=== PATIENT | male | born 1950 | race Caucasian/White ===

== ENCOUNTER 2023-04-09 05:41 | Inpatient (IN) | payer OTHER, SELFPAY ==
[2023-04-09] VITALS (17 sets, daily range): BP systolic 100–137; BP diastolic 47–91; BMI 27.3; BMI 26.0
[2023-04-09 02:28] LABS: % Basophils 0.4 % (0-2); % Eosinophils 0.1 % (0-6); % Immature Granulocytes 0.5 % (0-0.5); % Lymphocytes 8.2 % (20.5-51.1); % Monocytes 6.7 % (1.7-9.3); % Neutrophils 84.1 % (42.2-75.2); Absolute Basophils 0.1 10^3/uL (0-0.2); Absolute Immature Granulocytes 0.1 10^3/uL (0-0.05); Absolute Lymphocytes 1.3 10^3/uL (1.2-3.4); Hematocrit 37.3 % (39.0-52.0); Hemoglobin 12.5 g/dL (13.0-18.0); Mean Corp Hgb Conc. 33.5 g/dL (33.0-37.0); Mean Corpuscular Hgb 26.1 pg (27.0-31.0); Mean Corpuscular Volume 77.9 fL (80.0-94.0); Mean Platelet Volume 8.1 fL (7.4-10.4); Nucleated Red Blood Cells % 0 % (-); Platelet Count 272 10^3/uL (130-400); Red Blood Cell Count 4.79 10^6/uL (4.70-6.10); Red Cell Dist. Width 14.7 % (11.5-14.5); White Blood Cell Count 15.4 10^3/uL (4.8-10.8)
[2023-04-09 02:52] LABS: ALT (SGPT) 20 U/L (0-50); AST (SGOT) 19 U/L (17-59); Albumin 3.6 g/dl (3.5-5.0); Alkaline Phosphatase 95 U/L (38-126); Blood Urea Nitrogen 33 mg/dl (9-20); Calcium 9.2 mg/dl (8.4-10.2); Carbon Dioxide 22 mmol/L (22-30); Chloride 102 mmol/L (98-107); Estimated Creatinine Clearance 115 ml/min; Glucose 131 mg/dl (70-99); Potassium 3.9 mmol/L (3.5-5.1); Sodium 137 mmol/L (135-145); Total Bilirubin 0.7 mg/dl (0.2-1.3); Total Protein 6.5 g/dl (6.3-8.2); eGFR > 60.00
--- NOTE | 2023-04-09 02:54 | ED.GENMED ---
History of Present Illness
<JEREL Díaz - Last Filed: 04/09/23 03:15>
General
Chief Complaint: Breathing Problem
Source: patient
Exam Limitations: none
Time Seen by Provider: 04/09/23 02:21
Nursing documentation reviewed up to this point in time: agreed with
Travel History
Have you had any contact with someone who has COVID-19?: No
Do you have any symptoms of coronavirus? Fever > 100 degrees, chills, cough, shortness of breath, sore throat, loss of taste or smell, muscle aches, or headache?: Yes
Symptoms:: sob
History of Present Illness
History of Present Illness:
73 y/o M with history of COPD and GI bleed secondary to gastric ulcer presents to ED after passing a large 'black' stool tonight around 2300. Patient states he felt constipated for the past day and took laxatives to help. He is also reporting
worsening SOB and productive cough that is painful for past 2 weeks. He has history of COPD diagnosed in July by Dr. Watts, PCP. However, he states tonight especially his cough was so bad he was on his knees coughing and retching. He is also
reporting epigastric pain for a few days. He describes the pain as a constant pain in his epigastric region that is better with eating. It does not radiate. He is also reports localized right sided chest pain and right sided back pain. He states the
pain does not radiate and stays in one spot. He is reporting 15 pound unintentional weight loss since July due to decreased appetite. Patient reports he saw his PCP on Thursday and was given script for CXR which he has not yet completed. He denies
vomiting, NSAID use, diarrhea, congestion, fever, chills, body aches or palpitations.
Past History
<JEREL Díaz - Last Filed: 04/09/23 03:15>
Past History
ED Past Medical History: HTN and Hypercholesterolemia
ED Past Surgical History: Negative Cardiac
Social History
Tobacco: Smoker
Alcohol: Occasional
Drug: None
Personal:
Living: with family
Employment: Employed
Family History
Family History: Hypertension
Review of Systems
<Betzy Cesar CO - Last Filed: 04/09/23 03:15>
Review of Systems
All Other Systems: ROS reviewed and negative except as documented in HPI and ROS
Constitutional: Reports weight loss and sleep disturbance
EENT: Reports no symptoms
Respiratory: Reports cough and trouble breathing
Cardiac: Reports chest pain
ABD/GI: Reports black stools
: Reports no symptoms
Musculoskeletal: Reports back pain
Skin: Reports no symptoms
Neurological: Reports no symptoms
Endocrine: Reports no symptoms
Hematologic/Lymphatic: Reports no symptoms
Psychiatric: Reports no symptoms
Phy Exam
<Vanessajeffrey Cesar, [facility] - Last Filed: 04/09/23 03:15>
General Physical Exam
General Presentation: mild distress
General age: appears stated age
General Skin: warm and dry
General Habitus: normal
General Mental: alert
General Hydration: appears well hydrated
ENT Exam
ENT Exam: EOMI, TM's normal, pharynx normal and normocephalic
Eye Exam
Eye Exam: PERRL, EOMI and conjunctiva normal
Cardiovascular Exam
Cardiovascular Exam: regular rate/rhythm, no edema, no gallop, no murmur and normal peripheral pulses
Pulmonary Exam
Pulmonary Exam: no rales, no crackles, no rhonchi, no wheezing and other (increased WOB mild, decreased breath sounds along lower left lung field, )
Cough: productive cough
Respirations: mild increase in effort
Gastrointestinal Exam
Gastrointestinal Exam: normal bowel sounds, soft, non distended and tender (tender along epigastric region )
Neurological Exam
Neurological Exam: alert and oriented x3
Skin Exam
Skin Exam: normal color, warm/dry and no rash
Psychiatric Exam
Psychiatric Exam: normal mood/affect
<Mirna London DO - Last Filed: 04/09/23 07:48>
Heart Failure Risk
Heart Failure Risk Score: Not Applicable
Course
<VanessaST SandyPA - Last Filed: 04/09/23 03:15>
Orders/Labs/Results
Orders:
Orders
04/09/23 02:07
EKG [Electrocardiogram (*1)] Urgent
Reason for Study: Shortness of Breath
04/09/23 02:08
EKG- Treatment ONCE
04/09/23 02:20
Complete Blood Count/With Diff Urgent
Comprehensive Metabolic Panel Urgent
Lipase Urgent
NT-proBNP Urgent
Comment: ADDED
Troponin I Urgent
04/09/23 02:31
Add On- LAB Urgent
Tests Added?: lipase
0.9% Sodium Chloride 1000 ml [Nss] 1,000 ml IV BOLUS
04/09/23 02:46
Pantoprazole 80 mg/100 ml Nss [Protonix] 80 mg in 100 ml IV NOW
Pantoprazole [Protonix IV] 80 mg IV NOW STA
CR Chest - 2 Views Urgent
Comment:
Reason For Exam: SOB, R CP, cough
04/09/23 02:53
Type+Screen Urgent
COVID-19 Antigen Urgent
Source: Nasal Swab
Lactic Acid Urgent
Influenza A+B Rapid Molecular Urgent
GIORGI Source: Nasal Swab
Specimen Description:
04/09/23 02:56
Add On- LAB Urgent
Tests Added?: pro bnp
04/09/23 03:54
CT Chest Pe Study Urgent
Comment:
Reason For Exam: SOB, massive pleural effusion on R
Diphenhydramine [Benadryl] 50 mg IV NOW STA
Hydrocortisone Sod Succinate [Solu-Cortef] 200 mg IV NOW STA
04/09/23 04:48
Admit/Transfer Patient As Directed
Co-Sign Provider:
Level of Care: Inpatient admission
Assign to:: IMU- Intermediate Care
Physician / Group: htay
Diagnosis: GIB, Sxtic Pleural effusion, Epigastric pain , SoB
Reason for Hospitalization: GIB, Sxtic Pleural effusion, Epigastric pain , SoB
Expected length of stay greater than two midnights?: Yes
ELOS- Estimated Length of Stay in days: 5
I certify the patient meets the requirements for IP care: Yes
04/09/23 04:51
Code Status As Directed
Resuscitation Status: Full Code
04/09/23 Breakfast
NPO
Allow oral meds: Yes
Allow clear liquids: No
NPO with Ice Chips: Yes
04/09/23 06:05
Troponin I Urgent
04/09/23 06:24
H&H Q6H
0.9% Sodium Chloride 1000 ml [Nss] 1,000 ml IV 60 mls/hr
Ipratropium/Albuterol Sulfate [Duoneb] 3 ml INH R Q4HPRN PRN
04/09/23 06:24
Add On- LAB Routine
Tests Added?: Body Fluid Triglycerides
Consult Notification Routine
Specialty to Notify: Gastroenterology
Date consulting provider notified: 04/09/23
Time consulting provider notified: 07:35
Notified:: Provider
Consult Notification Routine
Specialty to Notify: IRAD (Interventional Radiology)
Date consulting provider notified: 04/09/23
Time consulting provider notified: 07:13
Notified:: Office
Consult Notification Routine
Specialty to Notify: Pulmonary
Date consulting provider notified: 04/09/23
Time consulting provider notified: 07:36
Notified:: Provider
GASTROINTESTINAL CONSULT Routine
Consulting Provider: Felisha Golden
Was physician already notified: No
Reason for consult: HoB POS balck stool
IRAD CONSULT Routine
Consulting Provider: Eder Tejeda
Was physician already notified: No
Reason for consult: Symromatic Rt sided pleural effusion
PULMONARY CONSULT Routine
Consulting Provider: Alice Petty
Was physician already notified: No
Reason for consult: Symtomatic large Rt plural efffusion, HX COPD
Body Fluid Amylase Routine
Fluid Source: Pleural
Body Fluid Cell Count Routine
What is the Body Fluid: pleural fluid
Body Fluid Glucose Routine
Fluid Source: Pleural
Body Fluid LDH Routine
Fluid Source: Pleural
Body Fluid Protein Routine
Fluid Source: Pleural
Body Fluid Triglycerides Routine
Fluid Source: Pleural
Body Fluid pH Routine
Fluid Source: Pleural
LDH Routine
Comment: post procedure, add on to morning labs if already drawn
Total Protein Routine
Comment: post procedure, add on to morning labs if already drawn
Fluid Culture with Gram Stain Routine
GIORGI Source: Pleural Fluid
Specimen Description:
Gram Stain Routine
GIORGI Source: Pleural Fluid
Specimen Description:
Comment: POST PROCEDURE
Activity As Directed
Activity Level: Encourage Progressive Amb
INT (Intravenous Needle Therapy) As Directed
Comment: Place 2 IV catheters of the largest bore possible until stable
Intake/ Output As Directed
Frequency: Per unit guidelines
Orthostatic Vital Signs As Directed
Orthostatic VS Frequency: Now
Comment: then every four hours for twenty-four hours
Pneumatic Compression Sleeves As Directed
Type: Knee high
Vital Signs As Directed
Frequency: Per unit guidelines
DX Deep Vein Thrombosis Video Routine
04/09/23 12:00
Pantoprazole 80 mg/100 ml Nss [Protonix] 80 mg in 100 ml IV Q10H
04/09/23 12:24
H&H Q6H
04/09/23 18:24
H&H Q6H
04/10/23 00:24
H&H Q6H
04/10/23 06:00
Basic Metabolic Panel IN AM
Abnormal Lab Results
04/09/23
02:20
WBC 15.4 H 10^3/uL
(4.8-10.8)
Hgb 12.5 L g/dL
(13.0-18.0)
Hct 37.3 L %
(39.0-52.0)
MCV 77.9 L fL
(80.0-94.0)
MCH 26.1 L pg
(27.0-31.0)
RDW 14.7 H %
(11.5-14.5)
Abs Immat Gran (auto) 0.1 H 10^3/uL
(0-0.05)
Absolute Neuts (auto) 13.0 H 10^3/uL
(1.4-6.5)
Absolute Monos (auto) 1.0 H 10^3/uL
(0.1-0.6)
Neutrophils % 84.1 H %
(42.2-75.2)
Lymphocytes % 8.2 L %
(20.5-51.1)
BUN 33 H mg/dl
(9-20)
Creatinine 0.6 L mg/dL
(0.7-1.3)
Glucose 131 H mg/dl
(70-99)
04/09/23 02:20
04/09/23 02:20
Vital Signs
Initial and Last Documented VS:
Initial Vital Signs
Temp Pulse Resp BP Pulse Ox
97.5 F 129 28 122/91 98
04/09/23 02:09 04/09/23 02:09 04/09/23 02:09 04/09/23 02:09 04/09/23 02:09
Last Documented Vital Signs
Temp Pulse Resp BP Pulse Ox
98.3 F 111 24 135/81 98
04/09/23 06:27 04/09/23 06:30 04/09/23 06:30 04/09/23 06:25 04/09/23 06:30
<Mirna London, DO - Last Filed: 04/09/23 07:48>
Orders/Labs/Results
Orders:
Orders
04/09/23 02:07
EKG [Electrocardiogram (*1)] Urgent
Reason for Study: Shortness of Breath
04/09/23 02:08
EKG- Treatment ONCE
04/09/23 02:20
Complete Blood Count/With Diff Urgent
Comprehensive Metabolic Panel Urgent
Lipase Urgent
NT-proBNP Urgent
Comment: ADDED
Troponin I Urgent
04/09/23 02:31
Add On- LAB Urgent
Tests Added?: lipase
0.9% Sodium Chloride 1000 ml [Nss] 1,000 ml IV BOLUS
04/09/23 02:46
Pantoprazole 80 mg/100 ml Nss [Protonix] 80 mg in 100 ml IV NOW
Pantoprazole [Protonix IV] 80 mg IV NOW STA
CR Chest - 2 Views Urgent
Comment:
Reason For Exam: SOB, R CP, cough
04/09/23 02:53
Type+Screen Urgent
COVID-19 Antigen Urgent
Source: Nasal Swab
Lactic Acid Urgent
Influenza A+B Rapid Molecular Urgent
GIORGI Source: Nasal Swab
Specimen Description:
04/09/23 02:56
Add On- LAB Urgent
Tests Added?: pro bnp
04/09/23 03:54
CT Chest Pe Study Urgent
Comment:
Reason For Exam: SOB, massive pleural effusion on R
Diphenhydramine [Benadryl] 50 mg IV NOW STA
Hydrocortisone Sod Succinate [Solu-Cortef] 200 mg IV NOW STA
04/09/23 04:48
Admit/Transfer Patient As Directed
Co-Sign Provider:
Level of Care: Inpatient admission
Assign to:: IMU- Intermediate Care
Physician / Group: htay
Diagnosis: GIB, Sxtic Pleural effusion, Epigastric pain , SoB
Reason for Hospitalization: GIB, Sxtic Pleural effusion, Epigastric pain , SoB
Expected length of stay greater than two midnights?: Yes
ELOS- Estimated Length of Stay in days: 5
I certify the patient meets the requirements for IP care: Yes
04/09/23 04:51
Code Status As Directed
Resuscitation Status: Full Code
04/09/23 Breakfast
NPO
Allow oral meds: Yes
Allow clear liquids: No
NPO with Ice Chips: Yes
04/09/23 06:05
Troponin I Urgent
04/09/23 06:24
H&H Q6H
0.9% Sodium Chloride 1000 ml [Nss] 1,000 ml IV 60 mls/hr
Ipratropium/Albuterol Sulfate [Duoneb] 3 ml INH R Q4HPRN PRN
04/09/23 06:24
Add On- LAB Routine
Tests Added?: Body Fluid Triglycerides
Consult Notification Routine
Specialty to Notify: Gastroenterology
Date consulting provider notified: 04/09/23
Time consulting provider notified: 07:35
Notified:: Provider
Consult Notification Routine
Specialty to Notify: IRAD (Interventional Radiology)
Date consulting provider notified: 04/09/23
Time consulting provider notified: 07:13
Notified:: Office
Consult Notification Routine
Specialty to Notify: Pulmonary
Date consulting provider notified: 04/09/23
Time consulting provider notified: 07:36
Notified:: Provider
GASTROINTESTINAL CONSULT Routine
Consulting Provider: Felisha Golden
Was physician already notified: No
Reason for consult: HoB POS balck stool
IRAD CONSULT Routine
Consulting Provider: Eder Tejeda
Was physician already notified: No
Reason for consult: Symromatic Rt sided pleural effusion
PULMONARY CONSULT Routine
Consulting Provider: Alice Petty
Was physician already notified: No
Reason for consult: Symtomatic large Rt plural efffusion, HX COPD
Body Fluid Amylase Routine
Fluid Source: Pleural
Body Fluid Cell Count Routine
What is the Body Fluid: pleural fluid
Body Fluid Glucose Routine
Fluid Source: Pleural
Body Fluid LDH Routine
Fluid Source: Pleural
Body Fluid Protein Routine
Fluid Source: Pleural
Body Fluid Triglycerides Routine
Fluid Source: Pleural
Body Fluid pH Routine
Fluid Source: Pleural
LDH Routine
Comment: post procedure, add on to morning labs if already drawn
Total Protein Routine
Comment: post procedure, add on to morning labs if already drawn
Fluid Culture with Gram Stain Routine
GIORGI Source: Pleural Fluid
Specimen Description:
Gram Stain Routine
GIORGI Source: Pleural Fluid
Specimen Description:
Comment: POST PROCEDURE
Activity As Directed
Activity Level: Encourage Progressive Amb
INT (Intravenous Needle Therapy) As Directed
Comment: Place 2 IV catheters of the largest bore possible until stable
Intake/ Output As Directed
Frequency: Per unit guidelines
Orthostatic Vital Signs As Directed
Orthostatic VS Frequency: Now
Comment: then every four hours for twenty-four hours
Pneumatic Compression Sleeves As Directed
Type: Knee high
Vital Signs As Directed
Frequency: Per unit guidelines
DX Deep Vein Thrombosis Video Routine
04/09/23 12:00
Pantoprazole 80 mg/100 ml Nss [Protonix] 80 mg in 100 ml IV Q10H
04/09/23 12:24
H&H Q6H
04/09/23 18:24
H&H Q6H
04/10/23 00:24
H&H Q6H
04/10/23 06:00
Basic Metabolic Panel IN AM
Abnormal Lab Results
04/09/23
02:20
WBC 15.4 H 10^3/uL
(4.8-10.8)
Hgb 12.5 L g/dL
(13.0-18.0)
Hct 37.3 L %
(39.0-52.0)
MCV 77.9 L fL
(80.0-94.0)
MCH 26.1 L pg
(27.0-31.0)
RDW 14.7 H %
(11.5-14.5)
Abs Immat Gran (auto) 0.1 H 10^3/uL
(0-0.05)
Absolute Neuts (auto) 13.0 H 10^3/uL
(1.4-6.5)
Absolute Monos (auto) 1.0 H 10^3/uL
(0.1-0.6)
Neutrophils % 84.1 H %
(42.2-75.2)
Lymphocytes % 8.2 L %
(20.5-51.1)
BUN 33 H mg/dl
(9-20)
Creatinine 0.6 L mg/dL
(0.7-1.3)
Glucose 131 H mg/dl
(70-99)
04/09/23 02:20
04/09/23 02:20
Vital Signs
Initial and Last Documented VS:
Initial Vital Signs
Temp Pulse Resp BP Pulse Ox
97.5 F 129 28 122/91 98
04/09/23 02:09 04/09/23 02:09 04/09/23 02:09 04/09/23 02:09 04/09/23 02:09
Last Documented Vital Signs
Temp Pulse Resp BP Pulse Ox
98.3 F 111 24 135/81 98
04/09/23 06:27 04/09/23 06:30 04/09/23 06:30 04/09/23 06:25 04/09/23 06:30
<JEREL Díaz - Last Filed: 04/09/23 03:15>
MDM/Problems Addressed
Differential Diagnosis Includes:
GI bleed
PNA
Cancer
COPD exacerbation
Gastroenteritis
<JEREL Díaz - Last Filed: 04/09/23 03:15>
*Critical Care Note
Total Time (30-74mins, 75-104mins- exclusive of procedures): Not Applicable
<Mirna London DO - Last Filed: 04/09/23 07:48>
*Radiology
Radiology exam reviewed: preliminary read by ED provider (Chest x-ray shows massive likely pleural effusion on the right with mild deviation of trachea to the left.)
*Pulse Oximetry
Patient hypoxic: no
*EKG
Interpreted by ED Provider?: Yes
Interpretation: abnormal
Comparison EKG: no changes (Unchanged from previous December 2019 stable heart rate has increased from 102 to now 130)
Rate: tachycardiac
Rhythm: sinus
[place]: normal axis
Interval: normal interval
QRS Pattern: normal QRS
Ischemia: non-specific ST changes
*Loader Demolder Interpretation
Rate: tachycardiac
Interpretation: abnormal
Rhythm: sinus
*Critical Care Note
Total Time (30-74mins, 75-104mins- exclusive of procedures): 30
comment:
Critical care statement: A total of 30 minutes of critical care time was provided for this patient. This includes management of unstable vital signs, evaluation of the patient at bedside, reviewing the patient's pertinent medical records, discussion
with consultants, review of old EKGs and review of pertinent medical records. This time with separate from time utilized to perform the aforementioned documented procedures
ED Attending Note
<JEREL Díaz - Last Filed: 04/09/23 03:15>
-
Portions of this chart may have been created with voice recognition software.� Occasional wrong word or��sound alike� substitutions may have occurred due to the inherent limitations of voice recognition software.
<Mirna London DO - Last Filed: 04/09/23 07:48>
ED Attending Note
Patient seen and examined by attending physician: Yes
I performed the substantive portion of visit, reviewed & personally made and approve the management plan that is documented in note by myself or MICHELLE.: Yes
I performed a history and physical exam of patient and discussed management with resident, I reviewed resident's note and agree with documented findings and plan of care.: Yes
ED Attending Note:
This is a 73-year-old gentleman who resides at home with his . He has history of CAD, hypertension, hyperlipidemia, COPD, prior history of smoking and prior history of symptomatic upper GI bleed requiring hospitalization, blood transfusion
December 2019. At that time patient had been taking a fair amount of NSAIDs for arthritis pain. Since that hospitalization he denies further NSAID use.
He does note somewhat chronic cough which he relates to COPD, was started on Trelegy today by his primary care physician Dr. Paul.
More recently however over the past week he has had increased cough and progressive shortness of breath, dyspnea on exertion along with some generalized upper abdominal pain and right anterolateral to right flank chest pain. Shortness of breath has
become much worse throughout the day today with lightheadedness with standing, progressive dyspnea on exertion today and he passed a large black stool tonight. He is also noted some intermittent retching tonight without vomiting. He notes very
mild, chronic bilateral lower extremity edema. He has had some unintentional weight loss over the past 12 months.
GENERAL: 73-year-old gentleman appears his stated age, awake and alert, moderately ill in appearance. Moderate resting tachypnea but able to speak in full sentences. Intermittent harsh nonproductive cough is noted.
EYE: pupils equal and reactive. anicteric. Conjunctiva are pink.
NECK: Supple, nontender, no meningismus, no significant adenopathy. No JVD.
ENT: oral mucosa is moist. No rhinorrhea.
CARDIAC: Regular rhythm, tachycardic. no murmur.
LUNGS: Mild resting tachypnea, markedly decreased breath sounds right lung field with dullness to percussion right posterior lung field at least [address] up. Left lung field is clear.
ABDOMEN: Soft, nondistended, mild tenderness epigastric region, no r/g, minimal right CVA tenderness to percussion. Normoactive BS. Rectal exam by KEVIN student�black stool that is heme positive.
NEUROLOGICAL: Alert and oriented x3, no focal neuro deficits.
SKIN: Warm and dry, normal color, skin intact. No rash.
MUSCULOSKELETAL: No clubbing or cyanosis, trace pretibial edema bilaterally, peripheral pulses are full and equal b/l. No palpable tenderness.
PSYCH: Normal and appropriate interaction.
Patient is noted to be tachycardic, systolic blood pressure of 122 but significant concern for orthostasis, hemodynamic instability.
With epigastric pain, black stool that is heme positive, I suspect recurrent upper GI bleed with concern for symptomatic/acute blood loss anemia.
With cough, shortness of breath, right lower thoracic chest discomfort and decreased breath sounds on right, concern for pleural effusion, pneumonia, atelectasis,pneumothorax. Less likely CHF as left lung field is clear.
Other consideration is ACS, sepsis.
Will initiate IV fluid resuscitation, IV Protonix bolus and drip.
Labs are pending and will check COVID and influenza testing as well.
Will check chest x-ray.
04/09/2023 0433 AM
Sinus tachycardia his mildly improved with IV fluid bolus.
Chest x-ray shows what appears to be massive pleural effusion with complete opacification of right hemithorax.
On clinical exam, nothing to suggest cardiac tamponade, neck veins are not distended and overall feeling at least mildly improved after IV fluids.
Will check CT of the chest.
Labs show mild anemia with hemoglobin of 12.5, white blood cell count of 15.4.
BUN of 33 with creatinine is 0.6. Concerning for upper GI bleed.
Troponin is negative, BNP is normal at 38 as expected.
COVID and influenza are negative.
With massive pleural effusion, unintentional weight loss, prior smoking history, significant concern for underlying mass lesion, occult malignancy.
Discharge Plan
Departure
Patient Disposition: Admit
Date of Disposition: 04/09/23
Time of Disposition: 04:29
Admit to: IMU
Admit to doctor: Leonard
Presentation/result/management discussed w/ accepting MD/DO: Hospitalist
Condition: Serious
Discharge Problem:
Acute upper gastrointestinal bleeding, massive pleural effusion
Interventions
Interventions:
*Risk Screen - Suicide Last Done: 04/09/23 02:09
*General Assessment Last Done: 04/09/23 02:09
*Neglect/Abuse Screening Last Done: 04/09/23 02:09
ED- Fall Risk Assessment Last Done: 04/09/23 02:09
*ED COVID-19 Vaccine History Last Done: 04/09/23 02:09
*Nursing Disposition Last Done: 04/09/23 06:05
ED- Cardiac Assessment Last Done: 04/09/23 02:27
ED- Pulmonary Assessment Last Done: 04/09/23 02:27
Discharge Date and Time
Discharge Date/Time: 04/09/23 06:30
[2023-04-09 03:03] LABS: Troponin I < 0.012 ng/ml
[2023-04-09] MEDS: PROTONIX IV 80 MG IV (03:06)
[2023-04-09] MEDS: NSS 1000 IV ×3 (03:07→22:24)
[2023-04-09 03:14] LABS: Lipase 40 U/L (23-300)
[2023-04-09 03:17] LABS: Lactic Acid 1.7 mmol/L (0.7-2.0)
[2023-04-09 03:26] LABS: NT-proBNP 38.6 pg/ml
[2023-04-09 03:31] LABS: COVID-19 Antigen Negative (Negative)
[2023-04-09] MEDS: PROTONIX 100 IV ×3 (03:48→22:24)
[2023-04-09] MEDS: BENADRYL 50 MG IV (04:06)
[2023-04-09] MEDS: SOLU-CORTEF 200 MG IV (04:06)
--- NOTE | 2023-04-09 04:43 | HPS.HSE ---
Addendum entered and electronically signed by Federico Valle MD 04/09/23 15:03:
[facility] PE protocol
1. � No pulmonary embolism identified.
2. � Very large right pleural effusion completely filling the right hemithorax with associated complete atelectasis of the right lung and mass effect against the mediastinum with mediastinal shift to the left.
3. � Emphysema.
Addendum entered and electronically signed by Federico Valle MD 04/09/23 05:29:
Addendum : Pul consult for evaluation fo large Rt sided pleural effusion
Original Note:
Family Physician
-
Family Physician: Mack Paul
Chief Complaint
-
Balck stool, epigastric pain , Rt side CP, SoB
History of Present Illness
HPI
73M former smoker, COPD HX GIB, ACLA requiring blood Tx , EGD evidence of non-bleeding gastric ulcer in 2019, HX CAD evaluation at ER for acute onset of black stool BM associated witjh acute epigastric pain for last few days. pain is relieved by
eating. No recent use of NSAIDs
Reportedly involuntary wt loss 15 lbs since last yr July. Before that he was intentionally loosing wt.
He was recently seen by PCP for cough and SoB.
Rt sided constant CP not clearly associated with inspiration
Progressively SoB now with 2-3 words sentence.
Medical History
Past Medical History
Past Medical History: Reports CAD (with stents ), COPD, HTN, Hypercholesterolemia and Other (HX Dz )
Past Surgical History: Reports Cardiac (stents )
Social History
Tobacco: Former Smoker
Alcohol: None
Drug: None
Family History
Family History: Not pertinent
Allergies / Home Medications
Allergies reflects when Allergies were last updated in [facility].
Home Medications with original date entered in [facility]
Allergy/Medication List:
Allergies
Allergy/AdvReac Type Severity Reaction Status Date / Time
shellfish derived Allergy Severe Anaphylaxis Verified 04/09/23 02:08
Home Medications
Vitamin C: 2 tab PO DAILY Supplement 01/05/20
Zinc 1 tab PO DAILY Supplement 01/05/20
atorvastatin 80 mg tablet 80 mg PO QPM High cholesterol 01/05/20
cholecalciferol (vitamin D3) 50 mcg (2,000 unit) tablet 2,000 units PO DAILY Supplement 01/05/20
metoprolol tartrate 25 mg tablet 12.5 mg PO BID Blood pressure 01/05/20
oxymetazoline 0.05 % nasal spray (Afrin Sinus (oxymetazoline)) 1 sprays intranasal DAILYPRN PRN congestion 01/05/20
pantoprazole 40 mg tablet,delayed release 40 mg PO BID #60 tabs 01/07/20
Review of Systems
-
Constitutional: Reports No Symptoms
EENT: Reports No Symptoms
Respiratory: Reports See HPI and Trouble Breathing
Cardiac: Reports No Symptoms and Chest Pain (rt sdied and constant )
Abdomen/GI: Reports Black Stools
: Reports No Symptoms
Musculoskeletal: Reports No Symptoms
Skin: Reports No Symptoms
Neurological: Reports No Symptoms
Endocrine: Reports No Symptoms
Hematologic/Lymphatic: Reports No Symptoms
Psych: Reports No Symptoms
Physical Exam
Vital Signs
Vital Signs
Temp Pulse Resp BP Pulse Ox
97.5 F 115 24 118/81 97
04/09/23 02:09 04/09/23 04:00 04/09/23 04:00 04/09/23 03:00 04/09/23 04:00
Physical Exam
General: Respiratory Distress (dyspnic with 3- 4words sentence , improved with lying in Rt latreral position ) and Other (not toxic looking )
HEENT: NormoCephalic and Anicteric
Respiratory: Accessory Resp Muscle Use and Decreased Breath Sounds (especially at Rt lower chest field ); No Wheezes or Rhonchi
Cardiac: S1/S2 and Regular Rhythm; No Murmur
Breast: Deferred by me
GI: Soft, Non Tender, Non Distended and Normal Bowel Sounds
Rectal: Black (HUSSEIN by ER )
Genito-urinary: Deferred by me
Musculoskeletal: No Cyanosis and No Edema
Skin: Warm
Neuro: AO x 3 and No Motor Deficits
Psych: Calm (pleasant )
Laboratory Results
-
04/09/23 02:20
04/09/23 02:20
Laboratory Results
Lactic Acid 1.7 mmol/L (0.7-2.0) 04/09/23 02:53
Total Bilirubin 0.7 mg/dl (0.2-1.3) 04/09/23 02:20
AST 19 U/L (17-59) 04/09/23 02:20
ALT 20 U/L (0-50) 04/09/23 02:20
Alkaline Phosphatase 95 U/L (38-126) 04/09/23 02:20
Troponin I < 0.012 ng/ml 04/09/23 02:20
Lipase 40 U/L (23-300) 04/09/23 02:20
Data Reviewed
-
Diagnostic Radiology: Report Reviewed by me
CT Scan: Other (pending CTA P protocol )
Medical Tests (Nuc Med, Echo, EKG etc): Report Reviewed by me
Lab Data: Labs Reviewed by me
Old Records: Reviewed
Impression/Plan
-
Reviewed VS: afebrile ST 110-120 , tachynic, BP 120/80 POx 98 on RA
Data
WCC 15.4
Hgb 12.4 - last Hgb was 9.8 in 01/09/20
BUN 33
Cr 0.6
BG 131
Pending TPNI
NEG proBNP
NEG Flu A & B
NEG Covid Ag
CXR: large Rt sided effusion
Pending CTA Chest for PE protocol
EKG
ST NOS ST abn
Abn EKG
10/27/22 ECHO
LVEF 60 %
Nl diastolic function
Last hospitalist admission: 01/05/20 - 01/07/20 DC DX
UGIB
ABLA requiring transfusion.
ASSESSMENT & PLAN
Pending Rx reconciliation
Acute HoB POS Black stool GIB -suspect UGI origin
Initial Hgb 12.4 , BUN 33
HX GIB with EGD evidence of non-bleeding gastric ulcer in 2019
- T & S, Blood consent
- PPI gtt
- H & H q6h
- NPO and IVF
- GI consult
15 lbs Wt loss- intentional at first but unintentionally wt loss since July 2022
DDX : GI neoplasm or lung Neoplasm
- To consider EGD
- await [facility] PE protocol
Large Rt side pleural effusion - symptomatic
Cough with progressive SoB
Rt sided lower CP ? Pleuritic
Clinically not in HF
tachycardic
- agree with [facility] PE protocol
- IR consult for Rt sided thoracentesis
HX COPD - clinically not broncho spastic
- cont OP Meds
Chr conditions
Hyperlipidemia - cont statin
Essential hypertension - cont metoprolol with hold parameters for SBP < 110
CAD with stents - cont statin
DVT Px: SCD
Code: Full
IMU
[2023-04-09 06:44] LABS: Troponin I < 0.012 ng/ml
--- NOTE | 2023-04-09 07:02 | CON.GI ---
Addendum entered and electronically signed by Felisha Frost Do, MD 04/09/23 10:31:
I saw and examined the patient.
The COOL ROOFING INSTALLER's note was reviewed and I agree with the note.
Comment: Nito is a 73yo M with h/o COPD and CAD s/p stent not on AC who was admitted for SOB and found to have large R sided pleural effusion. GI consulted for melena. He has remote h/o PUD on EGD with myself in Dec 2019 with 6mm gastric ulcer
and H.pylori gastritis for which he completed treatment. He did not do stool studies to confirm eradication or repeat EGD to ascertain healing. He does use NSAIDs but not routinely. Exam vitals HR 108. Labs Hbg 10.9. CT chest very large R
pleural effusion, COPD
Impression
- Melena and h/o PUD on EGD 12/2019
ddx includes recurrent PUD, malignancy or ectasia
- Hpylori gastritis
- Large R pleural effusion
- COPD
- HTN
- HL
- CAD s/p stent not on AC
Recommendations
- C/w PPI BID
- 2 large bore IVs
- CLD after thoracentesis and NPO at [facility]
- If respiratory status improves plan for EGD tomorrow
- He is also overdue for OP colonoscopy
Will follow with you.
Addendum entered and electronically signed by NANNETTE Castellanos 04/09/23 09:41:
medication updated in system. On daily ASA but no anticoagulation prior to admission. No PPI prior to admission
Original Note:
Consultation
-
Date/Time Consultation Requested: 04/09/23619
Date/Time Consultation Performed: 04/09/23729
Requesting Provider: Federico Valle MD
Performing Provider: NANNETTE Trevizo, Felisha Golden MD
Reason for Consultation: black stools
Medical History
Chief Complaint / HPI
History of Present Illness:
Pt is a 73yo with hx CAD prior stents, HTN, hypercholesterolemia, COPD, GI bleed 2019 with prior gastric ulcer with H pylori (recall taking treatment but no follow up testing or repeat EGD) now with onset of black stools with epigastric pain. He
is also noted with shortness of breath with concern for large effusion on admission. Labs on admission noted with hbg 12.5 with prior hbg 9 range in 2019 with prior GI bleeding.
At this time patient notes shortness of breath, black stool but also concern for wt loss. He initially lost 20 lbs intentionally but then lost 15 lbs in last several month unintentionally. He admits to GERD with Gaviscon use as needed no prior
pepto use. + decreased appetites and constipation with eating less. He also had mild abdominal pain worse with fasting and improved short term after eating. He denies odynophagia, dysphagia, red blood in stools.
12/2019 -Felisha Do- Normal esophagus. 2cm HH, non bleeding 6 mm gastric ulcer with stigmata of bleeding, erythematous duodenopathy, normal first and portion of duodenum + H pylori
04/07/12- [facility] colonoscopy 9 mm polyp rectum, IH bx adenomatous polyps with adenomatous gland close approximate to polypectomy margin
�� �
Past Medical History
Past Medical History: CAD, COPD, HTN, Hypercholesterolemia and Other (prior smoker, GI bleed gastric ulcer in 2019, H Pylori, effusion)
Past Surgical History: Cardiac (stents)
Social History
Tobacco: Former Smoker
Alcohol: None
Drug: Marijuana
Personal:
Living: With Family
Family History
Family History: Other (no family hx colon CA or polyps)
Allergies / Home Medications
Allergy/AdvReac Type Severity Reaction Status Date / Time
shellfish derived Allergy Severe Anaphylaxis Verified 04/09/23 02:08
Medication Instructions Recorded
Vitamin C: 2 tab PO DAILY Supplement 01/05/20
Zinc 1 tab PO DAILY Supplement 01/05/20
atorvastatin 80 mg tablet 80 mg PO QPM High cholesterol 01/05/20
cholecalciferol (vitamin D3) 50 2,000 units PO DAILY Supplement 01/05/20
mcg (2,000 unit) tablet
metoprolol tartrate 25 mg tablet 12.5 mg PO BID Blood pressure 01/05/20
oxymetazoline 0.05 % nasal spray 1 sprays intranasal DAILYPRN PRN 01/05/20
(Afrin Sinus (oxymetazoline)) congestion
pantoprazole 40 mg tablet,delayed 40 mg PO BID #60 tabs 01/07/20
release
Review of Systems
-
History Source: Patient and Family
Constitutional: Reports Weight Loss and Fatigue
EENT: Reports No Symptoms
Respiratory: Reports Trouble Breathing
Cardiac: Reports Palpitations
Abdomen/GI: Reports Abdominal Pain and Black Stools
: Reports No Symptoms
Musculoskeletal: Reports Joint Pain
Skin: Reports No Symptoms
Neurological: Reports Weakness
Endocrine: Reports No Symptoms
Hematologic/Lymphatic: Reports Bleeding
Vital Signs
Temp Pulse Resp BP Pulse Ox
98.3 F 111 24 135/81 98
04/09/23 06:27 04/09/23 06:30 04/09/23 06:30 04/09/23 06:25 04/09/23 06:30
Physical Exam
Exam
General: Well Developed, Well Nourished and No Apparent Distress
HEENT: Normocephalic and Anicteric
Respiratory: Other (right side decreased throughout, shortness of breath at rest )
Cardiac: Other (tachy with increased HR with deep breaths )
GI: Soft, Non Distended and Tender (minimal epigastric tenderness )
Rectal: Other (black heme + in ER)
Musculoskeletal: No Clubbing and No Cyanosis
Skin: Warm and Dry
Neuro: Awake, Alert and AO x 3
Psych: Calm
Results
WBC 15.4 10^3/uL (4.8-10.8) H 04/09/23 02:20
Hgb 12.5 g/dL (13.0-18.0) L 04/09/23 02:20
Hct 37.3 % (39.0-52.0) L 04/09/23 02:20
MCV 77.9 fL (80.0-94.0) L 04/09/23 02:20
Plt Count 272 10^3/uL (130-400) 04/09/23 02:20
Absolute Neuts (auto) 13.0 10^3/uL (1.4-6.5) H 04/09/23 02:20
Sodium 137 mmol/L (135-145) 04/09/23 02:20
Potassium 3.9 mmol/L (3.5-5.1) 04/09/23 02:20
Chloride 102 mmol/L (98-107) 04/09/23 02:20
Carbon Dioxide 22 mmol/L (22-30) 04/09/23 02:20
BUN 33 mg/dl (9-20) H 04/09/23 02:20
Creatinine 0.6 mg/dL (0.7-1.3) L 04/09/23 02:20
Calcium 9.2 mg/dl (8.4-10.2) 04/09/23 02:20
Total Bilirubin 0.7 mg/dl (0.2-1.3) 04/09/23 02:20
AST 19 U/L (17-59) 04/09/23 02:20
ALT 20 U/L (0-50) 04/09/23 02:20
Alkaline Phosphatase 95 U/L (38-126) 04/09/23 02:20
Lipase 40 U/L (23-300) 04/09/23 02:20
Diagnostic Image Results:
CXR and CT chest pending
Prior GI Procedures:
12/2019 -Felisha Do- Normal esophagus. 2cm HH, non bleeding 6 mm gastric ulcer with stigmata of bleeding, erythematous duodenopathy, normal first and portion of duodenum + H pylori
04/07/12- [facility] colonoscopy 9 mm polyp rectum, IH bx adenomatous polyps with adenomatous gland close approximate to polypectomy margin
Assessment / Plan
-
Pt is a 73yo with hx CAD prior stents, HTN, hypercholesterolemia, COPD, GI bleed 2019 with prior gastric ulcer with H pylori (recall taking treatment but no follow up testing or repeat EGD) now with onset of black stools with epigastric pain. He
is also noted with shortness of breath with concern for large effusion on admission. Labs on admission noted with hbg 12.5 with prior hbg 9 range in 2020 with prior GI bleeding.
-melena
-large right effusion with tachycardia with deep breath
-leukocytosis
-hx prior gastric ulcer
-prior H pylori + pt recall treatment but no follow up testing or EGD
-COPD with some shortness of breath on admission
Other medical problems:
-CAD with prior stents
-HTN
-hypercholesterolemia
PLAN:
etiology of bleeding relate to recurrent PUD, ectasia, mass vs other
will need eventual EGD but currently with large effusion with shortness of breath and tachycardia with deep breath
reviewed with Dr. Golden and Dr. Duvall plan for IR drainage of effusion first then reassess in AM for EGD
trend hbg and stool pattern
if bleeding stable ok for clears later today and NPO in AM
PPI gtt
NSAID avoidance
updated nursing staff and family
will follow
-
-
Thank you for consultation and allowing me to participate in the patient's care. Please call the clinical documentation improvement specialist GI physician during the after hours with any questions or concerns.
--- NOTE | 2023-04-09 07:29 | PTCARENOTE ---
Patient arrived from ER at 0615 this morning, transferred from stretcher to bed with steady gait. AAO x4. Admission questions started. NS IVF and IV protonix gtt initiated. New IV placed by IV team. Tele applied showing NSR/ST. Reports 5/10 pain to
right sided chest area. Reports some SOB, Sp02 95-99% on room air. Oriented to room and use of call gray. Pt and asking questions about diagnosis and CT report. Informed pt and GI and IR consults are in place and to remain NPO at this
time. Report given to SARAHI Cm.
[2023-04-09 09:02] LABS: Hematocrit 32.2 % (39.0-52.0); Hemoglobin 10.9 g/dL (13.0-18.0)
[2023-04-09] MEDS: TYLENOL 650 MG PO ×3 (09:09→22:23)
--- NOTE | 2023-04-09 09:25 | CON.PUL ---
Consultation
Consultation Request
Date/Time Consultation Requested: 04-09-23
Date/Time Consultation Performed: 04-09-23
Requesting Provider: Hospitalist
Performing Provider: Dr Williamson
Reason for Consultation: pleural effusion
Medical History
-
Chief Complaint: melena
History of Present Illness:
Mr Nito Pearson is a 73/M adm 04-09 with few d h/o epigastric abd pain, melena, unintentional 15 lb wt loss in last 8m, and dyspnea.
Prior h/o nonbleeding gastric ulcer in 2019. CXR and then chest CTA showed no PE but a very large R pleural effusion with complete R lung atelectasis and mediastinal deviation to L (of note chest CTA Dec 2019 with no PE and no acute findings)
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
Mild productive cough with no much change
Past Medical History
Past Medical History: Other (see A&P for PMH/PSH)
Social History
Tobacco: Former Smoker
Alcohol: None
Drug: Marijuana
Personal:
Living: With Family
Family History
Family History: Reviewed & Not Pertinent
Allergies / Home Medications
Allergies
Allergy/AdvReac Type Severity Reaction Status Date / Time
shellfish derived Allergy Severe Anaphylaxis Verified 04/09/23 02:08
Home Medications
Medication Instructions Recorded Confirmed Last Taken Type
atorvastatin 80 mg tablet 80 mg PO QPM High cholesterol 01/05/20 04/09/23 2 Days Ago History
~04/07/23
metoprolol tartrate 25 mg tablet 12.5 mg PO BID Blood pressure 01/05/20 04/09/23 2 Days Ago History
~04/07/23
albuterol 90 mcg-budesonide 80 2 inh inhalation PRN PRN SOB 04/09/23 04/09/23 2 Days Ago History
mcg/actuation HFA aerosol inhaler ~04/07/23
aspirin 81 mg tablet 81 mg PO DAILY 04/09/23 04/09/23 2 Days Ago History
~04/07/23
fluticasone fur. 100 mcg-umeclid 1 inh inhalation DAILY 04/09/23 04/09/23 1 Day Ago History
62.5 mcg-vilant 25 mcg ~04/08/23
inhalat.powder (Trelegy Ellipta)
tamsulosin 0.4 mg capsule (Flomax) 0.4 mg PO QDAY 04/09/23 04/09/23 2 Days Ago History
~04/07/23
Review of Systems
-
History Source: Patient
All other systems: Negative unless noted
Constitutional: Weight Loss
Respiratory: Cough and Trouble Breathing
Abdomen/GI: Abdominal Pain
Vitals / Labs / Diagnostic Testing
Vital Signs
Temp Pulse Resp BP Pulse Ox
98.3 F 108 18 111/79 98
04/09/23 06:27 04/09/23 09:00 04/09/23 09:00 04/09/23 08:00 04/09/23 09:00
Lab Data
04/09/23 02:20
Microbiology
04/09/23 02:53 Nasal Swab Influenza Types A & B (SANA) - Final
Negative for Influenza A & B, NAAT
Negative results must be combined with clinical observations
and patient history.
Nucleic Acid Amplification test (NAAT)performed on the
[employer] platform.
Diagnostic Testing:
Physical Exam
-
HEENT: Normocephalic and Moist Mucous Membranes
Cardiovascular: Regular Rhythm, Murmur (m) and Peripheral Edema (mild pedal)
Respiratory: Clear (L) and Other (absent R side sounds)
GI: Soft, Non Distended and Non Tender
Neurology: Awake, AO x 3 and No Motor Deficits
Skin: Dry
General: Respiratory Distress (trace at R)
Assessment
-
Assessment:
Mr Nito Pearson is a 73/M adm 04-09 with few d h/o epigastric abd pain, melena, unintentional 15 lb wt loss in last 8m, and dyspnea. Seen by PCP recently for dyspnea and cough. Prior h/o nonbleeding gastric ulcer in 2019. CXR and then chest CTA showed
no PE but a very large R pleural effusion with complete R lung atelectasis and mediastinal deviation to L (of note chest CTA Dec 2019 with no PE and no acute findings)
Impression:
Very large R pleural effusion complete R atelectasis and mediastinal deviation to L
(CTA 12-27-19 was negative for PE, effusion, mass, showed mild apical emphysema, RLL/HOLGER linear atelectasis, no MLAD)
Negative troponin and BNP
COVID/flu negative
Unintentional wt loss
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
COPD, on trelegy
CAD s/p stents
HTN
HLD
GIB, gastric ulcer 2019
H/o H pylori
Former smoker
Plan:
Resp berry comfortable on RA at rest, POx 96%
Reports significant RAMÍREZ with minimal activity
RAMÍREZ present for last 4 m but progressively worse in last 4-6 wks
Seen by PCP, started flovent 4 m ago, changed to trelegy 1 wk [employer]
Not on home O2, never seen by pulm
Former heavy smoker, 1 ppd for 39 y till age 59
New very large R PF with complete R lung atelectasis and moderate mediastinal deviation to L: unclear chronicity and etiology, but suspected chronic and progressive
Baseline chest CTA Dec 2019 with mild emphysema and RLL, HOLGER linear atelectasis (no PE or MLAD then)
R thoracentesis already ordered
TT IRad requesting chest tube to allow progressive drainage of fluid to reevaluate lung parenchyma, mediastinum and airways for potential biopsy (even assuming R PF cytology is positive, may need additional tissue to fine tune diagnosis of presumed
lung malignancy)
Continue trelegy and prn DNs
Seen by GI for melena, planning endoscopy once resp berry more stable
D/w Mr and Mrs Pearson
[2023-04-09 10:51] LABS: LDH 279 U/L (120-246); Total Protein 6.4 g/dl (6.3-8.2)
[2023-04-09 11:08] LABS: Iron 60 ug/dl (49-181)
[2023-04-09 11:18] LABS: Percent Saturation 22 % (20-50); Total Iron Binding Capacity 270 ug/dl (261-462)
[2023-04-09 11:54] LABS: Ferritin 52.5 ng/ml (17.9-464.0)
[2023-04-09] MEDS: ZOSYN 50 IV ×3 (12:49→23:48)
[2023-04-09] MEDS: NON-FORMULARY ITEM INH (12:49)
[2023-04-09] MEDS: DUONEB 3 ML INH ×2 (12:55→17:49)
[2023-04-09 14:10] LABS: Hematocrit 32.6 % (39.0-52.0)
--- NOTE | 2023-04-09 16:25 | W.PN.UPDATE ---
Addendum entered and electronically signed by Tay Cid MD 04/09/23 17:19:
Patient is now feeling chest pain and dizziness. Over 2.5 L have been drained so far. Will have tube clamped until morning, likely we have drained too much fluid too fast.
Original Note:
Update Note
Progress Note Update
16 Azeri right chest tube placed, yielding dark lizett fluid. Drained 2L on initial placement. Prefer to limit drainage amount to 1 liter per hour to lower risk of reexpansion pulmonary edema.
[2023-04-09 16:38] LABS: Body Fluid Mononuclear 90.6 %; Body Fluid Polymorphonuclear 9.4 %; Body Fluid WBC 983 /CUMM
[2023-04-09 16:43] LABS: Body Fluid Second Tech FB
[2023-04-09 16:49] LABS: Body Fluid Amylase 303 U/L; Body Fluid Glucose < 30 mg/dl; Body Fluid Protein 4.6 g/dl; Body Fluid Triglycerides < 30 mg/dl
[2023-04-09 16:55] LABS: Body Fluid LDH 1939 U/L
--- NOTE | 2023-04-09 18:14 | PTCARENOTE ---
Received patient from IR at 1650. Order to unclamp right chest tube at 1700 and drain no more than a 1L an hour. RN unclamped CT at 1705 and 500ml drained immediately. Patient became diaphoretic, dizzy, lost his voice and c/o chest pressure. RR 31,
94% RA, HR 91, 107/69. Atrium was changed another 450ml drained. IR physician made aware, order to keep chest tube clamped. Patient asking for a breathing treatment, respiratory notified, treatment given and 2l NC placed for patients comfort. Right
chest dressing CDI. Right lung diminished.
[2023-04-09 20:09] LABS: Hematocrit 29.1 % (39.0-52.0); Hemoglobin 9.8 g/dL (13.0-18.0)
[2023-04-09] MEDS: MELATONIN 10 MG PO (20:41)
[2023-04-10] VITALS (13 sets, daily range): BP systolic 25–129; BP diastolic 62–80; BMI 25.3
[2023-04-10] MEDS: TYLENOL 650 MG PO ×3 (03:55→15:10)
--- NOTE | 2023-04-10 04:18 | PTCARENOTE ---
At bedtime RN assisted pt to standing position and tele monitor alarmed HR up to 150s briefly for a few seconds before coming back down to 120s. Pt asymptomatic, and placed back to bed in a laying position. Educated pt on fall risk and activity
restrictions considering the large amount of fluid that was drained from his lung; pt agreed to stay in bed and verbalized understanding.
Requested a sleep aid. Pt states he takes an old prescription for half a Valium at home (5mg). [employer] notified, melatonin 10mg order received and administered per the APR. Pt able to sleep in between care. 2L NC for comfort.
-No BM. Denies any nausea or vomiting. Voiding via urinal.
-Tylenol provided per pt request for generalized body pain.
-Call gray and tray table within reach. Pt calls appropriately.
-Chest tube remains clamped
[2023-04-10 04:22] LABS: Hematocrit 27.8 % (39.0-52.0); Hemoglobin 9.2 g/dL (13.0-18.0); Mean Corp Hgb Conc. 33.1 g/dL (33.0-37.0); Mean Corpuscular Hgb 26.5 pg (27.0-31.0); Mean Corpuscular Volume 80.1 fL (80.0-94.0); Mean Platelet Volume 8.2 fL (7.4-10.4); Platelet Count 181 10^3/uL (130-400); Red Blood Cell Count 3.47 10^6/uL (4.70-6.10); Red Cell Dist. Width 15.1 % (11.5-14.5); White Blood Cell Count 9.3 10^3/uL (4.8-10.8)
[2023-04-10 04:57] LABS: Blood Urea Nitrogen 17 mg/dl (9-20); Calcium 8.4 mg/dl (8.4-10.2); Carbon Dioxide 23 mmol/L (22-30); Chloride 108 mmol/L (98-107); Estimated Creatinine Clearance 115 ml/min; Glucose 99 mg/dl (70-99); Potassium 3.8 mmol/L (3.5-5.1); Sodium 136 mmol/L (135-145); eGFR > 60.00
[2023-04-10 05:47] LABS: Hepatitis C Antibody Negative (Negative)
[2023-04-10] MEDS: ZOSYN 50 IV ×4 (06:15→23:02)
[2023-04-10] MEDS: NON-FORMULARY ITEM 1 INH INH (07:25)
[2023-04-10] MEDS: DUONEB 3 ML INH ×3 (07:27→19:40)
[2023-04-10] MEDS: PROTONIX 100 IV ×2 (08:21→17:52)
--- NOTE | 2023-04-10 08:31 | W.PN.UPDATE ---
Update Note
Progress Note Update
discussed with hospitalist and patient.
Patient appears clinically ready for EGD. Awaiting CXR.
Patient placed on the schedule for this afternoon. Keep NPO, ok for meds with small sip of water
--- NOTE | 2023-04-10 10:04 | W.PN.HOSP.TC ---
Today's Communication/Plan
-
CT tube to be unclamped
f/u cxr in AM ordered
continue abx one more day
Assessment / Plan
Assessment / Plan
1. Large right pleural effusion
Completely collapsed right lung
Acute hypoxic respiratory failure
-No reported previous history of effusion. Former-smoker. No pulmonary disease except COPD
-CT chest PE protocol showing large pleural effusion filling up complete right hemithorax. No PE
-S/p thoracentesis with drainage of 2.5 L brownish non turbid pleural fluid on 04/09. Thoracentesis terminated early as patient was having dizziness/not feeling well , concern of reexpansion pulm edema.
-Chest tube was placed instead and tube clamped.
-Pleural fluid studies showing exudative fluid with TBWC [address] [place] 91% PMN 9.5% LDH 1939 TP 4.6 . gram stain neg. culture and cytology pending.
-Repeat chest x-ray today showing residual moderate effusion in place, discussed with IRAD/pulmonology and tube to be unclamped
2. Leukocytosis w/o fever
-Maintain on empiric Zosyn with ongoing pulm issues
-will de-escalate in 24-48 hrs
3. Melena
History of gastric bypass and PUD
History of H. pylori gastritis
Acute blood loss anemia
-Hemoglobin drifted down to 9.5 from baseline of 12, transfuse if less than 7
-Maintain n.p.o. on PPI drip
-GI planning to do EGD today as pulmonary status better
4. COPD
- no signs of flare up, no indication for steroids
Essential hypertension
History of spinal laminectomy/fusion
BPH
Hyperlipidemia
Coronary artery disease s/p PCI/stenting
History of left TKR
DVT PPX - lovenox
Full code
Care plan discussed with pulmonology/IRAD
Total time spent : 55 mins
I personally saw and examined the patient.
I have reviewed all diagnostic interpretations and treatment plans as written.
Time includes patient management by me, time spent at the patients bedside, time to review lab and imaging results, discussing patient care, documentation in the medical record, and time spent with the family or caregiver and discussing care plan
with RN/Consultants.
Anticipated Discharge: > 48 hours
Subjective/Interval History
-
Date of Service: April 10, 2023
Patient feeling much better
Oxygen requirement is came down
Heart rate better controlled
Able to take better deep breath
Objective Data
-
Labs:
Laboratory Results
04/10/23 04/10/23
04:10 04:11
WBC 9.3
Hgb 9.2 L Cancelled
Hct 27.8 L Cancelled
Plt Count 181 D
Sodium 136
Potassium 3.8
Chloride 108 H
Carbon Dioxide 23
BUN 17
Creatinine 0.6 L
Glucose 99
Calcium 8.4
Vital Signs:
Vital Signs
Temp Pulse Resp BP Pulse Ox
97.9 F 78 12 110/65 97
04/10/23 07:40 04/10/23 07:29 04/10/23 07:29 04/10/23 06:00 04/10/23 07:29
I&O
04/09/23 04/10/23 04/11/23
06:59 06:59 06:59
Intake Total 737 / 737
Output Total 1350 / 1350
Balance -613 / -613
Review of Systems
-
Respiratory: Reports Cough; Denies Trouble Breathing or Wheezing
Cardiac: Reports No Symptoms
Abdomen/GI: Reports No Symptoms
Physical Exam
-
General: No Apparent Distress and Comfortable
HEENT: Oxygen
Respiratory: Rhonchi and Other (Right chest tube - brownish clear liquid drainage)
Cardiac: S1/S2 and Irregular Rhythm; Negative Murmur or Rub
GI: Soft, Nontender and Nondistended
Musculoskeletal: No Edema
Neuro: Awake, Alert, Oriented, No Motor Deficits and Nonfocal/Grossly Intact
Psych: Calm
--- NOTE | 2023-04-10 10:13 | W.PN.PUL.V3 ---
Today's Communication / Plan
-
Wean oxygen
Continue empiric antibiotics
Pleural fluid exudative
Unclamp chest tube
Follow chest x-ray
Monitor for right lung reexpansion
Assessment
-
Assessment:
Mr Nito Pearson is a 73/M adm 04-09 with few d h/o epigastric abd pain, melena, unintentional 15 lb wt loss in last 8m, and dyspnea. Seen by PCP recently for dyspnea and cough. Prior h/o nonbleeding gastric ulcer in 2019. CXR and then chest CTA showed
no PE but a very large R pleural effusion with complete R lung atelectasis and mediastinal deviation to L (of note chest CTA Dec 2019 with no PE and no acute findings)
Very large R pleural effusion complete R atelectasis and mediastinal deviation to L
(CTA 12-27-19 was negative for PE, effusion, mass, showed mild apical emphysema, RLL/HOLGER linear atelectasis, no MLAD)
Progressive shortness of breath-patient reports began July 2022 told he had 'COPD'-last chest radiograph prior to admission 01/05/2020
Negative troponin and BNP
COVID/flu negative
Unintentional wt loss
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
COPD, on trelegy
CAD s/p stents
HTN
HLD
GIB, gastric ulcer 2019
H/o H pylori
Former [id number]-05-avjg-year quit 15 years old
Plan:
Respiratory status improved with significant pleural fluid drainage
Continue supplemental oxygen-attempt to wean
Will need to assess discharge supplemental oxygen needs prior to discharge
Incentive spirometry recommended and will be arranged
Mucus clearing devices
Nebulizers if needed
Trelegy continues
Monitor chest tube output-recommend unclamping chest tube and draining additional fluid-reclamped if greater than 2 L and attempts to prevent reexpansion pulmonary edema
Chest x-ray 04/10/2023 noted-improved right pleural effusion, improved aeration, persistent atelectasis
Hoping right lung reexpanded as pleural fluid is removed-chance that with chronic atelectasis a component of 'trapped lung develops
Reviewed with primary team, nursing and interventional radiology-unclamp chest tube 04/10/2023 and allow for further drainage
Follow chest x-ray
May need repeat CT chest
Pleural fluid analysis 04/09/2023-WBC 983, glucose less than 30, total protein 4.6, LDH 1939, amylase 303, triglycerides less than 30, Gram stain-no organisms, no WBCs, no growth thus far, cytology-pending
Etiology of unilateral large exudative pleural fluid currently unclear-await cytology
Check cultures-unrevealing thus far
Zosyn continues empirically
GI evaluation ongoing
Endoscopy planned-pulmonary status much improved and could tolerate endoscopy especially if further improvement noted with additional pleural fluid removal
DVT prophylaxis-mechanical
GI prophylaxis-on pantoprazole
Nutrition
Early mobilization
Outpatient pulmonary follow-up recommended-PFT, follow-up radiographs, yearly low-dose lung cancer screening CT, inhaler management, etc.
Diagnostic data
Chest x-ray 04/10/2023-improved right pleural effusion, moderate residual right pleural effusion, atelectasis in the lung
CT chest 01/05/2020-no evidence for pulmonary embolism or dissection, NAD, mild emphysematous disease, probable benign left-sided thyroid nodule, nonemergent ultrasound recommended
CT chest 04/09/2023-no pulmonary embolism, very large right pleural effusion associated with complete atelectasis of the right lung, emphysema
Subjective Data
-
Date of Service:
Date of Service: April 10, 2023
Chief Complaint: Pulmonary Follow Up and Dyspnea Follow Up
Subjective:
Feels better with pleural fluid drainage, no complaints of chest pain, has no productive cough, has dyspnea exertion, no abdominal pain
Review of Systems
General: Other (Per HPI)
Objective Data
Data Reviewed
Vital Signs / I&O:
Vital Signs
Temp Pulse Resp BP Pulse Ox
97.9 F 78 12 110/65 97
04/10/23 07:40 04/10/23 07:29 04/10/23 07:29 04/10/23 06:00 04/10/23 07:29
Intake and Output
04/09/23 04/10/23 04/11/23
06:59 06:59 06:59
Intake Total 737 / 737
Output Total 1350 / 1350
Balance -613 / -613
SaO2: 97
Nasal Cannula flow liters per minute: 2
Physical Exam
General: Respiratory Distress and Comfortable
HEENT: Normocephalic, Anicteric and Moist Mucous Membranes
Cardiovascular: Regular Rhythm
Respiratory: Clear (Diminished breath sounds right base), Wheeze, Crackles (Few left basilar), Rhonchi (n), Non-Labored Respirations and Accessory Resp Muscle Use (n)
GI: Soft, Non Distended and Non Tender
Neurology: Awake, Alert and No Motor Deficits
Skin: Warm, Good Color, Cyanosis (n), Jaundice (n) and Rash (n)
Labs/Micro/Reports
Lab Data
04/10/23 04:11
04/10/23 04:10
Microbiology
04/09/23 16:13 Pleural Fluid Gram Stain - Preliminary
04/09/23 02:53 Nasal Swab Influenza Types A & B (SANA) - Final
Negative for Influenza A & B, NAAT
Negative results must be combined with clinical observations
and patient history.
Nucleic Acid Amplification test (NAAT)performed on the
[employer] platform.
--- NOTE | 2023-04-10 10:39 | CM ---
Ptient with Dx Large right pleural effusion, Completely collapsed right lung, Acute hypoxic respiratory failure, melena, s/p thoracentesis. Chest tube. O2 2L. Receiving IV PPI, IV Zosyn. Plan EGD today.
Met with patient and spoke with Christen by phone;
the patient resides with his in a 2 story farmhouse with 2 JUDY.
The patient was Independent in ADLs/ambulation without using an assistive device, recently having some SOB with activity.
DME - [facility], [facility]
SNF - none
PCP - Mack Paul
Pharmacy - [facility] [address]
The patient and would like VN at discharge and agree to a referral to [facility]. Referral placed.
CM continuing to follow for d/c needs.
Plan follow patient's mobility when allowed OOB.
Plan watch for home O2 needs.
Plan follow up with [facility] for acceptance.
Plan home with [place] [facility].
--- NOTE | 2023-04-10 10:45 | PTCARENOTE ---
Unclamped right chest tube per REBECA and Dr. Valentine- 50ml immediate then 500ml more over 15 min. Marked container and escorted pt to GI Lab. Report given.
--- NOTE | 2023-04-10 10:45 | PTCARENOTE ---
Unclamped right chest tube per REBECA and Dr. Valentine- 500ml immediate then 500ml more over 15 min. Marked container and escorted pt to GI Lab. Report given.
[2023-04-10] MEDS: ROXICODONE 5 MG PO ×2 (17:53→22:07)
--- NOTE | 2023-04-10 19:14 | PTCARENOTE ---
During coughing episode tele alarmed HR >140 - strip shows 9 sec svt then returned to SR/ ST. Strip placed on chart. Chest tube filled another 850ml past 6 hours- new collection system bedside. Appreciative of Roxicodone order- much improved pain
control.
[2023-04-10] MEDS: MELATONIN 10 MG PO (23:02)
[2023-04-11] VITALS (15 sets, daily range): BP systolic 100–128; BP diastolic 59–80
[2023-04-11] MEDS: ROXICODONE 5 MG PO ×5 (03:54→22:11)
[2023-04-11] MEDS: DUONEB 3 ML INH (04:27)
[2023-04-11 04:37] LABS: Hematocrit 24.6 % (39.0-52.0); Hemoglobin 8.2 g/dL (13.0-18.0); Mean Corp Hgb Conc. 33.3 g/dL (33.0-37.0); Mean Corpuscular Hgb 26.6 pg (27.0-31.0); Mean Corpuscular Volume 79.9 fL (80.0-94.0); Mean Platelet Volume 8.2 fL (7.4-10.4); Platelet Count 159 10^3/uL (130-400); Red Blood Cell Count 3.08 10^6/uL (4.70-6.10); Red Cell Dist. Width 15.4 % (11.5-14.5); White Blood Cell Count 6.8 10^3/uL (4.8-10.8)
--- NOTE | 2023-04-11 04:51 | PTCARENOTE ---
assumed care of patient, pt is AAOx3- able to make needs known. chest tube right side dressing CDI- bloody/brown drainage. on 2L 96%. chest tube to suction, some slight bubbling noted during inspiration. no crepitus or pain to site. 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 pt SOB on exertion, PRN oxycodone given for pain with positive effect. pt able to sit at side of the bed, HR did get tachy into 160s, back down to 100s at rest. pt states this has been happening to him. PPI gtt
infusing. care ongoing.
[2023-04-11 05:01] LABS: Blood Urea Nitrogen 10 mg/dl (9-20); Calcium 8.2 mg/dl (8.4-10.2); Carbon Dioxide 25 mmol/L (22-30); Chloride 105 mmol/L (98-107); Estimated Creatinine Clearance 115 ml/min; Glucose 101 mg/dl (70-99); Potassium 3.5 mmol/L (3.5-5.1); Sodium 136 mmol/L (135-145); eGFR > 60.00
[2023-04-11] MEDS: PROTONIX 100 IV (05:54)
[2023-04-11] MEDS: ZOSYN 50 IV ×4 (05:54→23:09)
--- NOTE | 2023-04-11 06:09 | PTCARENOTE ---
pt with new +1 air leak this AM- no crepitus noted. some SOB on exertion, 93% 2L. 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
[2023-04-11] MEDS: NON-FORMULARY ITEM 1 INH INH (07:53)
--- NOTE | 2023-04-11 07:59 | W.PN.GI.CBS2 ---
Today's Communication / Plan
-
IV iron
hgb check at 1400
senna for constipation
Ppi now to BID PO
get out of bed if possible - monitor closely
Assessment / Plan
-
Pt is a 73yo with hx CAD prior stents, HTN, hypercholesterolemia, COPD, GI bleed 2019 with prior gastric ulcer with H pylori (recall taking treatment but no follow up testing or repeat EGD) now with onset of black stools with epigastric pain. He
is also noted with shortness of breath with concern for large effusion on admission. Labs on admission noted with hbg 12.5 with prior hbg 9 range in 2019 with prior GI bleeding.
-melena
-large right effusion with tachycardia with deep breath
-leukocytosis
-hx prior gastric ulcer
-prior H pylori + pt recall treatment but no follow up testing or EGD
-COPD with some shortness of breath on admission
Other medical problems:
-CAD with prior stents
-HTN
-hypercholesterolemia
04/10/23 EGD with [facility] for melena and drop in hgb: 4cm HH, non-bleeding gastric ulcer in the antrum/prepyloric area and erosive gastropathy. no endoscopic treatment. biopsied for h.pylori (has a hx of HP and PUD - not on ppi at home)
04/11/23: 1g drop in hgb, however BUN now completely normal.
No melena or GI output
start IV iron x 3 days and check hgb at 1400, if drops give a unit of blood
his pleural fluid is blood tinged and may have some losses there
ok for BID PO ppi
started anti-constipation regimen with senna 2 tabs - faizan in the setting of narcotics for chest tube pain
Total Time Spent with Patient (in minutes): 20
Subjective
Subjective
Date of Service: April 11, 2023
Patient has not had any bowel movements. Eating well. States his heart rate goes up with any exertion. He has not really gotten out of bed. Denies any nausea vomiting abdominal pain
Objective
Data Reviewed
Laboratory Data:
Laboratory Results
04/11/23 04:00
04/11/23 04:00
Laboratory Results
Total Bilirubin 0.7 mg/dl (0.2-1.3) 04/09/23 02:20
AST 19 U/L (17-59) 04/09/23 02:20
ALT 20 U/L (0-50) 04/09/23 02:20
Alkaline Phosphatase 95 U/L (38-126) 04/09/23 02:20
Lipase 40 U/L (23-300) 04/09/23 02:20
Vital Signs and I&O:
Vital Signs
Temp Pulse Resp BP Pulse Ox
98.3 F 120 24 106/63 88
04/11/23 03:07 04/11/23 06:00 04/11/23 06:00 04/11/23 06:00 04/11/23 06:00
I&O
04/10/23 04/11/23 04/12/23
06:59 06:59 06:59
Intake Total 737 / 737 1180 / 1180
Output Total 1350 / 1350 4900 / 4900
Balance -613 / -613 -3720 / -3720
Physical Exam
Physical Exam
HEENT: Anicteric
Cardiology: Normal Sinus Rhythm
GI: Soft, Non Distended and Normal Bowel Sounds (hypoactive BS)
Extremities: No Edema
Neuro: Non Focal
[2023-04-11] MEDS: SENNA SYRUP 8.80000000000000071 MG PO ×2 (08:22→20:13)
[2023-04-11] MEDS: PROTONIX 40 MG PO ×2 (08:22→20:13)
--- NOTE | 2023-04-11 09:58 | PTCARENOTE ---
Pt rec'd from previous RN 06:45, stated he feels like he 'turned the corner,' feeling much better s/p pain med administration. Plan of care discussed with patient, he verbalized understanding and agreement. Right chest tube remains in place, +1 air
leak noted, blood tinged drainage, atrium was changed on hotel night auditor, dressing CDI, no crepitus noted. Satting high 90s on 2L, no s/s SOB. Pt sent for chest xray at time of this writing, steady gait x1 handheld assist, will sit in chair upon return
to room. Continuing to closely monitor.
--- NOTE | 2023-04-11 10:24 | PTCARENOTE ---
Pt rec'd back from radiology dept, assisted to ambulated to bathroom to wash face and brush teeth, HR did increase to 160-170 range with exertion, continued to remain elevated until seated in chair for approx 5 min. Currently HR is 1 teens-120s
sinus tach. After this activity and resumption of suction, chest tube dumped and additional ~300 mls bloody fluid. Pt with no complaints, states 'I feel almost human.' Seated in chair, call gray in reach. Will cont to monitor.
--- NOTE | 2023-04-11 11:18 | PTCARENOTE ---
Pt continues to have bursts of ST into 160s, states he feels fine, BP stable. Will monitor. Output from chest tube remains same, no further dumping since 10 am.
--- NOTE | 2023-04-11 11:42 | PTCARENOTE ---
Addendum entered by Milton Rene RN 04/11/23 11:56:
Dr. 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 He instructed Dr. Duvall
to wait to update her until he decides what information he wants to share with her. Awaiting further discussion with care team. Will consult cardiology at this time.
Addendum entered by Milton Rene RN 04/11/23 11:44:
per Dr. Duvall, hold off on stat Lopressor dose until plan decided.
Original Note:
Attending Dr. Duvall notified of elevated HRs, chart reviewed and plan discussed-awaiting input from IR at this time.
[2023-04-11] MEDS: LOPRESSOR 12.5 MG PO ×2 (12:04→20:13)
--- NOTE | 2023-04-11 12:11 | W.PN.HOSP.TC ---
Today's Communication/Plan
-
see note
Assessment / Plan
Assessment / Plan
1. Large right pleural effusion
Large pneumothorax - likely ex vacuo
Completely collapsed right lung
Acute hypoxic respiratory failure
-No reported previous history of effusion. Former-smoker. No pulmonary disease except COPD
-CT chest PE protocol showing large pleural effusion filling up complete right hemithorax. No PE
-S/p thoracentesis with drainage of 2.5 L brownish non turbid pleural fluid on 04/09. Thoracentesis terminated early as patient was having dizziness/not feeling well , concern of reexpansion pulm edema.
-Chest tube was placed instead and tube clamped.
-Pleural fluid studies showing exudative fluid with TBWC [address] [place] 91% PMN 9.5% LDH 1939 TP 4.6 . gram stain neg. culture and cytology pending.
-Repeat chest x-ray 04/10 showed moderate effusion remaining, tube unclamped patient had extra 1.1L drain spontaneously, next 12 hrs drained extra 850ml.
-CXR on 04/11 showing large pneumothorax - discussed with pulmo and suspsted ex vacuo in nature. no midline shift no signs of respiratory distress.
-Patient planned to be monitored through the weekend
2. Leukocytosis w/o fever
-Maintain on empiric Zosyn with ongoing pulm issues
-will de-escalate in 24-48 hrs
3. Melena
History of gastric bypass and PUD
History of H. pylori gastritis
Acute blood loss anemia
-Hemoglobin drifted down. baseline of 12, transfuse if less than 7
-EGD showing nonbleeding gastric ulcer and erosive gastropathy w/o stigmata of recent bleed
-continue conservative management
4. Tachyarrhythmia
-Patient with short lasting episodes of narrow complex tachyarrhythmia, likely sinus tach versus SVT episode
-SBP in 110s, started on oral metoprolol 12.5 mg twice daily
-Cardiology requested to follow
5. COPD
- no signs of flare up, no indication for steroids
Essential hypertension
History of spinal laminectomy/fusion
BPH
Hyperlipidemia
Coronary artery disease s/p PCI/stenting
History of left TKR
DVT PPX - lovenox
Full code
Care plan discussed with pulmonology/cardiology/IRAD
04/11 chest xr images from admission and from today reviewed with patient. I have explained patient pathophysiology of pleural effusion and pneumothorax ex vacuo. In light of severity of pulmonary issues I have expressed to patient that I would
like family member to be involved in discussion as well, patient stated of dealing with her Parkinson issue and does not want her to be stressed. Patient will decide when and what we can discuss with spouse. RN present in room during
discussion.
Total time spent : 53 mins
I personally saw and examined the patient.
I have reviewed all diagnostic interpretations and treatment plans as written.
Time includes patient management by me, time spent at the patients bedside, time to review lab and imaging results, discussing patient care, documentation in the medical record, and time spent with the family or caregiver and discussing care plan
with RN/Consultants.
Anticipated Discharge: > 48 hours
Subjective/Interval History
-
Date of Service: April 11, 2023
patient subjectively feeling better
denies of having chest pain
noted to have burst of tachycardia in 160-170s on tele, asymptomatic
Objective Data
-
Labs:
Laboratory Results
04/11/23 04/11/23
04:00 14:00
WBC 6.8
Hgb 8.2 L Pending
Hct 24.6 L
Plt Count 159
Sodium 136
Potassium 3.5
Chloride 105
Carbon Dioxide 25
BUN 10
Creatinine 0.5 L
Glucose 101 H
Calcium 8.2 L
Vital Signs:
Vital Signs
Temp Pulse Resp BP Pulse Ox
98.0 F 112 15 111/76 95
04/11/23 07:30 04/11/23 12:04 04/11/23 10:32 04/11/23 12:04 04/11/23 10:32
I&O
04/10/23 04/11/23 04/12/23
06:59 06:59 06:59
Intake Total 737 / 737 1180 / 1180
Output Total 1350 / 1350 4900 / 4900 250 / 250
Balance -613 / -613 -3720 / -3720 -250 / -250
Review of Systems
-
Respiratory: Denies Cough
Cardiac: Reports No Symptoms
Abdomen/GI: Reports No Symptoms
Physical Exam
-
General: No Apparent Distress and Comfortable
HEENT: Oxygen
Respiratory: Clear to Auscultation (Left side, absent right side ) and Other (Right chest tube - sanguineous fluid )
Cardiac: S1/S2 and Irregular Rhythm; Negative Murmur or Rub
GI: Soft, Nontender and Nondistended
Musculoskeletal: No Edema
Neuro: Awake, Alert, Oriented, No Motor Deficits and Nonfocal/Grossly Intact
Psych: Calm
--- NOTE | 2023-04-11 12:28 | CON.CAR ---
Addendum entered and electronically signed by Dayday Comer DO 04/11/23 14:00:
I saw and examined the patient.
[facility] note was reviewed and I agree with the note.
Comment:
PCP: Dr. Paul
Cardiology: Dr. Raphael
Impression:
Admitted with epigastric pain, melena and weight loss 04/09/23
Large right pleural effusion s/p Chest tube, exudative effusion
Sinus tachycardia with Atrial tachycardia/SVT
Nonbleeding gastric ulcer with no stigmata of bleeding, hx gastric ulcer 2019
CAD h/o LAD PCI 2013
HTN
Hyperlipidemia
Unintentional wt loss
COPD
Echo 10/27/22: EF 60%, trace MR, mild aortic regurgitation
Plan:
HPI: Patient came to [facility] 04/09/23 with an episode of melanotic stools and was admitted with anemia and cardiology has been consulted for SVT. Patient has a h/o ulcer and on admission he complained of melanotic stools and weight loss and his Hgb was
12.5 so he was admitted. He had an upper endoscopy 04/10/23 that showed a nonbleeding gastric ulcer without stigmata of bleeding. A CT chest showed no PE, but a massive right sided pleural effusion. IR placed a chest tube 04/09/23 and he has drained
almost 3 L since placement. Starting 04/10/23 patient noted to have SVT with HRs to 160s with coughing. Patient feels palpitations at times and says that started prior to admission.
Tele monitored reviewed and pt with sinus tachycardia with episodes of rapid atrial tachycardia/SVT.
Resume Lopressor 12.5 mg BID as pt had been off beta homer. may consider IV Cardizem for sustained atrial tachycardia if this develops.
Lopressor can be titrated as needed for better HR control.
Check EKG and monitor
Check echo to reeval EF
Work up of large effusion as per pulm. cytology pending.
Empiric abx
Discussed with nursing.
Original Note:
Documented by User: Maria Luz L. Eaton, PA-C 04/11/23 12:46
Consultation
Consultation Request
Date/Time Consultation Requested: 04/11/23
Date/Time Consultation Performed: 04/11/23
Requesting Provider: Dr. Duvall
Performing Provider: Dr. Comer
Reason for Consultation: pleural effusion
Medical History
-
History of Present Illness:
Patient came to [facility] 04/09/23 with an episode of melanotic stools and was admitted with anemia and cardiology has been consulted for SVT. Patient has a h/o ulcer and on admission he complained of melanotic stools and weight loss and his Hgb was 12.5
so he was admitted. He had an upper endoscopy 04/10/23 that showed a nonbleeding gastric ulcer without stigmata of bleeding. A CT chest showed no PE, but a massive right sided pleural effusion. IR placed a chest tube 04/09/23 and he has drained almost
3 L since placement. Starting 04/10/23 patient noted to have SVT with HRs to 160s with coughing. Patient feels palpitations at times and says that started prior to admission.
PMH:
CAD h/o LAD PCI
HTN
Hyperlipidemia
Past Medical History
Past Medical History: Other (in HPI)
Past Surgical History: Cardiac (LAD PCI), Orthopedic and Tonsilectomy
Social History
Tobacco: Former Smoker
Alcohol: None
Drug: None
Family History
Family History: Cancer and Diabetes
Allergies / Home Medications
Allergy/AdvReac Type Severity Reaction Status Date / Time
shellfish derived Allergy Severe Anaphylaxis Verified 04/09/23 02:08
Medication Instructions Recorded Confirmed Type
atorvastatin 80 mg tablet 80 mg PO QPM High cholesterol 01/05/20 04/09/23 History
metoprolol tartrate 25 mg tablet 12.5 mg PO BID Blood pressure 01/05/20 04/09/23 History
albuterol 90 mcg-budesonide 80 2 inh inhalation PRN PRN SOB 04/09/23 04/09/23 History
mcg/actuation HFA aerosol inhaler
aspirin 81 mg tablet 81 mg PO DAILY Blood Clot 04/09/23 04/09/23 History
Prevention/Tx
fluticasone fur. 100 mcg-umeclid 1 inh inhalation DAILY COPD 04/09/23 04/09/23 History
62.5 mcg-vilant 25 mcg
inhalat.powder (Trelegy Ellipta)
tamsulosin 0.4 mg capsule (Flomax) 0.4 mg PO QDAY Urinary Issue 04/09/23 04/09/23 History
Review of Systems
-
History Source: Patient
All other systems: Negative unless noted
Physical Exam
Vital Signs
Temp Pulse Resp BP Pulse Ox
98.0 F 112 15 111/76 95
04/11/23 07:30 04/11/23 12:04 04/11/23 10:32 04/11/23 12:04 04/11/23 10:32
Lab Results
04/11/23 04:00
Troponin I < 0.012 ng/ml 04/09/23 06:05
Icw-T-Jijakcaksge Pept Cancelled 04/09/23 02:31
Impression / Plan
-
PCP: Dr. Paul
Cardiology: Dr. Raphael
Impression:
Admitted with epigastric pain, melena and weight loss 04/09/23
Large right pleural effusion
SVT
Nonbleeding gastric ulcer with no stigmata of bleeding
CAD h/o LAD PCI 2013
HTN
Hyperlipidemia
Echo 10/27/22: EF 60%, trace MR, mild aortic regurgitation
Plan:
-Patient came to [facility] 04/09/23 with an episode of melanotic stools and was admitted with anemia and cardiology has been consulted for SVT. Patient has a h/o ulcer and on admission he complained of melanotic stools and weight loss and his Hgb was 12.5
so he was admitted. He had an upper endoscopy 04/10/23 that showed a nonbleeding gastric ulcer without stigmata of bleeding. A CT chest showed no PE, but a massive right sided pleural effusion. IR placed a chest tube 04/09/23 and he has drained almost
3 L since placement. Starting 04/10/23 patient noted to have SVT with HRs to 160s with coughing. Patient feels palpitations at times and says that started prior to admission.
-Check ECG, try to catch SVT.
-Check echo
-Outpatient dose of aspirin on hold. He has a previous LAD stent from 2013
-Cont outpatient dose of Lopressor 12.5 mg BID for now and can increase if needed.

Documented by User: Dayday Comer, 04/11/23 13:53
Physical Exam
Vital Signs
Temp Pulse Resp BP Pulse Ox
98.0 F 112 15 111/76 95
04/11/23 07:30 04/11/23 12:04 04/11/23 10:32 04/11/23 12:04 04/11/23 10:32
General: No acute distress, AAOX3
Neck: Negative JVD
Heart: Regular, Negative S3 positive S1/S2, Negative S4, No murmur
Lungs: Decreased breath sounds right. Chest tube right-sided. Negative wheezes/rales/rhonchi
Abd: Positive BS, NT/ND, neg rebound/rigidity/guarding
Ext: Negative cyanosis/clubbing/edema
Neuro: nonfocal
Impression / Plan
-
PCP: Dr. Paul
Cardiology: Dr. Raphael
Impression:
Admitted with epigastric pain, melena and weight loss 04/09/23
Large right pleural effusion s/p Chest tube
Sinus tachycardia with Atrial tachycardia/SVT
Nonbleeding gastric ulcer with no stigmata of bleeding
CAD h/o LAD PCI 2013
HTN
Hyperlipidemia
Echo 10/27/22: EF 60%, trace MR, mild aortic regurgitation
Plan:
HPI: Patient came to [facility] 04/09/23 with an episode of melanotic stools and was admitted with anemia and cardiology has been consulted for SVT. Patient has a h/o ulcer and on admission he complained of melanotic stools and weight loss and his Hgb was
12.5 so he was admitted. He had an upper endoscopy 04/10/23 that showed a nonbleeding gastric ulcer without stigmata of bleeding. A CT chest showed no PE, but a massive right sided pleural effusion. IR placed a chest tube 04/09/23 and he has drained
almost 3 L since placement. Starting 04/10/23 patient noted to have SVT with HRs to 160s with coughing. Patient feels palpitations at times and says that started prior to admission.
-Check ECG, try to catch SVT.
-Check echo
-Outpatient dose of aspirin on hold. He has a previous LAD stent from 2013
-Cont outpatient dose of Lopressor 12.5 mg BID for now and can increase if needed.
[2023-04-11] MEDS: FERRLECIT 110 MG IV (12:50)
--- NOTE | 2023-04-11 14:44 | W.PN.PUL3 ---
Today's Communication / Plan
-
Maintain chest tube to suction
Daily chest x-ray, suspect trapped lung physiology
Will consider repeat CT chest
Will consider clamping to reassess whether mediastinal shift redevelops
Assessment
-
Mr Nito Pearson is a 73/M adm 04-09 with few d h/o epigastric abd pain, melena, unintentional 15 lb wt loss in last 8m, and dyspnea. Seen by PCP recently for dyspnea and cough. Prior h/o nonbleeding gastric ulcer in 2019. CXR and then chest CTA showed
no PE but a very large R pleural effusion with complete R lung atelectasis and mediastinal deviation to L (of note chest CTA Dec 2019 with no PE and no acute findings)
Very large R pleural effusion complete R atelectasis and mediastinal deviation to L
(CTA 12-27-19 was negative for PE, effusion, mass, showed mild apical emphysema, RLL/HOLGER linear atelectasis, no MLAD)
Progressive shortness of breath-patient reports began July 2022 told he had 'COPD'-last chest radiograph prior to admission 01/05/2020
Negative troponin and BNP
COVID/flu negative
Unintentional wt loss
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
COPD, on trelegy
CAD s/p stents
HTN
HLD
GIB, gastric ulcer 2019
H/o H pylori
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
Plan:
At this time, patient is improved objectively and subjectively
Chest exam with bronchial breath sounds, significant air leak
Chest x-ray with trapped lung physiology on the right with ex vacuo.
Resolution of mediastinal shift
Moving forward
Continue with chest tube to suction
Suspect combination of significant improvement given improvement in mediastinal shift and ex vacuo phenomena
There is pleural thickening noted per CT imaging, difficult differentiate between consolidation
Continue inhaler regimen
Pleural fluid exudate, cytology pending
Cardiology also following for tachycardia
Echocardiogram pending
Check cultures-unrevealing thus far
Zosyn continues empirically
GI evaluation ongoing
Endoscopy planned-pulmonary status much improved and could tolerate endoscopy especially if further improvement noted with additional pleural fluid removal
DVT prophylaxis-mechanical. Nonbleeding gastric ulcer noted for EGD with erosive gastropathy
GI prophylaxis-on pantoprazole
Nutrition
Early mobilization
This was reviewed with patient at length
Reviewed with interventional radiology and primary service
Diagnostic data
Chest x-ray 04/10/2023-improved right pleural effusion, moderate residual right pleural effusion, atelectasis in the lung
CT chest 01/05/2020-no evidence for pulmonary embolism or dissection, NAD, mild emphysematous disease, probable benign left-sided thyroid nodule, nonemergent ultrasound recommended
CT chest 04/09/2023-no pulmonary embolism, very large right pleural effusion associated with complete atelectasis of the right lung, emphysema
Subjective Data
-
Date of Service:
Date of Service: April 11, 2023
Chief Complaint: Pulmonary Follow Up and Dyspnea Follow Up
Subjective:
Patient seen and examined earlier today. Patient feels breathing has improved significantly since chest tube placement. Denies nausea, abdominal pain. Denies hemoptysis. Conversant
Objective Data
Data Reviewed
Vital Signs / I&O / Oxygen:
Vital Signs
Temp Pulse Resp BP Pulse Ox
98.1 F 91 16 109/77 97
04/11/23 11:30 04/11/23 14:00 04/11/23 14:00 04/11/23 14:00 04/11/23 12:39
Intake and Output
04/10/23 04/11/23 04/12/23
06:59 06:59 06:59
Intake Total 737 / 737 1180 / 1180 160 / 160
Output Total 1350 / 1350 4900 / 4900 500 / 500
Balance -613 / -613 -3720 / -3720 -340 / -340
SaO2 97
Nasal Cannula flow liters per 2
minute
Physical Exam
General: Comfortable
HEENT: Normocephalic, Anicteric and Moist Mucous Membranes
Cardiovascular: Regular Rhythm, Murmur (n), Rub (n), Peripheral Edema (n) and Calf Tenderness (n)
Respiratory: Clear (Diminished breath sounds right base), Wheeze, Crackles (Few left basilar), Rhonchi (n), Non-Labored Respirations and Other (Bronchial right side)
GI: Soft, Non Distended and Non Tender
Neurology: Awake, Alert and No Motor Deficits
Skin: Warm, Good Color, Cyanosis (n), Jaundice (n) and Rash (n)
Labs/Micro/Reports
Lab Data
04/11/23 04:00
Microbiology
04/09/23 16:13 Pleural Fluid Body Fluid Culture - Preliminary
No Growth After 48 Hours
04/09/23 16:13 Pleural Fluid Gram Stain - Preliminary
04/09/23 02:53 Nasal Swab Influenza Types A & B (SANA) - Final
Negative for Influenza A & B, NAAT
Negative results must be combined with clinical observations
and patient history.
Nucleic Acid Amplification test (NAAT)performed on the
[employer] platform.
[2023-04-11 15:45] LABS: Hemoglobin 9.7 g/dL (13.0-18.0)
--- NOTE | 2023-04-11 18:38 | PTCARENOTE ---
Pt assisted back to bed approx 18:00. tolerated sitting up in chair for 8 hours, HR did come down to 80-90s s/p Lopressor dosing. Chest tube output totaled 350 mls bloody drainage today, repeat Hgb this afternoon was 9.7. Pt did complain of 7/10
pain at chest tube insertion site as well as pressure across his abd with transfer back into bed. Medicated with PRN 5 mg Roxicodone at 18:05, pt with no complaints at this time. Call gray in reach.
[2023-04-11] MEDS: MELATONIN 10 MG PO (23:09)
[2023-04-12] VITALS (11 sets, daily range): BP systolic 94–123; BP diastolic 59–77
[2023-04-12] MEDS: ROXICODONE 5 MG PO ×4 (03:47→20:03)
--- NOTE | 2023-04-12 04:13 | PTCARENOTE ---
pt presents as assessed, right chest tube site intact- air leak noted. some SOB with exertion. pt's HR increasing to 150s at times of exertion in the bed but goes back down to 80-90s after a few minutes. pt states that he is feeling better. getting
appetite back. pt still on 2L NC 98%. care ongoing.
[2023-04-12 04:23] LABS: Hematocrit 26.8 % (39.0-52.0); Hemoglobin 8.7 g/dL (13.0-18.0); Mean Corp Hgb Conc. 32.5 g/dL (33.0-37.0); Mean Corpuscular Hgb 26.8 pg (27.0-31.0); Mean Corpuscular Volume 82.5 fL (80.0-94.0); Mean Platelet Volume 8.5 fL (7.4-10.4); Platelet Count 183 10^3/uL (130-400); Red Blood Cell Count 3.25 10^6/uL (4.70-6.10); Red Cell Dist. Width 15.3 % (11.5-14.5); White Blood Cell Count 8.3 10^3/uL (4.8-10.8)
[2023-04-12 04:47] LABS: Blood Urea Nitrogen 11 mg/dl (9-20); Calcium 8.5 mg/dl (8.4-10.2); Carbon Dioxide 27 mmol/L (22-30); Chloride 104 mmol/L (98-107); Estimated Creatinine Clearance 99 ml/min; Glucose 127 mg/dl (70-99); Potassium 4.1 mmol/L (3.5-5.1); Sodium 134 mmol/L (135-145); eGFR > 60.00
[2023-04-12] MEDS: ZOSYN 50 IV ×4 (06:06→23:14)
[2023-04-12] MEDS: NON-FORMULARY ITEM 1 INH INH (07:39)
--- NOTE | 2023-04-12 09:05 | W.PN.CARDCBS ---
Today's Communication / Plan
-
HR improved back on Lopressor 12.5 mg BID.
Very rare, short atrial tachycardia. Could consider an outpatient monitor to be ordered after he returns for outpatient follow-up.
Echo pending.
Workup and treatment of large pleural effusion as per pulmonary. Cytology pending.
Continue empiric antibiotics as per pulmonary and primary service.
Impression / Plan
-
PCP: Dr. Paul
Cardiology: Dr. Raphael
Impression:
Admitted with epigastric pain, melena and weight loss 04/09/23
Large right pleural effusion s/p Chest tube
Sinus tachycardia with Atrial tachycardia/SVT
Nonbleeding gastric ulcer with no stigmata of bleeding
CAD h/o LAD PCI 2013
HTN
Hyperlipidemia
Echo 10/27/22: EF 60%, trace MR, mild aortic regurgitation
Plan:
HPI: Patient came to [facility] 04/09/23 with an episode of melanotic stools and was admitted with anemia and cardiology has been consulted for SVT. Patient has a h/o ulcer and on admission he complained of melanotic stools and weight loss and his Hgb was
12.5 so he was admitted. He had an upper endoscopy 04/10/23 that showed a nonbleeding gastric ulcer without stigmata of bleeding. A CT chest showed no PE, but a massive right sided pleural effusion. IR placed a chest tube 04/09/23 and he has drained
almost 3 L since placement. Starting 04/10/23 patient noted to have SVT with HRs to 160s with coughing. Patient feels palpitations at times and says that started prior to admission.
PCP: Dr. Paul
Cardiology: Dr. Raphael
Impression:
Admitted with epigastric pain, melena and weight loss 04/09/23
Large right pleural effusion s/p Chest tube, exudative effusion
Sinus tachycardia with Atrial tachycardia/SVT
Nonbleeding gastric ulcer with no stigmata of bleeding, hx gastric ulcer 2019
CAD h/o LAD PCI 2013
HTN
Hyperlipidemia
Unintentional wt loss
COPD
Echo 10/27/22: EF 60%, trace MR, mild aortic regurgitation
Plan:
HPI: Patient came to [facility] 04/09/23 with an episode of melanotic stools and was admitted with anemia and cardiology has been consulted for SVT. Patient has a h/o ulcer and on admission he complained of melanotic stools and weight loss and his Hgb was
12.5 so he was admitted. He had an upper endoscopy 04/10/23 that showed a nonbleeding gastric ulcer without stigmata of bleeding. A CT chest showed no PE, but a massive right sided pleural effusion. IR placed a chest tube 04/09/23 and he has drained
almost 3 L since placement. Starting 04/10/23 patient noted to have SVT with HRs to 160s with coughing. Patient feels palpitations at times and says that started prior to admission.
HR improved back on Lopressor 12.5 mg BID.
Very rare, short atrial tachycardia. Could consider an outpatient monitor to be ordered after he returns for outpatient follow-up.
Echo pending.
Workup and treatment of large pleural effusion as per pulmonary. Cytology pending.
Continue empiric antibiotics as per pulmonary and primary service.
Progress Note - Hand Rigger
Subjective
Date of Service: April 12, 2023
Patient seen and examined. No chest pain or shortness of breath.
Objective
Labs:
04/12/23 03:57
04/12/23 03:57
Labs
Hgb 8.7 g/dL (13.0-18.0) L 04/12/23 03:57
Hct 26.8 % (39.0-52.0) L 04/12/23 03:57
Plt Count 183 10^3/uL (130-400) 04/12/23 03:57
Sodium 134 mmol/L (135-145) L 04/12/23 03:57
Potassium 4.1 mmol/L (3.5-5.1) 04/12/23 03:57
BUN 11 mg/dl (9-20) 04/12/23 03:57
Creatinine 0.7 mg/dL (0.7-1.3) 04/12/23 03:57
Glucose 127 mg/dl (70-99) H 04/12/23 03:57
Vital Signs and I&O:
Vital Signs
Temp Pulse Resp BP Pulse Ox
97.4 F 88 15 105/68 94
04/12/23 07:47 04/12/23 07:40 04/12/23 07:40 04/12/23 06:00 04/12/23 06:00
Vital Signs
Temp Pulse Resp BP Pulse Ox
97.4 F 88 15 105/68 94
04/12/23 07:47 04/12/23 07:40 04/12/23 07:40 04/12/23 06:00 04/12/23 06:00
Intake & Output
04/10/23 04/11/23 04/12/23 04/13/23
06:59 06:59 06:59 06:59
Intake Total 737 / 737 1180 / 1180 310 / 310
Output Total 1350 / 1350 4900 / 4900 1475 / 1475
Balance -613 / -613 -3720 / -3720 -1165 / -1165
Physical Exam
Physical Exam
General: No acute distress, AAOX3
Neck: Negative JVD
Heart: Regular, Negative S3 positive S1/S2, Negative S4, No murmur
Lungs: CTA b/l, negative wheezes/rales/rhonchi
Thorax: Chest tube in place.
Abd: Positive BS, NT/ND, neg rebound/rigidity/guarding
Ext: Negative cyanosis/clubbing/edema
Neuro: nonfocal
[2023-04-12] MEDS: PROTONIX 40 MG PO ×2 (09:32→20:03)
[2023-04-12] MEDS: LOPRESSOR 12.5 MG PO ×2 (09:33→20:03)
--- NOTE | 2023-04-12 09:34 | W.PN.HOSP.TC ---
Today's Communication/Plan
-
continue monitoring
CT chest tomorrow
Possible transfer to tertiary center if not improved
Assessment / Plan
Assessment / Plan
1. Large right pleural effusion
Large pneumothorax - likely ex vacuo
Completely collapsed right lung
Acute hypoxic respiratory failure
-No reported previous history of effusion. Former-smoker. No pulmonary disease except COPD
-CT chest PE protocol showing large pleural effusion filling up complete right hemithorax. No PE
-S/p thoracentesis with drainage of 2.5 L brownish non turbid pleural fluid on 04/09. Thoracentesis terminated early as patient was having dizziness/not feeling well , concern of reexpansion pulm edema.
-Chest tube was placed instead and tube clamped.
-Pleural fluid studies showing exudative fluid with TBWC [address] 91% PMN 9.5% LDH 1939 TP 4.6 . gram stain neg. culture and cytology pending.
-Repeat chest x-ray 04/10 showed moderate effusion remaining, tube unclamped patient had extra 1.1L drain spontaneously, next 12 hrs drained extra 850ml.
-CXR on 04/11 showing large pneumothorax - discussed with pulmo and suspsted ex vacuo in nature. no midline shift no signs of respiratory distress.
-patient will have CT chest tomorrow to further delineate lung pathology, will require transfer to [facility] for possible CTS eval for thoracoscopic procedure.
2. Leukocytosis w/o fever -resolved
-Maintaining on empiric Zosyn with ongoing pulm issues
3. Melena
History of gastric bypass and PUD
History of H. pylori gastritis
Acute blood loss anemia
-Hemoglobin drifted down. baseline of 12, transfuse if less than 7
-EGD showing nonbleeding gastric ulcer and erosive gastropathy w/o stigmata of recent bleed
-continue conservative management
4. Tachyarrhythmia
-Patient with short lasting episodes of narrow complex tachyarrhythmia, likely sinus tach versus SVT episode
-SBP in 110s, started on oral metoprolol 12.5 mg twice daily
-Cardiology requested to follow
5. COPD
- no signs of flare up, no indication for steroids
Essential hypertension
History of spinal laminectomy/fusion
BPH
Hyperlipidemia
Coronary artery disease s/p PCI/stenting
History of left TKR
DVT PPX - lovenox
Full code
Care plan discussed with pulmonology again today.
04/11 chest xr images from admission and from today reviewed with patient. I have explained patient pathophysiology of pleural effusion and pneumothorax ex vacuo. In light of severity of pulmonary issues I have expressed to patient that I would
like family member to be involved in discussion as well, patient stated of dealing with her Parkinson issue and does not want her to be stressed. Patient will decide when and what we can discuss with spouse. RN present in room during
discussion.
04/12 Re-discussed care plan and all questions answered .Patient concerned about spouse's illness and estate management if need surgery and transfer to [facility],
Total time spent : 52 mins
Anticipated Discharge: > 48 hours
Subjective/Interval History
-
Date of Service: April 12, 2023
denies of having any problems
have tachycardia with activity
afebrile
no shortness breath/cough/chest pain overnight
Objective Data
-
Labs:
Laboratory Results
04/12/23
03:57
WBC 8.3
Hgb 8.7 L
Hct 26.8 L
Plt Count 183
Sodium 134 L
Potassium 4.1
Chloride 104
Carbon Dioxide 27
BUN 11
Creatinine 0.7
Glucose 127 H
Calcium 8.5
Vital Signs:
Vital Signs
Temp Pulse Resp BP Pulse Ox
97.4 F 97 15 123/72 94
04/12/23 07:47 04/12/23 09:33 04/12/23 07:40 04/12/23 09:33 04/12/23 06:00
I&O
04/11/23 04/12/23 04/13/23
06:59 06:59 06:59
Intake Total 1180 / 1180 310 / 310
Output Total 4900 / 4900 1475 / 1475
Balance -3720 / -3720 -1165 / -1165
Review of Systems
-
Respiratory: Denies Cough or Trouble Breathing
Cardiac: Reports No Symptoms
Abdomen/GI: Reports No Symptoms
Physical Exam
-
General: No Apparent Distress and Comfortable
HEENT: Oxygen
Respiratory: Clear to Auscultation (normal left, absent right side with minimal undefinable sound ) and Other (Right chest tube - sanguineous fluid )
Cardiac: Regular Rhythm and S1/S2; Negative Murmur or Rub
GI: Soft, Nontender and Nondistended
Musculoskeletal: No Edema
Neuro: Awake, Alert, Oriented, No Motor Deficits and Nonfocal/Grossly Intact
Psych: Calm
--- NOTE | 2023-04-12 10:19 | W.PN.GI.CBS2 ---
Today's Communication / Plan
-
Continue bowel regimen, biopsies pending
GI will sign off, please call with questions
Assessment / Plan
-
Pt is a 73yo with hx CAD prior stents, HTN, hypercholesterolemia, COPD, GI bleed 2019 with prior gastric ulcer with H pylori (recall taking treatment but no follow up testing or repeat EGD) now with onset of black stools with epigastric pain. He
is also noted with shortness of breath with concern for large effusion on admission. Labs on admission noted with hbg 12.5 with prior hbg 9 range in 2019 with prior GI bleeding.
-melena
-large right effusion with tachycardia with deep breath
-leukocytosis
-hx prior gastric ulcer
-prior H pylori + pt recall treatment but no follow up testing or EGD
-COPD with some shortness of breath on admission
Other medical problems:
-CAD with prior stents
-HTN
-hypercholesterolemia
04/10/23 EGD with [facility] for melena and drop in hgb: 4cm HH, non-bleeding gastric ulcer in the antrum/prepyloric area and erosive gastropathy. no endoscopic treatment. biopsied for h.pylori (has a hx of HP and PUD - not on ppi at home)
04/11/23: 1g drop in hgb, however BUN now completely normal.
No melena or GI output
start IV iron x 3 days and check hgb at 1400, if drops give a unit of blood
his pleural fluid is blood tinged and may have some losses there
ok for BID PO ppi
started anti-constipation regimen with senna 2 tabs - faizan in the setting of narcotics for chest tube pain
04/12/23: Hemoglobin from yesterday was likely lab variation since repeat was back to stable
Continue IV iron, continue PPI twice daily
Continue bowel regimen
GI will sign off. Please call us back if he has a significant drop in hemoglobin or can get his constipation under control could add Amitiza
We will call him with pathology report from his EGD when available
Total Time Spent with Patient (in minutes): 15
Subjective
Subjective
Date of Service: April 12, 2023
Hemoglobin stable, no significant GI symptoms. Feels like he will need to have a bowel movement and is currently on the bedside commode
Objective
Data Reviewed
Laboratory Data:
Laboratory Results
04/12/23 03:57
04/12/23 03:57
Laboratory Results
Total Bilirubin 0.7 mg/dl (0.2-1.3) 04/09/23 02:20
AST 19 U/L (17-59) 04/09/23 02:20
ALT 20 U/L (0-50) 04/09/23 02:20
Alkaline Phosphatase 95 U/L (38-126) 04/09/23 02:20
Lipase 40 U/L (23-300) 04/09/23 02:20
Vital Signs and I&O:
Vital Signs
Temp Pulse Resp BP Pulse Ox
97.4 F 97 15 123/72 94
04/12/23 07:47 04/12/23 09:33 04/12/23 07:40 04/12/23 09:33 04/12/23 06:00
I&O
04/11/23 04/12/23 04/13/23
06:59 06:59 06:59
Intake Total 1180 / 1180 310 / 310 480 / 480
Output Total 4900 / 4900 1475 / 1475 200 / 200
Balance -3720 / -3720 -1165 / -1165 280 / 280
Physical Exam
Physical Exam
HEENT: Anicteric
GI: Soft, Non Distended, Non Tender and Normal Bowel Sounds
Extremities: No Edema
Neuro: Non Focal
[2023-04-12] MEDS: FERRLECIT 110 MG IV (13:00)
--- NOTE | 2023-04-12 13:31 | W.PN.PUL3 ---
Today's Communication / Plan
-
CT chest without contrast, 04/13
Maintain chest tube to suction
Await echocardiogram
Await pleural fluid cytology
Assessment
-
Mr Nito Pearson is a 73/M adm 04-09 with few d h/o epigastric abd pain, melena, unintentional 15 lb wt loss in last 8m, and dyspnea. Seen by PCP recently for dyspnea and cough. Prior h/o nonbleeding gastric ulcer in 2019. CXR and then chest CTA showed
no PE but a very large R pleural effusion with complete R lung atelectasis and mediastinal deviation to L (of note chest CTA Dec 2019 with no PE and no acute findings)
Very large R pleural effusion complete R atelectasis and mediastinal deviation to L
(CTA 12-27-19 was negative for PE, effusion, mass, showed mild apical emphysema, RLL/HOLGER linear atelectasis, no MLAD)
s/p CT
Suspect trapped lung, ex vacuo
Progressive dyspnea since July 2022
Unintentional wt loss
Clubbing on exam
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
COPD, on trelegy
CAD s/p stents
HTN
HLD
GIB, gastric ulcer 2019
H/o H pylori
Former [id number]-year quit 15 years old
Plan:
At this time, patient is improved objectively and subjectively
Chest exam with bronchial breath sounds, significant air leak persists
Chest x-ray with trapped lung physiology on the right with ex vacuo.
Resolution of mediastinal shift
Chest x-ray today with ever so slight improvement in lung expansion
Moving forward
Continue with chest tube to suction
Suspect combination of significant improvement given improvement in mediastinal shift and ex vacuo phenomena
There is pleural thickening/mass noted per CT imaging, difficult differentiate between consolidation
Reviewed pathophysiology of trapped lung physiology at length
Discussed options
1) continue chest tube to suction with slow improvement and lung expansion (doubt)
2) placement of second large bore chest tube to optimize reexpansion (possibly may help)
3) bronchoscopy to rule out endobronchial process (may be necessary as part of workup)
4) evaluation at tertiary care center given possibility of BP fistula/trapped lung requiring decortication ([facility])
Will repeat CT chest 04/13 in a.m.
Will try to forward images to [facility] (Marlen et al.)
Continue inhaler regimen
Pleural fluid exudate, cytology pending
Cardiology also following for tachycardia
Echocardiogram 04/13
Check cultures-unrevealing thus far
Zosyn continues empirically
GI evaluation ongoing
Endoscopy planned-pulmonary status much improved and could tolerate endoscopy especially if further improvement noted with additional pleural fluid removal
DVT prophylaxis-mechanical. Nonbleeding gastric ulcer noted for EGD with erosive gastropathy
GI prophylaxis-on pantoprazole
Nutrition
Early mobilization
This was reviewed with patient at length
Reviewed with interventional radiology and primary service, nursing
Diagnostic data
Chest x-ray 04/10/2023-improved right pleural effusion, moderate residual right pleural effusion, atelectasis in the lung
CT chest 01/05/2020-no evidence for pulmonary embolism or dissection, NAD, mild emphysematous disease, probable benign left-sided thyroid nodule, nonemergent ultrasound recommended
CT chest 04/09/2023-no pulmonary embolism, very large right pleural effusion associated with complete atelectasis of the right lung, emphysema
Subjective Data
-
Date of Service:
Date of Service: April 12, 2023
Chief Complaint: Pulmonary Follow Up and Dyspnea Follow Up
Subjective:
Patient seen earlier today. Feels better this morning. Has mild chest tube pain but otherwise denies nausea, emesis, cough, hemoptysis. Appears to be in good spirits, conversant
Objective Data
Data Reviewed
Vital Signs / I&O / Oxygen:
Vital Signs
Temp Pulse Resp BP Pulse Ox
97.4 F 83 16 110/71 99
04/12/23 11:24 04/12/23 12:00 04/12/23 12:00 04/12/23 12:00 04/12/23 12:00
Intake and Output
04/11/23 04/12/23 04/13/23
06:59 06:59 06:59
Intake Total 1180 / 1180 310 / 310 480 / 480
Output Total 4900 / 4900 1475 / 1475 200 / 200
Balance -3720 / -3720 -1165 / -1165 280 / 280
SaO2 99
Nasal Cannula flow liters per 2
minute
Physical Exam
General: Comfortable
HEENT: Normocephalic, Anicteric and Moist Mucous Membranes
Cardiovascular: Regular Rhythm, Murmur (n), Rub (n), Peripheral Edema (n) and Calf Tenderness (n)
Respiratory: Clear (Diminished breath sounds right base), Wheeze, Crackles (Few left basilar), Rhonchi (n), Non-Labored Respirations, Crepitus (n), Egophony (n) and Other (Bronchial right side)
GI: Soft, Non Distended and Non Tender
Neurology: Awake, Alert and No Motor Deficits
Skin: Cyanosis (n), Jaundice (n), Rash (n) and Other (Positive clubbing)
Labs/Micro/Reports
Lab Data
04/12/23 03:57
04/12/23 03:57
Microbiology
04/09/23 16:13 Pleural Fluid Body Fluid Culture - Final
No Growth After 72 Hours
04/09/23 16:13 Pleural Fluid Gram Stain - Final
--- NOTE | 2023-04-12 13:54 | PTCARENOTE ---
Pt rec'd from previous RN 07:15, AOx3 and pleasant. VSS this am, meds and assessment as documented. Pt has tolerated sitting in chair since approx 0900, only occ short bursts of tachycardia to 140 range, very brief, is now visiting at bedside.
Pt did discuss plan of care at length with Dr. Petty as well as other members of care team (Drs. Comer, Allison, and Jadiel) and verbalized understanding of plan at this time. Chest tube to wall suction in place, still with +2 air leak, tidaling and
small amounts of red drainage, no crepitus noted. Dr. Petty and Jadiel both aware. Pt does note minor RAMÍREZ, however he states that he feels improved overall from yesterday. Pt expresses concern over leaving his without care if/when his
hospitalization is extended, including possible transfer to tertiary care. This RN suggested asking CM if there might be any resources available to help patient with this matter going forward -will pass on to oncoming RN. Call gray in reach, safe
environment maintained.
[2023-04-12] MEDS: SENNA SYRUP 8.80000000000000071 MG PO (20:03)
[2023-04-12] MEDS: MELATONIN 10 MG PO (23:14)
[2023-04-13] VITALS (12 sets, daily range): BP systolic 96–116; BP diastolic 61–78
[2023-04-13] MEDS: ROXICODONE 5 MG PO ×4 (03:06→21:17)
[2023-04-13 05:40] LABS: Hemoglobin 8.6 g/dL (13.0-18.0); Mean Corp Hgb Conc. 33.1 g/dL (33.0-37.0); Mean Corpuscular Hgb 26.4 pg (27.0-31.0); Mean Corpuscular Volume 79.8 fL (80.0-94.0); Mean Platelet Volume 8.2 fL (7.4-10.4); Platelet Count 189 10^3/uL (130-400); Red Blood Cell Count 3.26 10^6/uL (4.70-6.10); Red Cell Dist. Width 15.5 % (11.5-14.5); White Blood Cell Count 8.1 10^3/uL (4.8-10.8)
[2023-04-13 05:58] LABS: Blood Urea Nitrogen 8 mg/dl (9-20); Calcium 8.2 mg/dl (8.4-10.2); Carbon Dioxide 29 mmol/L (22-30); Chloride 102 mmol/L (98-107); Estimated Creatinine Clearance 115 ml/min; Glucose 112 mg/dl (70-99); Potassium 3.3 mmol/L (3.5-5.1); Sodium 134 mmol/L (135-145); eGFR > 60.00
[2023-04-13] MEDS: ZOSYN 50 IV ×2 (06:20→12:49)
[2023-04-13] MEDS: LOPRESSOR 12.5 MG PO ×2 (07:56→21:16)
[2023-04-13] MEDS: PROTONIX 40 MG PO ×2 (07:56→21:16)
--- NOTE | 2023-04-13 09:15 | W.PN.CARDCBS ---
Addendum entered and electronically signed by Dayday Comer DO 04/13/23 10:28:
I saw and examined the patient.
The [employer] Line Worker's note was reviewed and I agree with the note.
Comment:
Plan:
Cont Lopressor for sinus tachycardia with burst of atrial tachycardia
Echo pending
Stable cv status
Cont CT care and effusion work up and tx.
Could consider an outpatient monitor to be ordered after he returns for outpatient follow-up.
Outpt cardiac follow up with Dr Raphael
please recall if needed.
Original Note:
Today's Communication / Plan
-
echo today
CT chest without contrast today
Continue Lopressor for tachycardia
Impression / Plan
-
PCP: Dr. Paul
Cardiology: Dr. Raphael
Impression:
Admitted with epigastric pain, melena and weight loss 04/09/23
Large right pleural effusion s/p Chest tube
Sinus tachycardia with Atrial tachycardia/SVT
Nonbleeding gastric ulcer with no stigmata of bleeding
CAD h/o LAD PCI 2013
HTN
Hyperlipidemia
Echo 10/27/22: EF 60%, trace MR, mild aortic regurgitation
Lexiscan stress test 07/2022: Fixed inferior defect, EF 63%
Plan:
HPI: Patient came to [facility] 04/09/23 with an episode of melanotic stools and was admitted with anemia and cardiology has been consulted for SVT. Patient has a h/o ulcer and on admission he complained of melanotic stools and weight loss and his Hgb was
12.5 so he was admitted. He had an upper endoscopy 04/10/23 that showed a nonbleeding gastric ulcer without stigmata of bleeding. A CT chest showed no PE, but a massive right sided pleural effusion. IR placed a chest tube 04/09/23 and he has drained
almost 3 L since placement. Starting 04/10/23 patient noted to have SVT with HRs to 160s with coughing. Patient feels palpitations at times and says that started prior to admission.
HR improved with resumption of Lopressor 12.5 mg BID.
Review of tele still with occasional short runs of atrial tachycardia. BP remains soft and does not allow for increase in Lopressor at this time.
Could consider an outpatient monitor to be ordered after he returns for outpatient follow-up.
Echo ordered and pending.
Workup and treatment of large pleural effusion as per pulmonary. Chest tube remains in place. Cytology pending. CT chest without contrast ordered for 04/13
Wean oxygen as tolerated
Continue empiric antibiotics as per pulmonary and primary service.
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
Subjective
Date of Service: April 13, 2023
Patient seen and examined. Feeling better, less palpitations, still on low dose oxygen
Objective
Labs:
04/13/23:
04/13/23:
Labs
Hgb 8.6 g/dL (13.0-18.0) L 04/13/23:
Hct 26.0 % (39.0-52.0) L 04/13/23:
Plt Count 189 10^3/uL (130-400) 04/13/23:
Sodium 134 mmol/L (135-145) L 04/13/23:
Potassium 3.3 mmol/L (3.5-5.1) L 04/13/23:
BUN 8 mg/dl (9-20) L 04/13/23:
Creatinine 0.6 mg/dL (0.7-1.3) L 04/13/23:
Glucose 112 mg/dl (70-99) H 04/13/23:
Vital Signs and I&O:
Vital Signs
Temp Pulse Resp BP Pulse Ox
97.9 F 87 19 111/64 94
04/13/23 03:00 04/13/23 06:00 04/13/23 06:00 04/13/23 06:00 04/13/23 06:00
Vital Signs
Temp Pulse Resp BP Pulse Ox
97.9 F 87 19 111/64 94
04/13/23 03:00 04/13/23 06:00 04/13/23 06:00 04/13/23 06:00 04/13/23 06:00
Intake & Output
04/11/23 04/12/23 04/13/23 04/14/23
06:59 06:59 06:59 06:59
Intake Total 1180 / 1180 310 / 310 1270 / 1270
Output Total 4900 / 4900 1475 / 1475 835 / 835
Balance -3720 / -3720 -1165 / -1165 435 / 435
Physical Exam
Physical Exam
GEN: No distress, awake, Ox3, sitting up in chair
HEENT: supple, anicteric, mmm
LUNGS: decreased BS on right, CTA on left, no wheezes/rales; Wearing oxygen; Right sided CT remains in place
CV: Reg, S1/S2, no murmur, rub or gallop
ABD: soft, BS+, NT/ND
EXT: No edema, clubbing or cyanosis
NEURO: Gross non-focal
SKIN: No rash, warm, dry, pink
[2023-04-13] MEDS: NON-FORMULARY ITEM 1 INH INH (09:33)
--- NOTE | 2023-04-13 10:13 | W.PN.PUL3 ---
Today's Communication / Plan
-
Continue chest tube to suction for now
Continue antibiotics for now
Wait for cytology
Will need to consider transfer for possible thoracic surgery ([facility]ikely at [facility]) intervention if there is no improvement.
Assessment
-
Mr Nito Pearson is a 73/M adm 04-09 with few d h/o epigastric abd pain, melena, unintentional 15 lb wt loss in last 8m, and dyspnea. Seen by PCP recently for dyspnea and cough. Prior h/o nonbleeding gastric ulcer in 2019. CXR and then chest CTA showed
no PE but a very large R pleural effusion with complete R lung atelectasis and mediastinal deviation to L (of note chest CTA Dec 2019 with no PE and no acute findings)
Very large R pleural effusion complete R atelectasis and mediastinal deviation to L
(CTA 12-27-19 was negative for PE, effusion, mass, showed mild apical emphysema, RLL/HOLGER linear atelectasis, no MLAD)
s/p CT
Suspect trapped lung, ex vacuo
Progressive dyspnea since July 2022
Unintentional wt loss
Clubbing on exam
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
COPD, on trelegy
CAD s/p stents
HTN
HLD
GIB, gastric ulcer 2019
H/o H pylori
Former [id number]-gnat-year quit 15 years old
Plan:
Airleak has not improved, continuous. Chest tube to suction.
Not in distress at rest. Able to speak in full sentences.
-
CT chest: 04/13/2023, reviewed showed persistent large right-sided hydropneumothorax. No significant improvement to my view. Persistent rounded consolidation involving the right upper lobe, right middle lobe and right lower lobe. Possibly
atelectasis. Underlying neoplasia cannot be ruled out. Moderate emphysema on the left lung. Minimal left pleural effusion. Small right pleural effusion. Chest tube in place.
-
Continue with chest tube to suction.
Images of the chest reviewed with patient in detail.
Pleural fluid exudate, cytology pending, cultures negative.
-
Again, Dr. Doyle discussed options
1) continue chest tube to suction with slow improvement and lung expansion (doubt)
2) placement of second large bore chest tube to optimize reexpansion (possibly may help)
3) bronchoscopy to rule out endobronchial process (may be necessary as part of workup)
4) evaluation at tertiary care center given possibility of BP fistula/trapped lung requiring decortication ([facility])
-
Suspect likely will need surgical intervention.
Dr. ePtty Will try to forward images to [facility] ([facility] et al.)
-
Wait for fluid cytology.
If no transfer will plan for bronchoscopy and also placement of larger chest tube.
Discussed with patient and he is agreeable.
He will need to coodinate, care for his at home who has Parkinson's ds.
-
Continue inhaler regimen
Cardiology also following for tachycardia
Echocardiogram 04/13
Zosyn continues empirically for now.
GI , has signed off.
04/10/23 EGD with [facility] for melena and drop in hgb: 4cm HH, non-bleeding gastric ulcer in the antrum/prepyloric area and erosive gastropathy. no endoscopic treatment. biopsied for h.pylori (has a hx of HP and PUD - not on ppi at home)
Follow Hb, no active bleeding.
-
DVT prophylaxis-mechanical. Nonbleeding gastric ulcer noted for EGD with erosive gastropathy
GI prophylaxis-on pantoprazole
Nutrition
Early mobilization
This was reviewed with patient at length, by Dr. Doyle. 04/13/2023
Discussed with primary team.

Diagnostic data
Chest x-ray 04/10/2023-improved right pleural effusion, moderate residual right pleural effusion, atelectasis in the lung
CT chest 01/05/2020-no evidence for pulmonary embolism or dissection, NAD, mild emphysematous disease, probable benign left-sided thyroid nodule, nonemergent ultrasound recommended
CT chest 04/09/2023-no pulmonary embolism, very large right pleural effusion associated with complete atelectasis of the right lung, emphysema
Subjective Data
-
Date of Service:
Date of Service: April 13, 2023
Chief Complaint: Pulmonary Follow Up and Dyspnea Follow Up
Subjective:
Patient offers no new complaints.
Continues to have discomfort on the chest tube entry site
Denies shortness of breath at rest
Remains on supplemental oxygen
No significant phlegm production
Adequate appetite.
Review of Systems
General: Fever (n)
Cardiopulmonary: Dyspnea (none at rest)
GI: Abdominal Pain (n), Nausea (n) and Vomiting (n)
Neuro: Headache (n)
Objective Data
Data Reviewed
Vital Signs / I&O / Oxygen:
Vital Signs
Temp Pulse Resp BP Pulse Ox
97.2 F 86 15 115/72 95
04/13/23 07:43 04/13/23 09:38 04/13/23 09:38 04/13/23 08:00 04/13/23 09:38
Intake and Output
04/12/23 04/13/23 04/14/23
06:59 06:59 06:59
Intake Total 310 / 310 1270 / 1270
Output Total 1475 / 1475 835 / 835
Balance -1165 / -1165 435 / 435
SaO2 95
Nasal Cannula flow liters per 2
minute
Physical Exam
General: Comfortable
HEENT: Normocephalic, Anicteric and Moist Mucous Membranes
Cardiovascular: Regular Rhythm, Murmur (n), Rub (n), Peripheral Edema (n) and Calf Tenderness (n)
Respiratory: Clear (Diminished breath sounds right base), Wheeze, Crackles (Few left basilar), Rhonchi (n), Non-Labored Respirations, Crepitus (n), Egophony (n), Chest Tube (Continuous airleak noted.) and Other (Bronchial right side)
GI: Soft, Non Distended and Non Tender
Neurology: Awake, Alert and No Motor Deficits
Skin: Cyanosis (n), Jaundice (n), Rash (n) and Other (Positive clubbing)
Labs/Micro/Reports
Lab Data
04/13/23 05:26
04/13/23 05:26
Microbiology
04/09/23 16:13 Pleural Fluid Body Fluid Culture - Final
No Growth After 72 Hours
04/09/23 16:13 Pleural Fluid Gram Stain - Final
--- NOTE | 2023-04-13 12:31 | PTCARENOTE ---
Assumed care of patient at beginning of this shift from previous RN. Chest tube continues to 20cm suction with previously known air leak. O2 sat 99% on 2l n/c. Patient denies SOB or chest pain. CT scan and echo completed. Patient seen by pulmonary,
cardiology and hospitalist; see updated orders/notes. See worklist for full assessment and vital signs; see MAR for med administration.
[2023-04-13] MEDS: TYLENOL 650 MG PO ×2 (13:04→21:17)
--- NOTE | 2023-04-13 13:23 | W.PN.HOSP.TC ---
Addendum entered and electronically signed by Venu Wetzel MD 04/13/23 14:41:
hypokalemia-replete/monitor. 40meq ordered
Original Note:
Today's Communication/Plan
-
Pulm recs
CT to suction
dc abx
monitor respiratory status closely
await cytology
Assessment / Plan
Assessment / Plan
1. Large right pleural effusion
Large pneumothorax - likely ex vacuo
Completely collapsed right lung
Acute hypoxic respiratory failure
-No reported previous history of effusion. Former-smoker. No pulmonary disease except COPD
-CT chest PE protocol showing large pleural effusion filling up complete right hemithorax. No PE
-S/p thoracentesis with drainage of 2.5 L brownish non turbid pleural fluid on 04/09. Thoracentesis terminated early as patient was having dizziness/not feeling well , concern of reexpansion pulm edema.
-Chest tube was placed instead and tube clamped.
-Pleural fluid studies showing exudative fluid with TBWC [address] 91% PMN 9.5% LDH 1939 TP 4.6 . gram stain neg. culture and cytology pending.
-Repeat chest x-ray 04/10 showed moderate effusion remaining, tube unclamped patient had extra 1.1L drain spontaneously, next 12 hrs drained extra 850ml.
-CXR on 04/11 showing large pneumothorax
-CT scan on 04/13 Right-sided chest tube is present, within a large right-sided hydropneumothorax.Persistent rounded consolidation involving the right upper lobe, right middle lobe, and right lower lobe. Most likely, this represents persistent
atelectasis. Underlying neoplasia is possible, particularly for the right upper lobe, although felt to be less likely.
-Cont chest tube to suction.
-await cytology results and pt agreeable to determine further course of care.
-Pulm following
2. Leukocytosis w/o fever -resolved
-s/p zosyn and abx discontinued further.
3. Melena
History of gastric bypass and PUD
History of H. pylori gastritis
Acute blood loss anemia
-Hemoglobin drifted down. baseline of 12, transfuse if less than 7
-EGD showing nonbleeding gastric ulcer and erosive gastropathy w/o stigmata of recent bleed
-continue conservative management
4. Tachyarrhythmia
-Patient with short lasting episodes of narrow complex tachyarrhythmia, likely sinus tach versus SVT episode
-SBP in 110s, started on oral metoprolol 12.5 mg twice daily
-ECHO pending
-Cardiology requested to follow
5. COPD
- no signs of flare up, no indication for steroids
Essential hypertension
History of spinal laminectomy/fusion
BPH
Hyperlipidemia
Coronary artery disease s/p PCI/stenting
History of left TKR
DVT PPX - lovenox
Full code
Pt trying to coordinate care for his at home who has medical condition and requires attention/care
Will require transfer to tertiary care if no improvement
Anticipated Discharge: > 48 hours
Subjective/Interval History
-
Date of Service: April 13, 2023
States his breathing has improved
denies cp or sob at rest
able to talk in complete sentences
Objective Data
-
Labs:
Laboratory Results
04/13/23
05:26
WBC 8.1
Hgb 8.6 L
Hct 26.0 L
Plt Count 189
Sodium 134 L
Potassium 3.3 L
Chloride 102
Carbon Dioxide 29
BUN 8 L
Creatinine 0.6 L
Glucose 112 H
Calcium 8.2 L
Vital Signs:
Vital Signs
Temp Pulse Resp BP Pulse Ox
98.3 F 86 22 107/78 95
04/13/23 11:31 04/13/23 10:00 04/13/23 10:00 04/13/23 10:00 04/13/23 09:38
I&O
04/12/23 04/13/23 04/14/23
06:59 06:59 06:59
Intake Total 310 / 310 1270 / 1270 290 / 290
Output Total 1475 / 1475 835 / 835 300 / 300
Balance -1165 / -1165 435 / 435 -10 / -10
Physical Exam
-
General: No Apparent Distress, Comfortable and Appears Chronically Ill
HEENT: Oxygen
Respiratory: Clear to Auscultation (normal left, absent right side with minimal undefinable sound ) and Other (Right chest tube - sanguineous fluid )
Cardiac: Regular Rhythm and S1/S2; Negative Murmur or Rub
GI: Soft, Nontender, Nondistended and Normal Bowel Sounds
Musculoskeletal: No Edema
Neuro: Awake, Alert, Oriented, No Motor Deficits and Nonfocal/Grossly Intact
Psych: Calm
Data Reviewed
-
Total Time Spent with Patient (in minutes): 55
[2023-04-13] MEDS: FERRLECIT 110 MG IV (15:06)
[2023-04-13] MEDS: KCL 40 MEQ PO (15:29)
[2023-04-13] MEDS: LIPITOR 80 MG PO (18:05)
[2023-04-13] MEDS: SENNA SYRUP 8.80000000000000071 MG PO (21:16)
[2023-04-13] MEDS: MELATONIN 10 MG PO (21:16)
[2023-04-14] VITALS (15 sets, daily range): BP systolic 92–126; BP diastolic 56–86; PULSE 92; O2SAT 91–95
[2023-04-14] MEDS: ROXICODONE 5 MG PO ×5 (01:57→23:18)
--- NOTE | 2023-04-14 05:58 | PTCARENOTE ---
Nito didn't sleep well, per pt had weird dreams. Chest tube to suction continues with air leak. Pt requests Prn oxycodone for pain at chest tube site. CT drained 210mL of red fluid. Voiding via urinal. No BM since admission but passing gas. Call
gray within reach.
[2023-04-14] MEDS: MIRALAX 17 GRAMS PO ×2 (08:21→19:47)
[2023-04-14] MEDS: ASPIR LOW (ENTERIC COATED) 81 MG PO (08:21)
[2023-04-14] MEDS: LOPRESSOR 12.5 MG PO ×2 (08:21→19:47)
[2023-04-14] MEDS: PROTONIX 40 MG PO ×2 (08:21→19:47)
[2023-04-14] MEDS: NON-FORMULARY ITEM 1 INH INH (08:23)
[2023-04-14 09:01] LABS: % Basophils 0.4 % (0-2); % Eosinophils 2.4 % (0-6); % Immature Granulocytes 0.7 % (0-0.5); % Lymphocytes 8.9 % (20.5-51.1); % Monocytes 7.9 % (1.7-9.3); % Neutrophils 79.7 % (42.2-75.2); Absolute Eosinophils 0.2 10^3/uL (0-0.7); Absolute Immature Granulocytes 0.1 10^3/uL (0-0.05); Absolute Lymphocytes 0.6 10^3/uL (1.2-3.4); Absolute Monocytes 0.5 10^3/uL (0.1-0.6); Absolute Neutrophils 5.4 10^3/uL (1.4-6.5); Hematocrit 26.5 % (39.0-52.0); Hemoglobin 8.9 g/dL (13.0-18.0); Mean Corp Hgb Conc. 33.6 g/dL (33.0-37.0); Mean Corpuscular Hgb 27.1 pg (27.0-31.0); Mean Corpuscular Volume 80.5 fL (80.0-94.0); Mean Platelet Volume 8.2 fL (7.4-10.4); Nucleated Red Blood Cells % 0 % (-); Platelet Count 215 10^3/uL (130-400); Red Blood Cell Count 3.29 10^6/uL (4.70-6.10); White Blood Cell Count 6.7 10^3/uL (4.8-10.8)
[2023-04-14 09:18] LABS: Blood Urea Nitrogen 7 mg/dl (9-20); Calcium 8.2 mg/dl (8.4-10.2); Carbon Dioxide 27 mmol/L (22-30); Chloride 104 mmol/L (98-107); Estimated Creatinine Clearance 99 ml/min; Glucose 147 mg/dl (70-99); Potassium 3.9 mmol/L (3.5-5.1); Sodium 134 mmol/L (135-145); eGFR > 60.00
--- NOTE | 2023-04-14 09:49 | CM ---
Patient with Dx Large right pleural effusion, Completely collapsed right lung, Acute hypoxic respiratory failure, melena, s/p thoracentesis. Chest tube. O2 2L. Receiving IV Ferric gluconate.
Accepted by Kat VASQUEZ.
Plan watch for home O2 needs.
Plan home with Kat VASQUEZ.
--- NOTE | 2023-04-14 10:18 | W.PN.PUL3 ---
Today's Communication / Plan
-
Continue chest tube to suction
Observe off antibiotics
Wait for cytology
May need transfer to [facility], discussed with patient and also with CT surgery at [facility]. Would like to wait for cytology first.
Assessment
-
Mr Nito Pearson is a 73/M adm 04-09 with few d h/o epigastric abd pain, melena, unintentional 15 lb wt loss in last 8m, and dyspnea. Seen by PCP recently for dyspnea and cough. Prior h/o nonbleeding gastric ulcer in 2019. CXR and then chest CTA showed
no PE but a very large R pleural effusion with complete R lung atelectasis and mediastinal deviation to L (of note chest CTA Dec 2019 with no PE and no acute findings)
Very large R pleural effusion complete R atelectasis and mediastinal deviation to L
(CTA 12-27-19 was negative for PE, effusion, mass, showed mild apical emphysema, RLL/HOLGER linear atelectasis, no MLAD)
s/p CT
Suspect trapped lung, ex vacuo
Progressive dyspnea since July 2022
Unintentional wt loss
Clubbing on exam
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
COPD, on trelegy
CAD s/p stents
HTN
HLD
GIB, gastric ulcer 2019
H/o H pylori
Former [id number]-year quit 15 years old
Plan:
Airleak has not improved, continuous. Chest tube to suction.
Not in distress at rest. Able to speak in full sentences.
-
CT chest: 04/13/2023, reviewed with patient on the computer screen, showed persistent large right-sided hydropneumothorax. No significant improvement to my view. Persistent rounded consolidation involving the right upper lobe, right middle lobe and
right lower lobe. Possibly atelectasis. Underlying neoplasia cannot be ruled out. Moderate emphysema on the left lung. Minimal left pleural effusion. Small right pleural effusion. Chest tube in place.
-
Continue with chest tube to suction.
Pleural fluid exudate, cytology pending, cultures negative.
Discussed case with cytology: Suspicious for malignancy. Special stains pending. Will wait for official report.
-
Again, Dr. Doyle discussed options with patient on 04/14/2023.
Likely will need transfer to a tertiary care [facility] for thoracic surgery evaluation. Case has been discussed with thoracic surgeon at [facility] and they are willing to accept patient.
Patient states that he would like to know first whether it is malignant or not. Will wait for cytology and formulate a plan at that time.
-
Hold off on bronchoscopy or upgrading CT chest as the patient appears to be stable.
If cancer is confirmed, unlikely to be a candidate for VATS thoracotomy.
Options may include, Heimlich valve placement, bronchoscopic evaluation for endobronchial valves etc.
-
He will need to coodinate, care for his at home who has Parkinson's ds.
-
Continue inhaler regimen-he is not bronchospastic on exam.
Trelegy, no evidence for acute exacerbation of COPD.
Echocardiogram 04/13-normal LVEF. Mild to moderate MR.
Appears euvolemic.
Observe off antibiotics.
GI , has signed off.
04/10/23 EGD with [facility] for melena and drop in hgb: 4cm HH, non-bleeding gastric ulcer in the antrum/prepyloric area and erosive gastropathy. no endoscopic treatment. biopsied for h.pylori (has a hx of HP and PUD - not on ppi at home)
Follow Hb, no active bleeding.
-
DVT prophylaxis-mechanical. Nonbleeding gastric ulcer noted for EGD with erosive gastropathy
GI prophylaxis-on pantoprazole
-
Physical therapy/Occupational Therapy evaluation today.
This was reviewed with patient at length, by Dr. Doyle. 04/13/2023 and 04/14/2023.
Discussed with primary team on 04/14/2023.

Diagnostic data
Chest x-ray 04/10/2023-improved right pleural effusion, moderate residual right pleural effusion, atelectasis in the lung
CT chest 01/05/2020-no evidence for pulmonary embolism or dissection, NAD, mild emphysematous disease, probable benign left-sided thyroid nodule, nonemergent ultrasound recommended
CT chest 04/09/2023-no pulmonary embolism, very large right pleural effusion associated with complete atelectasis of the right lung, emphysema
Subjective Data
-
Date of Service:
Date of Service: April 14, 2023
Chief Complaint: Pulmonary Follow Up and Dyspnea Follow Up
Subjective:
Patient denies any particular complaints
Denies shortness of breath at rest
Has some discomfort in the chest tube entry site
Denies hemoptysis or phlegm production.
Review of Systems
General: Fever (n)
Cardiopulmonary: Dyspnea (none at rest), Cough (n), Sputum Production (n) and Chest Pain (on chest tube entry site.)
GI: Abdominal Pain (n) and Nausea (n)
Neuro: Headache (n)
Objective Data
Data Reviewed
Vital Signs / I&O / Oxygen:
Vital Signs
Temp Pulse Resp BP Pulse Ox
97.9 F 96 18 121/73 92
04/14/23 07:14 04/14/23 08:21 04/14/23 06:00 04/14/23 08:21 04/14/23 08:02
Intake and Output
04/13/23 04/14/23 04/15/23
06:59 06:59 06:59
Intake Total 1270 / 1270 400 / 400
Output Total 835 / 835 1390 / 1390
Balance 435 / 435 -990 / -990
SaO2 92
Nasal Cannula flow liters per 2
minute
Physical Exam
General: Comfortable
HEENT: Normocephalic, Anicteric and Moist Mucous Membranes
Cardiovascular: Regular Rhythm, Murmur (n), Rub (n), Peripheral Edema (n) and Calf Tenderness (n)
Respiratory: Clear (Diminished breath sounds right base), Wheeze, Crackles (Few left basilar), Rhonchi (n), Non-Labored Respirations, Crepitus (n), Egophony (n), Chest Tube (Air leak with conversation noted.) and Other (Bronchial right side)
GI: Soft, Non Distended and Non Tender
Neurology: Awake, Alert and No Motor Deficits
Skin: Cyanosis (n), Jaundice (n), Rash (n) and Other (Positive clubbing)
Labs/Micro/Reports
Lab Data
04/14/23 08:37
04/14/23 08:37
Microbiology
04/09/23 16:13 Pleural Fluid Body Fluid Culture - Final
No Growth After 72 Hours
04/09/23 16:13 Pleural Fluid Gram Stain - Final
--- NOTE | 2023-04-14 11:45 | PTCARENOTE ---
Assumed care of patient at beginning of this shift from previous RN. Chest tube remains to -20cm suction with red drainage; known air lead remains. POx 94% on RA; O2 2L n/c at bedside if needed;denies shortness of breath or RAMÍREZ. He does occasionally
c/o pain at chest tube insertion site which is relieved by pain med. Patient requesting to go into the bathroom. Dr Doyle made aware when he was seeing patient; order entered for PT/OT and that patient may come off suction if ambulating in room to
use restroom. See worklist for full assessment, interventions and vital signs; see MAR for med administration.
--- NOTE | 2023-04-14 12:33 | W.PN.HOSP.TC ---
Today's Communication/Plan
-
bowel regimen
PT/OT
Await cytology
CXR in am
Pulm recs
Assessment / Plan
Assessment / Plan
1. Large right pleural effusion
Large pneumothorax - likely ex vacuo
Completely collapsed right lung
Acute hypoxic respiratory failure
-No reported previous history of effusion. Former-smoker. No pulmonary disease except COPD
-CT chest PE protocol showing large pleural effusion filling up complete right hemithorax. No PE
-S/p thoracentesis with drainage of 2.5 L brownish non turbid pleural fluid on 04/09. Thoracentesis terminated early as patient was having dizziness/not feeling well , concern of reexpansion pulm edema.
-Chest tube was placed instead and tube clamped.
-Pleural fluid studies showing exudative fluid with TBWC [address] 91% PMN 9.5% LDH 1939 TP 4.6 . gram stain neg. culture and cytology pending.
-Repeat chest x-ray 04/10 showed moderate effusion remaining, tube unclamped patient had extra 1.1L drain spontaneously, next 12 hrs drained extra 850ml.
-CXR on 04/11 showing large pneumothorax
-CT scan on 04/13 Right-sided chest tube is present, within a large right-sided hydropneumothorax.Persistent rounded consolidation involving the right upper lobe, right middle lobe, and right lower lobe. Most likely, this represents persistent
atelectasis. Underlying neoplasia is possible, particularly for the right upper lobe, although felt to be less likely.
-Cont chest tube to suction. remains with airleak
-Daily CXR.
-await cytology results and pt agreeable to determine further course of care.
-Pulm following
2. Leukocytosis w/o fever -resolved
-s/p zosyn and abx discontinued further.
3. Melena
History of gastric bypass and PUD
History of H. pylori gastritis
Acute blood loss anemia
-Hemoglobin drifted down. baseline of 12, transfuse if less than 7
-EGD showing nonbleeding gastric ulcer and erosive gastropathy w/o stigmata of recent bleed
-continue conservative management
4. Tachyarrhythmia
-Patient with short lasting episodes of narrow complex tachyarrhythmia, likely sinus tach versus SVT episode
-SBP in 110s, started on oral metoprolol 12.5 mg twice daily
-ECHO pending
-Cardiology requested to follow
5. COPD
- no signs of flare up, no indication for steroids
Essential hypertension
History of spinal laminectomy/fusion
BPH
Hyperlipidemia
Coronary artery disease s/p PCI/stenting
History of left TKR
Constipation-bowel regimen
DVT PPX - lovenox
Full code
Pt trying to coordinate care for his at home who has medical condition and requires attention/care
Anticipated Discharge: > 48 hours
Subjective/Interval History
-
Date of Service: April 14, 2023
want to ambulate
able to speak in complete sentences
Objective Data
-
Labs:
Laboratory Results
04/14/23
08:37
WBC 6.7
Hgb 8.9 L
Hct 26.5 L
Plt Count 215
Sodium 134 L
Potassium 3.9
Chloride 104
Carbon Dioxide 27
BUN 7 L
Creatinine 0.7
Glucose 147 H
Calcium 8.2 L
Vital Signs:
Vital Signs
Temp Pulse Resp BP Pulse Ox
98.4 F 96 19 126/72 93
04/14/23 11:07 04/14/23 10:00 04/14/23 10:00 04/14/23 10:00 04/14/23 08:18
I&O
04/13/23 04/14/23 04/15/23
06:59 06:59 06:59
Intake Total 1270 / 1270 400 / 400
Output Total 835 / 835 1390 / 1390
Balance 435 / 435 -990 / -990
Physical Exam
-
General: No Apparent Distress, Comfortable and Appears Chronically Ill
HEENT: Oxygen
Respiratory: Clear to Auscultation (normal left, absent right side with minimal undefinable sound ) and Other (Right chest tube - sanguineous fluid )
Cardiac: Regular Rhythm and S1/S2; Negative Murmur or Rub
GI: Soft, Nontender, Nondistended and Normal Bowel Sounds
Musculoskeletal: No Edema
Neuro: Awake, Alert, Oriented, No Motor Deficits and Nonfocal/Grossly Intact
Psych: Calm
[2023-04-14] MEDS: LIPITOR 80 MG PO (17:47)
--- NOTE | 2023-04-14 20:00 | PTCARENOTE ---
Patient received in bed, AAOX3. NSR on monitor, afebrile, blood pressure as documented. palpable pulses throughout, no edema noted. Knee high SCDs maintained. Lungs diminished at right base with fine crackles. Right lateral chest tube to -20 cm
suction, + air leak, + tidaling, no crepitus noted, draining serosanguineous. Abdomen soft with positive bowel sounds. voiding clear yellow urine. Bilateral #20 g in hands flushed and patent. Plan of care discussd, call gray within reach
[2023-04-14] MEDS: SENNA SYRUP 8.80000000000000071 MG PO (21:48)
[2023-04-14] MEDS: MELATONIN 10 MG PO (23:17)
[2023-04-14] MEDS: ProAIR HFA INHALER 2 PUFF INH (23:25)
[2023-04-15] VITALS (8 sets, daily range): BP systolic 97–121; BP diastolic 61–99
[2023-04-15] MEDS: ROXICODONE 5 MG PO ×3 (05:26→17:27)
[2023-04-15 05:38] LABS: % Basophils 0.2 % (0-2); % Immature Granulocytes 0.9 % (0-0.5); % Lymphocytes 8.8 % (20.5-51.1); % Monocytes 9.8 % (1.7-9.3); % Neutrophils 78.3 % (42.2-75.2); Absolute Eosinophils 0.2 10^3/uL (0-0.7); Absolute Immature Granulocytes 0.1 10^3/uL (0-0.05); Absolute Lymphocytes 0.7 10^3/uL (1.2-3.4); Absolute Monocytes 0.8 10^3/uL (0.1-0.6); Absolute Neutrophils 6.3 10^3/uL (1.4-6.5); Hematocrit 26.3 % (39.0-52.0); Hemoglobin 8.7 g/dL (13.0-18.0); Mean Corp Hgb Conc. 33.1 g/dL (33.0-37.0); Mean Corpuscular Hgb 26.4 pg (27.0-31.0); Mean Corpuscular Volume 79.9 fL (80.0-94.0); Nucleated Red Blood Cells % 0 % (-); Platelet Count 197 10^3/uL (130-400); Red Blood Cell Count 3.29 10^6/uL (4.70-6.10); Red Cell Dist. Width 16.1 % (11.5-14.5); White Blood Cell Count 8.1 10^3/uL (4.8-10.8)
[2023-04-15 06:07] LABS: Blood Urea Nitrogen 9 mg/dl (9-20); Calcium 8.2 mg/dl (8.4-10.2); Carbon Dioxide 30 mmol/L (22-30); Chloride 102 mmol/L (98-107); Estimated Creatinine Clearance 115 ml/min; Glucose 112 mg/dl (70-99); Sodium 133 mmol/L (135-145); eGFR > 60.00
[2023-04-15 06:14] LABS: Potassium 3.9 mmol/L (3.5-5.1)
[2023-04-15] MEDS: NON-FORMULARY ITEM 1 INH INH (07:39)
[2023-04-15] MEDS: ProAIR HFA INHALER 2 PUFF INH (07:40)
[2023-04-15] MEDS: LOPRESSOR 12.5 MG PO ×2 (08:40→20:20)
[2023-04-15] MEDS: ASPIR LOW (ENTERIC COATED) 81 MG PO (08:40)
[2023-04-15] MEDS: PROTONIX 40 MG PO ×2 (08:40→20:20)
[2023-04-15] MEDS: MIRALAX 17 GRAMS PO (08:40)
--- NOTE | 2023-04-15 12:02 | PTCARENOTE ---
Pt rec'd from community director 07:15, AOx3 and pleasant, continues with chest tube to -20 sxn...+4 air leak noted, no crepitus, dressing CDI. Serosang drainage noted in collection chamber...sats stable on 2L nc. Pt stated he feels well today. Plan of
care discussed with patient, no needs expressed at this time. Awaiting pathology of pleural fluid to determine next steps. Continuing to monitor.
--- NOTE | 2023-04-15 12:28 | W.PN.HOSP.TC ---
Today's Communication/Plan
-
Await transfer to [facility]
Pain control
Continue PPI
Assessment / Plan
Assessment / Plan
Large right pleural effusion
Large pneumothorax - likely ex vacuo
Completely collapsed right lung
Acute hypoxic respiratory failure
-No reported previous history of effusion. Former-smoker. No pulmonary disease except COPD
-CT chest PE protocol showing large pleural effusion filling up complete right hemithorax. No PE
-S/p thoracentesis with drainage of 2.5 L brownish non turbid pleural fluid on 04/09. Thoracentesis terminated early as patient was having dizziness/not feeling well , concern of reexpansion pulm edema.
-Chest tube was placed instead and tube clamped.
-Pleural fluid studies showing exudative fluid with TBWC [address] 91% PMN 9.5% LDH 1939 TP 4.6 . gram stain neg. culture and cytology pending.
-Repeat chest x-ray 04/10 showed moderate effusion remaining, tube unclamped patient had extra 1.1L drain spontaneously, next 12 hrs drained extra 850ml.
-CXR on 04/11 showing large pneumothorax
-CT scan on 04/13 Right-sided chest tube is present, within a large right-sided hydropneumothorax.Persistent rounded consolidation involving the right upper lobe, right middle lobe, and right lower lobe. Most likely, this represents persistent
atelectasis. Underlying neoplasia is possible, particularly for the right upper lobe, although felt to be less likely.
-Cont chest tube to suction. remains with airleak
-Daily CXR.
-await cytology results and pt agreeable to determine further course of care.
-Pulm following
Lung adenocarcinoma
-per Oncology fix current issues with Pneumothorax and with plan for OP f/u for malignancy management.
-Discussed with oncology Dr. Hess briefly who recommended management and treatment of acute pneumothorax and then patient can follow-up for malignancy treatment.
Leukocytosis w/o fever -resolved
-s/p zosyn and abx discontinued further.
Melena
History of gastric bypass and PUD
History of H. pylori gastritis
Acute blood loss anemia
-Hemoglobin drifted down. baseline of 12, transfuse if less than 7
-EGD showing nonbleeding gastric ulcer and erosive gastropathy w/o stigmata of recent bleed
-continue conservative management
Tachyarrhythmia
-Patient with short lasting episodes of narrow complex tachyarrhythmia, likely sinus tach versus SVT episode
-SBP in 110s, started on oral metoprolol 12.5 mg twice daily
-ECHO pending
-Cardiology requested to follow
COPD
- no signs of flare up, no indication for steroids
Essential hypertension
History of spinal laminectomy/fusion
BPH
Hyperlipidemia
Coronary artery disease s/p PCI/stenting
History of left TKR
Constipation-bowel regimen
DVT PPX - lovenox
Full code
Discussed with [facility] and patient has been accepted under Dr. Gee [facility] surgery service. Patient is a high priority and await placement. Transfer paperwork on chart.
Discussed with pulmonary
Discussed with RN
Case management aware for transfer
Anticipated Discharge: Today
Subjective/Interval History
-
Date of Service: April 15, 2023
States of pain at chest tube site
Objective Data
-
Labs:
Laboratory Results
04/15/23
05:24
WBC 8.1
Hgb 8.7 L
Hct 26.3 L
Plt Count 197
Sodium 133 L
Potassium 3.9
Chloride 102
Carbon Dioxide 30
BUN 9
Creatinine 0.5 L
Glucose 112 H
Calcium 8.2 L
Vital Signs:
Vital Signs
Temp Pulse Resp BP Pulse Ox
98.4 F 91 23 113/73 96
04/15/23 12:20 04/15/23 12:00 04/15/23 12:00 04/15/23 10:00 04/15/23 12:00
I&O
04/14/23 04/15/23 04/16/23
06:59 06:59 06:59
Intake Total 400 / 400
Output Total 1390 / 1390 1565 / 1565 800 / 800
Balance -990 / -990 -1565 / -1565 -800 / -800
Physical Exam
-
General: No Apparent Distress, Comfortable and Appears Chronically Ill
HEENT: Oxygen
Respiratory: Clear to Auscultation (normal left, absent right side with minimal undefinable sound ) and Other (Right chest tube - sanguineous fluid )
Cardiac: Regular Rhythm and S1/S2; Negative Murmur or Rub
GI: Soft, Nontender, Nondistended and Normal Bowel Sounds
Musculoskeletal: No Edema
Neuro: Awake, Alert, Oriented, No Motor Deficits and Nonfocal/Grossly Intact
Psych: Calm
Data Reviewed
-
Total Time Spent with Patient (in minutes): 55
--- NOTE | 2023-04-15 12:51 | W.PN.PUL3 ---
Today's Communication / Plan
-
Continue Chest tube to suction
cont. Supplemental oxygen
Possible transfer to [facility] for thoracic surgery eval.
Assessment
-
Mr Nito Pearson is a 73/M adm 04-09 with few d h/o epigastric abd pain, melena, unintentional 15 lb wt loss in last 8m, and dyspnea. Seen by PCP recently for dyspnea and cough. Prior h/o nonbleeding gastric ulcer in 2019. CXR and then chest CTA showed
no PE but a very large R pleural effusion with complete R lung atelectasis and mediastinal deviation to L (of note chest CTA Dec 2019 with no PE and no acute findings)
Very large R pleural effusion complete R atelectasis and mediastinal deviation to L
(CTA 12-27-19 was negative for PE, effusion, mass, showed mild apical emphysema, RLL/HOLGER linear atelectasis, no MLAD)
s/p CT
Suspect trapped lung, ex vacuo
Progressive dyspnea since July 2022
Unintentional wt loss
Clubbing on exam
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
COPD, on trelegy
CAD s/p stents
HTN
HLD
GIB, gastric ulcer 2019
H/o H pylori
Former xlpdyi-95-xqhh-year quit 15 years old
Plan:
Chest tube airleak still present and not improved. Present with tidal respirations.
Did not tolerated water seal.
Not in distress at rest. Able to speak in full sentences. On low rate supplemental oxygen.
-
CT chest: 04/13/2023, reviewed with patient on the computer screen, showed persistent large right-sided hydropneumothorax. No significant improvement to my view. Persistent rounded consolidation involving the right upper lobe, right middle lobe and
right lower lobe. Possibly atelectasis. Underlying neoplasia cannot be ruled out. Moderate emphysema on the left lung. Minimal left pleural effusion. Small right pleural effusion. Chest tube in place.
CXR 04/15/2023: reviewed, showed no change on pneumothorax/trapped lung. No SC air.
-
Continue with chest tube to suction.
Pleural fluid exudate,\\ cultures negative.
Discussed case with pathology: Sample finilized and consistent with Lung adenoCA.
Oncology has seen pt and case discussed. Unfortunate, will have to address lung issues first.
-
Again, Dr. Doyle discussed options with patient on 04/14/2023 and 04/15/2023.
Likely will need transfer to a tertiary care [facility] for thoracic surgery evaluation. Case has been discussed with thoracic surgeon at [facility] and they are willing to accept patient.
I have reached out to Dr. Gee from [facility].
-
Hold off on bronchoscopy or upgrading CT chest as the patient appears to be stable.
Options may include, Heimlich valve placement, bronchoscopic evaluation for endobronchial valves etc.
-
COPD/emphysema
Continue inhaler regimen-he is not bronchospastic on exam.
Trelegy, no evidence for acute exacerbation of COPD.
-
Echocardiogram 04/13-normal LVEF. Mild to moderate MR.
Appears euvolemic.
Observe off antibiotics.
GI , has signed off.
04/10/23 EGD with [facility] for melena and drop in hgb: 4cm HH, non-bleeding gastric ulcer in the antrum/prepyloric area and erosive gastropathy. no endoscopic treatment. biopsied for h.pylori (has a hx of HP and PUD - not on ppi at home)
Follow Hb, no active bleeding.
HB stable today.
-
DVT prophylaxis-mechanical. Nonbleeding gastric ulcer noted for EGD with erosive gastropathy
GI prophylaxis-on pantoprazole
-
Physical therapy/Occupational Therapy as tolerated.
This was reviewed with patient at length, by Dr. Doyle. 04/15/2023
Discussed with primary team and Oncology on 04/15/2023.
Transfer to [place] if accepted, waiting for call back from Doctor.

Diagnostic data
Chest x-ray 04/10/2023-improved right pleural effusion, moderate residual right pleural effusion, atelectasis in the lung
CT chest 01/05/2020-no evidence for pulmonary embolism or dissection, NAD, mild emphysematous disease, probable benign left-sided thyroid nodule, nonemergent ultrasound recommended
CT chest 04/09/2023-no pulmonary embolism, very large right pleural effusion associated with complete atelectasis of the right lung, emphysema
Subjective Data
-
Date of Service:
Date of Service: April 15, 2023
Chief Complaint: Pulmonary Follow Up and Dyspnea Follow Up
Subjective:
Pt has no significant pulmonary complaints.
Was able to ambulate to restroom.
On low rate supplemental oxygen.
Denies chest pain.
Review of Systems
General: Fever (n)
Cardiopulmonary: Dyspnea (none at rest)
GI: Abdominal Pain (n), Nausea (n) and Vomiting
Neuro: Headache (n)
Objective Data
Data Reviewed
Vital Signs / I&O / Oxygen:
Vital Signs
Temp Pulse Resp BP Pulse Ox
98.4 F 91 23 113/73 96
04/15/23 12:20 04/15/23 12:00 04/15/23 12:00 04/15/23 10:00 04/15/23 12:00
Intake and Output
04/14/23 04/15/23 04/16/23
06:59 06:59 06:59
Intake Total 400 / 400
Output Total 1390 / 1390 1565 / 1565 800 / 800
Balance -990 / -990 -1565 / -1565 -800 / -800
SaO2 96
Nasal Cannula flow liters per 2
minute
Physical Exam
General: Comfortable
HEENT: Normocephalic, Anicteric and Moist Mucous Membranes
Cardiovascular: Regular Rhythm, Murmur (n), Rub (n), Peripheral Edema (n) and Calf Tenderness (n)
Respiratory: Clear (Diminished breath sounds right base), Wheeze, Crackles (Few left basilar), Rhonchi (n), Non-Labored Respirations, Crepitus (n), Egophony (n), Chest Tube (Air leak with conversation noted.) and Other (Bronchial right side)
GI: Soft, Non Distended and Non Tender
Neurology: Awake, Alert and No Motor Deficits
Skin: Cyanosis (n), Jaundice (n), Rash (n) and Other (Positive clubbing)
Labs/Micro/Reports
Lab Data
04/15/23 05:24
04/15/23 05:24
Microbiology
04/09/23 16:13 Pleural Fluid Body Fluid Culture - Final
No Growth After 72 Hours
04/09/23 16:13 Pleural Fluid Gram Stain - Final
--- NOTE | 2023-04-15 14:57 | PTCARENOTE ---
Chest tube collection system changed out for new one at 14:45. Previous output of 100 mls documented in chart. PTC called to update that bed has been assigned in [facility], room 1158. Will call report to nursing at this time.
--- NOTE | 2023-04-15 15:43 | W.DCSUMMARY ---
Discharge Summary
Discharge Data
Date of Admission: 04/09/23
Date of Discharge: 04/15/23
-
Pending Results: No
Hospital Course
73-year-old male past medical history of hypertension, BPH, hyperlipidemia, CAD status post stenting, COPD, abdominal pain and weight loss and dyspnea. Patient was eval by gastroenterology. Patient was on PPI. Patient underwent endoscopy which
showed 4 cm hiatal hernia. Nonbleeding gastric ulcer with no stigmata of bleeding. Erosive gastropathy with no bleeding and no stigmata of recent bleeding. Patient also underwent CTA which was negative for pulm embolism however did show large
right pleural effusion with complete right lung atelectasis and mediastinal deviation to the left. Patient underwent -S/p thoracentesis with drainage of� 2.5 L brownish non turbid pleural fluid on 04/09.� Thoracentesis terminated early as patient
was having dizziness/not feeling well , concern of reexpansion pulm edema. Chest tube was placed instead and tube clamped. -Pleural fluid studies showing exudative fluid. Patient remained with persistent air leak at the chest tube site. Repeat
chest CT scan was performed which showed Right-sided chest tube is present, within a large right-sided hydropneumothorax.Persistent rounded consolidation involving the right upper lobe, right middle lobe, and right lower lobe. Most likely, this
represents persistent atelectasis. Underlying neoplasia is possible, particularly for the right upper lobe, although felt to be less likely. Patient for pleural fluid cytology came back positive for lung adenocarcinoma. Patient hemoglobin
stabilized. Oncology recommended patient acute issue of pneumothorax to be treated and managed prior to discussion for further chemotherapy. As patient will require advance management for pneumothorax patient case was discussed by pulmonary with
thoracic surgery at [facility] and patient will be transferred under thoracic surgery service.
Discharge Plan
-
Patient Disposition: Acute Care Hospital
Discharge Orders:
Discharge Patient (As Directed); Ordered 04/15/23
Ordered By: Venu Wetzel
Discharge Date and Time
Discharge Date/Time: 04/15/23 21:49
--- NOTE | 2023-04-15 16:08 | CM ---
Addendum entered by Maria D Oliveros RN 04/15/23 16:22:
Spoke with Kat Perera Liaison, informed her of transfer to [facility].
Addendum entered by Maria D Oliveros RN 04/15/23 16:19:
Per Franny Hydrogeology Professor ALS ambulance transport scheduled for 9pm today.
Original Note:
Patient with Dx Large right pleural effusion, Large pneumothorax, Completely collapsed right lung, Acute hypoxic respiratory failure, Lung adenocarcinoma, melena. O2 2L. Chest tube. Plan transfer to [facility].
Message from Dr Wetzel; plan for emergent transfer to [facility] today by thoracic surgery service - Dr. Gee is accepting attending. [facility] has patient as level 0 for transfer.
Met with patient who was made aware that he was accepted for transfer to [facility] today- he says his family is aware of the plan. Patient expressing gratitude toward the care from staff here and that he will be able to see his doctor at [facility].
Plan transfer to [facility] today by ALS ambulance.
[2023-04-15] MEDS: LIPITOR 80 MG PO (17:26)
--- NOTE | 2023-04-15 17:31 | PTCARENOTE ---
Pt declines flu vaccine.
--- NOTE | 2023-04-15 18:33 | PTCARENOTE ---
Per call from [facility] [place], pt has bed at [facility]. Report was called to Kai Alfredo at 15:00 at phone number [phone]. Pt bed assignment is 11th floor of [facility], room 1158. Pickup time is scheduled for 9 pm, nursing
bone plant supervisor aware of need for RN to accompany patient to manage chest tube as per manager transportation Andrea. Per military analyst Dr. Doyle, pt's chest tube is to remain to suction for the transport since there will be an RN accompanying. PTC updated
with pickup time by live ammunition inspector. Pt in agreement with plan. Chest tube drained an additional 30 mls of pink fluid since collection system changed at 15:00. Call gray in reach, continuing to monitor.
[2023-04-15] MEDS: MIRALAX PO (21:13)
--- NOTE | 2023-04-15 21:53 | TRANSFER ---
Report called to Juni at [phone] to be transferred to [facility] room 1158. Report was called by Milton Rene RN on day shift. Report given by this nurse to the transport nurse and the ambulance staff. Pt loaded on to
stretcher with his belongings with his chest tube intact to pleuravac water seal and to be placed to suction in the ambulance. Pt is alert and oriented and cooperative without complants on 2 liters NC.
== END 2023-04-15 21:49 | disposition short-term general hospital (02) | DRG 180 ==
LOC: IMU 05:41
PROVIDERS: Hospitalist; Internal Medicine; Nurse Practitioner Adult Health; Radiology Vascular & Interventional Radiology; ADMITTING PHYSICIAN Internal Medicine; ATTENDING PHYSICIAN Hospitalist; CONSULT PHYSICIAN Internal Medicine Gastroenterology; CONSULT PHYSICIAN Nuclear Medicine Nuclear Cardiology; EMERGENCY PHYSICIAN Emergency Medicine; FAMILY PHYSICIAN Family Medicine; OTHER PHYSICIAN Internal Medicine Pulmonary Disease
PROC: 0W9930Z Drainage of Right Pleural Cavity with Drainage Device, Percutaneous Approach (ICD-10-PCS; 2023-04-09)
PROC: 0DB68ZX Excision of Stomach, Via Natural or Artificial Opening Endoscopic, Diagnostic (ICD-10-PCS; 2023-04-10)
DX: C34.90 Malignant neoplasm of unspecified part of unspecified bronchus or lung (principal); J96.01 Acute respiratory failure with hypoxia; K25.4 Chronic or unspecified gastric ulcer with hemorrhage; J90 Pleural effusion, not elsewhere classified; J98.11 Atelectasis; I47.19 Other supraventricular tachycardia; D62 Acute posthemorrhagic anemia; J93.82 Other air leak; J94.8 Other specified pleural conditions; J93.9 Pneumothorax, unspecified; K92.1 Melena; J43.9 Emphysema, unspecified; K59.00 Constipation, unspecified; R63.4 Abnormal weight loss; R93.89 Abnormal findings on diagnostic imaging of other specified body structures; E78.00 Pure hypercholesterolemia, unspecified; I10 Essential (primary) hypertension; F17.200 Nicotine dependence, unspecified, uncomplicated; D72.829 Elevated white blood cell count, unspecified; K44.9 Diaphragmatic hernia without obstruction or gangrene; N40.0 Benign prostatic hyperplasia without lower urinary tract symptoms; K31.89 Other diseases of stomach and duodenum; E87.6 Hypokalemia; I25.10 Atherosclerotic heart disease of native coronary artery without angina pectoris; M19.90 Unspecified osteoarthritis, unspecified site; Z87.19 Personal history of other diseases of the digestive system; Z82.49 Family history of ischemic heart disease and other diseases of the circulatory system; Z11.52 Encounter for screening for COVID-19; Z95.5 Presence of coronary angioplasty implant and graft; Z91.013 Allergy to seafood; Z96.652 Presence of left artificial knee joint; Z98.84 Bariatric surgery status; Z86.19 Personal history of other infectious and parasitic diseases; Z53.09 Procedure and treatment not carried out because of other contraindication
CPT/HCPCS: 88305; 32557; 71045; 71046; 71250; 71275; 80048; 80053; 82150; 82728; 82945; 83540; 83550; 83605; 83615; 83690; 83880; 84155; 84157; 84478; 84484; 85014; 85018; 85025; 85027; 86803; 86850; 86900; 86901; 87015; 87070; 87205; 87502; 87811; 88112; 88341; 88342; 89051; 93005; 93306; 94640; 96361; 96374; 96375; 96376; 97163; 97167; 99152; 99153; 99291; C1729; C1769; J2916; Q9967

== ENCOUNTER 2023-04-28 01:03 | Emergency (ER) | payer OTHER, SELFPAY ==
[2023-04-28] VITALS (7 sets, daily range): BP systolic 110–147; BP diastolic 69–82; BMI 23.7
--- NOTE | 2023-04-28 01:35 | EDRN ---
Pt. arrives via EMS w/ rt. sided chest tube connected to one-way valve drainage container wrapped in a ziplock bag. Pt. reports drainage has been leaking out, so he placed the drainage container in the bag to keep himself dry. Connections in place,
RN unsure of where leakage is occurring. Dr. Jansen aware, Dr. Jansen to speak w/ [place] to see their recommendation as pt. had drainage collection device placed there. At this time, RN not to connect chest tube to atrium until Dr. Jansen able to speak w/
[place]. Pt. agreeable to plan, pt. requests that his drainage container remain in ziplock bag for his comfort.
--- NOTE | 2023-04-28 01:37 | ED.GENMED ---
History of Present Illness
General
Chief Complaint: Chest Pain
Source: patient
Exam Limitations: none
Time Seen by Provider: 04/28/23 01:11
Nursing documentation reviewed up to this point in time: agreed with
Travel History
Have you had any contact with someone who has COVID-19?: No
Do you have any symptoms of coronavirus? Fever > 100 degrees, chills, cough, shortness of breath, sore throat, loss of taste or smell, muscle aches, or headache?: No
History of Present Illness
History of Present Illness:
Patient with history of lung cancer, recent right-sided chest tube placement secondary to pneumothorax/effusion, discharged from [facility] 1 week ago, on home oxygen, presents to ED secondary to sudden onset right-sided
chest pain with shortness of breath and increased heart rate, while he was at home watching TV tonight. Denies nausea or vomiting. Denies fever. Denies coughing. Patient was originally evaluated was in hospital and transferred to [facility] secondary to persistent hydropneumothorax with air leak around chest tube. While he was at [facility], patient states that bigger chest tube was placed. Chest tube has been draining appropriately at home.
Past History
Past History
ED Past Medical History: HTN and Hypercholesterolemia
ED Past Surgical History: Negative Cardiac
Social History
Tobacco: Smoker
Alcohol: Occasional
Drug: None
Personal:
Living: with family
Employment: Employed
Family History
Family History: Hypertension
Review of Systems
Review of Systems
Allergies reviewed?: Yes
All Other Systems: ROS reviewed and negative except as documented in HPI and ROS
Constitutional: Reports no symptoms
EENT: Reports no symptoms
Respiratory: Reports trouble breathing
Cardiac: Reports chest pain and palpitations
ABD/GI: Reports no symptoms
Musculoskeletal: Reports no symptoms
Skin: Reports no symptoms
Neurological: Reports no symptoms
Phy Exam
Physical Exam
Physical Exam:
Physical Exam
General: mild distress, not acutely ill. afebrile
Head: nc/at. eomi
Neck: supple. no meningeal signs.
Heart: tachycardic, no murmur. equal radial pulses.
Lungs: mild respiratory distress. diminished breath sound noted over right lower base.
Abdomen: normal bowel sounds. not tender.
Neuro: alert and oriented. no focal neurological deficits
Skin: no rash. chest tube noted over right lower rib, draining serosanguineous fluid inside the canister.
Psychiatric: well kept. interactive and cooperative
Extremities: no edema. no calf tenderness.
Scores
Heart Score for Chest Pain Patients
STEMI patient?: Not applicable
Course
Orders/Labs/Results
Orders:
Orders
04/28/23 01:09
Electrocardiogram (*1) Urgent
Reason for Study: Other
Other Reason for Exam: Respiratory Distress
Cardiac Monitoring- Treatment ONCE
EKG- Treatment ONCE
IV Insert/Care/Rem.- Treatment PRN
O2 Therapy [RESP] Urgent
Titrate/Wean O2 to maintain O2 sat greater than (%): 93
Special Instructions: TO MAINTAIN CONTINUOUS O2 SATS >/= 93%
Pulse Ox/cont/shift [RESP] Urgent
Quantity: 1
Special Instructions: continuous pulse ox
04/28/23 01:19
Morphine Sulfate 2 mg IV NOW STA
CR Chest Portable - 1 View Urgent
Comment:
Reason For Exam: sob/right CP
Reason Study Needs to be Portable: Patient Unstable
04/28/23 01:23
Complete Blood Count/With Diff Urgent
Comprehensive Metabolic Panel Urgent
NT-proBNP Urgent
Troponin I Urgent
04/28/23 01:33
CT Chest Pe Study Urgent
Comment:
Reason For Exam: right CP with sob
04/28/23 05:24
Morphine Sulfate 2 mg .ROUTE .STK-MED ONE
04/28/23 05:25
Morphine Sulfate 2 mg IV NOW STA
Abnormal Lab Results
04/28/23
01:23
WBC 11.9 H 10^3/uL
(4.8-10.8)
RBC 4.15 L 10^6/uL
(4.70-6.10)
Hgb 11.1 L g/dL
(13.0-18.0)
Hct 33.7 L %
(39.0-52.0)
MCH 26.7 L pg
(27.0-31.0)
MCHC 32.9 L g/dL
(33.0-37.0)
RDW 18.8 H %
(11.5-14.5)
Abs Immat Gran (auto) 0.1 H 10^3/uL
(0-0.05)
Absolute Neuts (auto) 10.6 H 10^3/uL
(1.4-6.5)
Absolute Lymphs (auto) 0.4 L 10^3/uL
(1.2-3.4)
Absolute Monos (auto) 0.8 H 10^3/uL
(0.1-0.6)
Neutrophils % 89.1 H %
(42.2-75.2)
Lymphocytes % 3.2 L %
(20.5-51.1)
Sodium 134 L mmol/L
(135-145)
Creatinine 0.5 L mg/dL
(0.7-1.3)
Glucose 137 H mg/dl
(70-99)
04/28/23 01:23
04/28/23 01:23
Vital Signs
Initial and Last Documented VS:
Initial Vital Signs
Temp Pulse Resp BP Pulse Ox
98.3 F 131 28 147/82 95
04/28/23 01:13 04/28/23 01:13 04/28/23 01:13 04/28/23 01:13 04/28/23 01:13
Last Documented Vital Signs
Temp Pulse Resp BP Pulse Ox
98.3 F 106 20 112/72 97
04/28/23 01:13 04/28/23 07:30 04/28/23 07:30 04/28/23 07:00 04/28/23 07:30
MDM/Problems Addressed
MDM/Problems Addressed:
CT report reviewed and discussed with (pulmonary). Recommends connecting chest tube to pleurvac / water seal chamber. If there is no air leak with pleural drainage, patient can be discharged home for continual evaluation with his surgeon
@ [facility] with whom he has an appt next week.
Pt reports improvement after treatment in ED and remains hemodynamically stable. Pt agrees with treatment plan. Pt already has visiting nurse scheduled to come out to his house later this week.
Spoke with ([facility] CT surgery) - agrees with discharge plan for outpatient f/u. Does not feel that pneumothorax noted on CT today is new.
*EKG
Interpreted by ED Provider?: Yes
EKG Intrepretation Date: 04/28/23
Heart Rate: 132
Rate: tachycardiac
Rhythm: sinus
[place]: normal axis
Interval: normal interval
*Critical Care Note
Total Time (30-74mins, 75-104mins- exclusive of procedures): Not Applicable
ED Attending Note
-
Portions of this chart may have been created with voice recognition software.� Occasional wrong word or��sound alike� substitutions may have occurred due to the inherent limitations of voice recognition software.
Discharge Plan
Departure
Patient Disposition: Home (Routine Discharge)
Date of Disposition: 04/28/23
Time of Disposition: 07:35
Patient with high blood pressure during this ER visit?: Yes
Discharge Problem:
Pleural effusion, Chest tube in place
Instructions: Pleural Effusion (DC), How to Care for a Pleural Catheter
Prescriptions:
No Action
atorvastatin 80 MG tablet
80 mg PO QPM
metoprolol tartrate 25 MG tablet
12.5 mg PO BID
Trelegy Ellipta 100-62.5-25 mcg Blister With Device
1 inh INHALATION DAILY
tamsulosin [Flomax] 0.4 mg Capsule
0.4 mg PO QDAY
aspirin 81 mg Tablet
81 mg PO DAILY
albuterol-budesonide 90-80 mcg/actuation Hfa Aerosol Inhaler
2 inh INHALATION PRN PRN (Reason: SOB)
Referrals:
Mack Paul MD [Family Provider] -
Activity Restrictions/Additional Instructions:
As discussed, please follow-up with your surgeon next week as scheduled for reevaluation.
Interventions
Interventions:
*Risk Screen - Suicide Last Done: 04/28/23 01:13
*General Assessment Last Done: 04/28/23 01:13
*Neglect/Abuse Screening Last Done: 04/28/23 01:13
ED- Fall Risk Assessment Last Done: 04/28/23 01:13
*ED COVID-19 Vaccine History Last Done: 04/28/23 01:13
*Nursing Disposition Last Done: 04/28/23 07:48
ED- Cardiac Assessment Last Done: 04/28/23 02:08
Discharge Date and Time
Discharge Date/Time: 04/28/23 07:48
[2023-04-28 01:46] LABS: % Basophils 0.3 % (0-2); % Eosinophils 0.3 % (0-6); % Immature Granulocytes 0.5 % (0-0.5); % Lymphocytes 3.2 % (20.5-51.1); % Monocytes 6.6 % (1.7-9.3); % Neutrophils 89.1 % (42.2-75.2); Absolute Immature Granulocytes 0.1 10^3/uL (0-0.05); Absolute Lymphocytes 0.4 10^3/uL (1.2-3.4); Absolute Monocytes 0.8 10^3/uL (0.1-0.6); Absolute Neutrophils 10.6 10^3/uL (1.4-6.5); Hematocrit 33.7 % (39.0-52.0); Hemoglobin 11.1 g/dL (13.0-18.0); Mean Corp Hgb Conc. 32.9 g/dL (33.0-37.0); Mean Corpuscular Hgb 26.7 pg (27.0-31.0); Mean Corpuscular Volume 81.2 fL (80.0-94.0); Mean Platelet Volume 7.9 fL (7.4-10.4); Nucleated Red Blood Cells % 0 % (-); Platelet Count 249 10^3/uL (130-400); Red Blood Cell Count 4.15 10^6/uL (4.70-6.10); Red Cell Dist. Width 18.8 % (11.5-14.5); White Blood Cell Count 11.9 10^3/uL (4.8-10.8)
[2023-04-28] MEDS: MORPHINE SULFATE 2 MG IV ×2 (01:51→05:25)
[2023-04-28 01:55] LABS: ALT (SGPT) 38 U/L (0-50); AST (SGOT) 33 U/L (17-59); Albumin 3.5 g/dl (3.5-5.0); Alkaline Phosphatase 99 U/L (38-126); Blood Urea Nitrogen 19 mg/dl (9-20); Calcium 9.1 mg/dl (8.4-10.2); Carbon Dioxide 24 mmol/L (22-30); Chloride 98 mmol/L (98-107); Glucose 137 mg/dl (70-99); Potassium 4.1 mmol/L (3.5-5.1); Sodium 134 mmol/L (135-145); Total Bilirubin 0.6 mg/dl (0.2-1.3); Total Protein 6.9 g/dl (6.3-8.2); eGFR > 60.00
[2023-04-28 02:03] LABS: NT-proBNP 93.4 pg/ml; Troponin I < 0.012 ng/ml
--- NOTE | 2023-04-28 06:42 | EDRN ---
MD Jansen spoke wElijah Harp, per SARAHI Harp to connect pt's chest tube to pleuravac atrium and check for signs of air leakage. RN and environmental compliance officer connected pt. to atrium, mild bubbling noted at connection, but then no signs of continuous bubbling to indicate
air leak noted. Initial drainage 50 cc serosanguineous drainage noted.
== END 2023-04-28 07:48 | disposition home or self-care (01) ==
LOC: EMR 01:03
PROVIDERS: EMERGENCY PHYSICIAN Emergency Medicine; FAMILY PHYSICIAN Family Medicine
DX: R07.89 Other chest pain (principal); I10 Essential (primary) hypertension; E78.00 Pure hypercholesterolemia, unspecified; F17.200 Nicotine dependence, unspecified, uncomplicated; J90 Pleural effusion, not elsewhere classified
CPT/HCPCS: 99284; 96374; 96376; 71045; 71275; 80053; 83880; 84484; 85025; 93005; Q9967

== ENCOUNTER → 2023-06-15 11:34 | Outpatient (REF) | payer OTHER, SELFPAY | LOC: RAD 11:34 | PROVIDERS: ATTENDING PHYSICIAN Nurse Practitioner Adult Health; FAMILY PHYSICIAN Family Medicine | DX: C34.91 Malignant neoplasm of unspecified part of right bronchus or lung (principal) | CPT/HCPCS: 71260; 74177; Q9967 ==

== ENCOUNTER 2023-06-15 17:56 | Inpatient (IN) | payer OTHER, SELFPAY ==
[2023-06-15] VITALS (7 sets, daily range): BP systolic 116–144; BP diastolic 71–89; BMI 24.7
--- NOTE | 2023-06-15 15:02 | ED.GENMED ---
History of Present Illness
General
Chief Complaint: Skin Problem
Source: patient
Exam Limitations: none
Time Seen by Provider: 06/15/23 14:32
Travel History
Have you had any contact with someone who has COVID-19?: No
Do you have any symptoms of coronavirus? Fever > 100 degrees, chills, cough, shortness of breath, sore throat, loss of taste or smell, muscle aches, or headache?: No
History of Present Illness
History of Present Illness:
73-year-old male presents for evaluation of green fluid draining out of one of the prior chest tube sites out of the right chest wall. Patient has a history of lung cancer and pleural effusions. He has had chest tubes in the past for this reason.
Most recently he had a chest tube on the right side that fell out on its own about 4 weeks ago. He noted last week he had a fever. He was having trouble breathing last week. He states his fever improved after his cath started draining this fluid.
No other complaints at this time.
Past History
Past History
ED Past Medical History: HTN and Hypercholesterolemia
ED Past Surgical History: Negative Cardiac
Social History
Tobacco: Smoker
Alcohol: Occasional
Drug: None
Personal:
Living: with family
Employment: Employed
Family History
Family History: Hypertension
Phy Exam
Physical Exam
Physical Exam:
General: Overall well-appearing male no acute respiratory distress
HEENT: Normocephalic atraumatic neck is supple
Heart: Regular rate and rhythm
Lungs: Diminished on the right side
Abdomen soft nontender nondistended
Skin: Right lateral chest wall of prior chest tube site with purulent drainage nontender
Extremities: No cyanosis
Course
Orders/Labs/Results
Orders:
Orders
06/15/23 12:54
Electrocardiogram (*1) Urgent
Reason for Study: Tachycardia
EKG- Treatment ONCE
06/15/23 14:59
Complete Blood Count/With Diff Urgent
Comprehensive Metabolic Panel Urgent
Lactic Acid Q4H
Comment: CANCEL 2nd LACTIC ACID IF 1st LACTIC ACID IS LESS THAN 2
Blood Culture Q30M
GIORGI Source: Blood/Venous
Specimen Description:
06/15/23 15:30
Blood Culture Q30M
GIORGI Source: Blood/Venous
Specimen Description:
06/15/23 19:00
Lactic Acid Q4H
Comment: CANCEL 2nd LACTIC ACID IF 1st LACTIC ACID IS LESS THAN 2
Abnormal Lab Results
06/15/23
14:59
WBC 3.8 L 10^3/uL
(4.8-10.8)
RBC 3.81 L 10^6/uL
(4.70-6.10)
Hgb 9.6 L g/dL
(13.0-18.0)
Hct 29.8 L %
(39.0-52.0)
MCV 78.2 L fL
(80.0-94.0)
MCH 25.2 L pg
(27.0-31.0)
MCHC 32.2 L g/dL
(33.0-37.0)
RDW 17.7 H %
(11.5-14.5)
Absolute Lymphs (auto) 0.5 L 10^3/uL
(1.2-3.4)
Immature Gran % 0.8 H %
(0-0.5)
Lymphocytes % 12.1 L %
(20.5-51.1)
Monocytes % 11.1 H %
(1.7-9.3)
Sodium 133 L mmol/L
(135-145)
Creatinine 0.5 L mg/dL
(0.7-1.3)
Glucose 124 H mg/dl
(70-99)
ALT 58 H U/L
(0-50)
Albumin 3.0 L g/dl
(3.5-5.0)
06/15/23 14:59
06/15/23 14:59
Vital Signs
Initial and Last Documented VS:
Initial Vital Signs
Temp Pulse Resp BP Pulse Ox
98.9 F 127 33 144/89 97
06/15/23 12:50 06/15/23 12:50 06/15/23 12:50 06/15/23 12:50 06/15/23 12:50
Last Documented Vital Signs
Temp Pulse Resp BP Pulse Ox
98.9 F 119 18 126/80 99
06/15/23 12:50 06/15/23 15:10 06/15/23 15:10 06/15/23 15:10 06/15/23 15:10
MDM/Problems Addressed
Differential Diagnosis Includes:
Patient with recent fever and trouble breathing and purulent drainage out of right lateral chest tube site. Question underlying infectious process. He has known history of lung cancer. Patient had an outpatient CT scan of the chest and abdomen
performed today which shows large recurrent pleural effusion. Given reported fever question poss sec to fluid. Will check labs blood cultures acid. Needs admission to hospital. Touch base with interventional radiology for placement of chest tube
*Critical Care Note
Total Time (30-74mins, 75-104mins- exclusive of procedures): Not Applicable
Update Note
Update Note:
Interventional radiology made aware of increased fluid collection in the lung. Discussed these findings with interventional radiologist who believes this looks more like an empyema. Given the purulent drainage, fever and difficulty breathing will
keep in hospital. He may need chest tube and further treatment
ED Attending Note
-
Portions of this chart may have been created with voice recognition software.� Occasional wrong word or��sound alike� substitutions may have occurred due to the inherent limitations of voice recognition software.
Discharge Plan
Departure
Patient Disposition: Admit
Date of Disposition: 06/15/23
Time of Disposition: 16:06
Admit to: Telemetry
Presentation/result/management discussed w/ accepting MD/DO: Hospitalist
Discharge Problem:
Pleural effusion, not elsewhere classified
Prescriptions:
No Action
atorvastatin 80 mg Tablet
80 mg PO HS
sennosides [senna] 8.6 mg Tablet
17.2 mg PO [id number] PRN (Reason: constipation)
acetaminophen [Tylenol] 325 mg Tablet
650 mg PO Q6H PRN (Reason: mild pain)
tamsulosin 0.4 mg Capsule
0.4 mg PO DAILY
folic acid 1 mg Tablet
1 mg PO DAILY
bisacodyl [Dulcolax (bisacodyl)] 5 mg Tablet,Delayed Release (Dr/Ec)
15 mg PO DAILYPRN PRN (Reason: constipation)
albuterol sulfate 90 mcg/actuation Hfa Aerosol Inhaler
2 puff INHALATION R Q6HPRN PRN (Reason: sob)
cyclobenzaprine 5 mg Tablet
5 mg PO Q8HPRN PRN (Reason: muscle spasms)
metoprolol tartrate 25 mg Tablet
12.5 mg PO BID
Trelegy Ellipta 100-62.5-25 mcg Blister With Device
1 inh INHALATION R DAILY
cefadroxil 500 mg Capsule
500 mg PO ONCE
Patient Comments:
06/15/2023, pt. used old prescription and took one capsule last night to prevent infection.
Referrals:
NONE,* [Family Provider] -
Interventions
Interventions:
*Risk Screen - Suicide Last Done: 06/15/23 12:50
*General Assessment Last Done: 06/15/23 12:50
*Neglect/Abuse Screening Last Done: 06/15/23 12:50
ED- Fall Risk Assessment Last Done: 06/15/23 15:11
*ED COVID-19 Vaccine History Last Done: 06/15/23 12:50
Discharge Date and Time
Print Language: MALTESE
[2023-06-15 15:12] LABS: % Basophils 0.5 % (0-2); % Eosinophils 0.3 % (0-6); % Immature Granulocytes 0.8 % (0-0.5); % Lymphocytes 12.1 % (20.5-51.1); % Monocytes 11.1 % (1.7-9.3); % Neutrophils 75.2 % (42.2-75.2); Absolute Lymphocytes 0.5 10^3/uL (1.2-3.4); Absolute Monocytes 0.4 10^3/uL (0.1-0.6); Absolute Neutrophils 2.9 10^3/uL (1.4-6.5); Hematocrit 29.8 % (39.0-52.0); Hemoglobin 9.6 g/dL (13.0-18.0); Mean Corp Hgb Conc. 32.2 g/dL (33.0-37.0); Mean Corpuscular Hgb 25.2 pg (27.0-31.0); Mean Corpuscular Volume 78.2 fL (80.0-94.0); Mean Platelet Volume 7.8 fL (7.4-10.4); Nucleated Red Blood Cells % 0 % (-); Platelet Count 205 10^3/uL (130-400); Red Blood Cell Count 3.81 10^6/uL (4.70-6.10); Red Cell Dist. Width 17.7 % (11.5-14.5); White Blood Cell Count 3.8 10^3/uL (4.8-10.8)
[2023-06-15 15:26] LABS: Lactic Acid 1.4 mmol/L (0.7-2.0)
[2023-06-15 15:34] LABS: ALT (SGPT) 58 U/L (0-50); AST (SGOT) 50 U/L (17-59); Alkaline Phosphatase 102 U/L (38-126); Blood Urea Nitrogen 11 mg/dl (9-20); Calcium 8.7 mg/dl (8.4-10.2); Carbon Dioxide 28 mmol/L (22-30); Chloride 99 mmol/L (98-107); Estimated Creatinine Clearance 112 ml/min; Glucose 124 mg/dl (70-99); Potassium 4.3 mmol/L (3.5-5.1); Sodium 133 mmol/L (135-145); Total Bilirubin 0.3 mg/dl (0.2-1.3); Total Protein 6.4 g/dl (6.3-8.2); eGFR > 60.00
--- NOTE | 2023-06-15 16:17 | HPS.HSE ---
Family Physician
<NANNETTE Esparza - Last Filed: 06/15/23 17:13>
-
Family Physician: * NONE
Chief Complaint
<NANNETTE Esparza - Last Filed: 06/15/23 17:13>
-
Drainage right side chest tube site
History of Present Illness
73-year-old male from home who states last week he was running a fever from 100-101.5 for several days until Thursday night when he developed clear drainage from his right chest tube site which then became bloody then yellow and green over the past
2 days. He reports the chest tube fell out approximately 4 weeks ago. He denies current fever, cough, chest pain, palpitations, shortness of breath, abdominal pain, nausea, vomiting, diarrhea, urinary symptoms. He had chemo on 321 and 411 he
reports every 3 weeks 1 day for 3 hours down at [facility] he believes he is on carboplatin,? Etoposide and Keytruda. His next chemo is June 16.
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
bleed gastric ulcer 2019, H. pylori, former smoker 40-year quit 16 years ago
Medical History
<NANNETTE Esparza - Last Filed: 06/15/23 17:13>
Past Medical History
Past Medical History: Reports Other
Additional Past Medical History:
lung CA requiring multiple chest tubes
Multiple thoracentesis
COPD
former smoker 40-year quit 16 years ago
HTN
CAD/cardiac stent
BPH
HLD
chronic microcytic anemia
GERD
erosive gastropathy March 2023
GI bleed gastric ulcer 2019
H. pylori,
Past Surgical History: Reports Other
Additional Past Surgical History:
Multiple thoracentesis
Bilateral chest tube placements
Right knee replacement
Cardiac stent
L3-S1 fusion
Social History
Tobacco: Former Smoker (30-year 1 pack a day quit 15 years ago)
Alcohol: None
Drug: None
Employment: Retired
Family History
Family History: Other (Mother uterine cancer, father CVA)
Allergies / Home Medications
Allergies reflects when Allergies were last updated in [employer].
Home Medications with original date entered in [employer]
Allergy/Medication List:
Allergies
Allergy/AdvReac Type Severity Reaction Status Date / Time
No Known Allergies Allergy Unverified 06/15/23 12:53
Home Medications
acetaminophen 325 mg tablet (Tylenol) 650 mg PO Q6H PRN mild pain 06/15/23
albuterol sulfate 90 mcg/actuation aerosol inhaler 2 puff inhalation R Q6HPRN PRN sob 06/15/23
atorvastatin 80 mg tablet 80 mg PO HS 06/15/23
bisacodyl 5 mg tablet,delayed release (Dulcolax (bisacodyl)) 15 mg PO DAILYPRN PRN constipation 06/15/23
cefadroxil 500 mg capsule 500 mg PO ONCE 06/15/23
cyclobenzaprine 5 mg tablet 5 mg PO Q8HPRN PRN muscle spasms 06/15/23
fluticasone fur. 100 mcg-umeclid 62.5 mcg-vilant 25 mcg inhalat.powder (Trelegy Ellipta) 1 inh inhalation R DAILY 06/15/23
folic acid 1 mg tablet 1 mg PO DAILY 06/15/23
metoprolol tartrate 25 mg tablet 12.5 mg PO BID 06/15/23
sennosides 8.6 mg tablet (senna) 17.2 mg PO [id number] PRN constipation 06/15/23
tamsulosin 0.4 mg capsule 0.4 mg PO DAILY 06/15/23
Review of Systems
<NANNETTE Esparza - Last Filed: 06/15/23 17:13>
-
History Source: Patient
A 12 point ROS was completed and negative except as noted: Yes
Constitutional: Denies Fever or Chills
EENT: Denies Sore Throat or Runny Nose
Respiratory: Reports Cough and Other (Drainage from right chest tube site with surrounding skin erythema and tenderness)
Cardiac: Denies Chest Pain, Diaphoresis, Palpitations or Syncope
Abdomen/GI: Denies Abdominal Pain, Nausea, Vomiting, Diarrhea, Constipated, Bloody Stools or Black Stools
: Denies Dysuria, Frequency, Flank Pain or Incontinence
Musculoskeletal: Denies Joint Pain or Edema
Skin: Denies Itching or Rash
Neurological: Denies Dizzy, Headache or Weakness
Endocrine: Reports No Symptoms
Hematologic/Lymphatic: Reports No Symptoms
Psych: Reports Calm
Physical Exam
<NANNETTE Esparza - Last Filed: 06/15/23 17:13>
Vital Signs
Vital Signs
Temp Pulse Resp BP Pulse Ox
98.9 F 119 18 126/80 99
06/15/23 12:50 06/15/23 15:10 06/15/23 15:10 06/15/23 15:10 06/15/23 15:10
Physical Exam
General: Conversant; No Fever or Chills
HEENT: NormoCephalic, Anicteric, Moist mucous membranes, PERRLA, [place] Conjunctivae and No Ptosis
Respiratory: Decreased Breath Sounds (Entire right lung field) and Other (Drainage from right chest tube site with surrounding skin erythema and tenderness right side chest wall); No Wheezes or Rales
Cardiac: S1/S2 and Regular Rhythm; No Murmur, Rub, Gallop or Peripheral Edema
GI: Soft, Non Tender, Non Distended, Normal Bowel Sounds and No Hepatosplenomegaly
Rectal: Deferred by Provider
Genito-urinary: Deferred by me
Musculoskeletal: No Clubbing, No Cyanosis and No Edema
Skin: Warm, Dry and Other (Drainage from right chest tube site with surrounding skin erythema and tenderness right side chest wall); No Rash
Neuro: AO x 3, No Motor Deficits, Nonfocal/grossly intact, Cranial Nerves Intact and No Sensory Deficits; No Slurred Speech, Facial Droop or Tremors
Psych: Calm
Laboratory Results
<NANNETTE Esparza - Last Filed: 06/15/23 17:13>
-
06/15/23 14:59
06/15/23 14:59
Laboratory Results
Lactic Acid 1.4 mmol/L (0.7-2.0) 06/15/23 14:59
Total Bilirubin 0.3 mg/dl (0.2-1.3) 06/15/23 14:59
AST 50 U/L (17-59) 06/15/23 14:59
ALT 58 U/L (0-50) H 06/15/23 14:59
Alkaline Phosphatase 102 U/L (38-126) 06/15/23 14:59
Data Reviewed
<NANNETTE Esparza - Last Filed: 06/15/23 17:13>
-
CT Scan: Report Reviewed by me
Lab Data: Labs Reviewed by me
Impression/Plan
<NANNETTE Esparza - Last Filed: 06/15/23 17:13>
-
[facility]plan:
[facility]
#Recurrent effusion versus Empyema RIGHT lung with surrounding soft tissue Cellulitis/right-sided chest tube not present fell out 4 weeks ago
#History of recurrent Pleural Effusions requiring chronic bilateral chest tubes
#Non-small cell ADENOCARCINOMA Stage IV lung CA Dx March 2023 on chemo
-Patient follows at [facility] for chemo 2 treatments 05/06, 05/27 next treatment due 06/16 (carboplatin,? Etoposide, Keytruda)
-Culture drainage from chest tube site
-Consult IR-replacement of chest tube in a.m. 06/16/2023
-Consult pulmonary
-IV Unasyn
-Obtain old records from [facility] regarding chest surgery
-Blood cultures x 2, follow CBC, CMP
#COPD-no acute exacerbation
#Former smoker 40 years quit 16 years ago
-Continue inhalers Trelegy Ellipta, albuterol
#Spasms at chest tube sites
-Continue Flexeril 5 mg every 8 hours as needed
#GERD/GI bleed gastric ulcer 2019
#Hx erosive gastropathy March 2023
#Hx H. pylori
#Chronic anemia microcytic
Hgb 9.6, MCV 78.2
04/10/2023 EGD: 4 cm nonbleeding gastric ulcer in the antrum/prepyloric area with erosive gastropathy biopsied for H. pylori.
#HTN�benign
-Continue metoprolol tartrate 12.5 mg twice daily
#CAD/cardiac stent
Continue atorvastatin 80 mg at bedtime
Follows with [facility]
2D echo 04/13/2023: EF 50-55% normal LVSF, no wall abnormalities, mild to moderate TR
#BPH
-Continue Flomax 0.4 mg daily
#HLD
Continue atorvastatin 80 mg at bedtime
DVT prophylaxis
Subcu Lovenox
DNR per patient
<Hiro Sanchez DO - Last Filed: 06/15/23 17:23>
-
Impression/plan:
Admit to [facility]
#Recurrent effusion versus Empyema RIGHT lung with surrounding soft tissue Cellulitis/right-sided chest tube not present fell out 4 weeks ago
#History of recurrent Pleural Effusions requiring chronic bilateral chest tubes
#Non-small cell ADENOCARCINOMA Stage IV lung CA Dx March 2023 on chemo
-Patient follows at [facility] for chemo 2 treatments 05/06, 05/27 next treatment due 06/16 (carboplatin,? Etoposide, Keytruda)
-Culture drainage from chest tube site
-Consult IR-replacement of chest tube in a.m. 06/16/2023
-Consult pulmonary
-IV Unasyn
-Obtain old records from [facility] regarding chest surgery
-Blood cultures x 2, follow CBC, CMP
#COPD-no acute exacerbation
#Former smoker 40 years quit 16 years ago
-Continue inhalers Trelegy Ellipta, albuterol
#Spasms at chest tube sites
-Continue Flexeril 5 mg every 8 hours as needed
#GERD/GI bleed gastric ulcer 2019
#Hx erosive gastropathy March 2023
#Hx H. pylori
#Chronic anemia microcytic
Hgb 9.6, MCV 78.2
04/10/2023 EGD: 4 cm nonbleeding gastric ulcer in the antrum/prepyloric area with erosive gastropathy biopsied for H. pylori.
#HTN�benign
-Continue metoprolol tartrate 12.5 mg twice daily
#CAD/cardiac stent
Continue atorvastatin 80 mg at bedtime
Follows with [facility]
2D echo 04/13/2023: EF 50-55% normal LVSF, no wall abnormalities, mild to moderate TR
#BPH
-Continue Flomax 0.4 mg daily
#HLD
Continue atorvastatin 80 mg at bedtime
DVT prophylaxis
Subcu Lovenox
DNR per patient
Attending note:
Patient seen and examined and discussed with BALAJI James, and agree with her note.
Gen-AAOx3, NAD
HEENT-NC, AT, anicteric, clear oral mm
Neck-supple
CV-reg, no M, +S1/S2
Lungs-clear B/L
Abd-soft, NT, ND
Ext-no edema
Musculoskeletal-no cyanosis, clubbing
Skin-warm and dry, dried crusty wound right chest with surrounding erythema
Neuro-grossly non-focal
Psych-calm, cooperative
Right-sided empyema -will need a chest tube placed soon as feasible. Consult IR. Admit to [facility]. Start IV Unasyn.
Recurrent malignant right pleural effusion -due to underlying adenocarcinoma of the lung. Hospitalized in [place] with subsequent transfer to [facility] in March for thoracic surgery. Would request records from [place].
Pulmonary adenocarcinoma -On chemotherapy. Follows with oncology [facility].
COPD without exacerbation
CAD -with history of stent.
Essential hypertension -stable.
Hyperlipidemia -on atorvastatin.
History of gastric ulcer
Chronic anemia
BPH
DNR
[2023-06-15] MEDS: UNASYN IV ×2 (18:01→23:50)
[2023-06-15] MEDS: TOPROL XL 12.5 MG PO (20:18)
[2023-06-15] MEDS: LOVENOX 40 MG SC (20:18)
[2023-06-15] MEDS: LIPITOR 80 MG PO (20:26)
[2023-06-16] VITALS (14 sets, daily range): BP systolic 98–121; BP diastolic 65–87; BMI 24.7
[2023-06-16] MEDS: FLEXERIL 5 MG PO ×3 (00:01→23:11)
[2023-06-16] MEDS: TYLENOL 650 MG PO ×3 (00:01→19:42)
[2023-06-16] MEDS: UNASYN IV ×4 (04:59→23:55)
[2023-06-16 07:21] LABS: % Basophils 0.6 % (0-2); % Eosinophils 1.7 % (0-6); % Immature Granulocytes 1.1 % (0-0.5); % Lymphocytes 12.9 % (20.5-51.1); % Monocytes 13.7 % (1.7-9.3); Absolute Eosinophils 0.1 10^3/uL (0-0.7); Absolute Lymphocytes 0.5 10^3/uL (1.2-3.4); Absolute Monocytes 0.5 10^3/uL (0.1-0.6); Absolute Neutrophils 2.5 10^3/uL (1.4-6.5); Hematocrit 28.8 % (39.0-52.0); Hemoglobin 9.3 g/dL (13.0-18.0); Mean Corp Hgb Conc. 32.3 g/dL (33.0-37.0); Mean Corpuscular Hgb 25.3 pg (27.0-31.0); Mean Corpuscular Volume 78.3 fL (80.0-94.0); Mean Platelet Volume 7.5 fL (7.4-10.4); Nucleated Red Blood Cells % 0 % (-); Platelet Count 214 10^3/uL (130-400); Red Blood Cell Count 3.68 10^6/uL (4.70-6.10); Red Cell Dist. Width 17.6 % (11.5-14.5); White Blood Cell Count 3.6 10^3/uL (4.8-10.8)
[2023-06-16 08:11] LABS: ALT (SGPT) 44 U/L (0-50); AST (SGOT) 41 U/L (17-59); Albumin 2.6 g/dl (3.5-5.0); Alkaline Phosphatase 95 U/L (38-126); Blood Urea Nitrogen 9 mg/dl (9-20); Calcium 8.8 mg/dl (8.4-10.2); Carbon Dioxide 27 mmol/L (22-30); Chloride 100 mmol/L (98-107); Estimated Creatinine Clearance 112 ml/min; Glucose 102 mg/dl (70-99); Potassium 4.3 mmol/L (3.5-5.1); Sodium 134 mmol/L (135-145); Total Bilirubin 0.5 mg/dl (0.2-1.3); Total Protein 5.8 g/dl (6.3-8.2); eGFR > 60.00
[2023-06-16] MEDS: SYMBICORT 80/4.5 MCG INHALER 2 PUFF INH (08:30)
[2023-06-16 08:32] LABS: INR 1.24; PT 15.4 Sec (11.4-14.6)
[2023-06-16] MEDS: SPIRIVA RESPIMAT 2.5 MCG 2 PUFF INH (08:32)
[2023-06-16] MEDS: FLOMAX 0.400000000000000022 MG PO (09:10)
[2023-06-16] MEDS: FOLVITE 1 MG PO (09:12)
[2023-06-16] MEDS: TOPROL XL 12.5 MG PO ×2 (09:12→19:41)
--- NOTE | 2023-06-16 09:44 | W.PN.HOSP.TC ---
Today's Communication/Plan
-
IR consult
Check labs
Assessment / Plan
Assessment / Plan
Gen-AAOx3, NAD
HEENT-NC, AT, anicteric, clear oral mm
Neck-supple
CV-reg, no M, +S1/S2
Lungs-clear B/L
Abd-soft, NT, ND
Ext-no edema
Musculoskeletal-no cyanosis, clubbing
Skin-warm and dry, fading right lateral chest wall cellulitis, open wound right lower chest without active drainage
Neuro-grossly non-focal
Psych-calm, cooperative
Right-sided empyema -continue IV Unasyn. Hemodynamically stable. Await IR consult for right thoracentesis and possible chest tube placement. Discussed with pulmonary today.
Recurrent malignant right pleural effusion -due to underlying adenocarcinoma of the lung. Hospitalized in [place] with subsequent transfer to [facility] in March for thoracic surgery. Would request records from [place].
Pulmonary adenocarcinoma -On chemotherapy. Follows with oncology [facility].
Bicytopenia -platelet count normal. Etiology possibly due to chemotherapy.
Hyponatremia -appears chronic. Check urine studies, TSH.
COPD without exacerbation
CAD -with history of stent.
Essential hypertension -stable.
Hyperlipidemia -on atorvastatin.
History of gastric ulcer
Chronic anemia
BPH
DNR
Anticipated Discharge: > 48 hours
Subjective/Interval History
-
Date of Service: June 16, 2023
Patient seen and examined. Mild cough. No shortness of breath.
Objective Data
-
Labs:
Laboratory Results
06/16/23 06/16/23
07:00 07:44
WBC 3.6 L
Hgb 9.3 L
Hct 28.8 L
Plt Count 214
PT 15.4 H
INR 1.24
Sodium 134 L
Potassium 4.3
Chloride 100
Carbon Dioxide 27
BUN 9
Creatinine 0.5 L
Glucose 102 H
Calcium 8.8
Total Bilirubin 0.5
AST 41
ALT 44
Alkaline Phosphatase 95
Vital Signs:
Vital Signs
Temp Pulse Resp BP Pulse Ox
98.1 F 114 18 112/76 99
06/16/23 07:55 06/16/23 07:55 06/16/23 07:55 06/16/23 07:55 06/16/23 07:55
I&O
06/15/23 06/16/23 06/17/23
06:59 06:59 06:59
Intake Total 960 / 960
Output Total 475 / 475
Balance 485 / 485
Review of Systems
-
History Source: Patient
All other systems: Reviewed and negative
--- NOTE | 2023-06-16 09:59 | CON.PUL ---
Consultation
Consultation Request
Date/Time Consultation Requested: 06/15
Date/Time Consultation Performed: 06/15
Reason for Consultation: Right pleural effusion
Medical History
-
History of Present Illness:
History obtained from the chart and from the patient. Patient is a pleasant 73-year-old male with complex pulmonary history including recently diagnosed stage IV adenocarcinoma of the lung when he presented with complete right lung atelectasis back
in March, requiring chest tube, with persistent large air leak, requiring eventual transfer to thoracic surgery at [place] ([facility]). Details of that hospital stay are unclear but patient recalls having a surgical procedure then went home with
Heimlich valve/chest tube. He was feeling improved, received his first chemotherapy dose for adenocarcinoma approximately 6 weeks ago around the same time his chest tube spontaneously fell out. He had been doing well up until last week when he
noticed subjective fevers, mild chest fullness which was worse. On 06/12, had spontaneous increase in output from his prior chest tube site, initially clear but then became dark and almost appeared like pus. For this reason he brought himself into
[facility] where upon arrival afebrile, pulse 127, breathing at 33, blood pressure 144/89, 97%. Patient was cultured and antibiotics were started. We are asked to comment on his pulmonary process
Patient has lost weight over the past couple months. He has received 2 cycles of chemotherapy, last cycle approximately 3 weeks ago, next dose was planned for 06/15. He follows [facility] (Izabela Wood)
.
PMH: Stage IV adenocarcinoma with malignant right pleural effusion, chemotherapy ongoing. Hypertension, hyperlipidemia, history of COPD, coronary disease with history of stent, GI bleed with gastric ulcer 2019, history of H. pylori
Past Medical History
Past Medical History: None (See above)
Past Surgical History: None (See above)
Social History
Tobacco: Former Smoker (22-zvui-oken history of smoking quit around 2006)
Alcohol: None
Drug: None
Personal:
Living: With Family
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
Family History
Family History: Reviewed & Not Pertinent
Allergies / Home Medications
Allergies
Allergy/AdvReac Type Severity Reaction Status Date / Time
No Known Allergies Allergy Unverified 06/15/23 12:53
Home Medications
�Medication �Instructions �Recorded �Confirmed �Last Taken �Type
acetaminophen 325 mg tablet 650 mg PO Q6H PRN mild pain 06/15/23 06/15/23 06/14/23 History
(Tylenol)
albuterol sulfate 90 mcg/actuation 2 puff inhalation R Q6HPRN PRN sob 06/15/23 06/15/23 Unknown History
aerosol inhaler
atorvastatin 80 mg tablet 80 mg PO HS 06/15/23 06/15/23 06/14/23 History
bisacodyl 5 mg tablet,delayed 15 mg PO DAILYPRN PRN constipation 06/15/23 06/15/23 3 Days Ago History
release (Dulcolax (bisacodyl)) ~06/12/23
cefadroxil 500 mg capsule 500 mg PO ONCE 06/15/23 06/15/23 06/14/23 History
cyclobenzaprine 5 mg tablet 5 mg PO Q8HPRN PRN muscle spasms 06/15/23 06/15/23 06/14/23 History
fluticasone fur. 100 mcg-umeclid 1 inh inhalation R DAILY 06/15/23 06/15/23 06/14/23 History
62.5 mcg-vilant 25 mcg
inhalat.powder (Trelegy Ellipta)
folic acid 1 mg tablet 1 mg PO DAILY 06/15/23 06/15/23 06/14/23 History
melatonin 10 mg tablet 10 mg PO HS PRN sleep 06/15/23 06/15/23 Unknown History
metoprolol tartrate 25 mg tablet 12.5 mg PO BID 06/15/23 06/15/23 06/14/23 History
sennosides 8.6 mg tablet (senna) 17.2 mg PO [id number] PRN constipation 06/15/23 06/15/23 06/14/23 History
tamsulosin 0.4 mg capsule 0.4 mg PO DAILY 06/15/23 06/15/23 06/14/23 History
Review of Systems
-
All other systems: Negative unless noted
Vitals / Labs / Diagnostic Testing
Vital Signs
Temp Pulse Resp BP Pulse Ox
98.1 F 114 18 112/76 99
06/16/23 07:55 06/16/23 07:55 06/16/23 07:55 06/16/23 07:55 06/16/23 07:55
Lab Data
06/16/23 07:00
06/16/23 07:00
Laboratory Results
06/16/23
07:44
PT 15.4 H
INR 1.24
Microbiology
06/15/23 17:53 Chest - Right Gram Stain - Preliminary
Diagnostic Testing:
Physical Exam
-
HEENT: Normocephalic and Anicteric
Cardiovascular: S1/S2, Regular Rhythm, Murmur (n), Rub (n) and Peripheral Edema (n)
Respiratory: Wheeze (n), Rales (n), Rhonchi (n), Non-Labored Respirations and Other (Decreased breath sounds right side, bronchial.)
GI: Soft, Non Distended and Non Tender
Neurology: Awake, Alert and No Motor Deficits
Skin: Other (Positive clubbing) and Other (Mild drainage from right lower chest tube site)
General: Comfortable
Assessment
-
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
at [facility] ([facility]). Patient had a surgical procedure, details unknown, chest tube upon discharge with Heimlich valve, which spontaneously came out about 6 weeks ago. At that time he stopped his antibiotic therapy and started chemotherapy. His last
dose of chemotherapy (second cycle) was 3 weeks ago. He developed fevers over the last week and spontaneous drainage at his old chest tube site, now prompting admission for suspected empyema 06/15/2023
Large right pleural effusion
Suspected empyema based on appearance
History of right large effusion with complete right lung atelectasis
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
Heimlich valve placed, spontaneously fell out approximately mid April 2023
Right upper lobe mass, right lung volume loss
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
Leukopenia, anemia
Stage IV adenocarcinoma
Malignant right pleural effusion diagnosed March 2023
Status post 2 cycles of chemotherapy (carboplatin, Taxol, Keytruda?)
sees Izabela Wood ([facility])
Progressive weight loss
Clubbing on exam
Conditions [employer] WORK[employer]:
COPD, on trelegy
CAD s/p stents
HTN
HLD
GIB, gastric ulcer 2019
H/o H pylori
Former [id number]-year quit 15 years old
Plan/recommendations
At this time, reviewed clinical course at length. Reviewed images at length.
Details of hospital stay at [place] unclear at this time. Suspected empyema
Moving forward
Continue with plans for drainage and likely chest tube placement. Patient does have trapped lung physiology and had persistent air leak with prior chest tube back in March.
Unclear whether he had a BP fistula but with patient was discharged on chronic antibiotic therapy and chest tube with Heimlich valve which spontaneously fell out around middle of April
Will send appropriate cultures and studies
Leukopenia noted. Follow
Continue Unasyn
Reviewed with interventional radiology, specifically plan to transition to tube for which she can be discharged home once empyema adequately treated
Patient will likely require reinitiation of chronic antibiotic therapy at time of discharge
Await records from [facility]
Will try to touch base with [facility], [facility] for update when able
Continue with outpatient inhaler regimen. Symbicort/Spiriva will replace Trelegy
DVT prophylaxis: Enoxaparin
Reviewed at length with patient, interventional radiology, primary service
Will follow
--- NOTE | 2023-06-16 10:39 | CM ---
Patient seen bedside.
IA completed.
Patient lives with spouse in a 2 story home.
Patient independent prior to admission, ambulates with a cane.
Patient can drive, but has not recently.
Patient on chronic oxygen 3 liters.
patient current with [facility].
PCP: Dr Paul, however patient would like list for new physician.
Pharmacy: [facility]
Plan: Pt to have IR drainage today.
Home with [facility] when stable, referral sent.
[2023-06-16] MEDS: FLUSH (NSS) 2 FLUSH IV (11:53)
[2023-06-16 13:12] LABS: Osmolality Urine 230 mOsm/kg (300-900)
[2023-06-16 13:21] LABS: Urine Sodium 25 mmol/L (30-90)
--- NOTE | 2023-06-16 16:55 | W.PN.UPDATE ---
Update Note
Progress Note Update
- R chest tube placed with US/fluoro with drainage of thick/purulent fluid.
- Orders placed. Will likely need adjunctive pleural lysis
[2023-06-16 17:08] LABS: Body Fluid Amylase 40 U/L; Body Fluid Glucose < 30 mg/dl; Body Fluid Protein 4.3 g/dl; Body Fluid Triglycerides 32 mg/dl
[2023-06-16 17:13] LABS: Body Fluid Polymorphonuclear 31.3 %; Body Fluid WBC 433700 /CUMM
[2023-06-16 17:14] LABS: Body Fluid Mononuclear 68.7 %
[2023-06-16 17:43] LABS: Body Fluid Second Tech EYM
[2023-06-16 17:51] LABS: Body Fluid LDH > 10000 U/L
[2023-06-16] MEDS: LOVENOX 40 MG SC (17:51)
[2023-06-16] MEDS: FLUSH (NSS) 1 FLUSH IV (17:54)
--- NOTE | 2023-06-16 18:43 | PTCARENOTE ---
Received patient from IR. Right lateral CT to wall suction -20cm. Spo2 99% 3L lungs clear diminished at the bases. SR heart rates 110-125. BP's stable, afebrile. Oriented patient to room. Discussed plan of care. Patient currently in bed eating
dinner. Call [facility] in [facility].
[2023-06-16] MEDS: ProAIR HFA INHALER 2 PUFF INH (19:26)
[2023-06-16] MEDS: SYMBICORT 80/4.5 MCG INHALER INH (19:31)
[2023-06-16] MEDS: LIPITOR 80 MG PO (19:42)
[2023-06-16] MEDS: SENOKOT 17.1999999999999993 MG PO (19:55)
[2023-06-16] MEDS: MELATONIN 10 MG PO (23:11)
[2023-06-16] MEDS: ULTRAM 50 MG PO (23:11)
[2023-06-16] MEDS: FLUSH (NSS) 3 FLUSH IV (23:56)
[2023-06-17] VITALS (14 sets, daily range): BP systolic 84–123; BP diastolic 67–89; PULSE 110–123; O2SAT 97
[2023-06-17] MEDS: TYLENOL 650 MG PO ×3 (03:05→19:57)
[2023-06-17] MEDS: MORPHINE SULFATE 2 MG IV ×3 (03:10→23:11)
[2023-06-17] MEDS: FLUSH (NSS) 2 FLUSH IV (03:11)
--- NOTE | 2023-06-17 03:19 | PTCARENOTE ---
pain at chest tube site medicated with Tylenol and tramadol ineffective- psych arnp ordered morphine x1- see mar- site is without crepitus ct w/out tidaling or air leak. draining red/purulent drainage- 97% on 3 liters
[2023-06-17] MEDS: UNASYN IV ×4 (05:25→23:10)
--- NOTE | 2023-06-17 05:34 | PTCARENOTE ---
190 out in chest tube- morphine effective for pain control- remains sinus tach-afebrile bp wnl
[2023-06-17 05:53] LABS: % Basophils 0.6 % (0-2); % Eosinophils 1.5 % (0-6); % Immature Granulocytes 1.5 % (0-0.5); % Lymphocytes 15.3 % (20.5-51.1); % Monocytes 12.6 % (1.7-9.3); % Neutrophils 68.5 % (42.2-75.2); Absolute Eosinophils 0.1 10^3/uL (0-0.7); Absolute Immature Granulocytes 0.1 10^3/uL (0-0.05); Absolute Lymphocytes 0.5 10^3/uL (1.2-3.4); Absolute Monocytes 0.4 10^3/uL (0.1-0.6); Absolute Neutrophils 2.3 10^3/uL (1.4-6.5); Hematocrit 27.8 % (39.0-52.0); Mean Corp Hgb Conc. 32.4 g/dL (33.0-37.0); Mean Corpuscular Hgb 25.1 pg (27.0-31.0); Mean Corpuscular Volume 77.4 fL (80.0-94.0); Mean Platelet Volume 7.8 fL (7.4-10.4); Nucleated Red Blood Cells % 0 % (-); Platelet Count 225 10^3/uL (130-400); Red Blood Cell Count 3.59 10^6/uL (4.70-6.10); Red Cell Dist. Width 17.4 % (11.5-14.5); White Blood Cell Count 3.4 10^3/uL (4.8-10.8)
[2023-06-17 06:33] LABS: ALT (SGPT) 40 U/L (0-50); AST (SGOT) 31 U/L (17-59); Albumin 2.6 g/dl (3.5-5.0); Alkaline Phosphatase 94 U/L (38-126); Blood Urea Nitrogen 12 mg/dl (9-20); Calcium 8.5 mg/dl (8.4-10.2); Carbon Dioxide 29 mmol/L (22-30); Chloride 99 mmol/L (98-107); Estimated Creatinine Clearance 112 ml/min; Glucose 120 mg/dl (70-99); Sodium 132 mmol/L (135-145); Total Bilirubin 0.3 mg/dl (0.2-1.3); Total Protein 5.8 g/dl (6.3-8.2); eGFR > 60.00
[2023-06-17] MEDS: SPIRIVA RESPIMAT 2.5 MCG 2 PUFF INH (07:57)
[2023-06-17] MEDS: SYMBICORT 80/4.5 MCG INHALER 2 PUFF INH ×2 (07:57→19:14)
[2023-06-17] MEDS: FOLVITE 1 MG PO (07:58)
[2023-06-17] MEDS: TOPROL XL 12.5 MG PO ×2 (07:58→19:52)
[2023-06-17] MEDS: FLOMAX 0.400000000000000022 MG PO (07:58)
--- NOTE | 2023-06-17 08:14 | W.PN.HOSP.TC ---
Addendum entered and electronically signed by Hiro Sanchez DO 06/17/23 11:16:
Localized infection only, doubt clinical sepsis. Baseline patient has tachycardia after discussing with him. Leukopenia related to chemotherapy, he is also immunosuppressed as a result of chemotherapy.
Original Note:
Today's Communication/Plan
-
Continue antibiotics
Await cultures
Try to get records from [place]
Assessment / Plan
Assessment / Plan
Gen-AAOx3, NAD
HEENT-NC, AT, anicteric, clear oral mm
Neck-supple
CV-reg, no M, +S1/S2
Lungs-clear B/L
Abd-soft, NT, ND
Ext-no edema
Musculoskeletal-no cyanosis, clubbing
Skin-warm and dry, right lateral chest tube in place with dressings
Neuro-grossly non-focal
Psych-calm, cooperative
Right-sided empyema -continue IV Unasyn. Hemodynamically stable. Right-sided chest tube placed by interventional radiology on 06/15, thick purulent fluid output noted. Fluid culture pending. Chest tube output 540 cc so far.
Recurrent malignant right pleural effusion -due to underlying adenocarcinoma of the lung. Hospitalized in [place] with subsequent transfer to [facility] in March for thoracic surgery. Awaiting records from [facility]
[place].
Pulmonary adenocarcinoma -On chemotherapy. Follows with oncology [facility].
Bicytopenia -platelet count normal. Etiology possibly due to chemotherapy.
Hyponatremia -appears chronic, sodium 132. TSH normal, urine osmolality 230, urine sodium 25.
COPD without exacerbation
CAD -with history of stent.
Essential hypertension -stable.
Hyperlipidemia -on atorvastatin.
History of gastric ulcer
Chronic anemia
BPH
DNR
Anticipated Discharge: > 48 hours
Subjective/Interval History
-
Date of Service: June 17, 2023
Patient seen and examined. Feeling better after chest tube placement. Eating breakfast. No complaints.
Objective Data
-
Labs:
Laboratory Results
06/17/23
05:23
WBC 3.4 L
Hgb 9.0 L
Hct 27.8 L
Plt Count 225
Sodium 132 L
Potassium 4.0
Chloride 99
Carbon Dioxide 29
BUN 12
Creatinine 0.5 L
Glucose 120 H
Calcium 8.5
Total Bilirubin 0.3
AST 31
ALT 40
Alkaline Phosphatase 94
Vital Signs:
Vital Signs
Temp Pulse Resp BP Pulse Ox
98.3 F 109 18 115/71 99
06/17/23 07:35 06/17/23 08:00 06/17/23 08:00 06/17/23 07:58 06/17/23 08:00
I&O
06/16/23 06/17/23 06/18/23
06:59 06:59 06:59
Intake Total 960 / 960 1425 / 1425
Output Total 475 / 475 1350 / 1350
Balance 485 / 485 75 / 75
Review of Systems
-
History Source: Patient
All other systems: Reviewed and negative
--- NOTE | 2023-06-17 09:32 | PN.CDI ---
CDI
- -
CDI:
Physician Documentation Request
Admit Date: 06/15/23 17:56
Dear Doctor Daniel,
Patient admitted with right sided empyema.
06/15 Pulmonology PN: 'Patient has lost weight over the past couple months. He has received 2 cycles of chemotherapy, last cycle approximately 3 weeks ago, next dose was planned for 06/15.'
06/15 Update Note: 'R chest tube placed with US/fluoro with drainage of thick/purulent fluid.'
06/15/23 06/16/23 06/17/23
14:59 07:00 05:23
WBC 3.8 L 3.6 L 3.4 L
Based on the above, could you clarify in the progress notes, the appropriate diagnosis, if significant, that supports the above abnormalities and additional evaluation, monitoring and/or treatment rendered:
Immunocompromised
Normal immunity
Other
Use of terms such as suspected, likely, concern for, or probable (associated with a specific diagnosis that is being evaluated, monitored, or treated as if it exists) are acceptable and can be coded in the inpatient setting, when documented at the
time of discharge.
Thank you,
Maria G Thompson RN, BSN
CDI Specialist
Available via [place] text
Please use your independent medical judgment in providing your response.
--- NOTE | 2023-06-17 09:48 | PN.CDI ---
CDI
- -
CDI:
Physician Documentation Request
Admit Date: 06/15/23 17:56
Dear Doctor Daniel,
Patient admitted for right sided empyema.
Laboratory Tests
06/15/23 06/16/23 06/17/23
14:59 07:00 05:23
WBC 3.8 L 3.6 L 3.4 L
06/15/23
12:50 06/15/23
16:15 06/15/23
17:30
Resp Rate 33 27 26
06/15/23
12:50 06/15/23
17:48 06/15/23
18:53
Pulse 127 144 136
Please clarify which of the following most accurately describes the status of the patient's infection:
Sepsis, POA
- Systemic manifestations of infection, with 2 or more SIRS criteria which include:
- Fever >100.4 degrees F or hypothermia < 96.8 degrees F
- Leukocytosis - WBC > 12,000 or leukopenia - WBC < 4,000 or > 10% bands
- Tachycardia > 90 beats per minute
- Tachypnea - RR > 20 breaths per minute or PaCO2 , 32mmHg
Source: Merck Manual 2013
Localized Infection Only, Without Systemic Illness
- indicate the site/source, such as empyema etc.
Other
Use of terms such as suspected, likely, concern for, or probable (associated with a specific diagnosis that is being evaluated, monitored, or treated as if it exists) are acceptable and can be coded in the inpatient setting, when documented at the
time of discharge.
Thank you,
Maria G Thompson RN, BSN
CDI Specialist
Available via [place] text
Please use your independent medical judgment in providing your response.
[2023-06-17] MEDS: FLEXERIL 5 MG PO ×2 (10:13→19:57)
[2023-06-17] MEDS: SENOKOT 17.1999999999999993 MG PO (11:57)
--- NOTE | 2023-06-17 15:54 | PTCARENOTE ---
Rec'd pt this AM. Chest tube draining serosang/purulant drainage. Pt able to ambulate in room. O2 sat 96-98% on 3L NC. Morphine given for pain with good effect. Remains ST with HR low 100s throughout shift.
--- NOTE | 2023-06-17 16:15 | W.PN.PUL3 ---
Today's Communication / Plan
-
Daily chest x-ray
Continue Unasyn therapy
May require intrapleural lytic treatment
Await records from [facility]
Assessment
-
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
at [facility] ([facility]). Patient had a surgical procedure, details unknown, chest tube upon discharge with Heimlich valve, which spontaneously came out about 6 weeks ago. At that time he stopped his antibiotic therapy and started chemotherapy. His last
dose of chemotherapy (second cycle) was 3 weeks ago. He developed fevers over the last week and spontaneous drainage at his old chest tube site, now prompting admission for suspected empyema 06/15/2023
Large right pleural effusion
Empyema
Status post chest tube 06/15
History of right large effusion with complete right lung atelectasis
Persistent air leak, suspected BP fistula, tx to [facility] 03/2023
Heimlich valve placed, spontaneously fell out approximately mid April 2023
Right upper lobe mass, right lung volume loss
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
Leukopenia, anemia
Stage IV adenocarcinoma
Malignant right pleural effusion diagnosed March 2023
Status post 2 cycles of chemotherapy (carboplatin, Taxol, Keytruda?)
sees Izabela Wood ([facility])
Progressive weight loss
Clubbing on exam
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
COPD, on trelegy
CAD s/p stents
HTN
HLD
GIB, gastric ulcer 2019
H/o H pylori
Former [id number] quit 15 years old
Plan/recommendations
At this time, patient appears to be objectively and subjectively improved
Chest tube with pus, 150 cc drained since this morning, 500 cc post chest tube placement since yesterday
Positive E. coli
Remains on Unasyn
Moving forward
Continue with plans for drainage and likely chest tube placement. Patient does have trapped lung physiology and had persistent air leak with prior chest tube back in March.
Unclear whether he had a BP fistula but with patient was discharged on chronic antibiotic therapy and chest tube with Heimlich valve which spontaneously fell out around middle of April
Cultures positive for E. coli
Leukopenia noted. Follow
Continue Unasyn
Daily chest x-ray, will order for 06/16
May require intrapleural lytic therapy
Reviewed with interventional radiology, specifically plan to transition to tube for which she can be discharged home once empyema adequately treated
Patient will likely require reinitiation of chronic antibiotic therapy at time of discharge
Await records from [facility]. I have reached out to Thoracic Surgery ([facility])
Will try to touch base with [facility] oncology (Izabela Wood)
Continue with outpatient inhaler regimen. Symbicort/Spiriva will replace Trelegy
DVT prophylaxis: Enoxaparin
Encourage nutrition. Patient with good appetite
Reviewed at length with patient, at bedside
Will follow
Subjective Data
-
Date of Service:
Date of Service: June 17, 2023
Subjective:
Patient feels much improved. Chest pain has improved. Mild chest tube site discomfort. Appetite is good. Denies nausea, abdominal pain, shortness of breath, cough, hemoptysis. at bedside. Patient appears to be in good spirits
Objective Data
Data Reviewed
Vital Signs / I&O / Oxygen:
Vital Signs
Temp Pulse Resp BP Pulse Ox
98 F 107 27 110/75 98
06/17/23 11:24 06/17/23 12:00 06/17/23 12:00 06/17/23 12:00 06/17/23 10:04
Intake and Output
06/16/23 06/17/23 06/18/23
06:59 06:59 06:59
Intake Total 960 / 960 1425 / 1425
Output Total 475 / 475 1350 / 1350 250 / 250
Balance 485 / 485 75 / 75 -250 / -250
SaO2 98
Nasal Cannula flow liters per 3
minute
Physical Exam
General: Comfortable
HEENT: Normocephalic and Anicteric
Cardiovascular: S1-S2, Regular Rhythm, Murmur (n) and Rub (n)
Respiratory: Wheeze (n), Crackles (n), Rhonchi (n) and Chest Tube (Right chest tube, no respiratory variation)
GI: Soft, Non Distended and Non Tender
Neurology: Awake, Alert and No Motor Deficits
Skin: Cyanosis (n), Jaundice (n) and Other (Positive clubbing)
Labs/Micro/Reports
Lab Data
06/17/23 05:23
06/17/23 05:23
Microbiology
06/15/23 14:59 Blood/Venous Blood Culture - Preliminary
No Growth in 48 hours- Final report to follow
06/16/23 16:38 Pleural Fluid Body Fluid Culture - Preliminary
Escherichia coli
06/16/23 16:38 Pleural Fluid Gram Stain - Preliminary
06/16/23 16:39 Pleural Fluid Fungal Smear - Final
No yeast or fungal elements seen.
06/15/23 17:53 Chest - Right Wound Culture - Preliminary
Gram negative bacilli
06/15/23 17:53 Chest - Right Gram Stain - Preliminary
06/15/23 20:36 Nose MRSA Screen - Final
No Methicillin Resistant Staphylococcus aureus isolated.
06/15/23 14:59 Blood/Venous Blood Culture - Preliminary
No Growth in 24 hours- Final report to follow
--- NOTE | 2023-06-17 16:58 | CM ---
Patient with Hx lung CA on chemo with Dx Right-sided empyema, Recurrent malignant right pleural effusion. O2 3L. Chest tube. Receiving IV Abx, IV MS prn pain. PT & OT recommend HH.
Spoke with Kat Hernandez; provided clinical update.
Plan follow patient's O2 needs.
Plan provide patient PCP list.
Plan home with resumption Kat VN.
[2023-06-17] MEDS: LOVENOX 40 MG SC (17:17)
[2023-06-17] MEDS: ProAIR HFA INHALER 2 PUFF INH (19:14)
[2023-06-17] MEDS: LIPITOR 80 MG PO (19:52)
[2023-06-18] VITALS (15 sets, daily range): BP systolic 87–124; BP diastolic 50–84
[2023-06-18 05:05] LABS: ALT (SGPT) 32 U/L (0-50); AST (SGOT) 25 U/L (17-59); Albumin 2.5 g/dl (3.5-5.0); Alkaline Phosphatase 85 U/L (38-126); Blood Urea Nitrogen 10 mg/dl (9-20); Calcium 8.3 mg/dl (8.4-10.2); Carbon Dioxide 28 mmol/L (22-30); Chloride 102 mmol/L (98-107); Estimated Creatinine Clearance 112 ml/min; Glucose 141 mg/dl (70-99); Potassium 3.8 mmol/L (3.5-5.1); Sodium 134 mmol/L (135-145); Total Bilirubin 0.2 mg/dl (0.2-1.3); Total Protein 5.5 g/dl (6.3-8.2); eGFR > 60.00
[2023-06-18 05:15] LABS: % Basophils 0.6 % (0-2); % Eosinophils 1.5 % (0-6); % Lymphocytes 16.6 % (20.5-51.1); % Monocytes 14.2 % (1.7-9.3); % Neutrophils 65.1 % (42.2-75.2); Absolute Eosinophils 0.1 10^3/uL (0-0.7); Absolute Immature Granulocytes 0.1 10^3/uL (0-0.05); Absolute Lymphocytes 0.6 10^3/uL (1.2-3.4); Absolute Monocytes 0.5 10^3/uL (0.1-0.6); Absolute Neutrophils 2.2 10^3/uL (1.4-6.5); Hematocrit 27.1 % (39.0-52.0); Hemoglobin 8.5 g/dL (13.0-18.0); Mean Corp Hgb Conc. 31.4 g/dL (33.0-37.0); Mean Corpuscular Hgb 24.9 pg (27.0-31.0); Mean Corpuscular Volume 79.2 fL (80.0-94.0); Mean Platelet Volume 7.8 fL (7.4-10.4); Nucleated Red Blood Cells % 0 % (-); Platelet Count 214 10^3/uL (130-400); Red Blood Cell Count 3.42 10^6/uL (4.70-6.10); Red Cell Dist. Width 17.2 % (11.5-14.5); White Blood Cell Count 3.4 10^3/uL (4.8-10.8)
--- NOTE | 2023-06-18 05:55 | PTCARENOTE ---
no acute events overnight- chest tube intact, draining serosang fluid. pt with some pain at chest tube site, medicated per APR. no c/o SOB, still on 3L-97%. at bedside all night, care ongoing.
[2023-06-18] MEDS: UNASYN IV ×3 (05:59→18:09)
[2023-06-18] MEDS: SYMBICORT 80/4.5 MCG INHALER 2 PUFF INH ×2 (07:30→20:35)
[2023-06-18] MEDS: SPIRIVA RESPIMAT 2.5 MCG 2 PUFF INH (07:30)
[2023-06-18] MEDS: ProAIR HFA INHALER 2 PUFF INH (07:31)
--- NOTE | 2023-06-18 08:27 | W.PN.HOSP.TC ---
Today's Communication/Plan
-
ID consult
Bowel regimen
Assessment / Plan
Assessment / Plan
Gen-AAOx3, NAD
HEENT-NC, AT, anicteric, clear oral mm
Neck-supple
CV-reg, no M, +S1/S2
Lungs-clear B/L
Abd-soft, NT, ND
Ext-no edema
Musculoskeletal-no cyanosis, clubbing
Skin-warm and dry, right lateral chest tube in place with dressings
Neuro-grossly non-focal
Psych-calm, cooperative
Right-sided empyema -continue IV Unasyn. Hemodynamically stable. Right-sided chest tube placed by interventional radiology on 06/15, thick purulent fluid output noted. Fluid culture shows E. coli, consult ID. Chest x-ray done this morning, report
pending. I reviewed the film myself and it does show right loculated appearing pleural effusion with whiteout of the right lung, mediastinal shift to the right.
Recurrent malignant right pleural effusion -due to underlying adenocarcinoma of the lung. Hospitalized in [place] with subsequent transfer to [facility] in March for thoracic surgery. Awaiting records from [facility]
[place]. I spoke with health unit supervisor to request records again today.
Pulmonary adenocarcinoma -On chemotherapy. Follows with oncology [facility].
Bicytopenia -platelet count normal. Etiology possibly due to chemotherapy.
Hyponatremia -appears chronic, sodium 134. TSH normal, urine osmolality 230, urine sodium 25.
COPD without exacerbation
CAD -with history of stent.
Essential hypertension -stable.
Hyperlipidemia -on atorvastatin.
History of gastric ulcer
Chronic anemia
Constipation -he takes Senokot and Dulcolax at home as needed. Add Colace, MiraLAX.
BPH
DNR
Anticipated Discharge: > 48 hours
Subjective/Interval History
-
Date of Service: June 18, 2023
Patient seen and examined. Denies chest pain or shortness of breath. Complaining of constipation.
Objective Data
-
Labs:
Laboratory Results
06/18/23
04:20
WBC 3.4 L
Hgb 8.5 L
Hct 27.1 L
Plt Count 214
Sodium 134 L
Potassium 3.8
Chloride 102
Carbon Dioxide 28
BUN 10
Creatinine 0.5 L
Glucose 141 H
Calcium 8.3 L
Total Bilirubin 0.2
AST 25
ALT 32
Alkaline Phosphatase 85
Vital Signs:
Vital Signs
Temp Pulse Resp BP Pulse Ox
97.8 F 110 20 120/73 96
06/18/23 03:26 06/18/23 06:00 06/18/23 06:00 06/18/23 06:00 06/18/23 06:00
I&O
06/17/23 06/18/23 06/19/23
06:59 06:59 06:59
Intake Total 1425 / 1425 800 / 800
Output Total 1350 / 1350 1365 / 1365
Balance 75 / 75 -565 / -565
Review of Systems
-
History Source: Patient
All other systems: Reviewed and negative
[2023-06-18] MEDS: FLOMAX 0.400000000000000022 MG PO (09:12)
[2023-06-18] MEDS: TOPROL XL 12.5 MG PO ×2 (09:12→19:42)
[2023-06-18] MEDS: FOLVITE 1 MG PO (09:12)
[2023-06-18] MEDS: MIRALAX 17 GRAMS PO (09:12)
[2023-06-18] MEDS: COLACE 100 MG PO ×2 (09:12→19:42)
--- NOTE | 2023-06-18 09:26 | W.PN.PUL3 ---
Today's Communication / Plan
-
Intrapleural lytic therapy
Continue antibiotics. ID evaluation
Contacted [facility]ology and thoracic surgery
Encourage ambulation with physical therapy
Assessment
-
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
at [facility] ([facility]). Patient had a surgical procedure, details unknown, chest tube upon discharge with Heimlich valve, which spontaneously came out about 6 weeks ago. At that time he stopped his antibiotic therapy and started chemotherapy. His last
dose of chemotherapy (second cycle) was 3 weeks ago. He developed fevers over the last week and spontaneous drainage at his old chest tube site, now prompting admission for suspected empyema 06/15/2023
Large right pleural effusion
Empyema
Status post chest tube 06/15
History of right large effusion with complete right lung atelectasis
Persistent air leak, suspected BP fistula, tx to [facility] 03/2023
Heimlich valve placed, spontaneously fell out approximately mid April 2023
Right upper lobe mass, right lung volume loss
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
Leukopenia, anemia
Stage IV adenocarcinoma
Malignant right pleural effusion diagnosed March 2023
Status post 2 cycles of chemotherapy (carboplatin, Taxol, Keytruda?)
sees Izabela Wood ([facility])
Progressive weight loss
Clubbing on exam
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
COPD, on trelegy
CAD s/p stents
HTN
HLD
GIB, gastric ulcer 2019
H/o H pylori
Former [id number]-year quit 15 years old
Plan/recommendations
At this time, patient appears to be objectively and subjectively improved
Chest tube with pus, 175 cc drained since yesterday
Positive E. coli
Remains on Unasyn
Chest x-ray with slight improvement. Do not suspect much improvement given significant trapped lung physiology on the right
Moving forward
Continue with plans for drainage and likely chest tube placement. Patient does have trapped lung physiology and had persistent air leak with prior chest tube back in March.
Unclear whether he had a BP fistula but with patient was discharged on chronic antibiotic therapy and chest tube with Heimlich valve which spontaneously fell out around middle of April
Cultures positive for E. coli
Leukopenia noted. Follow
Continue Unasyn
Plan for intrapleural lytic therapy, tPA and dornase injection. Reviewed with interventional radiology
Continue with daily chest x-ray
Reviewed with interventional radiology, specifically plan to transition to tube for which she can be discharged home once empyema adequately treated
Patient will likely require reinitiation of chronic antibiotic therapy at time of discharge
Await records from [facility]. I have reached out to Thoracic Surgery ([facility])
I have also reached out to [facility] oncology (Izabela Wood), awaiting callback
Continue with outpatient inhaler regimen. Symbicort/Spiriva will replace Trelegy
DVT prophylaxis: Enoxaparin
Encourage ambulation with physical therapy
Encourage nutrition. Patient with good appetite
Reviewed at length with patient, at bedside
Subjective Data
-
Date of Service:
Date of Service: June 18, 2023
Subjective:
Patient continues to improve clinically. Minimal chest discomfort. Denies nausea, abdominal pain, significant cough, hemoptysis, shortness of breath. at bedside
Objective Data
Data Reviewed
Vital Signs / I&O / Oxygen:
Vital Signs
Temp Pulse Resp BP Pulse Ox
97.8 F 112 20 119/69 96
06/18/23 03:26 06/18/23 09:12 06/18/23 06:00 06/18/23 09:12 06/18/23 06:00
Intake and Output
06/17/23 06/18/23 06/19/23
06:59 06:59 06:59
Intake Total 1425 / 1425 800 / 800
Output Total 1350 / 1350 1365 / 1365
Balance 75 / 75 -565 / -565
SaO2 96
Nasal Cannula flow liters per 3
minute
Physical Exam
General: Comfortable
HEENT: Normocephalic and Anicteric
Cardiovascular: S1-S2, Regular Rhythm, Murmur (n) and Rub (n)
Respiratory: Wheeze (n), Crackles (n), Rhonchi (n) and Chest Tube (Right chest tube, no respiratory variation)
GI: Soft, Non Distended and Non Tender
Neurology: Awake, Alert and No Motor Deficits
Skin: Cyanosis (n), Jaundice (n) and Other (Positive clubbing)
Labs/Micro/Reports
Lab Data
06/18/23 04:20
06/18/23 04:20
Microbiology
06/15/23 17:53 Chest - Right Wound Culture - Final
Escherichia coli
06/15/23 17:53 Chest - Right Gram Stain - Final
06/16/23 16:38 Pleural Fluid Body Fluid Culture - Final
Escherichia coli
06/16/23 16:38 Pleural Fluid Gram Stain - Final
06/15/23 14:59 Blood/Venous Blood Culture - Preliminary
No Growth in 48 hours- Final report to follow
06/15/23 14:59 Blood/Venous Blood Culture - Preliminary
No Growth in 48 hours- Final report to follow
06/16/23 16:39 Pleural Fluid Fungal Smear - Final
No yeast or fungal elements seen.
06/15/23 20:36 Nose MRSA Screen - Final
No Methicillin Resistant Staphylococcus aureus isolated.
[2023-06-18] MEDS: TYLENOL 650 MG PO ×2 (10:09→19:43)
--- NOTE | 2023-06-18 11:50 | PN.IRAD.UPD ---
Update Note - IRAD
- -
8 MG TPA in a total volume of 50 ml 0.9% sodium chloride, 5mg DORNASE in a total volume of 50 ml 0.9% sodium chloride instilled via right chest tube at bedside at 11:30 am . Catheter clamped at that time. RN notified. Patient tolerated procedure
well.
--- NOTE | 2023-06-18 13:15 | PTCARENOTE ---
Pt's chest tube unclamped at 1315.
--- NOTE | 2023-06-18 14:52 | CON.ID ---
Addendum entered and electronically signed by Rebeka Pantoja MD 06/18/23 19:57:
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
reports some coughing/choaking with eating - swallow evaluation
Original Note:
Consultation
-
Date/Time Consultation Requested: 06/18/23 8:17
Date/Time Consultation Performed: 06/18/23 8:17
Requesting Provider: Dr Sanchez
Performing Provider: Dr Pantoja
Reason for Consultation: Right-sided empyema
Chief Complaint / Past History
Chief Complaint
Drainage right side chest tube site
History of Present Illness
Mr Pearson is a 73 year old male with non-small cell adenocarcinoma stage IV lung cancer Dx March 2023 requiring chronic bilateral chest tubes with persistent large air leak eventually seen by thoracic surgery at [place] ([facility]), post unknown
procedure discahrged with heimlich valve/chest tube, chemotherapy was started about 6 weeks ago around the same time the chest tube fell out. He remained well until about 1 week ago when he developed subjective fevers and, chest fullness. 06/12
spontaneously began draining from the prior chest tube site, initially dark then pus like. Of note last chemotherapy was about 3 weeks ago and next dose was planned for 06/15 (day of admission) Presented here.
Since arrival here he has been afebrile, bp stable, initially tachycardic in the 120s now improved to low 100s, currently sating high 90s on 3L, wbc on arrival 3.8 now 3.4, hgb 8.5, plt 214, no L shift, eos are present, cr 0.5, lactic acdi 1.4,
06/15 pleural fluid pH 5.0, wbc 133990, mono predominant, glucose <30, protein 4.3, ldh >10,000, chest tube inserted 06/15, purulent brown fluid 350 ccs, today CXR: Stable changes of the right lung, had pleural lysis; pleural fluid grew E coli x2
sensitive to unasyn, cefazolin, also rare CONS
Past History
Additional Past Medical History:
Stage IV adenocarcinoma with malignant right pleural effusion, chemotherapy ongoing. Hypertension, hyperlipidemia, history of COPD, coronary disease with history of stent, GI bleed with gastric ulcer 2020, history of H. pylori
Past Surgical History: None
Allergy History:
No Known Allergies Allergy (Unverified 06/15/23 12:53)
Medications Reviewed: Yes
Social History
Tobacco: Former Smoker
Alcohol: None
Drug: None
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
Family History
Family History: Not Pertinent
Review of Systems
Review of Systems
General: Fever; Negative Chills
All systems: All other systems were reviewed and were negative
Vital Signs
Temp Pulse Resp BP Pulse Ox
98.1 F 106 23 124/71 98
06/18/23 11:00 06/18/23 12:00 06/18/23 12:00 06/18/23 12:00 06/18/23 12:00
Physical Exam
Physical Exam
Constitutional: No Acute Distress
Cardiovascular: Regular Rate and S1/S2; Negative Murmur or Rub
Pulmonary: Clear, Symmetric and Non Labored; Negative Wheezes, Rales or Rhonchi
Gastrointestinal: Soft, Non Tender, Non Distended and Normal Bowel Sounds
Skin: Warm and Dry; Negative Rash or Jaundice
Lines: Other (chest tube serosanguinous fluid)
Lab / Diagnostic Study Results
06/18/23 04:20
06/18/23 04:20
Abs Immat Gran (auto) 0.1 10^3/uL (0-0.05) H 06/18/23 04:20
Absolute Neuts (auto) 2.2 10^3/uL (1.4-6.5) 06/18/23 04:20
Absolute Lymphs (auto) 0.6 10^3/uL (1.2-3.4) L 06/18/23 04:20
Absolute Monos (auto) 0.5 10^3/uL (0.1-0.6) 06/18/23 04:20
Absolute Basos (auto) 0.0 10^3/uL (0-0.2) 06/18/23 04:20
Immature Gran % 2.0 % (0-0.5) H 06/18/23 04:20
Neutrophils % 65.1 % (42.2-75.2) 06/18/23 04:20
Lymphocytes % 16.6 % (20.5-51.1) L 06/18/23 04:20
Monocytes % 14.2 % (1.7-9.3) H 06/18/23 04:20
Eosinophils % 1.5 % (0-6) 06/18/23 04:20
Basophils % 0.6 % (0-2) 06/18/23 04:20
PT 15.4 Sec (11.4-14.6) H 06/16/23 07:44
INR 1.24 06/16/23 07:44
Lactic Acid Cancelled 06/15/23 19:00
Microbiology Results
Micro:
06/15/23 17:53 Wound Culture - Final
Chest - Right Escherichia coli
Gram Stain - Final
06/16/23 16:38 Body Fluid Culture - Final
Pleural Fluid Escherichia coli
Gram Stain - Final
06/15/23 14:59 Blood Culture - Preliminary
Blood/Venous No Growth in 48 hours- Final report to follow
06/15/23 14:59 Blood Culture - Preliminary
Blood/Venous No Growth in 48 hours- Final report to follow
06/16/23 16:39 Fungal Smear - Final
Pleural Fluid No yeast or fungal elements seen.
Fungal Culture - Pending
06/15/23 20:36 MRSA Screen - Final
Nose No Methicillin Resistant Staphylococcus aureus isolated.
06/16/23 16:39 Acid Fast Bacilli Smear - Pending
Pleural Fluid Acid Fast Bacilli Culture - Pending
Assessment / Plan
Empyema
Chronic Pleural Effusions
Stage IV adenocarcinoma
Malignant right pleural effusion diagnosed March 2023
Status post 2 cycles of chemotherapy (carboplatin, Taxol, Keytruda?); sees Izabela Wood ([place])
Progressive weight loss
Clubbing on exam
- pleural cultures E coli x2 and rare CONS
- requested sensi on the CONS, doxycycoline sensi on the e coli
- chest tube output remains high post lysis
- add vancomycin
- continue unasyn
- eventual transition to orals likely for chronic therapy when drainage has been maximizied
- follow clinically
--- NOTE | 2023-06-18 15:49 | PHA.VAN.IN ---
Assessment
- Assessment
Renal Function: Appears similar to baseline
Concomitant Antimicrobials: ampicillin/sulbactam
AUC Dosing Plan
- Dosing Variables
Dosing Weight (kg): 78
Dosing CrCl (ml/min): 112
Vd coefficient (L/kg): 0.7
- Empiric Dosing
Initial / Loading Dose: 2000mg -administration pending
Maintenance Regimen: Vanc 1250mg Q12H starting 06/18 599
Estimated AUC (mcg*h/mL): 505
Estimated Peak (mcg*h/mL): 33.2
Estimated Trough (mcg/ml): 12
Estimated Half Life (H): 7.1
- Monitoring
No levels ordered at this time: consider levels in next few days
Pharmacokinetics Vancomycin I
- -
Patient Age: 73
Patient Sex: Male
Vancomycin Day #: 1
Indication: Pulmonary/Respiratory
Requesting Provider: Dr. Pantoja
Pertinent Antimicrobial Allergies:
NKDA
Height / Weight:
Height 5 ft 10 in
Actual Weight 78 kg
Pertinent Past Medical History: Stage IV adenocarcinoma
- Vital Signs / Lab Results
Temp Pulse Resp BP Pulse Ox
98.1 F 106 23 124/71 98
06/18/23 11:00 06/18/23 12:00 06/18/23 12:00 06/18/23 12:00 06/18/23 12:00
Lab Results - Hematology
06/16/23 06/17/23 06/18/23
07:00 05:23 04:20
WBC 3.6 L 3.4 L 3.4 L
Lab Results - Chemistry
06/16/23 06/17/23 06/18/23
07:00 05:23 04:20
BUN 9 12 10
Creatinine 0.5 L 0.5 L 0.5 L
Estimated Creat Clear 112 112 112
Albumin 2.6 L 2.6 L 2.5 L
06/15/23
19:00
Lactic Acid Cancelled
Microbiology Results
06/15/23 17:53 Wound Culture - Preliminary
Chest - Right Escherichia coli
Gram Stain - Final
06/15/23 14:59 Blood Culture - Preliminary
Blood/Venous No Growth in 72 hours- Final report to follow
06/16/23 16:38 Body Fluid Culture - Final
Pleural Fluid Escherichia coli
Gram Stain - Final
06/15/23 14:59 Blood Culture - Preliminary
Blood/Venous No Growth in 48 hours- Final report to follow
06/16/23 16:39 Fungal Smear - Final
Pleural Fluid No yeast or fungal elements seen.
06/15/23 20:36 MRSA Screen - Final
Nose No Methicillin Resistant Staphylococcus aureus isolated.
[2023-06-18] MEDS: VANCOCIN 540 MG IV (16:14)
[2023-06-18] MEDS: LOVENOX 40 MG SC (18:09)
--- NOTE | 2023-06-18 20:23 | PTCARENOTE ---
Pt received from day shift. Pt AAO, agreeable to care. Pt requests Tylenol for 6/10 right sided chest wall pain. Tylenol administered. Chest tube maintained to -20 suction. Dressing clean dry and intact. No crepitus noted. Pm Colace given, pt
without BM. No c/o abdominal pain. Please see full nursing shift assessment for head to toe. Call gray in reach.
[2023-06-18] MEDS: LIPITOR 80 MG PO (21:11)
[2023-06-19] VITALS (13 sets, daily range): BP systolic 105–130; BP diastolic 66–89; PULSE 106–108; O2SAT 93–97; BMI 24.3
[2023-06-19] MEDS: UNASYN IV ×5 (00:24→23:03)
[2023-06-19] MEDS: MORPHINE SULFATE 2 MG IV (00:25)
[2023-06-19 05:01] LABS: % Basophils 0.5 % (0-2); % Eosinophils 2.3 % (0-6); % Immature Granulocytes 4.3 % (0-0.5); % Lymphocytes 12.8 % (20.5-51.1); % Monocytes 11.6 % (1.7-9.3); % Neutrophils 68.5 % (42.2-75.2); Absolute Eosinophils 0.1 10^3/uL (0-0.7); Absolute Immature Granulocytes 0.2 10^3/uL (0-0.05); Absolute Lymphocytes 0.5 10^3/uL (1.2-3.4); Absolute Monocytes 0.5 10^3/uL (0.1-0.6); Absolute Neutrophils 2.7 10^3/uL (1.4-6.5); Hematocrit 28.7 % (39.0-52.0); Hemoglobin 9.2 g/dL (13.0-18.0); Mean Corp Hgb Conc. 32.1 g/dL (33.0-37.0); Mean Corpuscular Hgb 24.9 pg (27.0-31.0); Mean Corpuscular Volume 77.6 fL (80.0-94.0); Mean Platelet Volume 7.5 fL (7.4-10.4); Nucleated Red Blood Cells % 0 % (-); Platelet Count 211 10^3/uL (130-400); Red Cell Dist. Width 17.5 % (11.5-14.5)
[2023-06-19] MEDS: VANCOCIN 275 MG IV ×2 (06:18→17:58)
[2023-06-19] MEDS: SPIRIVA RESPIMAT 2.5 MCG 2 PUFF INH (07:16)
[2023-06-19] MEDS: ProAIR HFA INHALER 2 PUFF INH ×2 (07:16→21:02)
[2023-06-19] MEDS: SYMBICORT 80/4.5 MCG INHALER 2 PUFF INH ×2 (07:16→21:01)
[2023-06-19] MEDS: MIRALAX 17 GRAMS PO (08:45)
[2023-06-19] MEDS: TOPROL XL 12.5 MG PO ×2 (08:45→20:28)
[2023-06-19] MEDS: COLACE 100 MG PO ×2 (08:46→20:28)
[2023-06-19] MEDS: FOLVITE 1 MG PO (08:46)
[2023-06-19] MEDS: FLOMAX 0.400000000000000022 MG PO (08:46)
--- NOTE | 2023-06-19 09:09 | W.PN.HOSP.TC ---
Today's Communication/Plan
-
Continue current care
Magnesium citrate
PT/OT
Assessment / Plan
Assessment / Plan
Gen-AAOx3, NAD
HEENT-NC, AT, anicteric, clear oral mm
Neck-supple
CV-reg, no M, +S1/S2
Lungs-clear B/L
Abd-soft, NT, ND
Ext-no edema
Musculoskeletal-no cyanosis, clubbing
Skin-warm and dry, right lateral chest tube in place with dressings
Neuro-grossly non-focal
Psych-calm, cooperative
Right-sided empyema -continue antibiotics per ID, currently on Unasyn and vancomycin. Hemodynamically stable. Right-sided chest tube placed by interventional radiology on 06/15, thick purulent fluid output noted. Fluid culture shows E. coli,
coagulase-negative staph.
Underwent pleural lysis with tPA and dornase injection 06/17 by interventional radiology. Chest tube output improved overnight, chest x-ray without appreciable change.
Recurrent malignant right pleural effusion -due to underlying adenocarcinoma of the lung. Hospitalized in [place] with subsequent transfer to [facility] in March for thoracic surgery. Awaiting records from [facility]
[place]. I spoke with pediatric acute care unit nurse to request records again today.
Pulmonary adenocarcinoma -On chemotherapy. Follows with oncology [facility].
Bicytopenia -platelet count normal. Etiology possibly due to chemotherapy.
Hyponatremia -appears chronic, sodium 134. TSH normal, urine osmolality 230, urine sodium 25.
COPD without exacerbation
CAD -with history of stent.
Essential hypertension -stable.
Hyperlipidemia -on atorvastatin.
History of gastric ulcer
Chronic anemia
Constipation -he takes Senokot and Dulcolax at home as needed. Add Colace, MiraLAX. Will add magnesium citrate.
BPH
DNR
Anticipated Discharge: > 48 hours
Subjective/Interval History
-
Date of Service: June 19, 2023
Patient seen and examined. No shortness of breath. Still constipated.
Objective Data
-
Labs:
Laboratory Results
06/19/23
04:52
WBC 4.0 L
Hgb 9.2 L
Hct 28.7 L
Plt Count 211
Vital Signs:
Vital Signs
Temp Pulse Resp BP Pulse Ox
98.3 F 113 14 117/73 97
06/19/23 07:40 06/19/23 08:45 06/19/23 07:23 06/19/23 08:45 06/19/23 07:23
I&O
06/18/23 06/19/23 06/20/23
06:59 06:59 06:59
Intake Total 800 / 800 1500 / 1500
Output Total 1365 / 1365 3130 / 3130
Balance -565 / -565 -1630 / -1630
Review of Systems
-
History Source: Patient
All other systems: Reviewed and negative
--- NOTE | 2023-06-19 10:00 | PTCARENOTE ---
Assumed care of patient this morning. Chest tube intact to R lateral chest, draining blood tinged, opaque fluid. Dressing CDI. He denies any pain to the site. Pt does c/o of belly feeling full/constipation. He was started on bowel regimen yesterday.
MD ordered Magnesium Citrate for today. He remains on his baseline of 3L with R lung very coarse. Assessment, care and VS as charted.
--- NOTE | 2023-06-19 10:16 | PN.IRAD.UPD ---
Update Note - IRAD
- -
50ml TPA and 50ml of Dornase instilled into right sided chest tube at 10:15 and tube clamped. Unclamp tube at 12:15.
Abdoulaye Hammond RT(R)()
--- NOTE | 2023-06-19 11:08 | PHA.VAN.FU ---
Vancomycin Assessment / Plan
- Assessment
Renal Function: Stable
WBC's are: Stable
In the past 24 hrs, patient has been: Afebrile
Concomitant Antimicrobials: ampicillin/sulbactam
- Dosing Plan
Continue: vancomycin 1250 mg q12h - first dose 06/18 0600
- Monitoring Plan
No level(s) ordered at this time: consider levels after 4th dose (Sat marcos)
- Follow Up
Pharmacy will continue to follow.
Vancomycin Follow UP
- -
Patient Age: 73
Patient Sex: Male
Vancomycin Day #: 2
Indication: Pulmonary/Respiratory
Requesting Provider: Dr. Pantoja
Pertinent Antimicrobial Allergies:
NKDA
Height / Weight:
Height 5 ft 10 in
Actual Weight 78 kg
Pertinent Past Medical History: Stage IV adenocarcinoma
- Vital Signs / Lab Results
Temp Pulse Resp BP Pulse Ox
98.3 F 113 25 117/73 98
06/19/23 07:40 06/19/23 08:45 06/19/23 08:00 06/19/23 08:45 06/19/23 09:58
Lab Results - Hematology
06/17/23 06/18/23 06/19/23
05: 04:20 04:52
WBC 3.4 L 3.4 L 4.0 L
Lab Results - Chemistry
06/17/23 06/18/23
05:23 04:20
BUN 12 10
Creatinine 0.5 L 0.5 L
Estimated Creat Clear 112 112
Albumin 2.6 L 2.5 L
Microbiology Results
06/15/23 17:53 Wound Culture - Preliminary
Chest - Right Escherichia coli
Coagulase neg. staphylococcus
Gram Stain - Final
06/16/23 16:39 Acid Fast Bacilli Smear - Preliminary
Pleural Fluid Acid Fast Bacilli Culture - Preliminary
06/15/23 14:59 Blood Culture - Preliminary
Blood/Venous No Growth in 72 hours- Final report to follow
06/15/23 14:59 Blood Culture - Preliminary
Blood/Venous No Growth in 72 hours- Final report to follow
06/16/23 16:38 Body Fluid Culture - Final
Pleural Fluid Escherichia coli
Gram Stain - Final
06/16/23 16:39 Fungal Smear - Final
Pleural Fluid No yeast or fungal elements seen.
06/15/23 20:36 MRSA Screen - Final
Nose No Methicillin Resistant Staphylococcus aureus isolated.
--- NOTE | 2023-06-19 11:45 | W.PN.ID1 ---
Date of Service
Date of Service: June 19, 2023
Today's Communication
- continue vancomycin
- continue unasyn
- eventual transition to orals likely for chronic therapy when drainage has been maximizied
Assessment / Plan
Empyema
Chronic Pleural Effusions
Stage IV adenocarcinoma
Malignant right pleural effusion diagnosed March 2023
Status post 2 cycles of chemotherapy (carboplatin, Taxol, Keytruda?); sees Izabela Wood ([place])
Progressive weight loss
Clubbing on exam
- pleural cultures E coli x2 and rare CONS
- await sensi on the CONS
- doxycycline may be a single unifying regimen, pending sensi
- chest tube output remains high post lysis
- continue vancomycin
- continue unasyn
- eventual transition to orals likely for chronic therapy when drainage has been maximizied
- follow clinically
Chief Complaint
-: Other (empyema)
Subjective / Review of Systems
afebrile
bp stable
leukopenia further improved
still with high output from chest tube
Vital Signs / Physical Exam
Vital Signs
Vital Signs
Temp Pulse Resp BP Pulse Ox
97.4 F 122 26 118/78 98
06/19/23 11:25 06/19/23 10:00 06/19/23 10:00 06/19/23 10:00 06/19/23 09:58
Physical Exam
Constitutional: No Acute Distress and Chronically Ill
Cardiovascular: Regular Rate and S1/S2; Negative Murmur or Rub
Pulmonary: Clear and Symmetric; Negative Wheezes or Rales
Gastrointestinal: Soft, Non Tender, Non Distended and Normal Bowel Sounds
Skin: Warm and Dry; Negative Rash or Jaundice
Objective Data
Lab Data
Lab Results
06/19/23 04:52
06/18/23 04:20
PT 15.4 Sec (11.4-14.6) H 06/16/23 07:44
INR 1.24 06/16/23 07:44
Estimated Creat Clear 112 ml/min 06/18/23 04:20
Lactic Acid Cancelled 06/15/23 19:00
Total Bilirubin 0.2 mg/dl (0.2-1.3) 06/18/23 04:20
AST 25 U/L (17-59) 06/18/23 04:20
ALT 32 U/L (0-50) 06/18/23 04:20
Alkaline Phosphatase 85 U/L (38-126) 06/18/23 04:20
Most recent labs reviewed.
Micro Results:
06/15/23 17:53 Wound Culture - Preliminary
Chest - Right Escherichia coli
Coagulase neg. staphylococcus
Gram Stain - Final
06/16/23 16:39 Acid Fast Bacilli Smear - Preliminary
Pleural Fluid Acid Fast Bacilli Culture - Preliminary
06/15/23 14:59 Blood Culture - Preliminary
Blood/Venous No Growth in 72 hours- Final report to follow
06/15/23 14:59 Blood Culture - Preliminary
Blood/Venous No Growth in 72 hours- Final report to follow
06/16/23 16:38 Body Fluid Culture - Final
Pleural Fluid Escherichia coli
Gram Stain - Final
06/16/23 16:39 Fungal Smear - Final
Pleural Fluid No yeast or fungal elements seen.
Fungal Culture - Pending
06/15/23 20:36 MRSA Screen - Final
Nose No Methicillin Resistant Staphylococcus aureus isolated.
--- NOTE | 2023-06-19 12:15 | PTCARENOTE ---
Patient's chest tube unclamped at 1215.
[2023-06-19] MEDS: CITROMA 300 ML PO (12:23)
[2023-06-19] MEDS: AFRIN NASAL SPRAY NASAL ×2 (12:23→19:51)
--- NOTE | 2023-06-19 15:40 | PTOTSP ---
Speech Language Pathology
Pt seen for clinical bedside swallow evaluation. Pt reported intermittent globus sensation in mid chest with liquids, which he regurgitates at times. He also reported some coughing with liquids during active swallow at times, approximately
1x/week.
P.O. trials of regular solids and thin liquids provided. Adequate mastication, bolus formation, and A-P transit noted with no oral residue. No overt signs of aspiration. Pt noted to utilize double swallow with solids and stated this happens at
times.
Symptoms appear mostly esophageal, although endoscopy was completed 04/09/23 with findings of 4cm hiatal hernia with no other esophageal findings. Discussed option of VSE to further evaluate pharyngeal phase of swallow function. Pt politely
declined, as he is managing many medical issues at this time.
Recommend:
(1) Continue regular solids/thin liquids
(2) Aspiration precautions: sit upright, single sips, slow rate
(3) Meds as tolerated
(4) If worsens, can order VSE as inpatient OR consider as outpatient pending progress
(5) MILEAGE CLERK to sign off. Please reconsult as indicated.
--- NOTE | 2023-06-19 16:16 | W.PN.PUL3 ---
Today's Communication / Plan
-
Daily chest x-ray
Continue chest tube to suction
Continue antibiotics, ID following
Hold on further intrapleural lytic therapy through the weekend
No plans to remove chest tube (possibly transition to chest tube that can be managed at home)
Assessment
-
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
at [place] ([facility]). Patient had a surgical procedure, details unknown, chest tube upon discharge with Heimlich valve, which spontaneously came out about 6 weeks ago. At that time he stopped his antibiotic therapy and started chemotherapy. His last
dose of chemotherapy (second cycle) was 3 weeks ago. He developed fevers over the last week and spontaneous drainage at his old chest tube site, now prompting admission for suspected empyema 06/15/2023
Large right pleural effusion
Empyema
Status post chest tube 06/15
History of right large effusion with complete right lung atelectasis
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
Heimlich valve placed, spontaneously fell out approximately mid April 2023
Right upper lobe mass, right lung volume loss
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
Leukopenia, anemia
Stage IV adenocarcinoma
Malignant right pleural effusion diagnosed March 2023
Status post 2 cycles of chemotherapy (carboplatin, Taxol, Keytruda?)
lilos Izabela Wood ([place])
Progressive weight loss
Clubbing on exam
Conditions GENERAL ASSISTANT:
COPD, on trelegy
CAD s/p stents
HTN
HLD
GIB, gastric ulcer 2019
H/o H pylori
Former [id number] quit 15 years old
Plan/recommendations
At this time, patient appears to be objectively and subjectively improved
Chest tube with pus, additional 630 cc drained post intrapleural lytic therapy 06/17
Positive E. coli
Remains on Unasyn, vancomycin
Chest x-ray with slight improvement. Do not suspect much improvement given significant trapped lung physiology on the right
Moving forward
Continue with plans for drainage and likely chest tube placement. Patient does have trapped lung physiology and had persistent air leak with prior chest tube back in March.
Unclear whether he had a BP fistula but with patient was discharged on chronic antibiotic therapy and chest tube with Heimlich valve which spontaneously fell out around middle of April ([place])
Presently,
Cultures positive for E. coli
Leukopenia noted. Follow
Continue Unasyn, vancomycin
ID following
Swallowing evaluation pending
Plan for intrapleural lytic therapy, tPA and dornase injection. Reviewed with interventional radiology
Continue with daily chest x-ray
Reviewed with interventional radiology, specifically plan to transition to tube for which she can be discharged home once empyema adequately treated
Patient will likely require reinitiation of chronic antibiotic therapy at time of discharge
Eventual repeat CT chest. No plans to remove CT. Suspect eventual transition to chest tube that can be managed at home
I do not expect pleural space to be fluid free given trapped lung physiology, known adenocarcinoma with right upper lobe mass
Await records from [place]. I have reached out to Thoracic Surgery ([place])
I have also reached out to [place] oncology (Izabela Wood), awaiting callback
Continue with outpatient inhaler regimen. Symbicort/Spiriva will replace Trelegy
DVT prophylaxis: Enoxaparin
Encourage ambulation with physical therapy
Encourage nutrition. Patient with good appetite
Continue to follow
Subjective Data
-
Date of Service:
Date of Service: June 19, 2023
Subjective:
Patient continues to feel well. Received second dose of intrapleural lytic therapy this morning, continues to drain after yesterday's intrapleural lytic therapy. Denies nausea, vomiting, abdominal pain, shortness of breath. Chest pressure improved
Objective Data
Data Reviewed
Vital Signs / I&O / Oxygen:
Vital Signs
Temp Pulse Resp BP Pulse Ox
97.4 F 108 21 123/73 98
06/19/23 11:25 06/19/23 12:00 06/19/23 12:00 06/19/23 11:58 06/19/23 09:58
Intake and Output
06/18/23 06/19/23 06/20/23
06:59 06:59 06:59
Intake Total 800 / 800 1500 / 1500
Output Total 1365 / 1365 3130 / 3130
Balance -565 / -565 -1630 / -1630
SaO2 98
Nasal Cannula flow liters per 3
minute
Physical Exam
General: Comfortable
HEENT: Normocephalic and Anicteric
Cardiovascular: S1-S2, Regular Rhythm, Murmur (n) and Rub (n)
Respiratory: Wheeze (n), Crackles (n), Rhonchi (n) and Chest Tube (Right chest tube, no respiratory variation)
GI: Soft, Non Distended and Non Tender
Neurology: Awake, Alert and No Motor Deficits
Skin: Cyanosis (n), Jaundice (n) and Other (Positive clubbing)
Labs/Micro/Reports
Lab Data
06/19/23 04:52
06/18/23 04:20
Microbiology
06/15/23 14:59 Blood/Venous Blood Culture - Preliminary
No Growth in 4 days- Final report to follow
06/15/23 17:53 Chest - Right Wound Culture - Preliminary
Escherichia coli
Coagulase neg. staphylococcus
06/15/23 17:53 Chest - Right Gram Stain - Final
06/16/23 16:39 Pleural Fluid Acid Fast Bacilli Smear - Preliminary
06/16/23 16:39 Pleural Fluid Acid Fast Bacilli Culture - Preliminary
06/15/23 14:59 Blood/Venous Blood Culture - Preliminary
No Growth in 72 hours- Final report to follow
06/16/23 16:38 Pleural Fluid Body Fluid Culture - Final
Escherichia coli
06/16/23 16:38 Pleural Fluid Gram Stain - Final
06/16/23 16:39 Pleural Fluid Fungal Smear - Final
No yeast or fungal elements seen.
06/15/23 20:36 Nose MRSA Screen - Final
No Methicillin Resistant Staphylococcus aureus isolated.
--- NOTE | 2023-06-19 17:07 | CM ---
Patient with Hx lung CA on chemo with Dx Right-sided empyema, Recurrent malignant right pleural effusion. O2 3L. Chest tube - Right pleural lysis with TPA and dornase injection today. PT recommends HH.
Met with patient and provided PCP list & [facility] brochure as requested.
Plan follow patient's O2 needs.
Plan home with resumption [facility].
[2023-06-19] MEDS: LOVENOX 40 MG SC (17:21)
[2023-06-19] MEDS: SENOKOT 17.1999999999999993 MG PO (20:28)
[2023-06-19] MEDS: LIPITOR 80 MG PO (20:28)
[2023-06-19] MEDS: TYLENOL 650 MG PO (22:00)
[2023-06-19] MEDS: FLEXERIL 5 MG PO (22:00)
[2023-06-20] VITALS (14 sets, daily range): BP systolic 102–138; BP diastolic 63–77; PULSE 108; O2SAT 94
[2023-06-20] MEDS: MORPHINE SULFATE 2 MG IV ×2 (00:17→23:03)
[2023-06-20] MEDS: FLUSH (NSS) 4 FLUSH IV (00:17)
--- NOTE | 2023-06-20 00:28 | PTCARENOTE ---
Pt received from previous nurse. Pt AAO. Pt on 3L NC. Respirations unlabored. Chest tube drainage is serosanguineous. Dressing clean dry and intact. No crepitus. slight occasional tidaling with respirations. Pt sinus tach on the monitor. Call gray
in reach. See nursing shift assessment for full head to toe.
[2023-06-20] MEDS: UNASYN IV ×4 (05:16→23:06)
[2023-06-20 05:47] LABS: % Basophils 0.6 % (0-2); % Eosinophils 2.4 % (0-6); % Immature Granulocytes 5.3 % (0-0.5); % Monocytes 15.4 % (1.7-9.3); % Neutrophils 57.3 % (42.2-75.2); Absolute Eosinophils 0.1 10^3/uL (0-0.7); Absolute Immature Granulocytes 0.2 10^3/uL (0-0.05); Absolute Lymphocytes 0.6 10^3/uL (1.2-3.4); Absolute Monocytes 0.5 10^3/uL (0.1-0.6); Absolute Neutrophils 1.9 10^3/uL (1.4-6.5); Hematocrit 29.9 % (39.0-52.0); Hemoglobin 9.3 g/dL (13.0-18.0); Mean Corp Hgb Conc. 31.1 g/dL (33.0-37.0); Mean Corpuscular Volume 80.4 fL (80.0-94.0); Mean Platelet Volume 7.8 fL (7.4-10.4); Nucleated Red Blood Cells % 0 % (-); Platelet Count 197 10^3/uL (130-400); Red Blood Cell Count 3.72 10^6/uL (4.70-6.10); Red Cell Dist. Width 17.6 % (11.5-14.5); White Blood Cell Count 3.4 10^3/uL (4.8-10.8)
[2023-06-20] MEDS: VANCOCIN 275 MG IV ×2 (06:12→18:15)
[2023-06-20] MEDS: SYMBICORT 80/4.5 MCG INHALER 2 PUFF INH ×2 (07:38→19:28)
[2023-06-20] MEDS: SPIRIVA RESPIMAT 2.5 MCG 2 PUFF INH (07:38)
--- NOTE | 2023-06-20 09:48 | W.PN.HOSP.TC ---
Today's Communication/Plan
-
Continue antibiotics
Continue chest tube
Assessment / Plan
Assessment / Plan
Gen-AAOx3, NAD
HEENT-NC, AT, anicteric, clear oral mm
Neck-supple
CV-reg, no M, +S1/S2
Lungs-clear B/L
Abd-soft, NT, ND
Ext-no edema
Musculoskeletal-no cyanosis, clubbing
Skin-warm and dry, right lateral chest tube in place with dressings
Neuro-grossly non-focal
Psych-calm, cooperative
Right-sided empyema -continue antibiotics per ID, currently on Unasyn and vancomycin. Blood cultures negative. Hemodynamically stable. Right-sided chest tube placed by interventional radiology on 06/15, thick purulent fluid output noted. Fluid
culture shows E. coli, Staphylococcus hemolyticus.
Underwent pleural lysis with tPA and dornase injection 06/17 by interventional radiology. Chest x-ray today shows slightly decreased predominantly pleural-based opacification in the right hemithorax. Chest tube with 680 cc output over the past 24
hours.
Recurrent malignant right pleural effusion -due to underlying adenocarcinoma of the lung.
Patient was admitted to [facility] April 09 and transferred to [facility] April 15. During his hospitalization in [place], he was evaluated for melena, epigastric pain, shortness of breath and right-sided chest
pain.
EGD during that hospitalization showed 4 cm hiatal hernia, nonbleeding gastric ulcer with no stigmata of bleed, erosive gastropathy with no bleeding, normal duodenum.
He was found to have a large right-sided hydropneumothorax and a chest tube was placed. He was subsequently transferred to [facility] under thoracic surgery service.
I reviewed records from [place] (discharge summary). He was found to have a large air leak on arrival and the chest tube was maintained. He subsequently underwent a VATS procedure on March with right-sided chest tube placement and removal of
the prior tube.
The chest tube was maintained due to air leak, and he subsequently received a Heimlich valve on April 17. He was educated on maintaining the chest tube and Heimlich valve at home. He was discharged home on April 19 with plans to maintain the chest
tube and continue oral antibiotics with plans for outpatient follow-up.
Pulmonary adenocarcinoma -On chemotherapy. Follows with oncology [facility].
Bicytopenia -platelet count normal. Etiology possibly due to chemotherapy.
Hyponatremia -appears chronic, sodium 134. TSH normal, urine osmolality 230, urine sodium 25.
COPD without exacerbation
CAD -with history of stent.
Essential hypertension -stable.
Hyperlipidemia -on atorvastatin.
History of gastric ulcer
Chronic anemia
Constipation -patient had a bowel movement last night. Continue bowel regimen.
BPH
DNR
Anticipated Discharge: > 48 hours
Subjective/Interval History
-
Date of Service: June 20, 2023
Patient seen and examined. Sitting in the chair. No complaints. Feeling better.
Objective Data
-
Labs:
Laboratory Results
06/20/23
05:25
WBC 3.4 L
Hgb 9.3 L
Hct 29.9 L
Plt Count 197
Vital Signs:
Vital Signs
Temp Pulse Resp BP Pulse Ox
98 F 99 22 115/75 98
06/20/23 07:05 06/20/23 07:42 06/20/23 07:42 06/20/23 06:00 06/20/23 07:42
I&O
06/19/23 06/20/23 06/21/23
06:59 06:59 06:59
Intake Total 1500 / 1500 1210 / 1210
Output Total 3130 / 3130 2155 / 2155
Balance -1630 / -1630 -945 / -945
Review of Systems
-
History Source: Patient
All other systems: Reviewed and negative
--- NOTE | 2023-06-20 10:23 | W.PN.ID1 ---
Date of Service
Date of Service: June 20, 2023
Today's Communication
- continue vancomycin and unasyn
- on or when approaching discharge would switch to doxycycline indefinitely - please give 60 day script; this will replace previous Cefadroxil
Assessment / Plan
Empyema
Chronic Pleural Effusions
Stage IV adenocarcinoma
Malignant right pleural effusion diagnosed March 2023
Status post 2 cycles of chemotherapy (carboplatin, Taxol, Keytruda?); sees Izabela Wood ([place])
Progressive weight loss
Clubbing on exam
- pleural cultures E coli x2 and rare CONS
- continue aspiration precautions
- continue vancomycin and unasyn
- on or when approaching discharge would switch to doxycycline indefinitely - please give 60 day script; this will replace previous Cefadroxil
- follow clinically
Chief Complaint
-: Pneumonia and Other (empyema)
Subjective / Review of Systems
afebrile
bp stable
mild leukopenia ongoing
no left shift
cr stable
chest tube output remains high
no complaints
Vital Signs / Physical Exam
Vital Signs
Vital Signs
Temp Pulse Resp BP Pulse Ox
98 F 99 22 115/75 98
06/20/23 07:05 06/20/23 07:42 06/20/23 07:42 06/20/23 06:00 06/20/23 07:42
Physical Exam
Constitutional: No Acute Distress
Cardiovascular: Regular Rate and S1/S2; Negative Murmur or Rub
Pulmonary: Clear and Non Labored; Negative Symmetric, Wheezes or Rales
Gastrointestinal: Soft, Non Tender, Non Distended and Normal Bowel Sounds
Skin: Warm and Dry; Negative Rash or Jaundice
Objective Data
Lab Data
Lab Results
06/20/23 05:25
06/18/23 04:20
PT 15.4 Sec (11.4-14.6) H 06/16/23 07:44
INR 1.24 06/16/23 07:44
Estimated Creat Clear 112 ml/min 06/18/23 04:20
Lactic Acid Cancelled 06/15/23 19:00
Total Bilirubin 0.2 mg/dl (0.2-1.3) 06/18/23 04:20
AST 25 U/L (17-59) 06/18/23 04:20
ALT 32 U/L (0-50) 06/18/23 04:20
Alkaline Phosphatase 85 U/L (38-126) 06/18/23 04:20
Most recent labs reviewed.
Micro Results:
06/15/23 17:53 Wound Culture - Final
Chest - Right Escherichia coli
Staphylococcus haemolyticus
Gram Stain - Final
06/15/23 14:59 Blood Culture - Preliminary
Blood/Venous No Growth in 4 days- Final report to follow
06/15/23 14:59 Blood Culture - Preliminary
Blood/Venous No Growth in 4 days- Final report to follow
06/16/23 16:39 Acid Fast Bacilli Smear - Preliminary
Pleural Fluid Acid Fast Bacilli Culture - Preliminary
06/16/23 16:38 Body Fluid Culture - Final
Pleural Fluid Escherichia coli
Gram Stain - Final
06/16/23 16:39 Fungal Smear - Final
Pleural Fluid No yeast or fungal elements seen.
Fungal Culture - Pending
06/15/23 20:36 MRSA Screen - Final
Nose No Methicillin Resistant Staphylococcus aureus isolated.
[2023-06-20] MEDS: TOPROL XL 12.5 MG PO ×2 (10:35→19:38)
[2023-06-20] MEDS: COLACE 100 MG PO ×2 (10:35→19:38)
[2023-06-20] MEDS: FOLVITE 1 MG PO (10:36)
[2023-06-20] MEDS: AFRIN NASAL SPRAY NASAL ×2 (10:36→19:50)
[2023-06-20] MEDS: FLOMAX 0.400000000000000022 MG PO (10:36)
[2023-06-20] MEDS: MIRALAX 17 GRAMS PO (10:36)
--- NOTE | 2023-06-20 11:26 | PHA.VAN.FU ---
Vancomycin Assessment / Plan
- Assessment
Renal Function: No New Labs Today
WBC's are: Stable
In the past 24 hrs, patient has been: Afebrile
Concomitant Antimicrobials: ampicillin/sulbactam
- Dosing Plan
Continue: vancomycin 1250 mg q12h
- Monitoring Plan
Peak Level: 06/19 2100 - after 4th dose
Trough Level: 06/20 0530
- Follow Up
Pharmacy will continue to follow.
Vancomycin Follow UP
- -
Patient Age: 73
Patient Sex: Male
Vancomycin Day #: 3
Indication: Pulmonary/Respiratory
Requesting Provider: Dr. Pantoja
Pertinent Antimicrobial Allergies:
NKDA
Height / Weight:
Height 5 ft 10 in
Actual Weight 76.8 kg
Pertinent Past Medical History: Stage IV adenocarcinoma
- Vital Signs / Lab Results
Temp Pulse Resp BP Pulse Ox
98 F 105 20 102/63 99
06/20/23 07:05 06/20/23 10:35 06/20/23 10:35 06/20/23 10:35 06/20/23 10:00
Lab Results - Hematology
06/18/23 06/19/23 06/20/23
04:20 04:52 05:25
WBC 3.4 L 4.0 L 3.4 L
Lab Results - Chemistry
06/18/23
04:20
BUN 10
Creatinine 0.5 L
Estimated Creat Clear 112
Albumin 2.5 L
Microbiology Results
06/15/23 17:53 Wound Culture - Final
Chest - Right Escherichia coli
Staphylococcus haemolyticus
Gram Stain - Final
06/15/23 14:59 Blood Culture - Preliminary
Blood/Venous No Growth in 4 days- Final report to follow
06/15/23 14:59 Blood Culture - Preliminary
Blood/Venous No Growth in 4 days- Final report to follow
06/16/23 16:39 Acid Fast Bacilli Smear - Preliminary
Pleural Fluid Acid Fast Bacilli Culture - Preliminary
06/16/23 16:38 Body Fluid Culture - Final
Pleural Fluid Escherichia coli
Gram Stain - Final
[2023-06-20] MEDS: TYLENOL 650 MG PO (11:36)
[2023-06-20] MEDS: FLEXERIL 5 MG PO ×2 (11:43→19:47)
[2023-06-20] MEDS: ULTRAM 50 MG PO ×2 (13:00→20:24)
--- NOTE | 2023-06-20 16:40 | W.PN.PUL3 ---
Today's Communication / Plan
-
Daily chest x-ray
Monitor chest tube output
Continue antibiotics
Increase activity as able
Assessment
-
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
at [facility] ([place]). Patient had a surgical procedure, details unknown, chest tube upon discharge with Heimlich valve, which spontaneously came out about 6 weeks ago. At that time he stopped his antibiotic therapy and started chemotherapy. His last
dose of chemotherapy (second cycle) was 3 weeks ago. He developed fevers over the last week and spontaneous drainage at his old chest tube site, now prompting admission for suspected empyema 06/15/2023
Large right pleural effusion
Empyema
Status post chest tube 06/15
History of right large effusion with complete right lung atelectasis
Persistent air leak, suspected BP fistula, tx to [facility] 03/2023
Heimlich valve placed, spontaneously fell out approximately mid April 2023
Right upper lobe mass, right lung volume loss
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
Leukopenia, anemia
Stage IV adenocarcinoma
Malignant right pleural effusion diagnosed March 2023
Status post 2 cycles of chemotherapy (carboplatin, Taxol, Keytruda?)
sees Izabela Wood ([facility])
Progressive weight loss
Clubbing on exam
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
COPD, on trelegy
CAD s/p stents
HTN
HLD
GIB, gastric ulcer 2019
H/o H pylori
Former [id number]-cepf-year quit 15 years old
Plan/recommendations
Clinically improved
Chest tube Total output 805 cc (06/20/2023)
Chest tube with pus, additional 630 cc drained post intrapleural lytic therapy 06/17
Positive E. coli
Remains on Unasyn, vancomycin, per infectious disease
Chest x-ray 06/20/2023: Slightly improved pleural fluid. Hydropneumothorax stable. Has trapped lung physiology.
-
Plan:
Continue with plans for drainage and likely chest tube placement.
Patient does have trapped lung physiology and had persistent air leak with prior chest tube back in March.
Unclear whether he had a BP fistula but with patient was discharged on chronic antibiotic therapy and chest tube with Heimlich valve which spontaneously fell out around middle of April ([facility])
-
Status post intrapleural lytic therapy, tPA and dornase injection. 06/19/2023.
800 cc output 06/20/2023
Continue with daily chest x-ray
Dr. Waldron reviewed with interventional radiology, specifically plan to transition to tube for which she can be discharged home once empyema adequately treated
Patient will likely require reinitiation of chronic antibiotic therapy at time of discharge
-
Eventual repeat CT chest. No plans to remove CT.
I do not expect pleural space to be fluid free given trapped lung physiology, known adenocarcinoma with right upper lobe mass
-
: reached out to Thoracic Surgery ([place])
I have also reached out to [facility] oncology (Izabela Wood), awaiting callback
-
Not bronchospastic on exam.
Continue with outpatient inhaler regimen. Symbicort/Spiriva will replace Trelegy
DVT prophylaxis: Enoxaparin
Encourage ambulation with physical therapy
Encourage nutrition. Patient with good appetite
Continue to follow
Subjective Data
-
Date of Service:
Date of Service: June 20, 2023
Chief Complaint: Pulmonary Follow Up (Empyema)
Subjective:
No overnight events.
No new complaints.
Review of Systems
General: Fever (n)
Cardiopulmonary: Dyspnea (n) and Cough (n)
GI: Abdominal Pain (n) and Nausea (n)
Objective Data
Data Reviewed
Vital Signs / I&O / Oxygen:
Vital Signs
Temp Pulse Resp BP Pulse Ox
98.3 F 93 16 114/72 99
06/20/23 12:41 06/20/23 14:00 06/20/23 14:00 06/20/23 14:00 06/20/23 14:00
Intake and Output
06/19/23 06/20/23 06/21/23
06:59 06:59 06:59
Intake Total 1500 / 1500 1210 / 1210 1100 / 1100
Output Total 3130 / 3130 2155 / 2155 1125 / 1125
Balance -1630 / -1630 -945 / -945 -25 / -25
SaO2 99
Nasal Cannula flow liters per 3
minute
Physical Exam
General: Comfortable
HEENT: Normocephalic and Anicteric
Cardiovascular: S1-S2, Regular Rhythm, Murmur (n) and Rub (n)
Respiratory: Wheeze (n), Crackles (n), Rhonchi (n) and Chest Tube (Right chest tube, no respiratory variation)
GI: Soft, Non Distended and Non Tender
Neurology: Awake, Alert and No Motor Deficits
Skin: Cyanosis (n), Jaundice (n) and Other (Positive clubbing)
Labs/Micro/Reports
Lab Data
06/20/23 05:25
06/18/23 04:20
Microbiology
06/15/23 14:59 Blood/Venous Blood Culture - Final
No Growth - Final Report
06/15/23 17:53 Chest - Right Wound Culture - Final
Escherichia coli
Staphylococcus haemolyticus
06/15/23 17:53 Chest - Right Gram Stain - Final
06/15/23 14:59 Blood/Venous Blood Culture - Preliminary
No Growth in 4 days- Final report to follow
06/16/23 16:39 Pleural Fluid Acid Fast Bacilli Smear - Preliminary
06/16/23 16:39 Pleural Fluid Acid Fast Bacilli Culture - Preliminary
06/16/23 16:38 Pleural Fluid Body Fluid Culture - Final
Escherichia coli
06/16/23 16:38 Pleural Fluid Gram Stain - Final
06/16/23 16:39 Pleural Fluid Fungal Smear - Final
No yeast or fungal elements seen.
--- NOTE | 2023-06-20 17:03 | PTCARENOTE ---
pt ambulated entire unit with PT; steady gait. sinus tachy with rates elevating from 100 at rest to 120's; returning to baseline in less than 30 seconds after standing still to rest. no desat. pox 95-98% on 3L nc; home dependent on 3L. continuing to
monitor
[2023-06-20] MEDS: LOVENOX 40 MG SC (17:34)
[2023-06-20] MEDS: ProAIR HFA INHALER 2 PUFF INH (19:33)
--- NOTE | 2023-06-20 20:30 | PTCARENOTE ---
pt resting in bed, reports pain 7/10 from right flank- see APR re: pain management w/ +eff. pt is on 3L O2 (baseline). chest tube is connected to wall suction. pt is watching tv w/ call gray in reach.
[2023-06-20 21:24] LABS: Vancomycin Peak 23.7 ug/ml (18-26)
[2023-06-20] MEDS: LIPITOR 80 MG PO (22:20)
[2023-06-21] VITALS (12 sets, daily range): BP systolic 93–127; BP diastolic 66–86
[2023-06-21] MEDS: UNASYN IV ×4 (05:28→23:50)
[2023-06-21 06:14] LABS: % Basophils 0.6 % (0-2); % Eosinophils 1.7 % (0-6); % Immature Granulocytes 5.6 % (0-0.5); % Lymphocytes 13.9 % (20.5-51.1); % Monocytes 11.8 % (1.7-9.3); % Neutrophils 66.4 % (42.2-75.2); Absolute Eosinophils 0.1 10^3/uL (0-0.7); Absolute Immature Granulocytes 0.3 10^3/uL (0-0.05); Absolute Lymphocytes 0.7 10^3/uL (1.2-3.4); Absolute Monocytes 0.6 10^3/uL (0.1-0.6); Absolute Neutrophils 3.4 10^3/uL (1.4-6.5); Hemoglobin 8.9 g/dL (13.0-18.0); Mean Corp Hgb Conc. 31.8 g/dL (33.0-37.0); Mean Corpuscular Hgb 25.2 pg (27.0-31.0); Mean Corpuscular Volume 79.3 fL (80.0-94.0); Mean Platelet Volume 7.5 fL (7.4-10.4); Nucleated Red Blood Cells % 0 % (-); Platelet Count 203 10^3/uL (130-400); Red Blood Cell Count 3.53 10^6/uL (4.70-6.10); White Blood Cell Count 5.2 10^3/uL (4.8-10.8)
[2023-06-21] MEDS: VANCOCIN 275 MG IV ×2 (06:18→16:38)
[2023-06-21 06:24] LABS: Blood Urea Nitrogen 6 mg/dl (9-20); Calcium 8.5 mg/dl (8.4-10.2); Carbon Dioxide 30 mmol/L (22-30); Chloride 102 mmol/L (98-107); Estimated Creatinine Clearance 112 ml/min; Glucose 108 mg/dl (70-99); Potassium 4.7 mmol/L (3.5-5.1); Sodium 134 mmol/L (135-145); eGFR > 60.00
[2023-06-21 06:29] LABS: Vancomycin Trough 12.3 ug/ml (5-20)
--- NOTE | 2023-06-21 07:37 | W.PN.HOSP.TC ---
Today's Communication/Plan
-
Continue current care
Assessment / Plan
Assessment / Plan
Gen-AAOx3, NAD
HEENT-NC, AT, anicteric, clear oral mm
Neck-supple
CV-reg, no M, +S1/S2
Lungs-clear B/L
Abd-soft, NT, ND
Ext-no edema
Musculoskeletal-no cyanosis, clubbing
Skin-warm and dry, right lateral chest tube in place with dressings
Neuro-grossly non-focal
Psych-calm, cooperative
Right-sided empyema -continue antibiotics per ID, currently on Unasyn and vancomycin. Blood cultures negative. Hemodynamically stable. Right-sided chest tube placed by interventional radiology on 06/15, thick purulent fluid output noted. Fluid
culture shows E. coli, Staphylococcus hemolyticus.
Underwent pleural lysis with tPA and dornase injection 06/17 by interventional radiology. Chest x-ray 06/19 shows slightly decreased predominantly pleural-based opacification in the right hemithorax. Chest tube with 680 cc output over the past 24
hours.
Recurrent malignant right pleural effusion -due to underlying adenocarcinoma of the lung.
Patient was admitted to [facility] April 09 and transferred to [facility] April 15. During his hospitalization in [place], he was evaluated for melena, epigastric pain, shortness of breath and right-sided chest
pain.
EGD during that hospitalization showed 4 cm hiatal hernia, nonbleeding gastric ulcer with no stigmata of bleed, erosive gastropathy with no bleeding, normal duodenum.
He was found to have a large right-sided hydropneumothorax and a chest tube was placed. He was subsequently transferred to [facility] under thoracic surgery service.
I reviewed records from [place] (discharge summary). He was found to have a large air leak on arrival and the chest tube was maintained. He subsequently underwent a VATS procedure on March with right-sided chest tube placement and removal of
the prior tube.
The chest tube was maintained due to air leak, and he subsequently received a Heimlich valve on April 17. He was educated on maintaining the chest tube and Heimlich valve at home. He was discharged home on April 19 with plans to maintain the chest
tube and continue oral antibiotics with plans for outpatient follow-up.
Pulmonary adenocarcinoma -On chemotherapy. Follows with oncology [facility].
Bicytopenia -platelet count normal. Etiology possibly due to chemotherapy. White blood cell count normalized today.
Hyponatremia -appears chronic, sodium 134. TSH normal, urine osmolality 230, urine sodium 25.
COPD without exacerbation
CAD -with history of stent.
Essential hypertension -stable.
Hyperlipidemia -on atorvastatin.
History of gastric ulcer
Chronic anemia
Constipation -now moving bowels. Continue bowel regimen.
BPH
DNR
Dispo -can discharge when cleared by pulmonary. Anticipate discharge with chest tube in place.
Anticipated Discharge: 24 - 48 hours
Subjective/Interval History
-
Date of Service: June 21, 2023
Patient seen and examined. No complaints.
Objective Data
-
Labs:
Laboratory Results
06/21/23
05:49
WBC 5.2
Hgb 8.9 L
Hct 28.0 L
Plt Count 203
Sodium 134 L
Potassium 4.7
Chloride 102
Carbon Dioxide 30
BUN 6 L
Creatinine 0.5 L
Glucose 108 H
Calcium 8.5
Vital Signs:
Vital Signs
Temp Pulse Resp BP Pulse Ox
98.0 F 100 21 113/78 98
06/21/23 03:15 06/21/23 02:00 06/21/23 02:00 06/21/23 02:00 06/20/23 21:19
I&O
06/20/23 06/21/23 06/22/23
06:59 06:59 06:59
Intake Total 1210 / 1210 2185 / 2185
Output Total 5 / 2155 2730 / 2730
Balance -945 / -945 -545 / -545
Review of Systems
-
History Source: Patient
All other systems: Reviewed and negative
[2023-06-21] MEDS: SYMBICORT 80/4.5 MCG INHALER 2 PUFF INH ×2 (07:39→19:31)
[2023-06-21] MEDS: SPIRIVA RESPIMAT 2.5 MCG 2 PUFF INH (07:39)
--- NOTE | 2023-06-21 08:23 | PHA.VAN.FU ---
Vancomycin Assessment / Plan
- Assessment
Renal Function: Stable
WBC's are: WNL
In the past 24 hrs, patient has been: Afebrile
Concomitant Antimicrobials: Ampicillin/sulbactam
- Assessment - Therapeutic Drug Monitoring
Extrapolated Cmax (mcg/mL): 25.8
Peak level was drawn: Appropriately
Extrapolated Cmin (mcg/mL): 11.9
Trough Drawn: Appropriately
Levels were drawn: At steady state
Calculated AUC (mcg*h/mL): 434
Calculated ke: 0.0736
Calculated half life (H): 9.4
Calculated Vd (L): 78.26
Calculated Vanc CL (ml/min): 95.94
- Dosing Plan
Continue: vancomycin 1250 mg q12h
- Monitoring Plan
Level(s) appropriate: Recheck trough at minimum of weekly intervals, Repeat sooner for changes in renal function or clinical status
- Follow Up
Pharmacy will continue to follow.
Vancomycin Follow UP
- -
Patient Age: 73
Patient Sex: Male
Vancomycin Day #: 4
Indication: Pulmonary/Respiratory
Requesting Provider: Dr. Pantoja
Pertinent Antimicrobial Allergies:
NKDA
Height / Weight:
Height 5 ft 10 in
Actual Weight 76.8 kg
Pertinent Past Medical History: Stage IV adenocarcinoma
- Vital Signs / Lab Results
Temp Pulse Resp BP Pulse Ox
98.0 F 97 18 113/78 96
06/21/23 03:15 06/21/23 07:46 06/21/23 07:46 06/21/23 02:00 06/21/23 07:46
Lab Results - Hematology
06/19/23 06/20/23 06/21/23
04:52 05:25 05:49
WBC 4.0 L 3.4 L 5.2
Lab Results - Chemistry
06/21/23
05:49
BUN 6 L
Creatinine 0.5 L
Estimated Creat Clear 112
Microbiology Results
06/15/23 14:59 Blood Culture - Final
Blood/Venous No Growth - Final Report
06/15/23 14:59 Blood Culture - Final
Blood/Venous No Growth - Final Report
06/15/23 17:53 Wound Culture - Final
Chest - Right Escherichia coli
Staphylococcus haemolyticus
Gram Stain - Final
Therapeutic Drug Monitoring
Vancomycin Peak 23.7 ug/ml (18-26) 06/20/23 20:54
Vancomycin Trough 12.3 ug/ml (5-20) 06/21/23 05:49
[2023-06-21] MEDS: AFRIN NASAL SPRAY NASAL ×2 (08:44→20:05)
[2023-06-21] MEDS: COLACE 100 MG PO ×2 (08:44→20:06)
[2023-06-21] MEDS: MIRALAX 17 GRAMS PO (08:45)
[2023-06-21] MEDS: FLOMAX 0.400000000000000022 MG PO (08:45)
[2023-06-21] MEDS: FOLVITE 1 MG PO (08:45)
[2023-06-21] MEDS: TOPROL XL 12.5 MG PO ×2 (08:47→20:05)
[2023-06-21] MEDS: FLEXERIL 5 MG PO ×2 (08:50→20:06)
--- NOTE | 2023-06-21 08:50 | W.PN.ID1 ---
Date of Service
Date of Service: June 21, 2023
Today's Communication
- continue vancomycin and unasyn
- on or when approaching discharge would switch to doxycycline indefinitely - please give 60 day script; this will replace previous Cefadroxil
Assessment / Plan
Empyema
Chronic Pleural Effusions
Stage IV adenocarcinoma
Malignant right pleural effusion diagnosed March 2023
Status post 2 cycles of chemotherapy (carboplatin, Taxol, Keytruda?); sees Izabela Wood ([place])
Progressive weight loss
Clubbing on exam
- pleural cultures E coli x2 and rare CONS
- continue aspiration precautions
- continue vancomycin and unasyn
- on or when approaching discharge would switch to doxycycline indefinitely - please give 60 day script; this will replace previous Cefadroxil
- follow clinically
Chief Complaint
-: Pneumonia and Other (empyema)
Subjective / Review of Systems
afebrile
bp stable
leukopenia resolved
cr stable
blood cultures no growth to date
fungal and afb cultures no growth to date
Vital Signs / Physical Exam
Vital Signs
Vital Signs
Temp Pulse Resp BP Pulse Ox
97.8 F 102 18 104/75 96
06/21/23 07:27 06/21/23 08:47 06/21/23 07:46 06/21/23 08:47 06/21/23 07:46
Physical Exam
Constitutional: No Acute Distress
Cardiovascular: Regular Rate and S1/S2; Negative Murmur or Rub
Pulmonary: Clear; Negative Symmetric, Wheezes or Rales
Gastrointestinal: Soft, Non Tender, Non Distended and Normal Bowel Sounds
Skin: Warm and Dry; Negative Rash or Jaundice
Objective Data
Lab Data
Lab Results
06/21/23 05:49
06/21/23 05:49
PT 15.4 Sec (11.4-14.6) H 06/16/23 07:44
INR 1.24 06/16/23 07:44
Estimated Creat Clear 112 ml/min 06/21/23 05:49
Lactic Acid Cancelled 06/15/23 19:00
Total Bilirubin 0.2 mg/dl (0.2-1.3) 06/18/23 04:20
AST 25 U/L (17-59) 06/18/23 04:20
ALT 32 U/L (0-50) 06/18/23 04:20
Alkaline Phosphatase 85 U/L (38-126) 06/18/23 04:20
Most recent labs reviewed.
Micro Results:
06/15/23 14:59 Blood Culture - Final
Blood/Venous No Growth - Final Report
06/15/23 14:59 Blood Culture - Final
Blood/Venous No Growth - Final Report
06/15/23 17:53 Wound Culture - Final
Chest - Right Escherichia coli
Staphylococcus haemolyticus
Gram Stain - Final
06/16/23 16:39 Acid Fast Bacilli Smear - Preliminary
Pleural Fluid Acid Fast Bacilli Culture - Preliminary
06/16/23 16:38 Body Fluid Culture - Final
Pleural Fluid Escherichia coli
Gram Stain - Final
06/16/23 16:39 Fungal Smear - Final
Pleural Fluid No yeast or fungal elements seen.
Fungal Culture - Pending
06/15/23 20:36 MRSA Screen - Final
Nose No Methicillin Resistant Staphylococcus aureus isolated.
[2023-06-21] MEDS: ULTRAM 50 MG PO ×2 (08:51→20:05)
--- NOTE | 2023-06-21 13:35 | W.PN.PUL3 ---
Today's Communication / Plan
-
Continue antibiotic therapy
Daily chest x-ray
Monitor chest tube output
Eventual permanent solution with a chest tube at discharge
Eventual need to continue with cancer therapy at [facility]
Assessment
-
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
at [place] ([place]). Patient had a surgical procedure, details unknown, chest tube upon discharge with Heimlich valve, which spontaneously came out about 6 weeks ago. At that time he stopped his antibiotic therapy and started chemotherapy. His last
dose of chemotherapy (second cycle) was 3 weeks ago. He developed fevers over the last week and spontaneous drainage at his old chest tube site, now prompting admission for suspected empyema 06/15/2023
Large right pleural effusion
Empyema
Status post chest tube 06/15
History of right large effusion with complete right lung atelectasis
Persistent air leak, suspected BP fistula, tx to [place] 03/2023
Heimlich valve placed, spontaneously fell out approximately mid April 2023
Right upper lobe mass, right lung volume loss
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
Leukopenia, anemia
Stage IV adenocarcinoma
Malignant right pleural effusion diagnosed March 2023
Status post 2 cycles of chemotherapy (carboplatin, Taxol, Keytruda?)
jeanna Wood ([place])
Progressive weight loss
Clubbing on exam
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
COPD, on trelegy
CAD s/p stents
HTN
HLD
GIB, gastric ulcer 2019
H/o H pylori
Former [id number]-59-myqx-year quit 15 years old
Plan/recommendations
Clinically improved
Chest tube with pus, additional 630 cc drained post intrapleural lytic therapy 06/17
Chest tube Total output 805 cc (06/20/2023)
Chest tube output overnight 250 cc (06/21/2023
-
Positive E. coli
Remains on Unasyn, vancomycin, per infectious disease
Chest x-ray 06/20/2023: Slightly improved pleural fluid. Hydropneumothorax stable. Has trapped lung physiology.
Repeat chest x-ray daily
-
Plan:
Patient does have trapped lung physiology and had persistent air leak with prior chest tube back in March.
Unclear whether he had a BP fistula but with patient was discharged on chronic antibiotic therapy and chest tube with Heimlich valve which spontaneously fell out around middle of April ([place])
-
Status post intrapleural lytic therapy, tPA and dornase injection. 06/19/2023.
Dr. Waldron reviewed with interventional radiology, specifically plan to transition to tube for which she can be discharged home once empyema adequately treated
Patient will likely require reinitiation of chronic antibiotic therapy at time of discharge
-
Eventual repeat CT chest. No plans to remove CT at discharge.
I do not expect pleural space to be fluid free given trapped lung physiology, known adenocarcinoma with right upper lobe mass
-
: reached out to Thoracic Surgery ([facility])
I have also reached out to [place] oncology (Izabela Wood), awaiting callback
-
Not bronchospastic on exam.
Continue with outpatient inhaler regimen. Symbicort/Spiriva will replace Trelegy
DVT prophylaxis: Enoxaparin
Encourage ambulation with physical therapy
Encourage nutrition. Patient with good appetite
Continue to follow
Subjective Data
-
Date of Service:
Date of Service: June 21, 2023
Chief Complaint: Pulmonary Follow Up (Empyema)
Subjective:
No new complaints
Appetite improving
Patient feeling better.
Review of Systems
General: Fever (n)
Cardiopulmonary: Dyspnea (n), Cough, Sputum Production (n) and Chest Pain (n)
GI: Abdominal Pain (n) and Nausea (n)
Objective Data
Data Reviewed
Vital Signs / I&O / Oxygen:
Vital Signs
Temp Pulse Resp BP Pulse Ox
97.9 F 102 29 104/75 99
06/21/23 11:55 06/21/23 08:47 06/21/23 08:46 06/21/23 08:47 06/21/23 10:00
Intake and Output
06/20/23 06/21/23 06/22/23
06:59 06:59 06:59
Intake Total 1210 / 1210 2185 / 2185 220 / 220
Output Total 2155 / 2155 2730 / 2730 400 / 400
Balance -945 / -945 -545 / -545 -180 / -180
SaO2 99
Nasal Cannula flow liters per 3
minute
Physical Exam
General: Comfortable
HEENT: Normocephalic and Anicteric
Cardiovascular: S1-S2, Regular Rhythm, Murmur (n) and Rub (n)
Respiratory: Wheeze (n), Crackles (n), Rhonchi (n) and Chest Tube (Right chest tube, no respiratory variation)
GI: Soft, Non Distended and Non Tender
Neurology: Awake, Alert and No Motor Deficits
Skin: Cyanosis (n), Jaundice (n) and Other (Positive clubbing)
Labs/Micro/Reports
Lab Data
06/21/23 05:49
06/21/23 05:49
Microbiology
06/15/23 14:59 Blood/Venous Blood Culture - Final
No Growth - Final Report
06/15/23 14:59 Blood/Venous Blood Culture - Final
No Growth - Final Report
06/15/23 17:53 Chest - Right Wound Culture - Final
Escherichia coli
Staphylococcus haemolyticus
06/15/23 17:53 Chest - Right Gram Stain - Final
06/16/23 16:39 Pleural Fluid Acid Fast Bacilli Smear - Preliminary
06/16/23 16:39 Pleural Fluid Acid Fast Bacilli Culture - Preliminary
--- NOTE | 2023-06-21 13:40 | PTCARENOTE ---
Patient has pink/ red drainage from right sided chest tube. Chest tube to suction with tidaling- no bubbles. Dressing dry and intact at site. Pulse ox 96% on room air, lungs course on right side no cough. Patient out of bed to chair and walks to
bathroom with nurse assistance. Good appetite. CHest tube pain relieved with Tramadol and Flexeril this morning. Patient compliant with plan of care.
[2023-06-21] MEDS: TYLENOL 650 MG PO (16:29)
[2023-06-21] MEDS: LOVENOX 40 MG SC (16:38)
[2023-06-21] MEDS: ProAIR HFA INHALER 2 PUFF INH (19:31)
[2023-06-21] MEDS: LIPITOR 80 MG PO (23:50)
[2023-06-21] MEDS: MORPHINE SULFATE 2 MG IV (23:51)
[2023-06-22] VITALS (12 sets, daily range): BP systolic 95–143; BP diastolic 69–85; PULSE 108–122; O2SAT 94
[2023-06-22] MEDS: VANCOCIN 275 MG IV ×2 (05:13→18:19)
[2023-06-22] MEDS: UNASYN IV ×4 (05:14→23:43)
[2023-06-22 05:55] LABS: % Basophils 0.5 % (0-2); % Eosinophils 1.3 % (0-6); % Immature Granulocytes 5.3 % (0-0.5); % Lymphocytes 11.7 % (20.5-51.1); % Neutrophils 70.2 % (42.2-75.2); Absolute Eosinophils 0.1 10^3/uL (0-0.7); Absolute Immature Granulocytes 0.3 10^3/uL (0-0.05); Absolute Lymphocytes 0.7 10^3/uL (1.2-3.4); Absolute Monocytes 0.7 10^3/uL (0.1-0.6); Absolute Neutrophils 4.4 10^3/uL (1.4-6.5); Hematocrit 27.6 % (39.0-52.0); Hemoglobin 8.8 g/dL (13.0-18.0); Mean Corp Hgb Conc. 31.9 g/dL (33.0-37.0); Mean Corpuscular Hgb 25.1 pg (27.0-31.0); Mean Corpuscular Volume 78.6 fL (80.0-94.0); Mean Platelet Volume 7.7 fL (7.4-10.4); Nucleated Red Blood Cells % 0 % (-); Platelet Count 182 10^3/uL (130-400); Red Blood Cell Count 3.51 10^6/uL (4.70-6.10); Red Cell Dist. Width 18.2 % (11.5-14.5); White Blood Cell Count 6.3 10^3/uL (4.8-10.8)
[2023-06-22] MEDS: SPIRIVA RESPIMAT 2.5 MCG 2 PUFF INH (08:18)
[2023-06-22] MEDS: SYMBICORT 80/4.5 MCG INHALER 2 PUFF INH (08:18)
[2023-06-22] MEDS: ProAIR HFA INHALER 2 PUFF INH (08:19)
--- NOTE | 2023-06-22 08:25 | W.PN.ID1 ---
Date of Service
Date of Service: June 22, 2023
Today's Communication
- continue vancomycin and unasyn
- on or when approaching discharge would switch to doxycycline indefinitely - please give 60 day script; this will replace previous Cefadroxil
Assessment / Plan
Empyema
Chronic Pleural Effusions
Stage IV adenocarcinoma
Malignant right pleural effusion diagnosed March 2023
Status post 2 cycles of chemotherapy (carboplatin, Taxol, Keytruda?); sees Izabela Wood ([place])
Progressive weight loss
Clubbing on exam
- pleural cultures E coli x2 and rare CONS
- continue aspiration precautions
- continue vancomycin and unasyn
- on or when approaching discharge would switch to doxycycline indefinitely - please give 60 day script; this will replace previous Cefadroxil
- follow clinically
Chief Complaint
-: Pneumonia and Other (empyema)
Subjective / Review of Systems
afebrile
bp stable
without leukocytosis
cr stable
afb and fungal cx no growth
chest tube output remains high
per patient was quite high at home also
Vital Signs / Physical Exam
Vital Signs
Vital Signs
Temp Pulse Resp BP Pulse Ox
98.2 F 104 23 107/70 92
06/22/23 07:42 06/22/23 06:00 06/22/23 06:00 06/22/23 06:00 06/22/23 04:18
Physical Exam
Constitutional: No Acute Distress
Cardiovascular: Regular Rate and S1/S2; Negative Murmur or Rub
Pulmonary: Clear and Symmetric; Negative Wheezes or Rales
Gastrointestinal: Soft, Non Tender, Non Distended and Normal Bowel Sounds
Skin: Warm and Dry; Negative Rash or Jaundice
Objective Data
Lab Data
Lab Results
06/22/23 05:25
06/21/23 05:49
PT 15.4 Sec (11.4-14.6) H 06/16/23 07:44
INR 1.24 06/16/23 07:44
Estimated Creat Clear 112 ml/min 06/21/23 05:49
Lactic Acid Cancelled 06/15/23 19:00
Total Bilirubin 0.2 mg/dl (0.2-1.3) 06/18/23 04:20
AST 25 U/L (17-59) 06/18/23 04:20
ALT 32 U/L (0-50) 06/18/23 04:20
Alkaline Phosphatase 85 U/L (38-126) 06/18/23 04:20
Most recent labs reviewed.
Micro Results:
06/15/23 14:59 Blood Culture - Final
Blood/Venous No Growth - Final Report
06/15/23 14:59 Blood Culture - Final
Blood/Venous No Growth - Final Report
06/15/23 17:53 Wound Culture - Final
Chest - Right Escherichia coli
Staphylococcus haemolyticus
Gram Stain - Final
06/16/23 16:39 Acid Fast Bacilli Smear - Preliminary
Pleural Fluid Acid Fast Bacilli Culture - Preliminary
06/16/23 16:38 Body Fluid Culture - Final
Pleural Fluid Escherichia coli
Gram Stain - Final
06/16/23 16:39 Fungal Smear - Final
Pleural Fluid No yeast or fungal elements seen.
Fungal Culture - Pending
06/15/23 20:36 MRSA Screen - Final
Nose No Methicillin Resistant Staphylococcus aureus isolated.
[2023-06-22] MEDS: AFRIN NASAL SPRAY 30 SPRAYS NASAL (09:24)
[2023-06-22] MEDS: MIRALAX 17 GRAMS PO (09:25)
[2023-06-22] MEDS: TOPROL XL 12.5 MG PO ×2 (09:25→20:38)
[2023-06-22] MEDS: FOLVITE 1 MG PO (09:26)
[2023-06-22] MEDS: COLACE 100 MG PO ×2 (09:27→20:38)
[2023-06-22] MEDS: FLOMAX 0.400000000000000022 MG PO (09:27)
[2023-06-22] MEDS: TYLENOL 650 MG PO (09:30)
--- NOTE | 2023-06-22 09:38 | PHA.VAN.FU ---
Vancomycin Assessment / Plan
- Assessment
Renal Function: Stable
WBC's are: WNL
In the past 24 hrs, patient has been: Afebrile
Concomitant Antimicrobials: Ampicillin/Sulbactam
- Dosing Plan
Continue: 1250mg Q12H
- Monitoring Plan
Level(s) appropriate: Recheck trough at minimum of weekly intervals, Repeat sooner for changes in renal function or clinical status
- Follow Up
Pharmacy will continue to follow.
Vancomycin Follow UP
- -
Patient Age: 73
Patient Sex: Male
Vancomycin Day #: 5
Indication: Pulmonary/Respiratory
Requesting Provider: Dr. Pantoja
Pertinent Antimicrobial Allergies:
NKDA
Height / Weight:
Height 5 ft 10 in
Actual Weight 76.8 kg
Pertinent Past Medical History: Stage IV adenocarcinoma
- Vital Signs / Lab Results
Temp Pulse Resp BP Pulse Ox
98.2 F 122 20 111/72 95
06/22/23 07:42 06/22/23 09:25 06/22/23 08:24 06/22/23 09:25 06/22/23 08:24
Lab Results - Hematology
06/20/23 06/21/23 06/22/23
05:25 05:49 05:25
WBC 3.4 L 5.2 6.3
Lab Results - Chemistry
06/21/23
05:49
BUN 6 L
Creatinine 0.5 L
Estimated Creat Clear 112
Microbiology Results
06/15/23 14:59 Blood Culture - Final
Blood/Venous No Growth - Final Report
06/15/23 14:59 Blood Culture - Final
Blood/Venous No Growth - Final Report
06/15/23 17:53 Wound Culture - Final
Chest - Right Escherichia coli
Staphylococcus haemolyticus
Gram Stain - Final
Therapeutic Drug Monitoring
Vancomycin Peak 23.7 ug/ml (18-26) 06/20/23 20:54
Vancomycin Trough 12.3 ug/ml (5-20) 06/21/23 05:49
--- NOTE | 2023-06-22 10:52 | W.PN.PUL3 ---
Today's Communication / Plan
-
Continue antibiotic therapy
Monitor chest tube output
Once chest tube drainage slows to <150cc/day with improvement in R-lung expansion seen on CXR, then we can check CT Chest at that time to re-assess lung parenchyma and assess for persistence of empyema + hydropneumothorax
Once empyema has been treated, would transition to long-term intra-pleural catheter with ASPIRA prior to discharge.
Eventual need to continue with cancer therapy at [facility]
He wishes to TRX his pulmonary care to us at [facility] - we will arrange for outpatient follow up
Assessment
-
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
at [facility] ([facility]). Patient had a surgical procedure, details unknown, chest tube upon discharge with Heimlich valve, which spontaneously came out about 6 weeks ago. At that time he stopped his antibiotic therapy and started chemotherapy. His last
dose of chemotherapy (second cycle) was 3 weeks ago. He developed fevers over the last week and spontaneous drainage at his old chest tube site, now prompting admission for suspected empyema 06/15/2023
Large right pleural effusion
Empyema with E. coli
Status post chest tube 06/15
E. coli and + Staph haemolyticus cultured at chest tube site (collected 06/15/2023 in ER before new chest tube inserted)
History of right large effusion with complete right lung atelectasis
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
Heimlich valve placed, spontaneously fell out approximately mid April 2023
Right upper lobe mass, right lung volume loss
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
Leukopenia, anemia
Stage IV adenocarcinoma
Malignant right pleural effusion diagnosed March 2023
Status post 2 cycles of chemotherapy (carboplatin, Taxol, Keytruda?)
sees Izabela Wood ([facility])
Progressive weight loss
Clubbing on exam
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
COPD, on trelegy
CAD s/p stents
HTN
HLD
GIB, gastric ulcer 2019
H/o H pylori
Former [id number]-year quit 15 years old
Plan/recommendations
Clinically improved
Chest tube with pus, additional 630 cc drained post intrapleural lytic therapy 06/17
Continues to drain well - closely monitor output in 12 hour intervals.
Will obtain repeat imaging with CT Chest once drainage slows to <150cc in a 24 hr period
-
Positive E. coli
Remains on Unasyn, vancomycin, per infectious disease
Chest x-ray 06/20/2023: Slightly improved pleural fluid. Hydropneumothorax stable. Has trapped lung physiology.
-
Plan:
Patient does have trapped lung physiology and had persistent air leak with prior chest tube back in March.
Unclear whether he had a BP fistula but with patient was discharged on chronic antibiotic therapy and chest tube with Heimlich valve which spontaneously fell out around middle of April ([facility])
-
Status post intrapleural lytic therapy, tPA and dornase injection. 06/19/2023.
Dr. Waldron reviewed with interventional radiology, specifically plan to transition to tube for which he can be discharged home once empyema adequately treated
Defer ABx duration to ID - will need several weeks duration of treatment
Patient will likely require reinitiation of chronic antibiotic therapy at time of discharge
-
Eventual repeat CT chest. No plans to remove CT at discharge, however once empyema has been treated then it would not be unreasonable to transition to ASPIRA prior to discharge
I do not expect pleural space to be fluid free given trapped lung physiology, known adenocarcinoma with right upper lobe mass
-
: reached out to Thoracic Surgery ([facility])
Dr. Doyle also reached out to [facility] oncology (Izabela Wood) - awaiting callback
-
Not bronchospastic on exam.
Continue with outpatient inhaler regimen. Symbicort/Spiriva will replace Trelegy
DVT prophylaxis: Enoxaparin
Encourage ambulation with physical therapy
Encourage nutrition. Patient with good appetite
Continue to follow
Patient was seen and evaluated on 06/22/2023.
Subjective Data
-
Date of Service:
Date of Service: June 22, 2023
Chief Complaint: Pulmonary Follow Up (Empyema)
Subjective:
Patient seen today at bedside. 350 cc output from chest tube over last 24 hours. Output from chest tube appears [id number]. Pt. says he feels well. He was sitting in chair in NAD. Saturating 96% on RA. No chest pain, HERNANDEZ, abd pain, SOB,
N/V/f/c.
Review of Systems
General: Other (negative unless mentioned above)
Objective Data
Data Reviewed
Vital Signs / I&O / Oxygen:
Vital Signs
Temp Pulse Resp BP Pulse Ox
98.2 F 122 20 111/72 95
06/22/23 07:42 06/22/23 09:25 06/22/23 08:24 06/22/23 09:25 06/22/23 08:24
Intake and Output
06/21/23 06/22/23 06/23/23
06:59 06:59 06:59
Intake Total 2185 / 2185 1425 / 1425
Output Total 2730 / 2730 1700 / 1700 825 / 825
Balance -545 / -545 -275 / -275 -825 / -825
SaO2 95
Nasal Cannula flow liters per 3
minute
Physical Exam
General: Respiratory Distress (negative) and Comfortable
HEENT: Normocephalic and Anicteric
Cardiovascular: S1-S2, Regular Rhythm, Murmur (n) and Rub (n)
Respiratory: Wheeze (n), Crackles (n), Rhonchi (n), Chest Tube (Right-sided chest tube) and Other (Squeaking sounds in RLL)
GI: Soft, Non Distended and Non Tender
Neurology: Awake, Alert and No Motor Deficits
Skin: Warm, Dry, Cyanosis (n) and Jaundice (n)
Labs/Micro/Reports
Lab Data
06/22/23 05:25
06/21/23 05:49
Microbiology
06/15/23 14:59 Blood/Venous Blood Culture - Final
No Growth - Final Report
06/15/23 14:59 Blood/Venous Blood Culture - Final
No Growth - Final Report
06/15/23 17:53 Chest - Right Wound Culture - Final
Escherichia coli
Staphylococcus haemolyticus
06/15/23 17:53 Chest - Right Gram Stain - Final
[2023-06-22] MEDS: LOVENOX 40 MG SC (18:13)
--- NOTE | 2023-06-22 19:21 | W.PN.HOSP.TC ---
Addendum entered and electronically signed by Ivan Ross MD 06/22/23 22:59:
Attending Addendum-
I saw and evaluated the patient. I reviewed the resident�s note and agree with findings and plan as documented in the resident�s note. Patient states he feels beytter than he has for months. Strength MUCH improved. Denies SOB, has some tenderness @
CT site. Full 12 point ROS reviewed and negative except as documented Exam: GEN NAD heart RRR lungs no BS RLL CT in place draining yellow fluid abd soft LE no edema Plan:
Right-sided empyema -continue antibiotics per ID, currently on Unasyn and vancomycin. Blood cultures negative. Right-sided chest tube placed 06/15, Fluid culture shows E. coli, Staphylococcus hemolyticus.
pleural lysis with tPA and dornase injection 06/17 Chest x-ray 06/21 personally reviewed-Stable position of the right basilar chest tube. Stable loculated right hydropneumothorax. Stable volume loss and opacification of the right lung. Chest tube with
350 cc output over the past 24 hours.
For chronic abx on DC with doxy
Acute Hypoxemic Respiratory Failure- resolved, now off o2
Recurrent malignant right pleural effusion -due to underlying adenocarcinoma of the lung. f/u pulm as OP
Pulmonary adenocarcinoma -On chemotherapy. Follows with oncology [facility].
Bicytopenia -platelet count normal. Etiology possibly due to chemotherapy. WBC WNL
Hyponatremia -appears chronic, repeat BMP in am
COPD without exacerbation
CAD -with history of stent.
Essential hypertension -stable.
Hyperlipidemia -on atorvastatin.
History of gastric ulcer
Chronic anemia
Constipation -now moving bowels. Continue bowel regimen.
BPH
DNR
Dispo - hopeful DC in am to home, CM to be contacted
Time spent coordinating care, review of plan of care with resident, review of records, med rec, consults, notes, labs, rads, d/w nursing CM � 59 mins
Original Note:
Today's Communication/Plan
-
Remains afebrile with normal WBC counts
blood cultures no growth to date
fungal and afb cultures no growth to date
Will observe in IMU due to chest tube protocol.
Possibly discharge tomorrow.
Will continue doxycycline indefinitely per ID.
Outpatient pulmonary follow-up
Increased home health VN at least twice weekly
Assessment / Plan
Assessment / Plan
Assessment:
Mr. Beauchamp is a 73-year-old male with PMH complete right lung atelectasis due to small cell adenocarcinoma stage IV s/p thoracentesis and bilateral chest tube placement March 2023 who presented to the ED 06/15/2023 with fever of 101.5 for several
days, and drainage from chest tube site became clear, then blood, then yellow and greenish (pus) 06/13/2023 over 2 days. 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
Impression:
Empyema
Right sided tube in place
Recurrent malignant right pleural effusion
Due to underlying adenocarcinoma of the lung
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
Malignant right pleural effusion diagnosed March 2023
Progressive weight loss
Stage IV adenocarcinoma
Chronic hyponatremia
History of gastric ulcer
Chronic anemia
BPH
Plan:
Right-sided empyema:
-Right-sided chest tube placed 06/16/2023 with yellowish fluid output; fluid culture with E. coli and staph hemolyticus.
-Blood cultures negative TD.
-Continue Unasyn and vancomycin, will switch to doxycycline indefinitely upon discharge per ID.
Recurrent malignant right pleural effusion:
-Due to underlying adenocarcinoma of the lung, diagnosed March 2023.
-Chest tube and antibiotics as above, chest tube with 270 mL drainage overnight
-Follows with oncology [facility]; s/p 2 cycles of chemotherapy (carboplatin, Taxol, Keytruda?); sees Izabela Wood ([place]) last day of chemotherapy was 3 weeks ago.
Hyponatremia:
-Appears chronic, likely hypervolemic hyponatremia given low urine osmolality and low urine sodium.
-TSH within normal limits
-Will continue to monitor and replete as needed.
Microcytic anemia:
-Likely due to chemotherapy.
-Monitor H&H.
COPD without exacerbation
CAD -with history of stent.
Essential hypertension:
-Stable.
Hyperlipidemia
-Continue atorvastatin.
DNR

Data:
CXR 06/22/2023: Right hydropneumothorax with a basilar chest tube in place. Volume loss and opacification of the right lung. Findings are similar compared to the exam from 06/21/2023.
CXR 06/21/2023: Right basilar chest remains in place with right-sided volume loss with confluent areas of opacity within the right lung base surrounding the chest tube and also within the right apex.
CXR 06/20/2023: Predominantly pleural-based opacification in the right hemithorax slightly decreased.
Anticipated Discharge: 24 - 48 hours
Subjective/Interval History
-
Date of Service: June 22, 2023
Objective Data
-
Vital Signs:
Vital Signs
Temp Pulse Resp BP Pulse Ox
98.5 F 104 30 124/80 95
06/22/23 15:00 06/22/23 18:12 06/22/23 18:12 06/22/23 18:12 06/22/23 16:01
I&O
06/21/23 06/22/23 06/23/23
06:59 06:59 06:59
Intake Total 2185 / 2185 1425 / 1425 605 / 605
Output Total 2730 / 2730 1700 / 1700 1850 / 1850
Balance -545 / -545 -275 / -275 -1245 / -1245
Review of Systems
-
History Source: Patient
Constitutional: Reports No Symptoms
EENT: Reports No Symptoms Reported
Respiratory: Reports No Symptoms
Cardiac: Reports No Symptoms
Abdomen/GI: Reports No Symptoms; Denies Abdominal Pain
Breast: Reports No Symptoms
Genitourinary: Reports No Symptoms
Musculoskeletal: Reports No Symptoms
Skin: Reports No Symptoms
Neuro: Reports No Symptoms; Denies Headache or Lightheadedness
Endocrine: Reports No Symptoms
Hematologic / Lymphatic: Reports No Symptoms
Physical Exam
-
General: No Apparent Distress, Comfortable and Appears Chronically Ill
HEENT: Normocephalic and Moist Mucous Membranes
Respiratory: Clear to Auscultation (normal left, absent right side with minimal undefinable sound ) and Other (Right chest tube - sanguineous fluid )
Cardiac: Regular Rhythm and S1/S2; Negative Murmur or Rub
GI: Soft, Nontender, Nondistended and Normal Bowel Sounds
Musculoskeletal: No Clubbing, No Cyanosis and No Edema
Skin: Warm
Neuro: Awake, Alert, Oriented, AO x 3, No Motor Deficits and Nonfocal/Grossly Intact
Psych: Calm and Intact Judgement/Insight
Data Reviewed
-
Diagnostic Radiology: Image personally visualized and interpreted, Report Reviewed by me and Discussed with Physician
Labs: Labs Reviewed by me and Discussed with Physician
Old Records: Reviewed
--- NOTE | 2023-06-22 20:18 | PTCARENOTE ---
Received pt from [facility]. Pt is AAOx3, PECHANGA. Sinus tach on the monitor. On RA O2 sat 96%, Lungs diminished, tachypneic. R chest tube in place to wall suction. Pt uses the urinal. Pt c/o pain at chest tube site, PRN pain medications given (see
MAR). Pt is laying comfortable in bed with call gray in reach.
[2023-06-22] MEDS: SYMBICORT 80/4.5 MCG INHALER INH (20:38)
[2023-06-22] MEDS: LIPITOR 80 MG PO (20:39)
[2023-06-22] MEDS: FLEXERIL 5 MG PO (20:48)
[2023-06-22] MEDS: ULTRAM 50 MG PO (20:48)
[2023-06-22] MEDS: MORPHINE SULFATE 2 MG IV (23:42)
[2023-06-23] VITALS (13 sets, daily range): BP systolic 113–138; BP diastolic 65–90
[2023-06-23] MEDS: UNASYN IV (05:13)
[2023-06-23] MEDS: VANCOCIN 275 MG IV (05:13)
[2023-06-23 05:32] LABS: % Basophils 0.8 % (0-2); % Eosinophils 1.6 % (0-6); % Immature Granulocytes 5.5 % (0-0.5); % Lymphocytes 12.8 % (20.5-51.1); % Monocytes 10.7 % (1.7-9.3); % Neutrophils 68.6 % (42.2-75.2); Absolute Basophils 0.1 10^3/uL (0-0.2); Absolute Eosinophils 0.1 10^3/uL (0-0.7); Absolute Immature Granulocytes 0.3 10^3/uL (0-0.05); Absolute Lymphocytes 0.8 10^3/uL (1.2-3.4); Absolute Monocytes 0.7 10^3/uL (0.1-0.6); Absolute Neutrophils 4.3 10^3/uL (1.4-6.5); Hematocrit 28.5 % (39.0-52.0); Hemoglobin 8.9 g/dL (13.0-18.0); Mean Corp Hgb Conc. 31.2 g/dL (33.0-37.0); Mean Corpuscular Hgb 25.1 pg (27.0-31.0); Mean Corpuscular Volume 80.3 fL (80.0-94.0); Mean Platelet Volume 7.7 fL (7.4-10.4); Nucleated Red Blood Cells % 0 % (-); Platelet Count 164 10^3/uL (130-400); Red Blood Cell Count 3.55 10^6/uL (4.70-6.10); Red Cell Dist. Width 18.4 % (11.5-14.5); White Blood Cell Count 6.2 10^3/uL (4.8-10.8)
[2023-06-23 06:16] LABS: Blood Urea Nitrogen 9 mg/dl (9-20); Calcium 8.5 mg/dl (8.4-10.2); Carbon Dioxide 27 mmol/L (22-30); Chloride 105 mmol/L (98-107); Estimated Creatinine Clearance 112 ml/min; Glucose 112 mg/dl (70-99); Sodium 136 mmol/L (135-145); eGFR > 60.00
[2023-06-23] MEDS: SYMBICORT 80/4.5 MCG INHALER 2 PUFF INH ×2 (08:04→18:18)
[2023-06-23] MEDS: ProAIR HFA INHALER 2 PUFF INH ×2 (08:04→18:18)
[2023-06-23] MEDS: SPIRIVA RESPIMAT 2.5 MCG 2 PUFF INH (08:04)
[2023-06-23] MEDS: FLOMAX 0.400000000000000022 MG PO (08:13)
[2023-06-23] MEDS: FOLVITE 1 MG PO (08:13)
[2023-06-23] MEDS: COLACE 100 MG PO ×2 (08:13→20:17)
[2023-06-23] MEDS: MIRALAX 17 GRAMS PO (08:14)
[2023-06-23] MEDS: TOPROL XL 12.5 MG PO ×2 (08:14→20:16)
--- NOTE | 2023-06-23 09:03 | PHA.VAN.FU ---
Vancomycin Assessment / Plan
- Assessment
Renal Function: Stable
WBC's are: WNL
In the past 24 hrs, patient has been: Afebrile
Concomitant Antimicrobials: ampicillin/sulbactam
- Dosing Plan
Continue: Vanc 1250mg Q12H
- Monitoring Plan
Level(s) appropriate: Recheck trough at minimum of weekly intervals, Repeat sooner for changes in renal function or clinical status
Next Level Due (Date): ~06/27
- Follow Up
Pharmacy will continue to follow.
Vancomycin Follow UP
- -
Patient Age: 73
Patient Sex: Male
Vancomycin Day #: 6
Indication: Pulmonary/Respiratory
Requesting Provider: Dr. Pantoja
Pertinent Antimicrobial Allergies:
NKDA
Height / Weight:
Height 5 ft 10 in
Actual Weight 76.8 kg
Pertinent Past Medical History: Stage IV adenocarcinoma
- Vital Signs / Lab Results
Temp Pulse Resp BP Pulse Ox
98.5 F 104 16 125/80 98
06/23/23 05:19 06/23/23 08:20 06/23/23 08:20 06/23/23 08:14 06/23/23 08:48
Lab Results - Hematology
06/21/23 06/22/23 06/23/23
05:49 05:25 05:24
WBC 5.2 6.3 6.2
Lab Results - Chemistry
06/21/23 06/23/23
05:49 05:24
BUN 6 L 9
Creatinine 0.5 L 0.5 L
Estimated Creat Clear 112 112
Therapeutic Drug Monitoring
Vancomycin Peak 23.7 ug/ml (18-26) 06/20/23 20:54
Vancomycin Trough 12.3 ug/ml (5-20) 06/21/23 05:49
--- NOTE | 2023-06-23 09:20 | W.PN.PUL3 ---
Today's Communication / Plan
-
Continue antibiotic therapy as per ID - switched from Unasyn and IV vanco to PO doxy today
Monitor chest tube output
Start BID lytics and plan for 3 days
Once chest tube drainage slows to <150cc/day with improvement in R-lung expansion seen on CXR, then we can check CT Chest at that time to re-assess lung parenchyma and assess for persistence of empyema + hydropneumothorax
Once empyema has been treated, would transition to long-term intra-pleural catheter with ASEPT prior to discharge.
Eventual need to continue with cancer therapy at [facility]
He wishes to TRX his pulmonary care to us at [facility] - we will arrange for outpatient follow up
Assessment
-
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
at [facility] ([facility]). Patient had a surgical procedure, details unknown, chest tube upon discharge with Heimlich valve, which spontaneously came out about 6 weeks ago. At that time he stopped his antibiotic therapy and started chemotherapy. His last
dose of chemotherapy (second cycle) was 3 weeks ago. He developed fevers over the last week and spontaneous drainage at his old chest tube site, now prompting admission for suspected empyema 06/15/2023
Large right pleural effusion due to empyema status post chest tube 06/15 by IR
Pleural fluid Cx (+) for E. coli
E. coli and + MR-Staph haemolyticus cultured at chest tube site (collected 06/15/2023 in ER before new chest tube inserted)
History of right large effusion with complete right lung atelectasis
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
Heimlich valve placed, spontaneously fell out approximately mid April 2023
Right upper lobe mass, right lung volume loss
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
Leukopenia, anemia
Stage IV adenocarcinoma
Malignant right pleural effusion diagnosed March 2023
Status post 2 cycles of chemotherapy (carboplatin, Taxol, Keytruda?)
sees Izabela Wood ([facility])
Progressive weight loss
Clubbing on exam
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
COPD, on trelegy
CAD s/p stents
HTN
HLD
GIB, gastric ulcer 2019
H/o H pylori
Former [id number]-year quit 15 years old
Plan/recommendations
Clinically improved
Chest tube with pus, additional 630 cc drained post intrapleural lytic therapy 06/17
Continues to drain well - closely monitor output in 12 hour intervals.
Will obtain repeat imaging with CT Chest once drainage slows to <150cc in a 24 hr period
Given the size of effusion with loculation, will start lytic treatment through chest tube BID x 3 days
-
Pleural fluid positive E. coli
s/p Unasyn, vancomycin --> now on PO doxy as per infectious disease
Chest x-ray 06/20/2023: Slightly improved pleural fluid. Hydropneumothorax stable. Has trapped lung physiology.
-
Patient does have trapped lung physiology and had persistent air leak with prior chest tube back in March.
Unclear whether he had a BP fistula but with patient was discharged on chronic antibiotic therapy and chest tube with Heimlich valve which spontaneously fell out around middle of April ([facility])
-
Status post intrapleural lytic therapy, tPA and dornase injection. 06/19/2023.
Dr. Waldron reviewed with interventional radiology, specifically plan to transition to long-term intra-pleural tube (i.e. pleurX vs ASEPT/ASPIRA) for which he can be discharged home once empyema adequately treated
Defer ABx duration to ID - will need several weeks duration of treatment
Patient will likely require reinitiation of chronic antibiotic therapy at time of discharge
-
Eventual repeat CT chest. Once empyema has been treated then would transition to ASEPT prior to discharge
I do not expect pleural space to be fluid free given trapped lung physiology, known adenocarcinoma with right upper lobe mass
-
: reached out to Thoracic Surgery ([facility])
Dr. Doyle also reached out to [facility] oncology (Izabela Wood) - awaiting callback
-
Not bronchospastic on exam.
Continue with outpatient inhaler regimen. Symbicort/Spiriva will replace Trelegy
DVT prophylaxis: Enoxaparin
Encourage ambulation with physical therapy
Encourage nutrition. Patient with good appetite
Continue to follow
Total time spent today was 35 minutes for this encounter. Time includes reviewing laboratory test/imaging results, reviewing pertinent medical records, obtaining and reviewing medical history, performing an appropriate exam, ordering medications,
tests and procedures. Time also includes documentation of this encounter, coordinating patient care and communicating with other healthcare professionals. Total time does not include separately billed tests performed on this date of service.
Subjective Data
-
Date of Service:
Date of Service: June 23, 2023
Chief Complaint: Pulmonary Follow Up (Empyema)
Subjective:
Patient seen today at bedside, and he is doing well, denies shortness of breath or chest pain. He is on room air breathing comfortably. Chest tube has 370 cc output the last 24 hours. Given tPA/DNase via IR through right-sided chest tube this
morning.
Review of Systems
General: Other (Negative unless mentioned above)
Objective Data
Data Reviewed
Vital Signs / I&O / Oxygen:
Vital Signs
Temp Pulse Resp BP Pulse Ox
97.5 F 104 16 125/80 98
06/23/23 07:05 06/23/23 08:20 06/23/23 08:20 06/23/23 08:14 06/23/23 08:48
Intake and Output
06/22/23 06/23/23 06/24/23
06:59 06:59 06:59
Intake Total 1425 / 1425 1015 / 1015 240 / 240
Output Total 1700 / 1700 3705 / 3705 500 / 500
Balance -275 / -275 -2690 / -2690 -260 / -260
SaO2 98
Nasal Cannula flow liters per 3
minute
Physical Exam
General: Respiratory Distress (negative) and Comfortable
HEENT: Normocephalic and Anicteric
Cardiovascular: S1-S2, Murmur (n) and Rub (n)
Respiratory: Wheeze (n), Crackles (RLL), Rhonchi (n), Chest Tube (Right-sided chest tube) and Other (Inspiratory squeaks in RLL-RML)
GI: Soft, Non Distended and Non Tender
Neurology: Awake, Alert and Tremors (negative)
Skin: Warm, Dry, Cyanosis (n) and Jaundice (n)
Labs/Micro/Reports
Lab Data
06/23/23 05:24
06/23/23 05:24
Microbiology
06/15/23 14:59 Blood/Venous Blood Culture - Final
No Growth - Final Report
06/15/23 14:59 Blood/Venous Blood Culture - Final
No Growth - Final Report
06/15/23 17:53 Chest - Right Wound Culture - Final
Escherichia coli
Staphylococcus haemolyticus
06/15/23 17:53 Chest - Right Gram Stain - Final
--- NOTE | 2023-06-23 09:35 | W.PN.ID1 ---
Date of Service
Date of Service: June 23, 2023
Today's Communication
- switch to doxycycline 100 mg PO BID indefinitely - I have sent in 4 month script to his [facility]
- follow up in my clinic in about 3 months, will reassess at that point, also transitioning pulmonary care to
Assessment / Plan
Empyema
Chronic Pleural Effusions
Stage IV adenocarcinoma
Malignant right pleural effusion diagnosed March 2023
Status post 2 cycles of chemotherapy (carboplatin, Taxol, Keytruda?); sees Izabela Wood ([place])
Progressive weight loss
Clubbing on exam
- pleural cultures E coli x2 and rare CONS
- continue aspiration precautions
- switch to doxycycline 100 mg PO BID indefinitely - I have sent in 4 month script to his [facility]
- follow up in my clinic in about 3 months, will reassess at that point, also transitioning pulmonary care to
Chief Complaint
-: Pneumonia and Other (empyema)
Subjective / Review of Systems
afebrile
bp stable
with normal wbc count x3 d
cr normal
afb and fungal cultures no growth
Vital Signs / Physical Exam
Vital Signs
Vital Signs
Temp Pulse Resp BP Pulse Ox
98.5 F 104 16 125/80 98
06/23/23 05:19 06/23/23 08:20 06/23/23 08:20 06/23/23 08:14 06/23/23 08:48
Physical Exam
Constitutional: No Acute Distress
Cardiovascular: Regular Rate and S1/S2; Negative Murmur or Rub
Pulmonary: Clear and Symmetric; Negative Wheezes or Rales
Gastrointestinal: Soft, Non Tender, Non Distended and Normal Bowel Sounds
Skin: Warm and Dry; Negative Rash or Jaundice
Objective Data
Lab Data
Lab Results
06/23/23 05:24
06/23/23 05:24
PT 15.4 Sec (11.4-14.6) H 06/16/23 07:44
INR 1.24 06/16/23 07:44
Estimated Creat Clear 112 ml/min 06/23/23 05:24
Lactic Acid Cancelled 06/15/23 19:00
Total Bilirubin 0.2 mg/dl (0.2-1.3) 06/18/23 04:20
AST 25 U/L (17-59) 06/18/23 04:20
ALT 32 U/L (0-50) 06/18/23 04:20
Alkaline Phosphatase 85 U/L (38-126) 06/18/23 04:20
Most recent labs reviewed.
Micro Results:
06/15/23 14:59 Blood Culture - Final
Blood/Venous No Growth - Final Report
06/15/23 14:59 Blood Culture - Final
Blood/Venous No Growth - Final Report
06/15/23 17:53 Wound Culture - Final
Chest - Right Escherichia coli
Staphylococcus haemolyticus
Gram Stain - Final
06/16/23 16:39 Acid Fast Bacilli Smear - Preliminary
Pleural Fluid Acid Fast Bacilli Culture - Preliminary
06/16/23 16:38 Body Fluid Culture - Final
Pleural Fluid Escherichia coli
Gram Stain - Final
06/16/23 16:39 Fungal Smear - Final
Pleural Fluid No yeast or fungal elements seen.
Fungal Culture - Pending
06/15/23 20:36 MRSA Screen - Final
Nose No Methicillin Resistant Staphylococcus aureus isolated.
--- NOTE | 2023-06-23 09:51 | PN.IRAD.UPD ---
Update Note - IRAD
- -
Injected TPA and Dornase into right sided chest tube and clamped at 9:50. Unclamp tube at 11:50.
Abdoulaye Hammond RT(R)()
[2023-06-23] MEDS: VIBRAMYCIN 100 MG PO ×2 (11:33→20:17)
[2023-06-23] MEDS: LOVENOX 40 MG SC (17:04)
--- NOTE | 2023-06-23 17:42 | CM ---
Patient with Hx lung CA on chemo with Dx Right-sided empyema, Recurrent malignant right pleural effusion. Chest tube - Right pleural lysis with TPA and dornase. PT & OT recommend HH.
Phone call to [facility]; left message requesting callback for d/c planning.
Plan home with resumption [place] VN.
--- NOTE | 2023-06-23 18:11 | W.PN.HOSP.TC ---
Addendum entered and electronically signed by Ivan Ross MD 06/23/23 22:45:
Attending Addendum-
I saw and evaluated the patient. I reviewed the resident�s note and agree with findings and plan as documented in the resident�s note. still putting out >350mls per day from CT tube. continues to have mild tenderness @ CT site. Full 12 point ROS
reviewed and negative except as documented Exam: GEN NAD heart RRR lungs no BS RLL CT in place draining serous fluid abd soft LE no edema Plan:
Right-sided empyema
- DC Unasyn and vancomycin switch to doxy indefinitely. Fluid culture shows E. coli, Staphylococcus hemolyticus.
- Right-sided chest tube placed 06/15,
- pleural lysis with tPA and dornase injection 06/17, restart 3 days BID on 06/22, Pleurx cath afterwards
- Chest tube with 360 cc output over the past 24 hours.
- chronic abx on DC with doxy
- CXR 06/22- personally reviewed Stable hydropneumothorax with a moderate loculated right pleural effusion and small pneumothorax
- repeat CXR in am
Acute Hypoxemic Respiratory Failure- resolved, now off o2
Recurrent malignant right pleural effusion -due to underlying adenocarcinoma of the lung. for pleurx placement prior to DC
Pulmonary adenocarcinoma -On chemotherapy. Follows with oncology [facility].
Bicytopenia -platelet count normal. Etiology possibly due to chemotherapy. WBC WNL
Hyponatremia -appears chronic, repeat BMP in am
COPD- not in acute exacerbation
CAD -history of stent.
Essential hypertension -stable.
Hyperlipidemia -on atorvastatin.
History of gastric ulcer
Chronic anemia
Constipation -now moving bowels. Continue bowel regimen.
BPH
DNR
Dispo - DC in am to home after tpa/dornase and pleurx cath placement
Time spent coordinating care, review of plan of care with resident, review of records, med rec, consults, notes, labs, rads, d/w nursing CM � 58 mins
Original Note:
Today's Communication/Plan
-
Antibiotics switched to PO doxycycline today.
Twice daily tPA and dornase instillation started today.
Chest x-ray tomorrow
Plan for intrapleural catheter with ASEPT prior to discharge.
home health VN at least twice weekly upon discharge.
Blood cultures, fungal and AFB cultures no growth to date.
Continue to observe clinically in IMU with chest tube protocol.
Assessment / Plan
Assessment / Plan
Assessment:
Mr. Beauchamp is a 73-year-old male with PMH complete right lung atelectasis due to small cell adenocarcinoma stage IV s/p thoracentesis and bilateral chest tube placement March 2023 who presented to the ED 06/15/2023 with fever of 101.5 for several
days, and drainage from chest tube site became clear, then blood, then yellow and greenish (pus) 06/13/2023 over 2 days. 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
Impression:
Empyema
Right sided tube in place
Recurrent malignant right pleural effusion
Due to underlying adenocarcinoma of the lung
tPA and dornase treatment BID for 3 days started today
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
Malignant right pleural effusion diagnosed March 2023
Progressive weight loss
Stage IV adenocarcinoma
Chronic hyponatremia
History of gastric ulcer
Chronic anemia
BPH
Plan:
Right-sided empyema:
-Right-sided chest tube placed 06/16/2023 with serosanguineous fluid output (370 cc w/n past 24 hours); fluid culture with E. coli and staph hemolyticus.
-Blood cultures negative TD.
-Start doxycycline, Unasyn discontinued.
-ID following, recs appreciated.
Recurrent malignant right pleural effusion:
-Due to underlying adenocarcinoma of the lung, diagnosed March 2023.
-Chest tube and antibiotics as above, chest tube with 370 mL drainage overnight.
-CXR 06/23/2023 with stable hydropneumothorax with a moderate loculated right pleural effusion and small pneumothorax.
-tPA and dornase instillation into chest tube started today (procedure #2 of 6), patient tolerated. Anticipate for 3 days.
-Follow chest tube drainage with above procedure, serial assessment for empyema treatment with subsequent transition to long-term intrapleural catheter prior to discharge.
-Pulmonary following, appreciated.
-Outpatient pulmonary follow-up eventually.
-Follows with oncology [facility], s/p 2 cycles of chemotherapy.
Hyponatremia:
-Improving, likely hypervolemic hyponatremia given low urine osmolality and low urine sodium.
-TSH within normal limits
-Will continue to monitor and replete as needed.
Microcytic anemia:
-Likely due to chemotherapy.
-Monitor H&H.
COPD without exacerbation
CAD -with history of stent.
Essential hypertension:
-Stable.
Hyperlipidemia
-Continue atorvastatin.
DNR

Data:
CXR 06/23/2023: Stable hydropneumothorax with a moderate loculated right pleural effusion and small pneumothorax. Right-sided chest tube. Stable
CXR 06/22/2023: Right hydropneumothorax with a basilar chest tube in place. Volume loss and opacification of the right lung. Findings are similar compared to the exam from 06/21/2023.
CXR 06/21/2023: Right basilar chest remains in place with right-sided volume loss with confluent areas of opacity within the right lung base surrounding the chest tube and also within the right apex.
CXR 06/20/2023: Predominantly pleural-based opacification in the right hemithorax slightly decreased.
Anticipated Discharge: > 48 hours
Subjective/Interval History
-
Date of Service: June 23, 2023
There was no significant events reported overnight. Patient was seen in bed, sitting comfortably no apparent distress.
Objective Data
-
Labs:
Laboratory Results
06/23/23
05:24
Sodium 136
Potassium 4.0
Chloride 105
Carbon Dioxide 27
BUN 9
Creatinine 0.5 L
Glucose 112 H
Calcium 8.5
Vital Signs:
Vital Signs
Temp Pulse Resp BP Pulse Ox
98.7 F 109 24 113/76 94
06/23/23 11:05 06/23/23 16:00 06/23/23 16:00 06/23/23 16:00 06/23/23 16:00
I&O
06/22/23 06/23/23 06/24/23
06:59 06:59 06:59
Intake Total 1425 / 1425 1015 / 1015 240 / 240
Output Total 1700 / 1700 3705 / 3705 500 / 500
Balance -275 / -275 -2690 / -2690 -260 / -260
Review of Systems
-
History Source: Patient
Constitutional: Reports No Symptoms
EENT: Reports No Symptoms Reported
Respiratory: Reports No Symptoms
Cardiac: Reports No Symptoms
Abdomen/GI: Reports No Symptoms; Denies Abdominal Pain
Breast: Reports No Symptoms
Genitourinary: Reports No Symptoms
Musculoskeletal: Reports No Symptoms
Skin: Reports No Symptoms
Neuro: Reports No Symptoms; Denies Headache or Lightheadedness
Endocrine: Reports No Symptoms
Hematologic / Lymphatic: Reports No Symptoms
Physical Exam
-
General: No Apparent Distress, Comfortable and Appears Chronically Ill
HEENT: Normocephalic and Moist Mucous Membranes
Respiratory: Other (Right chest tube - sanguineous fluid. Diminished left lung sounds, absent right sided lung sounds) and Chest Tubes
Cardiac: Regular Rhythm and S1/S2; Negative Murmur or Rub
GI: Soft, Nontender, Nondistended and Normal Bowel Sounds
Musculoskeletal: No Clubbing, No Cyanosis and No Edema
Skin: Warm
Neuro: Awake, Alert, Oriented, AO x 3, No Motor Deficits and Nonfocal/Grossly Intact
Psych: Calm and Intact Judgement/Insight
Data Reviewed
-
Diagnostic Radiology: Image personally visualized and interpreted, Report Reviewed by me and Discussed with Physician
Labs: Labs Reviewed by me and Discussed with Physician
Old Records: Reviewed
--- NOTE | 2023-06-23 19:12 | W.SUR.POST ---
Addendum entered and electronically signed by Sherif Davis MD 06/24/23 20:01:
Correction to Date of Service: 06/23/2023
Original Note:
Surgical Immediate Post Op
Note
Instillation of Lytic Medications into Tube Thoracostomy
Pre Op Diagnosis: Right-sided empyema
Post Op Diagnosis: Same as above
Procedure Performed: tPA and dornase instillation into chest tube (procedure #2 of 6)
Primary Surgeon/proceduralist: Dr. Davis
Secondary Surgeons: n/a
Anesthesia: n/a
Estimated Blood Loss: n/a
Fluids: 30cc of NS 0.9%
Drains/Shunts: n/a
Specimens/Cultures: n/a
Doppler/Duplex/Angio (Y/N): n/a
Complications: No immediate complications
Operative/Procedure Details: Patient was positioned for adequate access to the right-sided chest tube. Before procedure started, sterile technique was utilized with handwashing, facemask, gown and sterile gloves. Chest tube was removed off suction
as well. Pre-existing chest tube was clamped, and then disconnected from the suction catheter; three-way stopcock was attached to the end of the pre-existing chest tube for better medication instillation, and the clamp was then removed. NS 0.9%
was instilled into chest tube, and then 10mg alteplase was instilled into the chest tube without resistance. 10cc of 0.9% NS was instilled, and then 5mg dornase was instilled into the chest tube without resistance. Finally, another 10cc of NS 0.9%
was instilled into the chest tube without resistance. The stop cock was turned towards the patient to allow the lytic medications to remain in pleural space. Alcohol swabs were utilized whenever any medication was attached to the female leur lock
end of the 3-way stop-cock. This was to improve sterility. The procedure ended without any complications.
I instructed to the RN to keep chest tube clamped for 2 hours, and then place chest tube back onto negative suction at [id number], and place stop-cock to neutral position to allow flow of fluid out of pleural space into pleuro-vac container.
[2023-06-23] MEDS: SENOKOT 17.1999999999999993 MG PO (20:17)
[2023-06-23] MEDS: LIPITOR 80 MG PO (20:17)
[2023-06-23] MEDS: ULTRAM 50 MG PO (20:23)
[2023-06-23] MEDS: FLEXERIL 5 MG PO (20:23)
--- NOTE | 2023-06-23 21:29 | PTCARENOTE ---
chest tube unclamped and hooked to suction -40
[2023-06-23] MEDS: MORPHINE SULFATE 2 MG IV (23:27)
[2023-06-24] VITALS (11 sets, daily range): BP systolic 107–136; BP diastolic 70–85; PULSE 107–115; O2SAT 97
--- NOTE | 2023-06-24 07:23 | W.PN.HOSP.TC ---
Addendum entered and electronically signed by Ivan Ross MD 06/24/23 23:05:
Attending Addendum-
I saw and evaluated the patient. I reviewed the resident�s note and agree with findings and plan as documented in the resident�s note. CT put out @ 250 mls.. continues to have mild tenderness @ CT site. feels SOB today and weak. Full 12 point ROS
reviewed and negative except as documented Exam: GEN NAD heart RRR lungs no BS RLL CT in place draining serous fluid abd soft LE no edema Plan:
Right-sided empyema
- DC Unasyn and vancomycin cont doxy indefinitely. Fluid culture shows E. coli, Staphylococcus hemolyticus.
- Right-sided chest tube placed 06/15,
- pleural lysis with tPA and dornase injection 06/17, restart 3 days BID on 06/22, Pleurx cath afterwards
- Chest tube with 250cc output over the past 24 hours.
- chronic abx on DC with doxy
- CXR 06/23- personally reviewed-Unchanged right hydropneumothorax, likely with loculation. Right lung airspace disease and/or right lung mass may also be present.
- repeat CXR in am
Acute Hypoxemic Respiratory Failure- resolved, now off o2
Recurrent malignant right pleural effusion -due to underlying adenocarcinoma of the lung. for pleurx placement prior to DC
Pulmonary adenocarcinoma -On chemotherapy. Follows with oncology [facility].
Bicytopenia -platelet count normal. Etiology possibly due to chemotherapy. WBC WNL
Hyponatremia -appears chronic, repeat BMP in am
COPD- not in acute exacerbation
CAD -history of stent.
Essential hypertension -stable.
Hyperlipidemia -on atorvastatin.
History of gastric ulcer
Chronic anemia
Constipation -now moving bowels. Continue bowel regimen.
BPH
DNR
Dispo - transfer to [facility], DC to home after tpa/dornase and pleurx cath placement with VN
Time spent coordinating care, review of plan of care with resident, review of records, med rec, consults, notes, labs, rads, d/w nursing CM � 56 mins
Original Note:
Today's Communication/Plan
-
Continue Doxy indefinitely
Pleural lysis with tPA and dornase day 2 of 3
Repeat CXR in a.m.
Chest tube with 250 cc output in past 24 hours
Continue to monitor clinically
Assessment / Plan
Assessment / Plan
Assessment:
Mr. Beauchamp is a 73-year-old male with PMH complete right lung atelectasis due to small cell adenocarcinoma stage IV s/p thoracentesis and bilateral chest tube placement March 2023 who presented to the ED 06/15/2023 with fever of 101.5 for several
days, and drainage from chest tube site became clear, then blood, then yellow and greenish (pus) 06/13/2023 over 2 days. 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
Impression:
Empyema
Right sided tube in place
Recurrent malignant right pleural effusion
Due to underlying adenocarcinoma of the lung
tPA and dornase treatment BID (day #2 of 3)
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
Malignant right pleural effusion diagnosed March 2023
Progressive weight loss
Stage IV adenocarcinoma
Chronic hyponatremia
History of gastric ulcer
Chronic anemia
BPH
Plan:
Right-sided empyema:
-Right-sided chest tube placed 06/16/2023 with serosanguineous fluid output (250 cc w/n past 24 hours); fluid culture with E. coli and staph hemolyticus.
-Blood cultures negative TD.
-Continue doxycycline indefinitely, switch from Unasyn on 06/23/2023.
-ID following, recs appreciated.
-Follow ID outpatient in 2 months.
Recurrent malignant right pleural effusion:
-Due to underlying adenocarcinoma of the lung, diagnosed March 2023.
-Chest tube and antibiotics as above, chest tube with 250 mL drainage overnight.
-CXR 06/23/2023 with stable hydropneumothorax with a moderate loculated right pleural effusion and small pneumothorax.
-tPA and dornase instillation into chest tube (day 2 of 3), patient tolerated.
-Repeat CXR in a.m.
-Follow chest tube drainage with above procedure, serial assessment for empyema treatment with subsequent transition to long-term intrapleural catheter prior to discharge.
-Pulmonary following, appreciated.
-Outpatient pulmonary follow-up eventually.
-Follows with oncology [facility], s/p 2 cycles of chemotherapy.
Hyponatremia:
-Improving, likely hypervolemic hyponatremia given low urine osmolality and low urine sodium.
-TSH within normal limits
-Will continue to monitor and replete as needed.
Microcytic anemia:
-Likely due to chemotherapy.
-Monitor H&H.
COPD without exacerbation
CAD -with history of stent.
Essential hypertension:
-Stable.
Hyperlipidemia
-Continue atorvastatin.
DNR

Data:
CXR 06/24/2023: Unchanged right hydropneumothorax, likely with loculation. Right lung airspace disease and/or right lung mass may also be present. Continued radiographic follow-up is suggested.
CXR 06/23/2023: Stable hydropneumothorax with a moderate loculated right pleural effusion and small pneumothorax. Right-sided chest tube. Stable
CXR 06/22/2023: Right hydropneumothorax with a basilar chest tube in place. Volume loss and opacification of the right lung. Findings are similar compared to the exam from 06/21/2023.
CXR 06/21/2023: Right basilar chest remains in place with right-sided volume loss with confluent areas of opacity within the right lung base surrounding the chest tube and also within the right apex.
CXR 06/20/2023: Predominantly pleural-based opacification in the right hemithorax slightly decreased.
Anticipated Discharge: > 48 hours
Subjective/Interval History
-
Date of Service: June 24, 2023
Close no significant events reported overnight. Patient was seen in bed with mild discomfort around chest tube site. Patient reported that he has no appetite and was mildly short of breath. This is not new for patient. Chest tube sites was dry,
with no erythema, warmth or any sign of infection.
Objective Data
-
Vital Signs:
Vital Signs
Temp Pulse Resp BP Pulse Ox
98.5 F 101 20 121/70 93
06/24/23 03:00 06/24/23 06:00 06/24/23 06:00 06/24/23 06:00 06/24/23 06:00
I&O
06/23/23 06/24/23 06/25/23
06:59 06:59 06:59
Intake Total 1015 / 1015 800 / 800
Output Total 3705 / 3705 2050 / 2050 450 / 450
Balance -2690 / -2690 -1250 / -1250 -450 / -450
Review of Systems
-
History Source: Patient
Constitutional: Reports No Appetite; Denies Fever
EENT: Reports No Symptoms Reported
Respiratory: Reports Other (Mildly short of breath but not in respiratory distress)
Cardiac: Reports No Symptoms; Denies Chest Pain, Palpitations or Syncope
Abdomen/GI: Reports Constipated; Denies Abdominal Pain or Nausea
Breast: Reports No Symptoms
Genitourinary: Reports No Symptoms
Musculoskeletal: Reports No Symptoms
Skin: Reports No Symptoms
Neuro: Reports No Symptoms; Denies Headache or Lightheadedness
Endocrine: Reports No Symptoms
Hematologic / Lymphatic: Reports No Symptoms
Physical Exam
-
General: No Apparent Distress, Comfortable and Appears Chronically Ill
HEENT: Normocephalic and Moist Mucous Membranes
Respiratory: Other (Right chest tube - sanguineous fluid. Diminished left lung sounds, absent right sided lung sounds) and Chest Tubes
Cardiac: Regular Rhythm and S1/S2; Negative Murmur or Rub
GI: Soft, Nontender, Nondistended and Normal Bowel Sounds
Musculoskeletal: No Clubbing, No Cyanosis and No Edema
Skin: Warm
Neuro: Awake, Alert, Oriented, AO x 3, No Motor Deficits and Nonfocal/Grossly Intact
Psych: Calm and Intact Judgement/Insight
Data Reviewed
-
Diagnostic Radiology: Image personally visualized and interpreted, Report Reviewed by me and Discussed with Physician
Labs: Labs Reviewed by me and Discussed with Physician
Old Records: Reviewed
[2023-06-24] MEDS: SYMBICORT 80/4.5 MCG INHALER 2 PUFF INH ×2 (07:42→20:19)
[2023-06-24] MEDS: SPIRIVA RESPIMAT 2.5 MCG 2 PUFF INH (07:42)
[2023-06-24] MEDS: ProAIR HFA INHALER 2 PUFF INH (07:46)
[2023-06-24] MEDS: MIRALAX 17 GRAMS PO (08:26)
[2023-06-24] MEDS: FOLVITE 1 MG PO (08:27)
[2023-06-24] MEDS: TOPROL XL 12.5 MG PO ×2 (08:27→19:40)
[2023-06-24] MEDS: FLOMAX 0.400000000000000022 MG PO (08:27)
[2023-06-24] MEDS: COLACE 100 MG PO ×2 (08:27→19:40)
[2023-06-24] MEDS: VIBRAMYCIN 100 MG PO ×2 (08:27→19:40)
[2023-06-24 10:15] LABS: Blood Urea Nitrogen 10 mg/dl (9-20); Carbon Dioxide 23 mmol/L (22-30); Chloride 102 mmol/L (98-107); Estimated Creatinine Clearance 112 ml/min; Glucose 165 mg/dl (70-99); Potassium 4.1 mmol/L (3.5-5.1); Sodium 134 mmol/L (135-145); eGFR > 60.00
--- NOTE | 2023-06-24 10:25 | W.PN.PUL3 ---
Today's Communication / Plan
-
Continue antibiotic therapy as per ID - switched from Unasyn and IV vanco to PO doxy on 06/22
Monitor chest tube output
Start BID lytics and plan for 3 days - plan for instillation #3 and #4 today --> check CXR tomorrow AM
If insufficient drainage with lytics then will need to consult thoracic surgery fro [facility]ATS and washout
Once chest tube drainage slows to <150cc/day with improvement in R-lung expansion seen on CXR, then we can check CT Chest at that time to re-assess lung parenchyma and assess for persistence of empyema + hydropneumothorax
Once empyema has been treated, would transition to long-term intra-pleural catheter with ASEPT prior to discharge.
Eventual need to continue with cancer therapy at [facility]
He wishes to TRX his pulmonary care to us at [facility] - we will arrange for outpatient follow up
Assessment
-
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
at [place] ([facility]). Patient had a surgical procedure, details unknown, chest tube upon discharge with Heimlich valve, which spontaneously came out about 6 weeks ago. At that time he stopped his antibiotic therapy and started chemotherapy. His last
dose of chemotherapy (second cycle) was 3 weeks ago. He developed fevers over the last week and spontaneous drainage at his old chest tube site, now prompting admission for suspected empyema 06/15/2023
Large right pleural effusion due to empyema status post chest tube 06/15 by IR
Pleural fluid Cx (+) for E. coli
E. coli and + MR-Staph haemolyticus cultured at chest tube site (collected 06/15/2023 in ER before new chest tube inserted)
History of right large effusion with complete right lung atelectasis
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
Heimlich valve placed, spontaneously fell out approximately mid April 2023
Right upper lobe mass, right lung volume loss
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
Leukopenia, anemia
Stage IV adenocarcinoma
Malignant right pleural effusion diagnosed March 2023
Status post 2 cycles of chemotherapy (carboplatin, Taxol, Keytruda?)
sees Izabela Wood ([place])
Progressive weight loss
Clubbing on exam
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
COPD, on trelegy
CAD s/p stents
HTN
HLD
GIB, gastric ulcer 2019
H/o H pylori
Former [id number] quit 15 years old
Plan/recommendations
Clinically improved
Chest tube with pus, additional 630 cc drained post intrapleural lytic therapy 06/17
Continues to drain well - closely monitor output in 12 hour intervals.
Will obtain repeat imaging with CT Chest once drainage slows to <150cc in a 24 hr period
Given the size of effusion with loculation, will start lytic treatment through chest tube BID x 3 days (will give 3rd and 4th doses today)
-
Pleural fluid positive E. coli
s/p Unasyn, vancomycin --> now on PO doxy as per infectious disease
Chest x-ray 06/20/2023: Slightly improved pleural fluid. Hydropneumothorax stable. Has trapped lung physiology.
-
Patient does have trapped lung physiology and had persistent air leak with prior chest tube back in March.
Unclear whether he had a BP fistula but with patient was discharged on chronic antibiotic therapy and chest tube with Heimlich valve which spontaneously fell out around middle of April ([place])
-
Status post intrapleural lytic therapy, tPA and dornase injection. 06/19/2023.
Dr. Waldron reviewed with interventional radiology, specifically plan to transition to long-term intra-pleural tube (i.e. pleurX vs ASEPT/ASPIRA) for which he can be discharged home once empyema adequately treated
Defer ABx duration to ID - will need several weeks duration of treatment
Patient will likely require reinitiation of chronic antibiotic therapy at time of discharge
-
Eventual repeat CT chest. Once empyema has been treated then would transition to ASEPT prior to discharge
I do not expect pleural space to be fluid free given trapped lung physiology, known adenocarcinoma with right upper lobe mass
-
: reached out to Thoracic Surgery ([facility]) - pt also spoke with oncology and asked them to reach out to us for updates
-
Not bronchospastic on exam.
Continue with outpatient inhaler regimen. Symbicort/Spiriva will replace Trelegy
DVT prophylaxis: Enoxaparin
Encourage ambulation with physical therapy
Encourage nutrition. Patient with good appetite
Continue to follow
Total time spent today was 35 minutes for this encounter. Time includes reviewing laboratory test/imaging results, reviewing pertinent medical records, obtaining and reviewing medical history, performing an appropriate exam, ordering medications,
tests and procedures. Time also includes documentation of this encounter, coordinating patient care and communicating with other healthcare professionals. Total time does not include separately billed tests performed on this date of service.
Subjective Data
-
Date of Service:
Date of Service: June 24, 2023
Chief Complaint: Pulmonary Follow Up (Empyema)
Subjective:
Pt seen this AM. Doing well. Little SOB this AM b/c he walked around this AM and may have overdone it. She denies chest pain, HERNANDEZ, abd pain, N/V/f/c. 250cc output from chest tube last 24 hrs.
Review of Systems
General: Other (negative unless mentioned above)
Objective Data
Data Reviewed
Vital Signs / I&O / Oxygen:
Vital Signs
Temp Pulse Resp BP Pulse Ox
98.5 F 107 16 119/81 94
06/24/23 11:35 06/24/23 09:19 06/24/23 09:19 06/24/23 09:19 06/24/23 08:00
Intake and Output
06/23/23 06/24/23 06/25/23
06:59 06:59 06:59
Intake Total 1015 / 1015 800 / 800
Output Total 3705 / 3705 2049 / 2049 600 / 600
Balance -2690 / -2690 -1250 / -1250 -600 / -600
SaO2 94
Nasal Cannula flow liters per 3
minute
Physical Exam
General: Respiratory Distress (negative) and Comfortable
HEENT: Normocephalic and Anicteric
Cardiovascular: S1-S2, Murmur (n) and Rub (n)
Respiratory: Wheeze (n), Crackles (RLL), Rhonchi (n), Chest Tube (Right-sided chest tube) and Other (Inspiratory squeaks in RLL-RML)
GI: Soft, Non Distended and Non Tender
Neurology: Awake, Alert and Tremors (negative)
Skin: Warm, Dry, Cyanosis (n) and Jaundice (n)
Labs/Micro/Reports
Lab Data
06/23/23 05:24
06/24/23 09:47
--- NOTE | 2023-06-24 11:05 | W.SUR.POST ---
Addendum entered and electronically signed by Sherif Davis MD 06/24/23 20:00:
Correction to Date of Service: 06/24/2023
Original Note:
Surgical Immediate Post Op
Note
Instillation of Lytic Medications into Tube Thoracostomy
Pre Op Diagnosis: Right-sided empyema
Post Op Diagnosis: Same as above
Procedure Performed: tPA and dornase instillation into chest tube (procedure #3 of 6)
Primary Surgeon/proceduralist: Dr. Davis
Secondary Surgeons: n/a
Anesthesia: n/a
Estimated Blood Loss: n/a
Fluids: 30cc of NS 0.9%
Drains/Shunts: n/a
Specimens/Cultures: n/a
Doppler/Duplex/Angio (Y/N): n/a
Complications: No immediate complications
Operative/Procedure Details: Patient was positioned for adequate access to the right-sided chest tube. Before procedure started, sterile technique was utilized with handwashing, facemask, gown and sterile gloves. Chest tube was removed off suction
as well. Three-way stop-cock was turned towards patient to essentially clamp the chest tube. NS 0.9% was then instilled into chest tube, and then 10mg alteplase was instilled into the chest tube without resistance. 10cc of 0.9% NS was instilled,
and then 5mg dornase was instilled into the chest tube without resistance. Finally, another 10cc of NS 0.9% was instilled into the chest tube without resistance. The stop cock was turned towards the patient to allow the lytic medications to remain
in pleural space. Alcohol swabs were utilized whenever any medication was attached to the female leur lock end of the 3-way stop-cock. This was to improve sterility. The procedure ended without any complications.
I instructed to the RN to keep chest tube clamped for 2 hours, and then place chest tube back onto negative suction at -[id number], and place stop-cock to neutral position to allow flow of fluid out of pleural space into pleuro-vac container.
--- NOTE | 2023-06-24 11:28 | W.PN.ID1 ---
Date of Service
Date of Service: June 24, 2023
Today's Communication
- switched to doxycycline indefinitely - I ordered through his outpatient pharmacy
- follow up in my clinic in about 2 months
Assessment / Plan
Empyema
Chronic Pleural Effusions
Stage IV adenocarcinoma
Malignant right pleural effusion diagnosed March 2023
Status post 2 cycles of chemotherapy (carboplatin, Taxol, Keytruda?); sees Izabela Wood ([place])
Progressive weight loss
Clubbing on exam
- pleural cultures E coli x2 and rare CONS
- continue aspiration precautions
- switched to doxycycline indefinitely - I ordered through his outpatient pharmacy
- follow up in my clinic in about 2 months
Chief Complaint
-: Other (empyema)
Subjective / Review of Systems
afebrile
bp stable
cr stable
afb and fungal cultures remain no growth
further TPA and dornase instillation procedure 2 of 6
feels well
Vital Signs / Physical Exam
Vital Signs
Vital Signs
Temp Pulse Resp BP Pulse Ox
98.7 F 107 16 119/81 94
06/24/23 07:15 06/24/23 09:19 06/24/23 09:19 06/24/23 09:19 06/24/23 08:00
Physical Exam
Constitutional: No Acute Distress
Cardiovascular: Regular Rate and S1/S2; Negative Murmur or Rub
Pulmonary: Clear and Symmetric; Negative Wheezes or Rales
Gastrointestinal: Soft, Non Tender, Non Distended and Normal Bowel Sounds
Skin: Warm and Dry; Negative Rash or Jaundice
Objective Data
Lab Data
Lab Results
06/23/23 05:24
06/24/23 09:47
PT 15.4 Sec (11.4-14.6) H 06/16/23 07:44
INR 1.24 06/16/23 07:44
Estimated Creat Clear 112 ml/min 06/24/23 09:47
Lactic Acid Cancelled 06/15/23 19:00
Total Bilirubin 0.2 mg/dl (0.2-1.3) 06/18/23 04:20
AST 25 U/L (17-59) 06/18/23 04:20
ALT 32 U/L (0-50) 06/18/23 04:20
Alkaline Phosphatase 85 U/L (38-126) 06/18/23 04:20
Most recent labs reviewed.
Micro Results:
06/15/23 14:59 Blood Culture - Final
Blood/Venous No Growth - Final Report
06/15/23 14:59 Blood Culture - Final
Blood/Venous No Growth - Final Report
06/15/23 17:53 Wound Culture - Final
Chest - Right Escherichia coli
Staphylococcus haemolyticus
Gram Stain - Final
06/16/23 16:39 Acid Fast Bacilli Smear - Preliminary
Pleural Fluid Acid Fast Bacilli Culture - Preliminary
06/16/23 16:38 Body Fluid Culture - Final
Pleural Fluid Escherichia coli
Gram Stain - Final
06/16/23 16:39 Fungal Smear - Final
Pleural Fluid No yeast or fungal elements seen.
Fungal Culture - Pending
06/15/23 20:36 MRSA Screen - Final
Nose No Methicillin Resistant Staphylococcus aureus isolated.
--- NOTE | 2023-06-24 13:27 | PTCARENOTE ---
Rec'd pt this AM. Assisted Dr. Davis with TPA treatment of chest tube. Pt tolerated procedure well. CT clamped for 2 hours post procedure. Now unclamped and draining serosanguinous fluid. Call gray in reach, vital signs stable.
[2023-06-24] MEDS: TYLENOL 650 MG PO (15:25)
[2023-06-24] MEDS: LOVENOX 40 MG SC (16:54)
--- NOTE | 2023-06-24 17:10 | PTCARENOTE ---
Rec'd notice of order for stat EKG and Trop for chest pain. Sent TT to Dr. Pettit, manager of medical to question order as pt does not have chest pain.Dr. Pettit stated that he will cancel the order. pt denies chest pain. only complains of shortness
of breath and pain and chest tube insertion site. no new chest pain.
--- NOTE | 2023-06-24 18:30 | W.SUR.POST ---
Addendum entered and electronically signed by hSerif Davis MD 06/24/23 20:00:
Correction to Date of Service: 06/24/2023
Original Note:
Surgical Immediate Post Op
Note
Instillation of Lytic Medications into Tube Thoracostomy
Pre Op Diagnosis: Right-sided empyema
Post Op Diagnosis: Same as above
Procedure Performed: tPA 10mg and dornase 5mg instillation into chest tube (procedure #4 of 6)
Primary Surgeon/proceduralist: Dr. Davis
Secondary Surgeons: n/a
Anesthesia: n/a
Estimated Blood Loss: n/a
Fluids: 30cc of NS 0.9%
Drains/Shunts: n/a
Specimens/Cultures: n/a
Doppler/Duplex/Angio (Y/N): n/a
Complications: No immediate complications
Operative/Procedure Details: Patient was positioned for adequate access to the right-sided chest tube. Before procedure started, sterile technique was utilized with handwashing, facemask, gown and sterile gloves. Chest tube was removed off suction
as well. Three-way stop-cock was turned towards patient to essentially clamp the chest tube. NS 0.9% was then instilled into chest tube, and then 10mg alteplase was instilled into the chest tube without resistance. 10cc of 0.9% NS was instilled,
and then 5mg dornase was instilled into the chest tube without resistance. Finally, another 10cc of NS 0.9% was instilled into the chest tube without resistance. The stop cock was turned towards the patient to allow the lytic medications to remain
in pleural space. Alcohol swabs were utilized whenever any medication was attached to the female leur lock end of the 3-way stop-cock. This was to improve sterility. The procedure ended without any complications.
I instructed to the RN to keep chest tube clamped for 2 hours, and then place chest tube back onto negative suction at -[id number], and place stop-cock to neutral position to allow flow of fluid out of pleural space into pleuro-vac container.
[2023-06-24] MEDS: LIPITOR 80 MG PO (19:40)
--- NOTE | 2023-06-24 20:24 | PTCARENOTE ---
Received pt from kal RN. Pt is AAOx3, ROSEBUD. Sinus tach on the monitor. On RA O2 sat 97%, lungs diminished. R chest tube to -40, dressing changed. Dr. Davis at bedside instilled alteplase into the pts chest tube, this RN was instructed to keep
chest tube clamped for 2 hours. Pt assisted to the BR for hygiene. Pt is laying comfortable in bed with call gray in reach.
[2023-06-24] MEDS: FLEXERIL 5 MG PO (21:10)
[2023-06-24] MEDS: ULTRAM 50 MG PO (21:10)
[2023-06-24] MEDS: ProAIR HFA INHALER 1 PUFF INH (22:25)
[2023-06-25] VITALS (7 sets, daily range): BP systolic 107–124; BP diastolic 76–92; PULSE 114; O2SAT 96
[2023-06-25] MEDS: MORPHINE SULFATE 2 MG IV ×2 (00:37→23:34)
[2023-06-25 05:21] LABS: % Basophils 0.6 % (0-2); % Eosinophils 1.1 % (0-6); % Immature Granulocytes 3.9 % (0-0.5); % Lymphocytes 11.1 % (20.5-51.1); % Monocytes 8.7 % (1.7-9.3); % Neutrophils 74.6 % (42.2-75.2); Absolute Basophils 0.1 10^3/uL (0-0.2); Absolute Eosinophils 0.1 10^3/uL (0-0.7); Absolute Immature Granulocytes 0.3 10^3/uL (0-0.05); Absolute Lymphocytes 0.9 10^3/uL (1.2-3.4); Absolute Monocytes 0.7 10^3/uL (0.1-0.6); Absolute Neutrophils 5.9 10^3/uL (1.4-6.5); Hematocrit 30.9 % (39.0-52.0); Hemoglobin 9.7 g/dL (13.0-18.0); Mean Corp Hgb Conc. 31.4 g/dL (33.0-37.0); Mean Corpuscular Hgb 25.3 pg (27.0-31.0); Mean Corpuscular Volume 80.5 fL (80.0-94.0); Mean Platelet Volume 7.9 fL (7.4-10.4); Nucleated Red Blood Cells % 0 % (-); Platelet Count 166 10^3/uL (130-400); Red Blood Cell Count 3.84 10^6/uL (4.70-6.10); Red Cell Dist. Width 19.3 % (11.5-14.5); White Blood Cell Count 7.9 10^3/uL (4.8-10.8)
[2023-06-25 06:28] LABS: Blood Urea Nitrogen 13 mg/dl (9-20); Calcium 8.8 mg/dl (8.4-10.2); Carbon Dioxide 23 mmol/L (22-30); Chloride 105 mmol/L (98-107); Estimated Creatinine Clearance 112 ml/min; Glucose 111 mg/dl (70-99); Potassium 4.2 mmol/L (3.5-5.1); Sodium 134 mmol/L (135-145); eGFR > 60.00
[2023-06-25] MEDS: ProAIR HFA INHALER 1 PUFF INH ×2 (07:38→19:53)
[2023-06-25] MEDS: SYMBICORT 80/4.5 MCG INHALER 2 PUFF INH ×2 (07:38→19:53)
[2023-06-25] MEDS: SPIRIVA RESPIMAT 2.5 MCG 2 PUFF INH (07:38)
[2023-06-25] MEDS: ULTRAM 50 MG PO ×2 (07:46→17:12)
[2023-06-25] MEDS: FLOMAX 0.400000000000000022 MG PO (07:47)
[2023-06-25] MEDS: MIRALAX 17 GRAMS PO (07:47)
[2023-06-25] MEDS: VIBRAMYCIN 100 MG PO ×2 (07:47→20:01)
[2023-06-25] MEDS: FOLVITE 1 MG PO (07:47)
[2023-06-25] MEDS: COLACE 100 MG PO ×2 (07:47→20:01)
[2023-06-25] MEDS: TOPROL XL 12.5 MG PO ×2 (07:47→20:01)
--- NOTE | 2023-06-25 08:59 | CM ---
Patient with Hx lung CA on chemo with Dx Right-sided empyema, Recurrent malignant right pleural effusion. Chest tube - Right pleural lysis with TPA and dornase. PT & OT recommend HH.
Plan home with resumption [facility].
--- NOTE | 2023-06-25 10:15 | W.PN.PUL3 ---
Today's Communication / Plan
-
Continue antibiotic therapy as per ID - switched from Unasyn and IV vanco to PO doxy on 06/22
Monitor chest tube output
Continue BID lytics through chest tube and plan for 3 days - plan for instillations #5 and #6 today --> check Ct Chest AM
If insufficient drainage with lytics then will need to consult thoracic surgery fro [facility] and washout
Once empyema has been treated, would transition to long-term intra-pleural catheter with ASEPT prior to discharge.
Eventual need to continue with cancer therapy at [facility]
He wishes to TRX his pulmonary care to us at [facility] - we will arrange for outpatient follow up
Assessment
-
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
at [facility] Patient had a surgical procedure, details unknown, chest tube upon discharge with Heimlich valve, which spontaneously came out about 6 weeks ago. At that time he stopped his antibiotic therapy and started chemotherapy. His last
dose of chemotherapy (second cycle) was 3 weeks ago. He developed fevers over the last week and spontaneous drainage at his old chest tube site, now prompting admission for suspected empyema 06/15/2023
Large right pleural effusion due to empyema status post chest tube 06/15 by IR
Pleural fluid Cx (+) for E. coli
E. coli and + MR-Staph haemolyticus cultured at chest tube site (collected 06/15/2023 in ER before new chest tube inserted)
History of right large effusion with complete right lung atelectasis
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
Heimlich valve placed, spontaneously fell out approximately mid April 2023
Right upper lobe mass, right lung volume loss
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
Leukopenia, anemia
Stage IV adenocarcinoma
Malignant right pleural effusion diagnosed March 2023
Status post 2 cycles of chemotherapy (carboplatin, Taxol, Keytruda?)
sees Izabela Wood ([facility])
Progressive weight loss
Clubbing on exam
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
COPD, on trelegy
CAD s/p stents
HTN
HLD
GIB, gastric ulcer 2019
H/o H pylori
Former [id number]-year quit 15 years old
Plan/recommendations
Clinically improved
Chest tube with pus, additional 630 cc drained post intrapleural lytic therapy 06/17
Continues to drain well - closely monitor output in 12 hour intervals.
Given the size of effusion with loculation, we started lytic treatment through chest tube BID x 3 days (will give 5th and 6th doses today) and will check CT Chest tomorrow AM
-
Pleural fluid positive E. coli
s/p Unasyn, vancomycin --> now on PO doxy as per infectious disease
Chest x-ray 06/20/2023: Slightly improved pleural fluid. Hydropneumothorax stable. Has trapped lung physiology.
-
Patient does have trapped lung physiology and had persistent air leak with prior chest tube back in March.
Unclear whether he had a BP fistula but with patient was discharged on chronic antibiotic therapy and chest tube with Heimlich valve which spontaneously fell out around middle of April ([facility])
-
Status post intrapleural lytic therapy, tPA and dornase injection. 06/19/2023.
Dr. Waldron reviewed with interventional radiology, specifically plan to transition to long-term intra-pleural tube (i.e. pleurX vs ASEPT/ASPIRA) for which he can be discharged home once empyema adequately treated
Defer ABx duration to ID - will need several weeks duration of treatment
Patient will likely require reinitiation of chronic antibiotic therapy at time of discharge
-
CT chest tomorrow AM. Once empyema has been treated then would transition to ASEPT prior to discharge
I do not expect pleural space to be fluid free given trapped lung physiology, given known adenocarcinoma with right upper lobe mass
-
Dr. Petty: reached out to [facility] ([facility] - pt also spoke with oncology and asked them to reach out to us for updates
-
Not bronchospastic on exam.
Continue with outpatient inhaler regimen. Symbicort/Spiriva will replace Trelegy
DVT prophylaxis: Enoxaparin
Encourage ambulation with physical therapy
Encourage nutrition. Patient with good appetite
Continue to follow
Total time spent today was 35 minutes for this encounter. Time includes reviewing laboratory test/imaging results, reviewing pertinent medical records, obtaining and reviewing medical history, performing an appropriate exam, ordering medications,
tests and procedures. Time also includes documentation of this encounter, coordinating patient care and communicating with other healthcare professionals. Total time does not include separately billed tests performed on this date of service.
Subjective Data
-
Date of Service:
Date of Service: June 25, 2023
Chief Complaint: Pulmonary Follow Up (Empyema)
Subjective:
Patient seen and evaluated today at bedside. CXR today shows continued improvement in RLL aeration. Chest tube has drained 866 cc in the last 24 hours. He remains on room air and breathing comfortably. Denies SOB this AM.
Review of Systems
General: Other (Negative unless mentioned above)
Objective Data
Data Reviewed
Vital Signs / I&O / Oxygen:
Vital Signs
Temp Pulse Resp BP Pulse Ox
98.2 F 101 19 120/76 93
06/25/23 07:40 06/25/23 08:00 06/25/23 08:00 06/25/23 08:00 06/25/23 08:00
Intake and Output
06/24/23 06/25/23 06/26/23
06:59 06:59 06:59
Intake Total 800 / 800 410 / 410 120 / 120
Output Total 2049 / 2049 1916 / 1916 300 / 300
Balance -1250 / -1250 -1506 / -1506 -180 / -180
SaO2 93
Nasal Cannula flow liters per 3
minute
Physical Exam
General: Respiratory Distress (negative) and Comfortable
HEENT: Normocephalic and Anicteric
Cardiovascular: S1-S2, Murmur (n) and Rub (n)
Respiratory: Wheeze (n), Crackles (RLL), Rhonchi (n), Chest Tube (Right-sided chest tube) and Other (Inspiratory squeaks in RLL-RML)
GI: Soft, Non Distended and Non Tender
Neurology: Awake, Alert and Tremors (negative)
Skin: Warm, Dry, Cyanosis (n) and Jaundice (n)
Labs/Micro/Reports
Lab Data
06/25/23 04:51
06/25/23 04:51
--- NOTE | 2023-06-25 10:20 | W.SUR.POST ---
Surgical Immediate Post Op
Note
Date of Service: 06/25/2023
Pre Op Diagnosis: Right-sided empyema
Post Op Diagnosis: Same as above
Procedure Performed: tPA 10mg and dornase 5mg instillation into chest tube (procedure #5 of 6)
Primary Surgeon/proceduralist: Dr. Davis
Secondary Surgeons: n/a
Anesthesia: n/a
Estimated Blood Loss: n/a
Fluids: 30cc of NS 0.9%
Drains/Shunts: n/a
Specimens/Cultures: n/a
Doppler/Duplex/Angio (Y/N): n/a
Complications: No immediate complications
Operative/Procedure Details: Patient was positioned for adequate access to the right-sided chest tube. Before procedure started, sterile technique was utilized with handwashing, facemask, gown and sterile gloves. Chest tube was removed off suction
as well. Three-way stop-cock was turned towards patient to essentially clamp the chest tube. NS 0.9% was then instilled into chest tube, and then 10mg alteplase was instilled into the chest tube without resistance. 10cc of 0.9% NS was instilled,
and then 5mg dornase was instilled into the chest tube without resistance. Finally, another 10cc of NS 0.9% was instilled into the chest tube without resistance. The stop cock was turned towards the patient to allow the lytic medications to remain
in pleural space. Alcohol swabs were utilized whenever any medication was attached to the female leur lock end of the 3-way stop-cock. This was to improve sterility. The procedure ended without any complications.
I instructed to the RN to keep chest tube clamped for 2 hours, and then place chest tube back onto negative suction at -[id number], and place stop-cock to neutral position to allow flow of fluid out of pleural space into pleuro-vac container.
--- NOTE | 2023-06-25 12:27 | W.PN.ID1 ---
Date of Service
Date of Service: June 25, 2023
Today's Communication
- switched to doxycycline indefinitely - I ordered through his outpatient pharmacy
- follow up in my clinic in about 2 months; ID service will no longer actively follow this patient please recall for further questions
Assessment / Plan
Empyema
Chronic Pleural Effusions
Stage IV adenocarcinoma
Malignant right pleural effusion diagnosed March 2023
Status post 2 cycles of chemotherapy (carboplatin, Taxol, Keytruda?); sees Izabela Wood ([place])
Progressive weight loss
Clubbing on exam
- pleural cultures E coli x2 and rare CONS
- continue aspiration precautions
- switched to doxycycline indefinitely - I ordered through his outpatient pharmacy
- follow up in my clinic in about 2 months; ID service will no longer actively follow this patient please recall for further questions
Chief Complaint
-: Other (empyema)
Subjective / Review of Systems
afebrile
bp stable
without leukocytosis
cr stable
continues with high outputs from chest tube
afb and fungal cx no growth
Vital Signs / Physical Exam
Vital Signs
Vital Signs
Temp Pulse Resp BP Pulse Ox
98.2 F 104 22 120/76 97
06/25/23 11:38 06/25/23 10:00 06/25/23 10:00 06/25/23 08:00 06/25/23 11:24
Physical Exam
Constitutional: No Acute Distress
Cardiovascular: Regular Rate and S1/S2; Negative Murmur or Rub
Pulmonary: Clear and Symmetric; Negative Wheezes or Rales
Gastrointestinal: Soft, Non Tender, Non Distended and Normal Bowel Sounds
Skin: Warm and Dry; Negative Rash or Jaundice
Objective Data
Lab Data
Lab Results
06/25/23 04:51
06/25/23 04:51
PT 15.4 Sec (11.4-14.6) H 06/16/23 07:44
INR 1.24 06/16/23 07:44
Estimated Creat Clear 112 ml/min 06/25/23 04:51
Lactic Acid Cancelled 06/15/23 19:00
Total Bilirubin 0.2 mg/dl (0.2-1.3) 06/18/23 04:20
AST 25 U/L (17-59) 06/18/23 04:20
ALT 32 U/L (0-50) 06/18/23 04:20
Alkaline Phosphatase 85 U/L (38-126) 06/18/23 04:20
Most recent labs reviewed.
Micro Results:
06/15/23 14:59 Blood Culture - Final
Blood/Venous No Growth - Final Report
06/15/23 14:59 Blood Culture - Final
Blood/Venous No Growth - Final Report
06/15/23 17:53 Wound Culture - Final
Chest - Right Escherichia coli
Staphylococcus haemolyticus
Gram Stain - Final
06/16/23 16:39 Acid Fast Bacilli Smear - Preliminary
Pleural Fluid Acid Fast Bacilli Culture - Preliminary
06/16/23 16:38 Body Fluid Culture - Final
Pleural Fluid Escherichia coli
Gram Stain - Final
06/16/23 16:39 Fungal Smear - Final
Pleural Fluid No yeast or fungal elements seen.
Fungal Culture - Pending
06/15/23 20:36 MRSA Screen - Final
Nose No Methicillin Resistant Staphylococcus aureus isolated.
[2023-06-25] MEDS: FLEXERIL 5 MG PO (17:11)
[2023-06-25] MEDS: LOVENOX 40 MG SC (17:13)
--- NOTE | 2023-06-25 17:25 | W.SUR.POST ---
Addendum entered and electronically signed by Sherif Davis MD 06/26/23 00:42:
Correction to below: This is procedure # 6 of 6.
Original Note:
Surgical Immediate Post Op
Note
tpA/DNase Instillation Procedure
Date of Service: 06/25/2023
Pre Op Diagnosis: Right-sided empyema
Post Op Diagnosis: Same as above
Procedure Performed: tPA 10mg and dornase 5mg instillation into chest tube (procedure #5 of 6)
Primary Surgeon/proceduralist: Dr. Davis
Secondary Surgeons: n/a
Anesthesia: n/a
Estimated Blood Loss: n/a
Fluids: 30cc of NS 0.9%
Drains/Shunts: n/a
Specimens/Cultures: n/a
Doppler/Duplex/Angio (Y/N): n/a
Complications: No immediate complications
Operative/Procedure Details: Patient was positioned for adequate access to the right-sided chest tube. Before procedure started, sterile technique was utilized with handwashing, facemask, gown and sterile gloves. Chest tube was removed off suction
as well. Three-way stop-cock was turned towards patient to essentially clamp the chest tube. NS 0.9% was then instilled into chest tube, and then 10mg alteplase was instilled into the chest tube without resistance. 10cc of 0.9% NS was instilled,
and then 5mg dornase was instilled into the chest tube without resistance. Finally, another 10cc of NS 0.9% was instilled into the chest tube without resistance. The stop cock was turned towards the patient to allow the lytic medications to remain
in pleural space. Alcohol swabs were utilized whenever any medication was attached to the female leur lock end of the 3-way stop-cock. This was to improve sterility. The procedure ended without any complications.
I instructed to the RN to keep chest tube clamped for 2 hours, and then place chest tube back onto negative suction at -[id number], and place stop-cock to neutral position to allow flow of fluid out of pleural space into pleuro-vac container.
--- NOTE | 2023-06-25 19:54 | W.PN.HOSP.TC ---
Addendum entered and electronically signed by Ivan Ross MD 06/25/23 21:29:
Attending Addendum-
I saw and evaluated the patient. I reviewed the resident�s note and agree with findings and plan as documented in the resident�s note. CT put out @ 616 mls. SOB and RAMÍREZ improved. Full 12 point ROS reviewed and negative except as documented Exam: GEN
NAD heart RRR lungs increased aeration right lung decreased at base CT in place draining serosang fluid abd soft LE no edema Plan:
Right-sided empyema
- DC Unasyn and vancomycin cont doxy indefinitely. Fluid culture- E. coli, Staphylococcus hemolyticus.
- Right-sided chest tube placed 06/15,
- pleural lysis with tPA and dornase injection 06/17, restart 3 days BID on 06/22 last dose this PM, possible Pleurx cath afterwards
- Chest tube with 616 cc output over the past 24 hours.
- chronic abx on DC with doxy
- CXR 06/24- Large opacity in the right chest without significant change likely correlating with the given history of empyema.
- repeat CT in am
Acute Hypoxemic Respiratory Failure- resolved, now off o2
Recurrent malignant right pleural effusion -due to underlying adenocarcinoma of the lung. for possible Pleurx placement prior to DC
Pulmonary adenocarcinoma -On chemotherapy. Follows with oncology [facility].
Hyponatremia -mild appears chronic, repeat BMP in am
COPD- not in acute exacerbation
CAD -history of stent.
Essential hypertension -stable.
Hyperlipidemia -on atorvastatin.
History of gastric ulcer
Chronic anemia
BPH
DNR
Dispo - DC to home after tpa/dornase and pleurx cath placement with VN
Time spent coordinating care, review of plan of care with resident, review of records, med rec, consults, notes, labs, rads, d/w nursing CM � 55 mins
Original Note:
Today's Communication/Plan
-
lytics through chest tube was completed today, CT chest in a.m.
VATS with washout considered pending CT result
Assessment / Plan
Assessment / Plan
Assessment:
Mr. Beauchamp is a 73-year-old male with PMH complete right lung atelectasis due to small cell adenocarcinoma stage IV s/p thoracentesis and bilateral chest tube placement March 2023 who presented to the ED 06/15/2023 with fever of 101.5 for several
days, and drainage from chest tube site became clear, then blood, then yellow and greenish (pus) 06/13/2023 over 2 days. 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
Impression:
Empyema
Right sided tube in place
Recurrent malignant right pleural effusion
Due to underlying adenocarcinoma of the lung
tPA and dornase treatment BID (day #3 of 3)
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
Malignant right pleural effusion diagnosed March 2023
Progressive weight loss
Stage IV adenocarcinoma
Chronic hyponatremia
History of gastric ulcer
Chronic anemia
BPH
Plan:
Right-sided empyema:
-Twice daily lytics through chest tube was completed today, CT chest in a.m.
-Right-sided chest tube placed 06/16/2023 with serosanguineous fluid output (291 cc w overnight); fluid culture with E. coli and staph hemolyticus.
-Consider thoracic surgery consult for VATS and washout if insufficient drainage by pulmonology.
-Continue doxycycline indefinitely, switch from Unasyn on 06/23/2023.
-ID following, recs appreciated.
-Follow ID outpatient in 2 months.
Recurrent malignant right pleural effusion:
-Due to underlying adenocarcinoma of the lung, diagnosed March 2023.
-Chest tube and antibiotics as above, chest tube with 250 mL drainage overnight.
-CXR 06/23/2023 with stable hydropneumothorax with a moderate loculated right pleural effusion and small pneumothorax.
-tPA and dornase instillation into chest tube (day 3 of 3) completed today, patient tolerated.
-Will get CT chest in a.m.
-Follow chest tube drainage with above procedure, serial assessment for empyema treatment with subsequent transition to long-term intrapleural catheter prior to discharge.
-Pulmonary following, appreciated.
-Outpatient pulmonary follow-up eventually.
-Follows with oncology [facility], s/p 2 cycles of chemotherapy.
Hyponatremia:
-Improving, likely hypervolemic hyponatremia given low urine osmolality and low urine sodium.
-TSH within normal limits
-Will continue to monitor and replete as needed.
Microcytic anemia:
-Likely due to chemotherapy.
-Monitor H&H.
COPD without exacerbation
CAD -with history of stent.
Essential hypertension:
-Stable.
Hyperlipidemia
-Continue atorvastatin.
DNR

Data:
CXR 06/24/2023: Unchanged right hydropneumothorax, likely with loculation. Right lung airspace disease and/or right lung mass may also be present. Continued radiographic follow-up is suggested.
CXR 06/23/2023: Stable hydropneumothorax with a moderate loculated right pleural effusion and small pneumothorax. Right-sided chest tube. Stable
CXR 06/22/2023: Right hydropneumothorax with a basilar chest tube in place. Volume loss and opacification of the right lung. Findings are similar compared to the exam from 06/21/2023.
CXR 06/21/2023: Right basilar chest remains in place with right-sided volume loss with confluent areas of opacity within the right lung base surrounding the chest tube and also within the right apex.
CXR 06/20/2023: Predominantly pleural-based opacification in the right hemithorax slightly decreased.
Anticipated Discharge: 24 - 48 hours
Subjective/Interval History
-
Date of Service: June 25, 2023
Patient seen in bed in no acute distress. Still mildly tachycardic with no other acute complaints. Overnight, chest tube output was 291 cc with a total of 866 cc in 24 hours.
Objective Data
-
Vital Signs:
Vital Signs
Temp Pulse Resp BP Pulse Ox
98.2 F 124 22 107/92 94
06/25/23 19:05 06/25/23 16:00 06/25/23 12:00 06/25/23 15:54 06/25/23 16:00
I&O
06/24/23 06/25/23 06/26/23
06:59 06:59 06:59
Intake Total 800 / 800 410 / 410 600 / 600
Output Total 2049 / 2049 1915 / 1915 1150 / 1150
Balance -1250 / -1250 -1506 / -1506 -550 / -550
Review of Systems
-
History Source: Patient
Constitutional: Reports No Appetite; Denies Fever
EENT: Reports No Symptoms Reported
Respiratory: Reports Other (Mildly short of breath but not in respiratory distress)
Cardiac: Reports No Symptoms; Denies Chest Pain, Palpitations or Syncope
Abdomen/GI: Reports Constipated; Denies Abdominal Pain or Nausea
Breast: Reports No Symptoms
Genitourinary: Reports No Symptoms
Musculoskeletal: Reports No Symptoms
Skin: Reports No Symptoms
Neuro: Reports No Symptoms; Denies Headache or Lightheadedness
Endocrine: Reports No Symptoms
Hematologic / Lymphatic: Reports No Symptoms
Physical Exam
-
General: No Apparent Distress, Comfortable and Appears Chronically Ill
HEENT: Normocephalic and Moist Mucous Membranes
Respiratory: Other (Right chest tube - sanguineous fluid. Diminished left lung sounds, absent right sided lung sounds) and Chest Tubes
Cardiac: Regular Rhythm and S1/S2; Negative Murmur or Rub
GI: Soft, Nontender, Nondistended and Normal Bowel Sounds
Musculoskeletal: No Clubbing, No Cyanosis and No Edema
Skin: Warm
Neuro: Awake, Alert, Oriented, AO x 3, No Motor Deficits and Nonfocal/Grossly Intact
Psych: Calm and Intact Judgement/Insight
Data Reviewed
-
Diagnostic Radiology: Image personally visualized and interpreted, Report Reviewed by me and Discussed with Physician
Labs: Labs Reviewed by me and Discussed with Physician
Old Records: Reviewed
[2023-06-25] MEDS: LIPITOR 80 MG PO (20:01)
[2023-06-26 05:40] VITALS: BP 112/73
[2023-06-26] MEDS: ULTRAM 50 MG PO ×2 (05:43→21:09)
[2023-06-26 06:04] LABS: % Basophils 0.7 % (0-2); % Eosinophils 0.9 % (0-6); % Immature Granulocytes 3.3 % (0-0.5); % Lymphocytes 10.2 % (20.5-51.1); % Monocytes 9.7 % (1.7-9.3); % Neutrophils 75.2 % (42.2-75.2); Absolute Basophils 0.1 10^3/uL (0-0.2); Absolute Eosinophils 0.1 10^3/uL (0-0.7); Absolute Immature Granulocytes 0.3 10^3/uL (0-0.05); Absolute Lymphocytes 0.9 10^3/uL (1.2-3.4); Absolute Monocytes 0.9 10^3/uL (0.1-0.6); Absolute Neutrophils 6.8 10^3/uL (1.4-6.5); Hematocrit 31.7 % (39.0-52.0); Hemoglobin 10.2 g/dL (13.0-18.0); Mean Corp Hgb Conc. 32.2 g/dL (33.0-37.0); Mean Corpuscular Hgb 25.4 pg (27.0-31.0); Mean Corpuscular Volume 78.9 fL (80.0-94.0); Mean Platelet Volume 7.8 fL (7.4-10.4); Nucleated Red Blood Cells % 0 % (-); Platelet Count 184 10^3/uL (130-400); Red Blood Cell Count 4.02 10^6/uL (4.70-6.10); Red Cell Dist. Width 19.9 % (11.5-14.5)
[2023-06-26 06:16] LABS: Blood Urea Nitrogen 13 mg/dl (9-20); Calcium 8.8 mg/dl (8.4-10.2); Carbon Dioxide 24 mmol/L (22-30); Chloride 103 mmol/L (98-107); Estimated Creatinine Clearance 112 ml/min; Glucose 114 mg/dl (70-99); Potassium 4.4 mmol/L (3.5-5.1); Sodium 132 mmol/L (135-145); eGFR > 60.00
--- NOTE | 2023-06-26 07:21 | W.PN.HOSP.TC ---
Addendum entered and electronically signed by Ivan Ross MD 06/26/23 21:46:
Attending Addendum-
I saw and evaluated the patient. I reviewed the resident�s note and agree with findings and plan as documented in the resident�s note. SOB and RAMÍREZ continues to improve. Full 12 point ROS reviewed and negative except as documented Exam: Vitals
reviewed in EMR. GEN NAD heart RRR lungs increased aeration right lung decreased BS at base CT in place draining serosang fluid abd soft LE no edema Plan:
Right-sided empyema
- Fluid culture- E. coli, Staphylococcus hemolyticus.
- Right-sided chest tube placed 06/15,
- pleural lysis with tPA and dornase injection 06/17, restart 3 days BID on 06/22-06/24
- chronic abx on DC with doxy
- CT 06/2550-Xzoobyba-gflla right pneumothorax, which is decreased in size, slight improvement in inflation of the right middle lobe and right lower lobe
- plan to lower to water seal over the weekend- if tolerates water seal then he can plan to go home with Heimlich valve and return for pleurX/ASPIRA as an outpatient
- for eventual VATS/Decortication eval as OP
Acute Hypoxemic Respiratory Failure- resolved, now off o2
Recurrent malignant right pleural effusion -due to underlying adenocarcinoma of the lung. plan to transfer care to pul at [place]
Pulmonary adenocarcinoma -On chemotherapy. Follows with oncology [facility]. would like to transfer care to [place]
Hyponatremia -mild appears chronic, repeat BMP in am
COPD- not in acute exacerbation
CAD -history of stent.
Essential hypertension -stable.
Hyperlipidemia -on atorvastatin.
History of gastric ulcer
Chronic anemia
BPH
DNR
Time spent coordinating care, review of plan of care with resident, review of records, med rec, consults, notes, labs, rads, d/w nursing CM radiology and pulm � 58 mins
Original Note:
Today's Communication/Plan
-
Monitor chest tube output
Continue antibiotics
Monitor and replete electrolytes.
Assessment / Plan
Assessment / Plan
Assessment:
Mr. Beauchamp is a 73-year-old male with PMH complete right lung atelectasis due to small cell adenocarcinoma stage IV s/p thoracentesis and bilateral chest tube placement March 2023 who presented to the ED 06/15/2023 with fever of 101.5 for several
days, and drainage from chest tube site became clear, then blood, then yellow and greenish (pus) 06/13/2023 over 2 days. 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
Impression:
Empyema
Right sided tube in place
Recurrent malignant right pleural effusion
Due to underlying adenocarcinoma of the lung
tPA and dornase treatment BID completed
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
Malignant right pleural effusion diagnosed March 2023
Progressive weight loss
Stage IV adenocarcinoma
Chronic hyponatremia
History of gastric ulcer
Chronic anemia
BPH
Plan:
Right-sided empyema:
-Twice daily lytics through chest tube was completed (day 3 of 3).
-CXR 06/25/2023 negative for pneumothorax but Large opacity in the right chest without significant change likely correlating with the given history of empyema.
-CT 06/26/2023 with moderate size right pneumothorax and slight improvement in inflation of right middle lobe and right lower lobe.
-Right-sided chest tube placed 06/16/2023 with serosanguineous fluid output 499 cc in 24 hours, was 660 cc yesterday.
-Monitor chest tube output, suction pressure lowered with plan to lower to waterseal. Eventually will need Pleurx/Aspira as outpatient.
-Will likely require decortication of trapped lung.
-Consider thoracic surgery consult for VATS and washout if insufficient drainage per pulmonology.
-Continue doxycycline indefinitely, switch from Unasyn on 06/23/2023.
-Pulmonology following, recs appreciated.
-ID following and appreciated.
-Follow ID outpatient in 2 months.
Recurrent malignant right pleural effusion:
-Due to underlying adenocarcinoma of the lung, diagnosed March 2023.
-Repeat pleural fluid positive smear negative, culture pending.
-Follow chest tube drainage with above procedure, serial assessment for empyema treatment with subsequent transition to long-term intrapleural catheter prior to discharge..
-Outpatient pulmonary follow-up eventually.
-Follows with oncology [facility], s/p 2 cycles of chemotherapy.
Hyponatremia:
-Mild, this appears chronic. Will follow and replete as needed.
Microcytic anemia:
-Likely due to chemotherapy.
-Monitor H&H.
COPD without exacerbation
CAD -with history of stent.
Essential hypertension:
-Stable.
Hyperlipidemia
-Continue atorvastatin.
DNR (patient elects to be full code for elective procedures only)

Data:
CT scan W/O IV contrast 06/26/2023:
Compared to examination of June 15, 2023, there has been placement of a right pleural pigtail catheter, with interval decrease in size of right hydropneumothorax, likely representing drainage of empyema.
The rounded area of confluent increased opacity in the right upper lobe most likely represents mass/neoplasia, given the additional history of lung adenocarcinoma. This appears unchanged from CT of June 15, 2023, measuring approximately 0.8 cm AP
by 5.6 cm transverse by 8.4 cm craniocaudal.
Of note, the nodular opacities within the posterior aspect of the left lower lobe of the lung are new when compared to most recent CT of June 15, 2023. These opacities would be suspicious for focal area of nodular pneumonitis, new from most recent
CT examination.
Moderate-sized right pneumothorax, which is decreased in size compared to CT examination of April 13, 2023.
Slight improvement in inflation of the right middle lobe and right lower lobe compared to most recent CT from March 2023.
Ovoid focus of confluent parenchymal opacity involving the right upper lobe, fairly stable from prior CT, and probably representing chronic atelectasis/trapped lung.
Within the posterior aspect of the left lower lobe of the lung, patchy predominantly nodular areas of parenchymal opacity, new compared to CT of April 13, 2023, and likely representing patchy pneumonia.
Dense coronary artery calcifications are present. Please correlate with symptoms of and risk factors for coronary artery disease, with further workup as clinically appropriate.
CXR 06/24/2023: Unchanged right hydropneumothorax, likely with loculation. Right lung airspace disease and/or right lung mass may also be present. Continued radiographic follow-up is suggested.
CXR 06/23/2023: Stable hydropneumothorax with a moderate loculated right pleural effusion and small pneumothorax. Right-sided chest tube. Stable
CXR 06/22/2023: Right hydropneumothorax with a basilar chest tube in place. Volume loss and opacification of the right lung. Findings are similar compared to the exam from 06/21/2023.
CXR 06/21/2023: Right basilar chest remains in place with right-sided volume loss with confluent areas of opacity within the right lung base surrounding the chest tube and also within the right apex.
CXR 06/20/2023: Predominantly pleural-based opacification in the right hemithorax slightly decreased.
Anticipated Discharge: 24 - 48 hours
Subjective/Interval History
-
Date of Service: June 26, 2023
Patient seen and examined in the room. Looks comfortable and in no acute distress.
Objective Data
-
Labs:
Laboratory Results
06/26/23
05:39
WBC 9.0
Hgb 10.2 L
Hct 31.7 L
Plt Count 184
Sodium 132 L
Potassium 4.4
Chloride 103
Carbon Dioxide 24
BUN 13
Creatinine 0.5 L
Glucose 114 H
Calcium 8.8
Vital Signs:
Vital Signs
Temp Pulse Resp BP Pulse Ox
98.1 F 101 16 112/73 94
06/25/23 22:52 06/26/23 06:00 06/25/23 19:56 06/26/23 05:40 06/25/23 21:14
I&O
06/25/23 06/26/23 06/27/23
06:59 06:59 06:59
Intake Total 410 / 410 1010 / 1010
Output Total 1915 / 1915 2679 / 2679
Balance -1506 / -1506 -1669 / -1669
Review of Systems
-
History Source: Patient
Constitutional: Reports No Appetite; Denies Fever
EENT: Reports No Symptoms Reported
Respiratory: Reports Other (Mildly short of breath but not in respiratory distress)
Cardiac: Reports No Symptoms; Denies Chest Pain, Palpitations or Syncope
Abdomen/GI: Reports Constipated; Denies Abdominal Pain or Nausea
Breast: Reports No Symptoms
Genitourinary: Reports No Symptoms
Musculoskeletal: Reports No Symptoms
Skin: Reports No Symptoms
Neuro: Reports No Symptoms; Denies Headache or Lightheadedness
Endocrine: Reports No Symptoms
Hematologic / Lymphatic: Reports No Symptoms
Physical Exam
-
General: No Apparent Distress, Comfortable and Appears Chronically Ill
HEENT: Normocephalic and Moist Mucous Membranes
Respiratory: Other (Right chest tube - sanguineous fluid. Diminished left lung sounds, absent right sided lung sounds) and Chest Tubes
Cardiac: Regular Rhythm and S1/S2; Negative Murmur or Rub
GI: Soft, Nontender, Nondistended and Normal Bowel Sounds
Musculoskeletal: No Clubbing, No Cyanosis and No Edema
Skin: Warm
Neuro: Awake, Alert, Oriented, AO x 3, No Motor Deficits and Nonfocal/Grossly Intact
Psych: Calm and Intact Judgement/Insight
Data Reviewed
-
Diagnostic Radiology: Report Reviewed by me and Discussed with Physician
CT Scan: Image personally visualized and interpreted, Report Reviewed by me and Discussed with Physician
Labs: Labs Reviewed by me and Discussed with Physician
Old Records: Reviewed
[2023-06-26] MEDS: SPIRIVA RESPIMAT 2.5 MCG 2 PUFF INH (08:16)
[2023-06-26] MEDS: SYMBICORT 80/4.5 MCG INHALER 2 PUFF INH ×2 (08:17→21:26)
[2023-06-26] MEDS: ProAIR HFA INHALER 1 PUFF INH ×2 (08:17→21:26)
[2023-06-26] MEDS: VIBRAMYCIN 100 MG PO ×2 (08:24→21:04)
[2023-06-26] MEDS: FLOMAX 0.400000000000000022 MG PO (08:24)
[2023-06-26 08:25] VITALS: BP 108/76
[2023-06-26] MEDS: COLACE 100 MG PO ×2 (08:25→21:04)
[2023-06-26] MEDS: FOLVITE 1 MG PO (08:25)
[2023-06-26] MEDS: TOPROL XL 12.5 MG PO ×2 (08:25→21:04)
[2023-06-26] MEDS: MIRALAX 17 GRAMS PO (08:28)
--- NOTE | 2023-06-26 11:40 | CONSULT.CT ---
Consultation
-
Date/Time Consultation Requested: 06/26/23 1115
Date/Time Consultation Performed: 06/26/23 1143
Requesting Provider: Sherif Davis
Performing Provider: Kimmie BRUNSON for Tabitha HART
Reason for Consultation: VATs + Decortication
Patient History
Physicians
Family Physician: None
History of Present Illness
73-year-old male with past medical history significant for stage IV adenocarcinoma with malignant right pleural effusion, hypertension, hyperlipidemia, COPD, CAD with stents, GI bleed with gastric ulcer in 2019 and chronic macrocytic anemia
presented to [facility] on 06/14 with new onset fevers.� He then noticed some drainage from his right chest tube site that became bloody and then green.� He was started on Unasyn.� His chest tube reportedly fell out 4 weeks ago.� Currently
he does get chemo every 3 weeks at [facility].
Upon admission patient subsequently received a new chest tube placement and was found to have trapped lung physiology with a persistent air leak.� Yesterday, pulmonary administered lytics throughout the chest tube.� Unasyn and vancomycin were
discontinued and patient is to continue doxycycline indefinitely due to fluid cultures being positive for E. coli and Staphylococcus haemolyticus.�
CT surgery was consulted due to the patient's need for a VATS/decortication procedure due to his trapped lung physiology with persistent rind.
Past Medical History
Past Medical History: Other
Stage IV adenocarcinoma with malignant right pleural effusion, chemotherapy ongoing. Hypertension, hyperlipidemia, history of COPD, coronary disease with history of stent, GI bleed with gastric ulcer 2019, history of H. pylori, Chronic microcytic
anemia
Past Surgical History
Past Surgical History: Other
Multiple thoracentesis
Bilateral chest tube placements
Right knee replacement
Cardiac stent
L3-S1 fusion
Family History
Mother: N/A
Father: N/A
Family Medical History: Unable to Obtain
Social History
Personal:
Living: With Spouse
Allergies
Allergy/AdvReac Type Severity Reaction Status Date / Time
No Known Allergies Allergy Unverified 06/15/23 12:53
Home Medications
�Medication �Instructions �Recorded �Confirmed �Type
acetaminophen 325 mg tablet 650 mg PO Q6H PRN mild pain 06/15/23 06/15/23 History
(Tylenol)
albuterol sulfate 90 mcg/actuation 2 puff inhalation R Q6HPRN PRN sob 06/15/23 06/15/23 History
aerosol inhaler
atorvastatin 80 mg tablet 80 mg PO HS 06/15/23 06/15/23 History
bisacodyl 5 mg tablet,delayed 15 mg PO DAILYPRN PRN constipation 06/15/23 06/15/23 History
release (Dulcolax (bisacodyl))
cefadroxil 500 mg capsule 500 mg PO ONCE 06/15/23 06/15/23 History
cyclobenzaprine 5 mg tablet 5 mg PO Q8HPRN PRN muscle spasms 06/15/23 06/15/23 History
fluticasone fur. 100 mcg-umeclid 1 inh inhalation R DAILY 06/15/23 06/15/23 History
62.5 mcg-vilant 25 mcg
inhalat.powder (Trelegy Ellipta)
folic acid 1 mg tablet 1 mg PO DAILY 06/15/23 06/15/23 History
melatonin 10 mg tablet 10 mg PO HS PRN sleep 06/15/23 06/15/23 History
metoprolol tartrate 25 mg tablet 12.5 mg PO BID 06/15/23 06/15/23 History
sennosides 8.6 mg tablet (senna) 17.2 mg PO [id number] PRN constipation 06/15/23 06/15/23 History
tamsulosin 0.4 mg capsule 0.4 mg PO DAILY 06/15/23 06/15/23 History
tramadol 50 mg tablet 50 mg PO Q8H PRN pain 06/16/23 06/16/23 History
Review of Systems
-
History Source: Patient
General: Reports Fever, Weight Loss and Fatigue
HEENT: Reports No Symptoms
Respiratory: Reports Cough
Cardiac: Reports No Symptoms
Abdomen/GI: Reports No Symptoms
: Reports No Symptoms
Musculoskeletal: Reports Myalgias
Skin: Reports No Symptoms
Neurological: Reports No Symptoms
Vascular: Reports No Symptoms
Physical Exam
Vital Signs
Temp 97.7 F 06/26/23 11:11
Temp route: Oral 06/26/23 11:11
Pulse 105 06/26/23 08:25
Rhythm: Sinus tachycardia 06/26/23 08:53
With- Normal sinus rhythm 06/25/23 09:28
Resp Rate 18 06/26/23 08:21
Blood pressure 108/76 06/26/23 08:25
Blood pressure extremity used: Right upper arm 06/21/23 19:59
Position: Lying 06/21/23 19:59
MAP (cuff-Carissa Monitor) 87 06/26/23 08:25
SaO2 97 06/26/23 08:21
Nasal Cannula flow liters per minute 3 06/22/23 08:24
Oxygen Mode of Delivery Room air 06/26/23 08:21
Pulse Ox at Rest 96 06/25/23 16:04
Can the patient verbally communicate their pain? Yes 06/26/23 08:53
Pain scale rating: Asleep 06/26/23 06:43
Actual Weight 76.8 kg 06/19/23 13:30
Body Mass Index (BMI) 24.3 06/19/23 13:30
Supine- Blood Pressure 123/73 06/19/23 12:21
Supine- Pulse 107 06/24/23 09:28
Sitting- Blood Pressure 107/92 06/25/23 16:04
Sitting- Pulse 114 06/25/23 16:04
Standing- Pulse 115 05/08/24 09:28
Heart rate after activity 123 06/25/23 16:04
Blood pressure after activity 127/85 06/22/23 15:21
Oxygen Saturation with Activity 94 06/25/23 16:04
Labs
06/26/23 05:39
06/26/23 05:39
PT 15.4 Sec (11.4-14.6) H 06/16/23 07:44
Troponin I Cancelled 06/24/23 16:30
Exam
General: Poor Appetite
HEENT: Normocephalic
Respiratory: Crackles (right sided)
Cardiac: S1/S2 and Regular Rhythm
GI: Soft, Non Tender and Non Distended
Rectal: Deferred by Provider
Skin: Warm and Dry
Neuro: AO x 3
Psych: Calm
Assessment / Plan
-
73-year-old male with past medical history listed above now has a persistent right pleural effusion due to empyema status post chest tube placement. CT surgery was consulted for VATS or decortication.
#Emphyema s/p CT placement
- Previous surgeries and chemotherapy were done at [place].
- patient expressed interested in transferring his care to [place]. Would recommend consulting oncology about transfusing chemo infusions here d/t difficulties with transportation
- We would recommend returning to Dr. James for surgical intervention
>>>Would likely require a thoracotomy and decortication for his trapped lung.
[2023-06-26 15:13] VITALS: BP 116/71
--- NOTE | 2023-06-26 15:30 | W.PN.PUL3 ---
Today's Communication / Plan
-
Continue antibiotic therapy as per ID - switched from Unasyn and IV vanco to PO doxy on 06/22 --> he will continue PO doxy indefinitely
Monitor chest tube output --> lowered suction to -[id number] today, and will plan to lower to water seal over the weekend
If tolerates water seal then he can plan to go home with Heimlich valve and return for pleurX/ASPIRA as an outpatient
He wishes to transitionn his Oncology care to here with [facility]
He wishes to TRX his pulmonary care to us at [facility] - we will arrange for outpatient follow up
Pulmonary service will continue to follow along
Assessment
-
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
at [facility] ([facility]). Patient had a surgical procedure, details unknown, chest tube upon discharge with Heimlich valve, which spontaneously came out about 6 weeks ago. At that time he stopped his antibiotic therapy and started chemotherapy. His last
dose of chemotherapy (second cycle) was 3 weeks ago. He developed fevers over the last week and spontaneous drainage at his old chest tube site, now prompting admission for suspected empyema 06/15/2023
Large right pleural effusion due to empyema status post chest tube 06/15 by IR
Pleural fluid Cx (+) for E. coli
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
History of right large effusion with complete right lung atelectasis
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
Heimlich valve placed, spontaneously fell out approximately mid April 2023
Right upper lobe mass, right lung volume loss with pneumothorax ex-vacuo due to entrapped lung physiology given his adenocarcinoma with MPE
Leukopenia, anemia
Stage IV adenocarcinoma
Malignant right pleural effusion diagnosed March 2023
Status post 2 cycles of chemotherapy (carboplatin, Taxol, Keytruda?)
sees Izabela Wood ([facility])
Progressive weight loss
Clubbing on exam
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
COPD, on trelegy
CAD s/p stents
HTN
HLD
GIB, gastric ulcer 2019
H/o H pylori
Former kszils-21-xiyd-year quit 15 years old
Plan/recommendations
Clinically improved
Chest tube with pus, additional 630 cc drained post intrapleural lytic therapy 06/17
Continues to drain well - closely monitor output in 12 hour intervals.
Given the size of effusion with loculation, we started lytic treatment through chest tube BID x 3 days (will give 5th and 6th doses on 06/24)
CT Chest this AM shows RUL mass with pneumothorax ex-vacuo due to entrapped lung given malignant pleural effusion --> I consulted CT surgery to eval for decortication. Will follow up their recs
-
Pleural fluid positive E. coli
s/p Unasyn, vancomycin --> now on PO doxy as per infectious disease
Chest x-ray 06/20/2023: Slightly improved pleural fluid. Hydropneumothorax stable. Has trapped lung physiology.
-
Patient does have trapped lung physiology and had persistent air leak with prior chest tube back in March.
Unclear whether he had a BP fistula but with patient was discharged on chronic antibiotic therapy and chest tube with Heimlich valve which spontaneously fell out around middle of April ([facility])
-
Status post intrapleural lytic therapy, tPA and dornase injection. 06/19/2023. + another 6 doses from 06/22 - 06/24
Patient will be on doxycycline indefinetely as per ID --> I discussed with CT surgery about placing a long-term intra-pleural catheter into the pt, but pt should have extended course of ABx before this terminologist catheter should be placed.
Plan will be to lower suction over the weekend (06/26 + 06/27) to goal of water seal, and if pt tolerates this without excessive fluid buildup and pt becoming symptomatic, then we will plan to DC pt home with Heimlich valve, continue ABx for few more
weeks and then return to get ASEPT/ASPIRA as an outpatient.
I will send off a fluid sample today from his pleural space to see if empyema has been improved or not
-
We do not expect pleural space to be fluid free given trapped lung physiology, given known adenocarcinoma with right upper lobe mass
-
Dr. Petty: reached out to Thoracic Surgery ([facility]) - pt also spoke with oncology and asked them to reach out to us for updates
Pt wants to transition his Oncology care here after discharge. He would follow up with [facility]
-
Not bronchospastic on exam.
Continue with outpatient inhaler regimen. Symbicort/Spiriva will replace Trelegy
DVT prophylaxis: Enoxaparin
Encourage ambulation with physical therapy
Encourage nutrition. Patient with good appetite
Continue to follow
Total time spent today was 35 minutes for this encounter. Time includes reviewing laboratory test/imaging results, reviewing pertinent medical records, obtaining and reviewing medical history, performing an appropriate exam, ordering medications,
tests and procedures. Time also includes documentation of this encounter, coordinating patient care and communicating with other healthcare professionals. Total time does not include separately billed tests performed on this date of service.
Subjective Data
-
Date of Service:
Date of Service: June 26, 2023
Chief Complaint: Pulmonary Follow Up (Empyema)
Subjective:
Pt seen this AM. 499cc output from right sided chest tube last 24 hrs, which is on -[id number] suction. CT chest performed this AM shows persistent RUL mass with trapped lung physiology and pneumothorax ex-vacuo. Pt feels well. at bedside -
all questions were answered. He is on room air. HR 112 and BP 116/71.
Review of Systems
General: Other (negative unless mentioned above)
Objective Data
Data Reviewed
Vital Signs / I&O / Oxygen:
Vital Signs
Temp Pulse Resp BP Pulse Ox
97.1 F 111 18 116/71 95
06/26/23 15:07 06/26/23 15:13 06/26/23 08:21 06/26/23 15:13 06/26/23 15:15
Intake and Output
06/25/23 06/26/23 06/27/23
06:59 06:59 06:59
Intake Total 410 / 410 1010 / 1010
Output Total 1915 / 1915 2679 / 2679 400 / 400
Balance -1506 / -1506 -1669 / -1669 -400 / -400
SaO2 95
Nasal Cannula flow liters per 3
minute
Physical Exam
General: Respiratory Distress (negative) and Comfortable
HEENT: Normocephalic and Anicteric
Cardiovascular: S1-S2, Murmur (n) and Rub (n)
Respiratory: Wheeze (n), Crackles (RLL), Rhonchi (n), Chest Tube (Right-sided chest tube) and Other (Inspiratory squeaks in RLL-RML)
GI: Soft, Non Distended and Non Tender
Neurology: Awake, Alert and Tremors (negative)
Skin: Warm, Dry, Cyanosis (n) and Jaundice (n)
Labs/Micro/Reports
Lab Data
06/26/23 05:39
06/26/23 05:39
[2023-06-26 17:17] LABS: Body Fluid Albumin 1.2 g/dl; Body Fluid Amylase 35 U/L; Body Fluid Creatinine 0.6 mg/dl; Body Fluid Glucose < 30 mg/dl; Body Fluid LDH 780 U/L; Body Fluid Protein 3.1 g/dl; Body Fluid Triglycerides < 30 mg/dl
--- NOTE | 2023-06-26 17:24 | CM ---
Patient with Hx lung CA on chemo with Dx Right-sided empyema, Recurrent malignant right pleural effusion. Room air. PT & OT recommend HH.
Chest tube to suction - plan per pulmonary: lower to water seal over the weekend, if tolerates water seal then home with Heimlich valve and return for pleurX/ASPIRA as an outpatient.
Plan home with resumption [facility].
[2023-06-26 17:46] LABS: Body Fluid Granulocytes 99 %; Body Fluid Lymphocytes 1 %
[2023-06-26] MEDS: LOVENOX 40 MG SC (18:39)
--- NOTE | 2023-06-26 19:21 | PTCARENOTE ---
Rec'd pt this AM. Chest tube draining straw colored fluid. Assisted Dr. Davis with specimen collection of fluid for pathology. Pt suction now -[address] tolerating well.
[2023-06-26] MEDS: LIPITOR 80 MG PO (21:04)
[2023-06-26 21:06] VITALS: BP 129/71
[2023-06-26] MEDS: FLEXERIL 5 MG PO (21:09)
[2023-06-26 23:03] VITALS: BP 128/80
[2023-06-26] MEDS: MELATONIN 10 MG PO (23:56)
[2023-06-26] MEDS: MORPHINE SULFATE 2 MG IV (23:57)
[2023-06-26] MEDS: FLUSH (NSS) 2 FLUSH IV (23:58)
--- NOTE | 2023-06-27 03:50 | PTCARENOTE ---
Pt received at beginning of shift resting in bed. AAOx3. Chest tube to -20cm wall suction. Straw color drainage in collection canister and tubing. Pt with minimal discomfort. Dressing c/d/i to right lateral back. No crepitus noted. No change from
previous assessment. Using call gray for assistance. 'Very thankful for all assistance from everyone.' Call gray remains within reach. Will continue to monitor.
[2023-06-27 05:40] LABS: % Basophils 0.8 % (0-2); % Eosinophils 0.9 % (0-6); % Immature Granulocytes 2.3 % (0-0.5); % Lymphocytes 9.3 % (20.5-51.1); % Monocytes 9.8 % (1.7-9.3); % Neutrophils 76.9 % (42.2-75.2); Absolute Basophils 0.1 10^3/uL (0-0.2); Absolute Eosinophils 0.1 10^3/uL (0-0.7); Absolute Immature Granulocytes 0.2 10^3/uL (0-0.05); Absolute Lymphocytes 0.8 10^3/uL (1.2-3.4); Absolute Monocytes 0.9 10^3/uL (0.1-0.6); Absolute Neutrophils 6.8 10^3/uL (1.4-6.5); Hematocrit 32.8 % (39.0-52.0); Hemoglobin 10.3 g/dL (13.0-18.0); Mean Corp Hgb Conc. 31.4 g/dL (33.0-37.0); Mean Corpuscular Hgb 25.4 pg (27.0-31.0); Mean Corpuscular Volume 80.8 fL (80.0-94.0); Nucleated Red Blood Cells % 0 % (-); Platelet Count 173 10^3/uL (130-400); Red Blood Cell Count 4.06 10^6/uL (4.70-6.10); Red Cell Dist. Width 19.9 % (11.5-14.5); White Blood Cell Count 8.8 10^3/uL (4.8-10.8)
[2023-06-27 05:57] LABS: Blood Urea Nitrogen 16 mg/dl (9-20); Calcium 8.8 mg/dl (8.4-10.2); Carbon Dioxide 27 mmol/L (22-30); Chloride 101 mmol/L (98-107); Estimated Creatinine Clearance 112 ml/min; Glucose 113 mg/dl (70-99); Potassium 4.1 mmol/L (3.5-5.1); Sodium 133 mmol/L (135-145); eGFR > 60.00
--- NOTE | 2023-06-27 06:00 | PTCARENOTE ---
Critical fibrinogen 839. 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 No further orders. Will continue to monitor.
[2023-06-27] MEDS: ProAIR HFA INHALER 1 PUFF INH ×2 (08:03→20:20)
[2023-06-27] MEDS: SPIRIVA RESPIMAT 2.5 MCG 2 PUFF INH (08:03)
[2023-06-27] MEDS: SYMBICORT 80/4.5 MCG INHALER 2 PUFF INH ×2 (08:03→20:20)
--- NOTE | 2023-06-27 08:07 | W.PN.HOSP.TC ---
Today's Communication/Plan
-
See bold
Assessment / Plan
Assessment / Plan
HPI: Mr. 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
several days, and drainage from chest tube site became clear, then blood, then yellow and greenish (pus) 06/13/2023 over 2 days. Chest tube fell of 6 weeks LATEXER.� He was admitted for possible right-sided empyema and started on IV Unasyn.
A/P:
#Right-sided empyema
CT 06/26/2023 with moderate size right pneumothorax and slight improvement in inflation of right middle lobe and right lower lobe.
Appreciate IR, pulmonary input, s/p right chest tube 06/16/2023 draining purulent brown fluid
Cultures growing pansensitive E. coli, and Staphylococcus both sensitive to tetracycline
Appreciate ID input, status post Unasyn, continue doxycycline indefinitely as per ID
Appreciate CT surgery input, no surgical intervention recommended
CT surgery rec waterseal, antibiotics, and eventual transition to PleurX - poss Thursday. Status post tPA x 6
Discharge when cleared by ID and pulmonology
Needs to follow-up with ID in the clinic in 2 months
#Recurrent malignant right pleural effusion
Due to underlying adenocarcinoma of the lung, diagnosed March 2023.
Follows with oncology [facility], s/p 2 cycles of chemotherapy.
Hyponatremia
-Mild, monitor
Microcytic anemia
-Likely due to chemotherapy
-Monitor H&H
COPD without exacerbation
-Stable, continue Spiriva, Symbicort
CAD s/p stent
-Continue statin, beta-homer
Essential hypertension
-Stable on beta-homer
Hyperlipidemia
-Continue atorvastatin
DVT prophylaxis�subcu Lovenox
DNR (patient elects to be full code for elective procedures only)
Total time spent to see the patient on the floor, examine the patient, review data and lab results, discuss treatment plan with patient, nursing staff around 35 minutes.
Physical Exam
General: No acute distress
HEENT: Normocephalic, Atraumatic, EOMI, MMM
Respiratory: Diminished breath sounds at the right lung base
Chest wall: Right chest tube in place
Cardiac: Normal S1/S2, Regular Rate and Rhythm
GI: Soft, Nontender, Nondistended, Normal Bowel Sounds
Extremities: No Clubbing, Cyanosis, or Edema
Neuro: Nonfocal/Grossly Intact
Anticipated Discharge: 24 - 48 hours
Subjective/Interval History
-
Date of Service: June 27, 2023
Patient denies chest pain, shortness of breath, or palpitations. No fever, no vomiting.
Objective Data
-
Labs:
Laboratory Results
06/27/23
04:45
WBC 8.8
Hgb 10.3 L
Hct 32.8 L
Plt Count 173
Sodium 133 L
Potassium 4.1
Chloride 101
Carbon Dioxide 27
BUN 16
Creatinine 0.6 L
Glucose 113 H
Calcium 8.8
Vital Signs:
Vital Signs
Temp Pulse Resp BP Pulse Ox
98.2 F 95 15 128/80 97
06/27/23 03:51 06/27/23 08:06 06/27/23 08:06 06/26/23 23:03 06/27/23 08:06
I&O
06/26/23 06/27/23 06/28/23
06:59 06:59 06:59
Intake Total 1010 / 1010 1720 / 1720
Output Total 2679 / 2679 1450 / 1450
Balance -1669 / -1669 270 / 270
[2023-06-27] MEDS: TOPROL XL 12.5 MG PO ×2 (09:52→19:20)
[2023-06-27 09:53] VITALS: BP 111/76
[2023-06-27] MEDS: FOLVITE 1 MG PO (09:54)
[2023-06-27] MEDS: VIBRAMYCIN 100 MG PO ×2 (09:54→19:20)
[2023-06-27] MEDS: COLACE 100 MG PO ×2 (09:54→19:19)
[2023-06-27] MEDS: FLOMAX 0.400000000000000022 MG PO (09:54)
[2023-06-27] MEDS: MIRALAX 17 GRAMS PO (09:54)
[2023-06-27 12:00] VITALS: BP 109/78
--- NOTE | 2023-06-27 13:53 | W.PN.PUL3 ---
Today's Communication / Plan
-
Continue chest tube to suction
Continue antibiotics
PT/OT, ambulate
Eventual transition to Heimlich valve depending on how he does 06/28
Assessment
-
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
at [facility] ([facility]). Patient had a surgical procedure, details unknown, chest tube upon discharge with Heimlich valve, which spontaneously came out about 6 weeks ago. At that time he stopped his antibiotic therapy and started chemotherapy. His last
dose of chemotherapy (second cycle) was 3 weeks ago. He developed fevers over the last week and spontaneous drainage at his old chest tube site, now prompting admission for suspected empyema 06/15/2023
Large right pleural effusion due to empyema status post chest tube 06/15 by IR
Pleural fluid Cx (+) for E. coli
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
History of right large effusion with complete right lung atelectasis
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
Heimlich valve placed, spontaneously fell out approximately mid April 2023
Right upper lobe mass, right lung volume loss with pneumothorax ex-vacuo due to entrapped lung physiology given his adenocarcinoma with MPE
Leukopenia, anemia
Stage IV adenocarcinoma
Malignant right pleural effusion diagnosed March 2023
Status post 2 cycles of chemotherapy (carboplatin, Taxol, Keytruda?)
sees Izabela Wood ([facility])
Progressive weight loss
Clubbing on exam
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
COPD, on trelegy
CAD s/p stents
HTN
HLD
GIB, gastric ulcer 2019
H/o H pylori
Former oxenoe-99-vlhn-year quit 15 years old
Plan/recommendations
At this time, patient continues to improve clinically
Chest tube drainage appears to be about 300 cc plus every 24 hours
Patient completed lytic therapy through 06/24
Trapped lung physiology. There is no role for any acute intervention at this time
Will need to continue to drain, remains on antibiotic therapy indefinitely, doxycycline
Patient does have trapped lung physiology and had persistent air leak with prior chest tube back in March.
Unclear whether he had a BP fistula but with patient was discharged on chronic antibiotic therapy and chest tube with Heimlich valve which spontaneously fell out around middle of April ([facility])
Status post intrapleural lytic therapy, tPA and dornase injection. 06/19/2023. + another 6 doses from 06/22 - 06/24
Continue chest tube to suction over the weekend, will consider waterseal tomorrow night
Patient will need to go home with a chest tube, will consider transition to Heimlich valve 06/28, with eventual transition as outpatient to aseptic catheter
We do not expect pleural space to be fluid free given trapped lung physiology, given known adenocarcinoma with right upper lobe mass
Dr. Petty: reached out to Thoracic Surgery ([facility]) - pt also spoke with oncology and asked them to reach out to us for updates
Pt wants to transition his Oncology care here after discharge. He would follow up with [facility]
Not bronchospastic on exam.
Continue with outpatient inhaler regimen. Symbicort/Spiriva will replace Trelegy
DVT prophylaxis: Enoxaparin
Encourage ambulation with physical therapy
Encourage nutrition. Patient with good appetite
Continue to follow
Reviewed with primary service and nursing
Subjective Data
-
Date of Service:
Date of Service: June 27, 2023
Chief Complaint: Pulmonary Follow Up (Empyema)
Subjective:
Patient examined earlier this morning. He is without complaints, he does feel improved. Denies nausea, abdominal pain, hemoptysis, chest pain. Chest tube drainage noted,
Objective Data
Data Reviewed
Vital Signs / I&O / Oxygen:
Vital Signs
Temp Pulse Resp BP Pulse Ox
97.7 F 109 15 111/76 97
06/27/23 11:00 06/27/23 09:52 06/27/23 08:06 06/27/23 09:52 06/27/23 08:06
Intake and Output
06/26/23 06/27/23 06/28/23
06:59 06:59 06:59
Intake Total 1010 / 1010 1720 / 1720
Output Total 2679 / 2679 1450 / 1450 300 / 300
Balance -1669 / -1669 270 / 270 -300 / -300
SaO2 97
Nasal Cannula flow liters per 3
minute
Physical Exam
General: Comfortable
HEENT: Normocephalic and Anicteric
Cardiovascular: S1-S2, Murmur (n) and Rub (n)
Respiratory: Wheeze (n), Crackles (RLL), Rhonchi (n), Chest Tube (Right-sided chest tube) and Other (Inspiratory squeaks in RLL-RML)
GI: Soft, Non Distended and Non Tender
Neurology: Awake, Alert and Tremors (negative)
Skin: Warm, Dry, Cyanosis (n) and Jaundice (n)
Labs/Micro/Reports
Lab Data
06/27/23 04:45
06/27/23 04:45
Microbiology
06/26/23 16:41 Pleural Fluid Body Fluid Culture - Preliminary
Escherichia coli
06/26/23 16:41 Pleural Fluid Gram Stain - Preliminary
06/26/23 16:41 Pleural Fluid Fungal Culture - Preliminary
Culture in progress.
Positive cultures are reported as soon as detected.
Final report to follow in four to five weeks.
[2023-06-27] MEDS: ULTRAM 50 MG PO ×2 (15:16→22:48)
[2023-06-27] MEDS: LOVENOX 40 MG SC (17:35)
[2023-06-27 19:19] VITALS: BP 113/75
[2023-06-27] MEDS: LIPITOR 80 MG PO (19:19)
--- NOTE | 2023-06-27 21:53 | PTCARENOTE ---
Pt received at beginning of shift resting in bed. Chest tube draining straw colored drainage with sediment. CT site c/d/i, no crepitus noted. No tidaling or air leak noted. VSS. Afebrile. POX 96% on RA. ST on CM rate 109. Lung sounds slightly
diminished. Rest of assessment as documented. Call gray remains within reach. Will continue to monitor.
[2023-06-27] MEDS: MELATONIN 10 MG PO (22:48)
[2023-06-27] MEDS: FLEXERIL 5 MG PO (22:48)
[2023-06-27 23:20] VITALS: BP 111/79
[2023-06-28] VITALS (12 sets, daily range): BP systolic 91–136; BP diastolic 41–85; PULSE 108
--- NOTE | 2023-06-28 00:41 | PTCARENOTE ---
HR intermittently up to 150's-160's ST, nonsustained, then back down to baseline HR 110's. Pt does admit to feeling some palpitations otherwise asymptomatic. Sara BRUNSON on floor and updated. Will continue to monitor for now. Call gray remains
within reach.
[2023-06-28 04:33] LABS: Hematocrit 31.9 % (39.0-52.0); Hemoglobin 10.3 g/dL (13.0-18.0); Mean Corp Hgb Conc. 32.3 g/dL (33.0-37.0); Mean Corpuscular Hgb 25.4 pg (27.0-31.0); Mean Corpuscular Volume 78.6 fL (80.0-94.0); Mean Platelet Volume 7.9 fL (7.4-10.4); Platelet Count 171 10^3/uL (130-400); Red Blood Cell Count 4.06 10^6/uL (4.70-6.10); Red Cell Dist. Width 19.9 % (11.5-14.5); White Blood Cell Count 9.1 10^3/uL (4.8-10.8)
[2023-06-28 05:02] LABS: Blood Urea Nitrogen 14 mg/dl (9-20); Calcium 8.7 mg/dl (8.4-10.2); Carbon Dioxide 28 mmol/L (22-30); Chloride 102 mmol/L (98-107); Estimated Creatinine Clearance 112 ml/min; Glucose 116 mg/dl (70-99); Potassium 3.9 mmol/L (3.5-5.1); Sodium 134 mmol/L (135-145); eGFR > 60.00
[2023-06-28] MEDS: ProAIR HFA INHALER 1 PUFF INH ×2 (08:11→19:51)
[2023-06-28] MEDS: SYMBICORT 80/4.5 MCG INHALER 2 PUFF INH ×2 (08:11→19:51)
[2023-06-28] MEDS: SPIRIVA RESPIMAT 2.5 MCG 2 PUFF INH (08:11)
[2023-06-28] MEDS: FOLVITE 1 MG PO (08:30)
[2023-06-28] MEDS: MIRALAX 17 GRAMS PO (08:30)
[2023-06-28] MEDS: FLOMAX 0.400000000000000022 MG PO (08:30)
[2023-06-28] MEDS: VIBRAMYCIN 100 MG PO ×2 (08:30→19:52)
[2023-06-28] MEDS: TOPROL XL 12.5 MG PO ×2 (08:30→19:52)
[2023-06-28] MEDS: COLACE 100 MG PO ×2 (08:30→19:52)
--- NOTE | 2023-06-28 09:33 | W.PN.HOSP.TC ---
Today's Communication/Plan
-
IR to exchange current chest tube for Heimlich valve
Assessment / Plan
Assessment / Plan
HPI: Mr. 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
several days, and drainage from chest tube site became clear, then blood, then yellow and greenish (pus) 06/13/2023 over 2 days. 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
A/P:
#Right-sided empyema
CT 06/26/2023 with moderate size right pneumothorax and slight improvement in inflation of right middle lobe and right lower lobe.
Appreciate IR, pulmonary input, s/p right chest tube 06/16/2023 draining purulent brown fluid
Cultures growing pansensitive E. coli, and Staphylococcus both sensitive to tetracycline
Appreciate ID input, status post Unasyn, continue doxycycline indefinitely as per ID
Appreciate CT surgery input, CT surgery rec waterseal, antibiotics, and eventual transition to PleurX. Status post tPA x 6.
IR to exchange current chest tube for Heimlich valve.
Discharge when cleared by ID and pulmonology
Needs to follow-up with ID in the clinic in 2 months
#Recurrent malignant right pleural effusion
Due to underlying adenocarcinoma of the lung, diagnosed March 2023.
Follows with oncology [facility], s/p 2 cycles of chemotherapy.
Hyponatremia
-Mild, monitor
Microcytic anemia
-Likely due to chemotherapy
-Monitor H&H
COPD without exacerbation
-Stable, continue Spiriva, Symbicort
CAD s/p stent
-Continue statin, beta-homer
Essential hypertension
-Stable on beta-homer
Hyperlipidemia
-Continue atorvastatin
DVT prophylaxis�subcu Lovenox
DNR (patient elects to be full code for elective procedures only)
Total time spent to see the patient on the floor, examine the patient, review data and lab results, discuss treatment plan with patient, nursing staff around 35 minutes.
Physical Exam
General: No acute distress
HEENT: Normocephalic, Atraumatic, EOMI, MMM
Respiratory: Diminished breath sounds at the right lung base
Chest wall: Right chest tube in place
Cardiac: Normal S1/S2, Regular Rate and Rhythm
GI: Soft, Nontender, Nondistended, Normal Bowel Sounds
Extremities: No Clubbing, Cyanosis, or Edema
Neuro: Nonfocal/Grossly Intact
Anticipated Discharge: 24 - 48 hours
Subjective/Interval History
-
Date of Service: June 28, 2023
Patient denies chest pain, shortness of breath, or palpitations. No fever, no vomiting.
Objective Data
-
Labs:
Laboratory Results
06/28/23
04:02
WBC 9.1
Hgb 10.3 L
Hct 31.9 L
Plt Count 171
Sodium 134 L
Potassium 3.9
Chloride 102
Carbon Dioxide 28
BUN 14
Creatinine 0.6 L
Glucose 116 H
Calcium 8.7
Vital Signs:
Vital Signs
Temp Pulse Resp BP Pulse Ox
97.6 F 106 16 115/79 95
06/28/23 03:04 06/28/23 08:30 06/28/23 08:16 06/28/23 08:30 06/28/23 09:00
I&O
06/27/23 06/28/23 06/29/23
06:59 06:59 06:59
Intake Total 1720 / 1720 480 / 480
Output Total 1450 / 1450 1805 / 1805
Balance 270 / 270 -1325 / -1325
[2023-06-28] MEDS: ULTRAM 50 MG PO ×2 (11:26→19:52)
[2023-06-28] MEDS: FLEXERIL 5 MG PO ×2 (11:27→19:52)
--- NOTE | 2023-06-28 13:03 | W.PN.PUL3 ---
Today's Communication / Plan
-
Waterseal tonight
Chest x-ray in a.m.
IR to exchange current chest tube for Heimlich valve for disposition efforts
Short-term follow-up in the office with [facility] in the next 1 to 2 weeks
Eventual transition to a separate catheter in the next 2 to 4 weeks
Follow-up locally with [facility] regarding reinitiation of chemotherapy
Assessment
-
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
at [facility] ([place]). Patient had a surgical procedure, details unknown, chest tube upon discharge with Heimlich valve, which spontaneously came out about 6 weeks ago. At that time he stopped his antibiotic therapy and started chemotherapy. His last
dose of chemotherapy (second cycle) was 3 weeks ago. He developed fevers over the last week and spontaneous drainage at his old chest tube site, now prompting admission for suspected empyema 06/15/2023
Large right pleural effusion due to empyema status post chest tube 06/15 by IR
Pleural fluid Cx (+) for E. coli
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
History of right large effusion with complete right lung atelectasis
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
Heimlich valve placed, spontaneously fell out approximately mid April 2023
Right upper lobe mass, right lung volume loss with pneumothorax ex-vacuo due to entrapped lung physiology given his adenocarcinoma with MPE
Leukopenia, anemia
Stage IV adenocarcinoma
Malignant right pleural effusion diagnosed March 2023
Status post 2 cycles of chemotherapy (carboplatin, Taxol, Keytruda?)
sees Izabela Wood ([facility])
Progressive weight loss
Clubbing on exam
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
COPD, on trelegy
CAD s/p stents
HTN
HLD
GIB, gastric ulcer 2019
H/o H pylori
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
Plan/recommendations
At this time, patient continues to improve clinically
Chest tube drainage appears to be about 300 cc plus every 24 hours
Patient completed lytic therapy through 06/24
Trapped lung physiology. There is no role for any acute intervention at this time
Will need to continue to drain, remains on antibiotic therapy indefinitely, doxycycline
Patient does have trapped lung physiology and had persistent air leak with prior chest tube back in March.
Unclear whether he had a BP fistula but with patient was discharged on chronic antibiotic therapy and chest tube with Heimlich valve which spontaneously fell out around middle of April ([facility])
Status post intrapleural lytic therapy, tPA and dornase injection. 06/19/2023. + another 6 doses from 06/22 - 06/24
Moving forward
Will transition to waterseal after 10 PM tonight
Repeat chest x-ray in the a.m.
Patient will need to go home with a chest tube, will consider transition to Heimlich valve 06/28, with eventual transition as outpatient to aseptic catheter
Interventional radiology consulted. Hope for transition to Heimlich valve in the next 24 hours and discharge thereafter
Will need to return to our office to eventually transition to a septic catheter depending on clinical status, infectious status
We do not expect pleural space to be fluid free given trapped lung physiology, given known adenocarcinoma with right upper lobe mass
Dr. Petty: reached out to Thoracic Surgery ([facility]) - pt also spoke with oncology and asked them to reach out to us for updates
Pt wants to transition his Oncology care here after discharge. He would follow up with [facility]
Not bronchospastic on exam.
Continue with outpatient inhaler regimen. Symbicort/Spiriva will replace Trelegy
DVT prophylaxis: Enoxaparin
Encourage ambulation with physical therapy
Encourage nutrition. Patient with good appetite
Continue to follow
Reviewed with primary service and nursing
Hold for possible discharge either Thursday or Thursday depending on chest tube issues
Subjective Data
-
Date of Service:
Date of Service: June 28, 2023
Chief Complaint: Pulmonary Follow Up (Empyema)
Subjective:
Patient continues to feel well. Chest tube output noted. Chest exam also improved. Drainage 95 cc over last 24 hours. Negative fluid status noted
Objective Data
Data Reviewed
Vital Signs / I&O / Oxygen:
Vital Signs
Temp Pulse Resp BP Pulse Ox
98.0 F 106 16 115/79 95
06/28/23 11:05 06/28/23 08:30 06/28/23 08:16 06/28/23 08:30 06/28/23 09:00
Intake and Output
06/27/23 06/28/23 06/29/23
06:59 06:59 06:59
Intake Total 1720 / 1720 480 / 480 240 / 240
Output Total 1450 / 1450 1805 / 1805 200 / 200
Balance 270 / 270 -1325 / -1325 40 / 40
SaO2 95
Nasal Cannula flow liters per 3
minute
Physical Exam
General: Comfortable
HEENT: Normocephalic and Anicteric
Cardiovascular: S1-S2, Murmur (n) and Rub (n)
Respiratory: Wheeze (n), Crackles (RLL), Rhonchi (n), Chest Tube (Right-sided chest tube) and Other (Inspiratory squeaks in RLL-RML)
GI: Soft, Non Distended and Non Tender
Neurology: Awake, Alert and Tremors (negative)
Skin: Warm, Dry, Cyanosis (n) and Jaundice (n)
Labs/Micro/Reports
Lab Data
06/28/23 04:02
06/28/23 04:02
Microbiology
06/26/23 16:41 Pleural Fluid Body Fluid Culture - Final
Escherichia coli
06/26/23 16:41 Pleural Fluid Gram Stain - Final
06/26/23 16:41 Pleural Fluid Fungal Culture - Preliminary
Culture in progress.
Positive cultures are reported as soon as detected.
Final report to follow in four to five weeks.
--- NOTE | 2023-06-28 16:37 | PTCARENOTE ---
Recd pt this AM . Tolerated ambulating in halls with PT off suction. Vital signs stable. feeling much better. Plan to switch CT to water seal at 2200 tonight. Good appetite today. Some bursts of ST when OOB but recovers quickly.
[2023-06-28] MEDS: LOVENOX 40 MG SC (17:34)
[2023-06-28] MEDS: LIPITOR 80 MG PO (19:52)
--- NOTE | 2023-06-28 22:04 | PTCARENOTE ---
chest tube placed to water seal per order.
[2023-06-28] MEDS: TYLENOL 650 MG PO (23:42)
[2023-06-28] MEDS: MELATONIN 10 MG PO (23:42)
[2023-06-29] VITALS (7 sets, daily range): BP systolic 105–109; BP diastolic 73–83
[2023-06-29 05:42] LABS: Hematocrit 31.4 % (39.0-52.0); Hemoglobin 10.1 g/dL (13.0-18.0); Mean Corp Hgb Conc. 32.2 g/dL (33.0-37.0); Mean Corpuscular Hgb 26.1 pg (27.0-31.0); Mean Corpuscular Volume 81.1 fL (80.0-94.0); Mean Platelet Volume 7.8 fL (7.4-10.4); Platelet Count 160 10^3/uL (130-400); Red Blood Cell Count 3.87 10^6/uL (4.70-6.10)
[2023-06-29 06:04] LABS: Blood Urea Nitrogen 15 mg/dl (9-20); Calcium 8.8 mg/dl (8.4-10.2); Carbon Dioxide 27 mmol/L (22-30); Chloride 103 mmol/L (98-107); Estimated Creatinine Clearance 112 ml/min; Glucose 116 mg/dl (70-99); Potassium 4.1 mmol/L (3.5-5.1); Sodium 137 mmol/L (135-145); eGFR > 60.00
[2023-06-29] MEDS: SYMBICORT 80/4.5 MCG INHALER 2 PUFF INH ×2 (07:57→19:54)
[2023-06-29] MEDS: SPIRIVA RESPIMAT 2.5 MCG 2 PUFF INH (07:57)
[2023-06-29] MEDS: COLACE 100 MG PO ×2 (08:14→21:25)
[2023-06-29] MEDS: MIRALAX 17 GRAMS PO (08:14)
[2023-06-29] MEDS: FOLVITE 1 MG PO (08:14)
[2023-06-29] MEDS: FLOMAX 0.400000000000000022 MG PO (08:16)
[2023-06-29] MEDS: TOPROL XL 12.5 MG PO ×2 (08:16→21:25)
[2023-06-29] MEDS: VIBRAMYCIN 100 MG PO (08:16)
--- NOTE | 2023-06-29 09:19 | W.PN.PUL3 ---
Today's Communication / Plan
-
Reviewed use of Heimlich in this patient with IR/care team, likely too much pleural fluid to place safely
Would prefer transition to Pleurx once clear of infection
E. Coli still growing on repeat culture 06/25, asked ID to comment on timing/abx treatment
Reviewed this plan of care with patient, I think it is more beneficial to leave existing chest tube in for continued drainage for now
Assessment
-
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
at [facility] ([place]). Patient had a surgical procedure, details unknown, chest tube upon discharge with Heimlich valve, which spontaneously came out about 6 weeks ago. At that time he stopped his antibiotic therapy and started chemotherapy. His last
dose of chemotherapy (second cycle) was 3 weeks ago. He developed fevers over the last week and spontaneous drainage at his old chest tube site, now prompting admission for suspected empyema 06/15/2023
Large right pleural effusion due to empyema status post chest tube 06/15 by IR
Pleural fluid Cx (+) for E. coli
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
History of right large effusion with complete right lung atelectasis
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
Heimlich valve placed, spontaneously fell out approximately mid April 2023
Right upper lobe mass, right lung volume loss with pneumothorax ex-vacuo due to entrapped lung physiology given his adenocarcinoma with MPE
Leukopenia, anemia
Stage IV adenocarcinoma
Malignant right pleural effusion diagnosed March 2023
Status post 2 cycles of chemotherapy (carboplatin, Taxol, Keytruda?)
sees Izabela Wood ([facility])
Progressive weight loss
Clubbing on exam
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
CAD s/p stents
HTN
HLD
GIB, gastric ulcer 2019
H/o H pylori
Former [id number]-vufp-year quit 15 years old
Plan/recommendations
At this time, patient continues to improve clinically, stable on RA
Not on O2, no need for home use
Continue with outpatient inhaler regimen. Symbicort/Spiriva will replace Trelegy
E. coli Empyema s/p chest tube 06/15
Chest tube drainage appears to be about 300 cc plus every 24 hours
Status post intrapleural lytic therapy, tPA and dornase injection. 06/19/2023. + another 6 doses from 06/22 - 06/24
Patient completed lytic therapy through 06/24
Trapped lung physiology. There is no role for any acute intervention at this time
Will need to continue to drain, ideally conversion to pleurex would be best
Patient does have trapped lung physiology and had persistent air leak with prior chest tube back in March.
Unclear whether he had a BP fistula but with patient was discharged on chronic antibiotic therapy and chest tube with Heimlich valve which spontaneously fell out around middle of April ([facility])
If there is ongoing excessive fluid drainage, this would likely preclude use of Heimlich, this was discussed with patient
Would favor continued drainage from chest tube
Remains on antibiotic therapy indefinitely, doxycycline
ID consult obtained, correspondence reviewed
Repeat culture 06/25 showing persistent E. coli infection
Asked to comment on this today
Repeat chest x-ray in the a.m. reviewed
We do not expect pleural space to be fluid free given trapped lung physiology, given known adenocarcinoma with right upper lobe mass
ECHO in past with stable function
No role for diuresis in malignant pleural effusions
Dr. Petty: reached out to Thoracic Surgery ([facility]) - pt also spoke with oncology and asked them to reach out to us for updates
Pt wants to transition his Oncology care here after discharge. He would follow up with [place] [facility]
DVT prophylaxis: Enoxaparin
Encourage ambulation with physical therapy
Encourage nutrition. Patient with good appetite
Continue to follow
Reviewed with primary service and nursing
Diagnostic Data
CXR 06/29/23- No significant interval change compared to recent prior studies. Right basilar chest remains in place with stable appearance of hydropneumothorax and pleural thickening. Unchanged right confluent apical opacity which may represent
chronic airspace consolidation and/or residual tumor. Hyperexpansion of the left lung with pain and swelling within the mid to lower portion.
CT Chest 06/26/23- Right pleural pigtail catheter is present. Moderate-sized right pneumothorax, which is decreased in size compared to CT examination of April 13, 2023. Slight improvement in inflation of the right middle lobe and right lower lobe
compared to most recent CT from March 2023. Ovoid focus of confluent parenchymal opacity involving the right upper lobe, fairly stable from prior CT, and probably representing chronic atelectasis/trapped lung. Within the posterior aspect of the
left lower lobe of the lung, patchy predominantly nodular areas of parenchymal opacity, new compared to CT of April 13, 2023, and likely representing patchy pneumonia. Dense coronary artery calcifications are present.
04/28/23- 1. No evidence of pulmonary embolism.
2. Moderate right hydropneumothorax with chest tube in place.
3. Grossly stable associated right lung atelectasis/consolidation and possible right upper lobe mass.
ECHO 04/13/23- Normal left ventricular size and systolic function. No regional wall motion abnormalities are seen. LV ejection fraction is 50-55% by Ramirez's method of discs. Mild concentric left ventricular hypertrophy. Mild aortic regurgitation.
Mild to moderate tricuspid regurgitation. Estimated pulmonary artery pressure of 45-50 mmHg. Compared to the previous echo Oct 2022, there is now TR with no other significant change.
Subjective Data
-
Date of Service:
Date of Service: June 29, 2023
Chief Complaint: Pulmonary Follow Up (Empyema)
Subjective:
remains stable on room air
discomfort at chest tube site, but mild
still with significant drainage in vac
Objective Data
Data Reviewed
Vital Signs / I&O / Oxygen:
Vital Signs
Temp Pulse Resp BP Pulse Ox
98.3 F 101 18 109/74 96
06/29/23 07:39 06/29/23 08:16 06/29/23 08:03 06/29/23 08:16 06/29/23 08:03
Intake and Output
06/28/23 06/29/23 06/30/23
06:59 06:59 06:59
Intake Total 480 / 480 1140 / 1140
Output Total 1805 / 1805 950 / 950
Balance -1325 / -1325 190 / 190
SaO2 96
Nasal Cannula flow liters per 3
minute
Physical Exam
General: Comfortable and Good Appetite
HEENT: Normocephalic, Anicteric and Moist Mucous Membranes
Cardiovascular: S1-S2, Murmur (n) and Rub (n)
Respiratory: Wheeze (n), Crackles (RLL), Rhonchi (n), Chest Tube (Right-sided chest tube) and Other (Inspiratory squeaks in RLL-RML)
GI: Soft, Non Distended and Non Tender
Neurology: Awake, Alert, Oriented, AO x 3 and Tremors (negative)
Skin: Warm, Dry, Cyanosis (n) and Jaundice (n)
Labs/Micro/Reports
Lab Data
06/29/23 05:24
06/29/23 05:24
Microbiology
06/26/23 16:41 Pleural Fluid Acid Fast Bacilli Smear - Preliminary
06/26/23 16:41 Pleural Fluid Acid Fast Bacilli Culture - Preliminary
06/26/23 16:41 Pleural Fluid Body Fluid Culture - Final
Escherichia coli
06/26/23 16:41 Pleural Fluid Gram Stain - Final
06/26/23 16:41 Pleural Fluid Fungal Culture - Preliminary
Culture in progress.
Positive cultures are reported as soon as detected.
Final report to follow in four to five weeks.
--- NOTE | 2023-06-29 10:40 | W.PN.ID1 ---
Date of Service
Date of Service: June 29, 2023
Today's Communication
I am concern that he may have some ongoing aspiration; this problem cannot be fully resolved, and is a potential source of reinfection
- trial of switch to levofloxacin
- recheck qtc in the AM
Assessment / Plan
Empyema
Chronic Pleural Effusions
Stage IV adenocarcinoma
Malignant right pleural effusion diagnosed March 2023
Status post 2 cycles of chemotherapy (carboplatin, Taxol, Keytruda?); sees Dr Izabela Wood ([place])
Progressive weight loss
- 06/14 pleural cultures E coli x2 and rare CONS
- 06/25 repeat quantity down to few E coli from many, LDH markedly improved, glucose remains very low, pH not done, fluid WBC was not able to be quantified
no further S haemolytics seen
- continue aspiration precautions
I am concern that he may have some ongoing aspiration; this problem cannot be fully resolved, and is a potential source of reinfection
- trial of switch to levofloxacin
- recheck qtc in the AM
- follow clinically
Chief Complaint
-: Other (empyema)
Subjective / Review of Systems
afebrile
bp stable
without leukocytosis
cr stable
5/ body fluid remains positive for e coli
Vital Signs / Physical Exam
Vital Signs
Vital Signs
Temp Pulse Resp BP Pulse Ox
98.3 F 101 18 109/74 96
06/29/23 07:39 06/29/23 08:16 06/29/23 08:03 06/29/23 08:16 06/29/23 09:44
Physical Exam
Constitutional: No Acute Distress
Cardiovascular: Regular Rate and S1/S2; Negative Murmur or Rub
Pulmonary: Clear and Symmetric; Negative Wheezes or Rales
Gastrointestinal: Soft, Non Tender, Non Distended and Normal Bowel Sounds
Skin: Warm and Dry; Negative Rash or Jaundice
Objective Data
Lab Data
Lab Results
06/29/23 05:24
06/29/23 05:24
PT 15.4 Sec (11.4-14.6) H 06/16/23 07:44
INR 1.24 06/16/23 07:44
Estimated Creat Clear 112 ml/min 06/29/23 05:24
Lactic Acid Cancelled 06/15/23 19:00
Total Bilirubin 0.2 mg/dl (0.2-1.3) 06/18/23 04:20
AST 25 U/L (17-59) 06/18/23 04:20
ALT 32 U/L (0-50) 06/18/23 04:20
Alkaline Phosphatase 85 U/L (38-126) 06/18/23 04:20
Most recent labs reviewed.
Micro Results:
06/26/23 16:41 Acid Fast Bacilli Smear - Preliminary
Pleural Fluid Acid Fast Bacilli Culture - Preliminary
06/26/23 16:41 Body Fluid Culture - Final
Pleural Fluid Escherichia coli
Gram Stain - Final
06/26/23 16:41 Fungal Culture - Preliminary
Pleural Fluid Culture in progress.
Positive cultures are reported as soon as detected.
Final report to follow in four to five weeks.
06/15/23 14:59 Blood Culture - Final
Blood/Venous No Growth - Final Report
06/15/23 14:59 Blood Culture - Final
Blood/Venous No Growth - Final Report
06/15/23 17:53 Wound Culture - Final
Chest - Right Escherichia coli
Staphylococcus haemolyticus
Gram Stain - Final
06/16/23 16:39 Acid Fast Bacilli Smear - Preliminary
Pleural Fluid Acid Fast Bacilli Culture - Preliminary
06/16/23 16:38 Body Fluid Culture - Final
Pleural Fluid Escherichia coli
Gram Stain - Final
06/16/23 16:39 Fungal Smear - Final
Pleural Fluid No yeast or fungal elements seen.
Fungal Culture - Pending
06/15/23 20:36 MRSA Screen - Final
Nose No Methicillin Resistant Staphylococcus aureus isolated.
Care Review
Plan reviewed with: Physician (Dr Saba - cultures)
[2023-06-29] MEDS: ULTRAM 50 MG PO (11:53)
[2023-06-29] MEDS: FLEXERIL 5 MG PO (11:54)
--- NOTE | 2023-06-29 13:22 | W.PN.UPDATE ---
Update Note
Progress Note Update
Patient seen and examined
Discussed with resident
Discussed with pulmonology
Impression:
Large right pleural effusion secondary to empyema
Status post chest tube placement 06/15
Conditions prior to admission:
Right upper lobe mass/stage IV adenocarcinoma with right malignant pleural effusion.
� Status post 2 cycles of chemotherapy
Status post chest tube placement with Heimlich valve (BP fistula/trapped lung physiology)
COPD
CAD with stent
Essential hypertension
Dyslipidemia
History of gastric ulcer complicated with gastrointestinal hemorrhage 2019.
History of H. pylori.
Former smoker
Plan:
Right pleural effusion secondary to empyema.
Pleural culture with E. coli and staph hemolyticus sensitive to tetracycline
Respiratory status stable while on room air
Output through chest tube remains high after 300 mL in 24 hours
Initially plan for chest tube replacement with hemorrhagic involved, although with concern of a large output might be overwhelming valve mechanism.
Further discussion with ID, possibly retesting pleural fluid for resolving infection.
If infection treated, given trapped lung physiology and significant output, consideration is to transition from chest tube to Pleurx.
Continue doxycycline pending ID evaluation.
Hyponatremia improved
Microcytic anemia
-Likely due to chemotherapy
-Monitor H&H
COPD without exacerbation
-Stable, continue Spiriva, Symbicort
CAD s/p stent
-Continue statin, beta-homer
Essential hypertension
-Stable on beta-homer
Hyperlipidemia
-Continue atorvastatin
DVT prophylaxis�subcu Lovenox
DNR (patient elects to be full code for elective procedures only)
[2023-06-29] MEDS: LEVAQUIN 750 MG PO (14:49)
--- NOTE | 2023-06-29 15:05 | W.PN.HOSP.TC ---
Today's Communication/Plan
-
Repeat cultures for empyema resolution.
Plan is to get Pleurx in.
Assessment / Plan
Assessment / Plan
Assessment-
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
drainage from chest tube site became clear, then blood, then yellow and greenish (pus) 06/13/2023 over 2 days. Chest tube fell of 6 weeks [employer].� Diagnosed with right-sided empyema.
Plan-
Right-sided empyema
Respiratory status stable on room air.
CT drainage-200 mL over 12 hours. Pleural culture with E. coli and staph hemolyticus sensitive to tetracycline.
CT 06/26/2023 with moderate size right pneumothorax and slight improvement in inflation of right middle lobe and right lower lobe.
Appreciate IR, pulmonary input, s/p right chest tube 06/16/2023 draining purulent brown fluid
Appreciate ID input, status post Unasyn, continue doxycycline indefinitely as per ID
Appreciate CT surgery input, CT surgery rec waterseal, antibiotics, and eventual transition to PleurX. Status post tPA x 6.
Touch base with pulmonology-plan changed to eventual catheterization with Pleurx.
ID-recommends retesting pleural fluid for resolution of empyema.
Follows with oncology [facility], s/p 2 cycles of chemotherapy.
Hyponatremia
Resolved.
Microcytic anemia
Likely due to chemotherapy
Monitor H&H
COPD without exacerbation
Stable, continue Spiriva, Symbicort
CAD s/p stent
Continue statin, beta-homer
Essential hypertension
Stable on beta-homer
Hyperlipidemia
Continue atorvastatin
DVT prophylaxis�subcu Lovenox
DNR (patient elects to be full code for elective procedures only)
Anticipated Discharge: > 48 hours
Subjective/Interval History
-
Date of Service: June 29, 2023
Patient reports feeling better, denies pain, cough, shortness of breath.
Objective Data
-
Labs:
Laboratory Results
06/29/23
05:24
WBC 8.0
Hgb 10.1 L
Hct 31.4 L
Plt Count 160
Sodium 137
Potassium 4.1
Chloride 103
Carbon Dioxide 27
BUN 15
Creatinine 0.5 L
Glucose 116 H
Calcium 8.8
Vital Signs:
Vital Signs
Temp Pulse Resp BP Pulse Ox
98.1 F 101 18 109/74 96
06/29/23 11:16 06/29/23 08:16 06/29/23 08:03 06/29/23 08:16 06/29/23 09:44
I&O
06/28/23 06/29/23 06/30/23
06:59 06:59 06:59
Intake Total 480 / 480 1140 / 1140 240 / 240
Output Total 1805 / 1805 950 / 950
Balance -1325 / -1325 190 / 190 240 / 240
Review of Systems
-
History Source: Patient
All other systems: Reviewed and negative
Physical Exam
-
General: No Apparent Distress and Comfortable (On room air)
HEENT: Moist Mucous Membranes
Respiratory: Other (Diminished breath sounds on the right lower lobe.)
Cardiac: Regular Rhythm and S1/S2 (No murmurs rubs and gallops.)
GI: Soft, Nontender, Nondistended and Normal Bowel Sounds
Musculoskeletal: No Clubbing and No Edema
Neuro: AO x 3 and No Motor Deficits
Psych: Calm
[2023-06-29] MEDS: LOVENOX 40 MG SC (17:33)
[2023-06-29] MEDS: ProAIR HFA INHALER 1 PUFF INH (19:55)
[2023-06-29] MEDS: LIPITOR 80 MG PO (21:25)
--- NOTE | 2023-06-29 21:31 | PTCARENOTE ---
Pt recived from dayshift nurse. Pt AAO, pleasant, agreeable to care. Pt sinus tach on monitor. V/S WNL recent BP 106/83. RR unlabored. Pt on RA. Chest tube to water seal, dressing clean dry and intact. no crepitus. Call gray in reach, see nursing
shift assessment for head to toe.
[2023-06-30] MEDS: ULTRAM 50 MG PO ×2 (01:04→22:51)
[2023-06-30] MEDS: FLEXERIL 5 MG PO ×2 (01:05→22:51)
[2023-06-30] MEDS: MELATONIN 10 MG PO ×2 (01:06→22:51)
[2023-06-30 05:11] VITALS: BP 107/72
[2023-06-30 05:34] LABS: Hematocrit 31.6 % (39.0-52.0); Hemoglobin 9.9 g/dL (13.0-18.0); Mean Corp Hgb Conc. 31.3 g/dL (33.0-37.0); Mean Corpuscular Hgb 25.7 pg (27.0-31.0); Mean Corpuscular Volume 82.1 fL (80.0-94.0); Mean Platelet Volume 8.1 fL (7.4-10.4); Platelet Count 162 10^3/uL (130-400); Red Blood Cell Count 3.85 10^6/uL (4.70-6.10); Red Cell Dist. Width 20.2 % (11.5-14.5); White Blood Cell Count 8.5 10^3/uL (4.8-10.8)
[2023-06-30 06:01] LABS: Blood Urea Nitrogen 14 mg/dl (9-20); Calcium 8.6 mg/dl (8.4-10.2); Carbon Dioxide 27 mmol/L (22-30); Chloride 101 mmol/L (98-107); Estimated Creatinine Clearance 112 ml/min; Glucose 114 mg/dl (70-99); Potassium 3.8 mmol/L (3.5-5.1); Sodium 136 mmol/L (135-145); eGFR > 60.00
[2023-06-30 07:43] VITALS: BP 97/71
[2023-06-30] MEDS: SYMBICORT 80/4.5 MCG INHALER 2 PUFF INH ×2 (08:01→20:44)
[2023-06-30] MEDS: SPIRIVA RESPIMAT 2.5 MCG 2 PUFF INH (08:01)
[2023-06-30] MEDS: ProAIR HFA INHALER 1 PUFF INH ×2 (08:02→20:44)
--- NOTE | 2023-06-30 09:15 | W.PN.PUL3 ---
Today's Communication / Plan
-
Repeat pleural cultures
Appreciate ID recs, abx change to LVQ
Speech eval
Encouraged ambulation, IS
Ideally change to pleurx when clear from infection
Reviewed with care team
Assessment
-
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
at [place] ([facility]). Patient had a surgical procedure, details unknown, chest tube upon discharge with Heimlich valve, which spontaneously came out about 6 weeks ago. At that time he stopped his antibiotic therapy and started chemotherapy. His last
dose of chemotherapy (second cycle) was 3 weeks ago. He developed fevers over the last week and spontaneous drainage at his old chest tube site, now prompting admission for suspected empyema 06/15/2023
Large right pleural effusion due to empyema status post chest tube 06/15 by IR
Pleural fluid Cx (+) for E. coli
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
History of right large effusion with complete right lung atelectasis
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
Heimlich valve placed, spontaneously fell out approximately mid April 2023
Right upper lobe mass, right lung volume loss with pneumothorax ex-vacuo due to entrapped lung physiology given his adenocarcinoma with MPE
Leukopenia, anemia
Stage IV adenocarcinoma
Malignant right pleural effusion diagnosed March 2023
Status post 2 cycles of chemotherapy (carboplatin, Taxol, Keytruda?)
jeanna Wood ([place])
Progressive weight loss
Clubbing on exam
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
CAD s/p stents
HTN
HLD
GIB, gastric ulcer 2019
H/o H pylori
Former [id number] quit 15 years old
Plan/recommendations
At this time, patient continues to improve clinically, stable on RA
Not on O2, no need for home use
Continue with outpatient inhaler regimen--Symbicort/Spiriva will replace Trelegy
E. coli Empyema s/p chest tube 06/15
Chest tube drainage appears to be about 300 cc plus every 24 hours
Status post intrapleural lytic therapy, tPA and dornase injection. 06/19/2023. + another 6 doses from 06/22 - 06/24
Patient completed lytic therapy through 06/24
Trapped lung physiology. There is no role for any acute intervention at this time
Will need to continue to drain, ideally conversion to pleurex would be best
Patient does have trapped lung physiology and had persistent air leak with prior chest tube back in March.
Unclear whether he had a BP fistula but with patient was discharged on chronic antibiotic therapy and chest tube with Heimlich valve which spontaneously fell out around middle of April ([place])
If there is ongoing excessive fluid drainage, this would likely preclude use of Heimlich, this was discussed with patient
Would favor continued drainage from chest tube
Remains on antibiotic therapy indefinitely, doxycycline--changed to LVQ
ID consult obtained, correspondence reviewed
Repeat culture 06/25 showing persistent E. coli infection
Repeat pleural culture today
Repeat chest x-ray in the a.m. reviewed
We do not expect pleural space to be fluid free given trapped lung physiology, given known adenocarcinoma with right upper lobe mass
ECHO in past with stable function
No role for diuresis in malignant pleural effusions
Dr. Petty: reached out to Thoracic Surgery ([facility]) - pt also spoke with oncology and asked them to reach out to us for updates
Pt wants to transition his Oncology care here after discharge. He would follow up with [facility]
DVT prophylaxis: Enoxaparin
Encourage ambulation with physical therapy
Encourage nutrition. Patient with good appetite
Continue to follow
Reviewed with primary service and nursing
Diagnostic Data
CXR 06/29/23- No significant interval change compared to recent prior studies. Right basilar chest remains in place with stable appearance of hydropneumothorax and pleural thickening. Unchanged right confluent apical opacity which may represent
chronic airspace consolidation and/or residual tumor. Hyperexpansion of the left lung with pain and swelling within the mid to lower portion.
CT Chest 06/26/23- Right pleural pigtail catheter is present. Moderate-sized right pneumothorax, which is decreased in size compared to CT examination of April 13, 2023. Slight improvement in inflation of the right middle lobe and right lower lobe
compared to most recent CT from March 2023. Ovoid focus of confluent parenchymal opacity involving the right upper lobe, fairly stable from prior CT, and probably representing chronic atelectasis/trapped lung. Within the posterior aspect of the
left lower lobe of the lung, patchy predominantly nodular areas of parenchymal opacity, new compared to CT of April 13, 2023, and likely representing patchy pneumonia. Dense coronary artery calcifications are present.
04/28/23- 1. No evidence of pulmonary embolism.
2. Moderate right hydropneumothorax with chest tube in place.
3. Grossly stable associated right lung atelectasis/consolidation and possible right upper lobe mass.
ECHO 04/13/23- Normal left ventricular size and systolic function. No regional wall motion abnormalities are seen. LV ejection fraction is 50-55% by Ramirez's method of discs. Mild concentric left ventricular hypertrophy. Mild aortic regurgitation.
Mild to moderate tricuspid regurgitation. Estimated pulmonary artery pressure of 45-50 mmHg. Compared to the previous echo Oct 2022, there is now TR with no other significant change.
Subjective Data
-
Date of Service:
Date of Service: June 30, 2023
Chief Complaint: Pulmonary Follow Up (Empyema)
Subjective:
patient seen and examined, doing well
stable on RA
chest tube still draining about 150-200cc/day
Objective Data
Data Reviewed
Vital Signs / I&O / Oxygen:
Vital Signs
Temp Pulse Resp BP Pulse Ox
97.6 F 80 18 97/71 98
06/30/23 07:43 06/30/23 07:43 06/30/23 07:43 06/30/23 07:43 06/30/23 07:43
Intake and Output
06/29/23 06/30/23 07/01/23
06:59 06:59 06:59
Intake Total 1140 / 1140 240 / 240
Output Total 950 / 950 110 / 110 30 / 30
Balance 190 / 190 130 / 130 -30 / -30
SaO2 98
Nasal Cannula flow liters per 3
minute
Physical Exam
General: Comfortable and Good Appetite
HEENT: Normocephalic, Anicteric and Moist Mucous Membranes
Cardiovascular: S1-S2, Murmur (n) and Rub (n)
Respiratory: Wheeze (n), Crackles (RLL), Rhonchi (n), Chest Tube (Right-sided chest tube) and Other (Inspiratory squeaks in RLL-RML)
GI: Soft, Non Distended and Non Tender
Neurology: Awake, Alert, Oriented, AO x 3 and Tremors (negative)
Skin: Warm, Dry, Cyanosis (n) and Jaundice (n)
Labs/Micro/Reports
Lab Data
06/30/23 05:05
06/30/23 05:05
Microbiology
06/26/23 16:41 Pleural Fluid Fungal Culture - Preliminary
Culture in progress.
Positive cultures are reported as soon as detected.
Final report to follow in four to five weeks.
06/16/23 16:39 Pleural Fluid Fungal Smear - Final
No yeast or fungal elements seen.
06/16/23 16:39 Pleural Fluid Fungal Culture - Preliminary
Culture in progress.
Positive cultures are reported as soon as detected.
Final report to follow in four to five weeks.
06/26/23 16:41 Pleural Fluid Acid Fast Bacilli Smear - Preliminary
06/26/23 16:41 Pleural Fluid Acid Fast Bacilli Culture - Preliminary
06/26/23 16:41 Pleural Fluid Body Fluid Culture - Final
Escherichia coli
06/26/23 16:41 Pleural Fluid Gram Stain - Final
[2023-06-30] MEDS: MIRALAX PO (09:47)
[2023-06-30] MEDS: TOPROL XL 12.5 MG PO ×2 (09:53→20:21)
[2023-06-30] MEDS: COLACE 100 MG PO ×2 (09:53→20:22)
[2023-06-30] MEDS: MIRALAX 17 GRAMS PO (09:53)
[2023-06-30] MEDS: FOLVITE 1 MG PO (09:54)
[2023-06-30] MEDS: FLOMAX 0.400000000000000022 MG PO (09:54)
[2023-06-30] MEDS: LEVAQUIN 750 MG PO (09:54)
--- NOTE | 2023-06-30 11:19 | CM ---
Patient seen at bedside, Per nursing pending further treatment, Patient indicated that his plan is for discharge home with [facility]. Kat has accepted patient for [facility] will need updated clinicals closer to discharge. CM will continue to follow
for discharge planning needs.
Plan; home with [facility] and pending Heimlich valve per review of chart
--- NOTE | 2023-06-30 13:08 | W.PN.UPDATE ---
Update Note
Progress Note Update
Patient seen and examined
Discussed with resident
Discussed with pulmonology
Impression:
Large right pleural effusion secondary to empyema
Status post chest tube placement 06/15
Conditions prior to admission:
Right upper lobe mass/stage IV adenocarcinoma with right malignant pleural effusion.
� Status post 2 cycles of chemotherapy
Status post chest tube placement with Heimlich valve (BP fistula/trapped lung physiology)
COPD
CAD with stent
Essential hypertension
Dyslipidemia
History of gastric ulcer complicated with gastrointestinal hemorrhage 2019.
History of H. pylori.
Former smoker
Plan:
Right pleural effusion secondary to empyema.
Pleural culture with E. coli and staph hemolyticus sensitive to tetracycline
Respiratory status stable while on room air
Concern for aspiration
Repeat speech and swallow evaluation
Antibiotics changed to levofloxacin.
Repeat pleural fluid cultures
Continue monitor through chest tube.
Eventually replace chest tube with Pleurx when infection cleared and/or output minimizes.
Hyponatremia improved
Microcytic anemia
-Likely due to chemotherapy
-Monitor H&H
COPD without exacerbation
-Stable, continue Spiriva, Symbicort
CAD s/p stent
-Continue statin, beta-homer
Essential hypertension
-Stable on beta-homer
Hyperlipidemia
-Continue atorvastatin
DVT prophylaxis�subcu Lovenox
DNR (patient elects to be full code for elective procedures only)
--- NOTE | 2023-06-30 13:08 | W.PN.HOSP.TC ---
Today's Communication/Plan
-
Pending pleural fluid cultures.
Speech to 9 diet recommendations.
Continue current medication regimen.
Assessment / Plan
Assessment / Plan
Assessment-
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
drainage from chest tube site became clear, then blood, then yellow and greenish (pus) 06/13/2023 over 2 days. 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
Plan-
Right-sided empyema
Respiratory status stable on room air.
CT drainage-200 mL over 12 hours. Pleural culture with E. coli and staph hemolyticus sensitive to tetracycline.
CT 06/26/2023 with moderate size right pneumothorax and slight improvement in inflation of right middle lobe and right lower lobe.
Appreciate IR, pulmonary input, s/p right chest tube 06/16/2023 draining purulent brown fluid
Appreciate ID input, status post Unasyn, continue doxycycline indefinitely as per ID
Appreciate CT surgery input, CT surgery rec waterseal, antibiotics, and eventual transition to PleurX. Status post tPA x 6.
Touch base with pulmonology-plan changed to eventual catheterization with Pleurx.
ID switched from doxycycline to Levaquin. Possibility of aspiration.
Speech therapy evaluation for aspiration assessment done in the past. Recommended SUKUMAR inpatient. Speech therapy reconsulted today.
Pending pleural fluid cultures today.
Follows with oncology [facility], s/p 2 cycles of chemotherapy.
Hyponatremia
Resolved.
Microcytic anemia
Likely due to chemotherapy
Monitor H&H
COPD without exacerbation
Stable, continue Spiriva, Symbicort
CAD s/p stent
Continue statin, beta-homer
Essential hypertension
Stable on beta-homer
Hyperlipidemia
Continue atorvastatin
DVT prophylaxis�subcu Lovenox
DNR (patient elects to be full code for elective procedures only)
Anticipated Discharge: > 48 hours
Subjective/Interval History
-
Date of Service: June 30, 2023
Patient reports to have some cough, dry, no expectoration.
Reports to have some issues with aspiration. Has aspiration assessment inpatient.
Objective Data
-
Labs:
Laboratory Results
06/30/23
05:05
WBC 8.5
Hgb 9.9 L
Hct 31.6 L
Plt Count 162
Sodium 136
Potassium 3.8
Chloride 101
Carbon Dioxide 27
BUN 14
Creatinine 0.6 L
Glucose 114 H
Calcium 8.6
Vital Signs:
Vital Signs
Temp Pulse Resp BP Pulse Ox
97.6 F 80 18 97/71 95
06/30/23 07:43 06/30/23 07:43 06/30/23 07:43 06/30/23 07:43 06/30/23 08:31
I&O
06/29/23 06/30/23 07/01/23
06:59 06:59 06:59
Intake Total 1140 / 1140 240 / 240
Output Total 950 / 950 110 / 110 30 / 30
Balance 190 / 190 130 / 130 -30 / -30
Review of Systems
-
History Source: Patient
Constitutional: Reports No Symptoms
EENT: Reports No Symptoms Reported
Respiratory: Reports Cough
Cardiac: Reports No Symptoms
Abdomen/GI: Reports No Symptoms
Genitourinary: Reports No Symptoms
Musculoskeletal: Reports No Symptoms
Neuro: Reports No Symptoms
Endocrine: Reports No Symptoms
Hematologic / Lymphatic: Reports No Symptoms
Physical Exam
-
General: No Apparent Distress
HEENT: Normocephalic, Atraumatic and Moist Mucous Membranes
Respiratory: Other (Clear to auscultation on the left side. No wheezes and rhonchi on the right side, crackles heard on the right lower lobe posteriorly. Chest tube on the right side. Dressing intact.)
Cardiac: Regular Rhythm, S1/S2 and Other (No murmurs, rubs, gallops.)
GI: Soft, Nontender, Nondistended and Normal Bowel Sounds
Musculoskeletal: No Clubbing, No Cyanosis and No Edema
Neuro: AO x 3 and No Motor Deficits
Psych: Calm
[2023-06-30 13:10] VITALS: BP 119/76; O2SAT 94
[2023-06-30 15:46] VITALS: BP 110/66
[2023-06-30] MEDS: TYLENOL 650 MG PO (15:54)
[2023-06-30] MEDS: LOVENOX 40 MG SC (17:05)
[2023-06-30] MEDS: LIPITOR 80 MG PO (20:21)
[2023-06-30 22:42] VITALS: BP 107/66
--- NOTE | 2023-06-30 23:45 | PTCARENOTE ---
pt rang call gray stating that chest tube got tugged on- stitches showing when earlier they were not. pt with some increased pain. notified covering PRESIDENTIAL SUPPORT SPECIALIST- STAT portable chest x-ray ordered and obtained.
--- NOTE | 2023-07-01 03:06 | DOWNTIME ---
There was a [employer] Client Waste Machine Tender Downtime on 06/30/2023 from 0100 to 07/01/2023 at 0300. Downtime documentation of patient's care, including medication administrations, has been reconciled in the electronic record per guidelines. Refer to the
patient's paper chart under the miscellaneous tab to see printed paper medication records and downtime forms.
[2023-07-01 05:45] LABS: % Basophils 0.9 % (0-2); % Eosinophils 0.7 % (0-6); % Immature Granulocytes 1.1 % (0-0.5); % Lymphocytes 8.6 % (20.5-51.1); % Monocytes 9.7 % (1.7-9.3); Absolute Basophils 0.1 10^3/uL (0-0.2); Absolute Eosinophils 0.1 10^3/uL (0-0.7); Absolute Immature Granulocytes 0.1 10^3/uL (0-0.05); Absolute Lymphocytes 0.7 10^3/uL (1.2-3.4); Absolute Monocytes 0.8 10^3/uL (0.1-0.6); Absolute Neutrophils 6.7 10^3/uL (1.4-6.5); Hematocrit 33.5 % (39.0-52.0); Hemoglobin 10.4 g/dL (13.0-18.0); Mean Corpuscular Hgb 25.7 pg (27.0-31.0); Mean Corpuscular Volume 82.9 fL (80.0-94.0); Mean Platelet Volume 7.9 fL (7.4-10.4); Nucleated Red Blood Cells % 0 % (-); Platelet Count 173 10^3/uL (130-400); Red Blood Cell Count 4.04 10^6/uL (4.70-6.10); Red Cell Dist. Width 20.4 % (11.5-14.5); White Blood Cell Count 8.5 10^3/uL (4.8-10.8)
[2023-07-01 06:12] LABS: ALT (SGPT) 11 U/L (0-50); AST (SGOT) 19 U/L (17-59); Albumin 2.9 g/dl (3.5-5.0); Alkaline Phosphatase 86 U/L (38-126); Blood Urea Nitrogen 13 mg/dl (9-20); Carbon Dioxide 28 mmol/L (22-30); Chloride 101 mmol/L (98-107); Estimated Creatinine Clearance 96 ml/min; Glucose 113 mg/dl (70-99); Sodium 137 mmol/L (135-145); Total Bilirubin 0.4 mg/dl (0.2-1.3); Total Protein 6.2 g/dl (6.3-8.2); eGFR > 60.00
[2023-07-01 07:51] VITALS: BP 108/70
--- NOTE | 2023-07-01 08:26 | W.PN.HOSP.TC ---
Today's Communication/Plan
-
Continue current medical management with Levaquin and other medications.
Pending decision on Pleurx.
Assessment / Plan
Assessment / Plan
Assessment-
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
drainage from chest tube site became clear, then blood, then yellow and greenish (pus) 06/13/2023 over 2 days. 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
Plan-
Right-sided empyema
Respiratory status stable on room air.
CT drainage-200 mL over 12 hours. Pleural culture with E. coli and staph hemolyticus sensitive to tetracycline.
CT 06/26/2023 with moderate size right pneumothorax and slight improvement in inflation of right middle lobe and right lower lobe.
Appreciate IR, pulmonary input, s/p right chest tube 06/16/2023 draining purulent brown fluid
Appreciate ID input, status post Unasyn, continue doxycycline indefinitely as per ID
Appreciate CT surgery input, CT surgery rec waterseal, antibiotics, and eventual transition to PleurX. Status post tPA x 6.
Touch base with pulmonology-plan changed to eventual catheterization with Pleurx.
ID switched from doxycycline to Levaquin. Possibility of aspiration.
Speech therapy evaluation for aspiration assessment done in the past. Recommended SUKUMAR inpatient. Speech therapy reconsulted today.
Pending pleural fluid cultures today. Pending decision on whether to remove the chest tube and observe for fluid reaccumulation, or proceed with Pleurx catheter.
Follows with oncology [facility], s/p 2 cycles of chemotherapy.
Hyponatremia
Resolved.
Microcytic anemia
Likely due to chemotherapy
Monitor H&H
COPD without exacerbation
Stable, continue Spiriva, Symbicort
CAD s/p stent
Continue statin, beta-homer
Essential hypertension
Stable on beta-homer
Hyperlipidemia
Continue atorvastatin
DVT prophylaxis�subcu Lovenox
DNR (patient elects to be full code for elective procedures only)
Anticipated Discharge: 24 - 48 hours
Subjective/Interval History
-
Date of Service: July 01, 2023
Reports that cough is almost nonexistent.
Reduce the chest tube output overnight.
Objective Data
-
Labs:
Laboratory Results
07/01/23
05:36
WBC 8.5
Hgb 10.4 L
Hct 33.5 L
Plt Count 173
Sodium 137
Potassium 4.0
Chloride 101
Carbon Dioxide 28
BUN 13
Creatinine 0.7
Glucose 113 H
Calcium 9.0
Total Bilirubin 0.4
AST 19
ALT 11
Alkaline Phosphatase 86
Vital Signs:
Vital Signs
Temp Pulse Resp BP Pulse Ox
98.1 F 98 16 107/66 96
06/30/23 22:42 06/30/23 22:42 06/30/23 22:42 06/30/23 22:42 06/30/23 22:42
I&O
06/30/23 07/01/23 07/02/23
06:59 06:59 06:59
Intake Total 240 / 240 720 / 720
Output Total 110 / 110 55 / 55 25 / 25
Balance 130 / 130 665 / 665 -25 / -25
Review of Systems
-
History Source: Patient
Constitutional: Reports No Symptoms
EENT: Reports No Symptoms Reported
Respiratory: Reports No Symptoms
Cardiac: Reports No Symptoms
Abdomen/GI: Reports No Symptoms
Genitourinary: Reports No Symptoms
Musculoskeletal: Reports No Symptoms
Neuro: Reports No Symptoms
Hematologic / Lymphatic: Reports No Symptoms
Allergy / Immunology: Reports No Symptoms
Physical Exam
-
General: Comfortable (On room air.)
HEENT: Normocephalic, Atraumatic and Moist Mucous Membranes
Respiratory: Other (Right lower lobe crackles present, clear to auscultation on the left side. No wheezes, rhonchi.)
Cardiac: Regular Rhythm, S1/S2 and Other
GI: Soft, Nontender, Nondistended and Normal Bowel Sounds
Musculoskeletal: No Clubbing, No Cyanosis and No Edema
Neuro: AO x 3 and No Motor Deficits
Psych: Calm
[2023-07-01] MEDS: SYMBICORT 80/4.5 MCG INHALER 2 PUFF INH ×2 (08:27→20:37)
[2023-07-01] MEDS: SPIRIVA RESPIMAT 2.5 MCG 2 PUFF INH (08:28)
[2023-07-01] MEDS: FOLVITE 1 MG PO (08:43)
[2023-07-01] MEDS: FLOMAX 0.400000000000000022 MG PO (08:43)
[2023-07-01] MEDS: COLACE 100 MG PO ×2 (08:43→20:13)
[2023-07-01] MEDS: TOPROL XL 12.5 MG PO ×2 (08:43→20:13)
[2023-07-01] MEDS: LEVAQUIN 750 MG PO (08:43)
[2023-07-01] MEDS: MIRALAX 17 GRAMS PO (08:43)
--- NOTE | 2023-07-01 08:52 | W.PN.PUL3 ---
Today's Communication / Plan
-
Repeat pleural culture
Discussion with care team regarding discontinuing chest tube with observation
Placement of pleurx can be determined to follow if there is reaccumulation
Abx continued per ID
Assessment
-
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
at [place] ([facility]). Patient had a surgical procedure, details unknown, chest tube upon discharge with Heimlich valve, which spontaneously came out about 6 weeks ago. At that time he stopped his antibiotic therapy and started chemotherapy. His last
dose of chemotherapy (second cycle) was 3 weeks ago. He developed fevers over the last week and spontaneous drainage at his old chest tube site, now prompting admission for suspected empyema 06/15/2023
Large right pleural effusion due to empyema status post chest tube 06/15 by IR
Pleural fluid Cx (+) for E. coli
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
History of right large effusion with complete right lung atelectasis
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
Heimlich valve placed, spontaneously fell out approximately mid April 2023
Right upper lobe mass, right lung volume loss with pneumothorax ex-vacuo due to entrapped lung physiology given his adenocarcinoma with MPE
Leukopenia, anemia
Stage IV adenocarcinoma
Malignant right pleural effusion diagnosed March 2023
Status post 2 cycles of chemotherapy (carboplatin, Taxol, Keytruda?)
jeanna Wood ([place])
Progressive weight loss
Clubbing on exam
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
CAD s/p stents
HTN
HLD
GIB, gastric ulcer 2019
H/o H pylori
Former vpayoc-17-sdax-year quit 15 years old
Plan/recommendations
At this time, patient continues to improve clinically, stable on RA
Not on O2, no need for home use
Continue with outpatient inhaler regimen--Symbicort/Spiriva will replace Trelegy
E. coli Empyema s/p chest tube 06/15
Chest tube drainage appears to be about 300 cc plus every 24 hours
Status post intrapleural lytic therapy, tPA and dornase injection. 06/19/2023. + another 6 doses from 06/22 - 06/24
Patient completed lytic therapy through 06/24
Trapped lung physiology. There is no role for any acute intervention at this time
Will need to continue to drain, ideally conversion to pleurex would be best
Patient does have trapped lung physiology and had persistent air leak with prior chest tube back in March.
Unclear whether he had a BP fistula but with patient was discharged on chronic antibiotic therapy and chest tube with Heimlich valve which spontaneously fell out around middle of April ([place])
If there is ongoing excessive fluid drainage, this would likely preclude use of Heimlich, this was discussed with patient
Would favor continued drainage from chest tube
Output seems diminished in past 24 hours
Can assess to discontinue chest tube with observation prior to pleurx placement
Remains on antibiotic therapy indefinitely, doxycycline--changed to LVQ
ID consult obtained, correspondence reviewed
Repeat culture 06/25 showing persistent E. coli infection
Repeat pleural culture
Repeat chest x-ray in the a.m. reviewed
We do not expect pleural space to be fluid free given trapped lung physiology, given known adenocarcinoma with right upper lobe mass
ECHO in past with stable function
No role for diuresis in malignant pleural effusions
Dr. Petty: reached out to Thoracic Surgery ([facility]) - pt also spoke with oncology and asked them to reach out to us for updates
Pt wants to transition his Oncology care here after discharge. He would follow up with [facility]
DVT prophylaxis: Enoxaparin
Encourage ambulation with physical therapy
Encourage nutrition. Patient with good appetite
Continue to follow
Reviewed with primary service and nursing
Diagnostic Data
CXR 06/29/23- No significant interval change compared to recent prior studies. Right basilar chest remains in place with stable appearance of hydropneumothorax and pleural thickening. Unchanged right confluent apical opacity which may represent
chronic airspace consolidation and/or residual tumor. Hyperexpansion of the left lung with pain and swelling within the mid to lower portion.
CT Chest 06/26/23- Right pleural pigtail catheter is present. Moderate-sized right pneumothorax, which is decreased in size compared to CT examination of April 13, 2023. Slight improvement in inflation of the right middle lobe and right lower lobe
compared to most recent CT from March 2023. Ovoid focus of confluent parenchymal opacity involving the right upper lobe, fairly stable from prior CT, and probably representing chronic atelectasis/trapped lung. Within the posterior aspect of the
left lower lobe of the lung, patchy predominantly nodular areas of parenchymal opacity, new compared to CT of April 13, 2023, and likely representing patchy pneumonia. Dense coronary artery calcifications are present.
04/28/23- 1. No evidence of pulmonary embolism.
2. Moderate right hydropneumothorax with chest tube in place.
3. Grossly stable associated right lung atelectasis/consolidation and possible right upper lobe mass.
ECHO 04/13/23- Normal left ventricular size and systolic function. No regional wall motion abnormalities are seen. LV ejection fraction is 50-55% by Ramirez's method of discs. Mild concentric left ventricular hypertrophy. Mild aortic regurgitation.
Mild to moderate tricuspid regurgitation. Estimated pulmonary artery pressure of 45-50 mmHg. Compared to the previous echo Oct 2022, there is now TR with no other significant change.
Subjective Data
-
Date of Service:
Date of Service: July 01, 2023
Chief Complaint: Pulmonary Follow Up (Empyema)
Subjective:
doing well, stable on RA
minimal output noted in last 24 hours
Objective Data
Data Reviewed
Vital Signs / I&O / Oxygen:
Vital Signs
Temp Pulse Resp BP Pulse Ox
98.1 F 80 16 108/70 96
07/01/23 07:51 07/01/23 07:51 07/01/23 07:51 07/01/23 07:51 07/01/23 07:51
Intake and Output
06/30/23 07/01/23 07/02/23
06:59 06:59 06:59
Intake Total 240 / 240 720 / 720
Output Total 110 / 110 55 / 55 25
Balance 130 / 130 665 / 665 -25 / -25
SaO2 96
Nasal Cannula flow liters per 3
minute
Physical Exam
General: Comfortable and Good Appetite
HEENT: Normocephalic, Anicteric and Moist Mucous Membranes
Cardiovascular: S1-S2, Murmur (n) and Rub (n)
Respiratory: Clear (on L), Wheeze (n), Crackles (RLL, minimal), Rhonchi (n), Chest Tube (Right-sided chest tube) and Other (Inspiratory squeaks in RLL-RML)
GI: Soft, Non Distended and Non Tender
Neurology: Awake, Alert, Oriented, AO x 3 and Tremors (negative)
Skin: Warm, Dry, Cyanosis (n) and Jaundice (n)
Labs/Micro/Reports
Lab Data
07/01/23 05:36
07/01/23 05:36
Microbiology
06/26/23 16:41 Pleural Fluid Fungal Culture - Preliminary
Culture in progress.
Positive cultures are reported as soon as detected.
Final report to follow in four to five weeks.
06/16/23 16:39 Pleural Fluid Fungal Smear - Final
No yeast or fungal elements seen.
06/16/23 16:39 Pleural Fluid Fungal Culture - Preliminary
Culture in progress.
Positive cultures are reported as soon as detected.
Final report to follow in four to five weeks.
06/26/23 16:41 Pleural Fluid Acid Fast Bacilli Smear - Preliminary
06/26/23 16:41 Pleural Fluid Acid Fast Bacilli Culture - Preliminary
06/26/23 16:41 Pleural Fluid Body Fluid Culture - Final
Escherichia coli
06/26/23 16:41 Pleural Fluid Gram Stain - Final
--- NOTE | 2023-07-01 13:52 | W.PN.UPDATE ---
Update Note
Progress Note Update
Impression:
Large right pleural effusion secondary to empyema
Status post chest tube placement 06/15
Conditions prior to admission:
Right upper lobe mass/stage IV adenocarcinoma with right malignant pleural effusion.
� Status post 2 cycles of chemotherapy
Status post chest tube placement with Heimlich valve (BP fistula/trapped lung physiology)
COPD
CAD with stent
Essential hypertension
Dyslipidemia
History of gastric ulcer complicated with gastrointestinal hemorrhage 2019.
History of H. pylori.
Former smoker
Plan:
Right pleural effusion secondary to empyema.
Pleural culture with E. coli and staph hemolyticus sensitive to tetracycline
Respiratory status stable while on room air
Concern for aspiration
Repeat speech and swallow evaluation
Antibiotics changed to levofloxacin.
Repeat pleural fluid cultures
Chest tube output dropped to less than 100 cc over the last 24 hours
Ongoing discussion either to remove chest tube and observe for fluid recannulation versus replacement with Pleurx.
Hyponatremia improved
Microcytic anemia
-Likely due to chemotherapy
-Monitor H&H
COPD without exacerbation
-Stable, continue Spiriva, Symbicort
CAD s/p stent
-Continue statin, beta-homer
Essential hypertension
-Stable on beta-homer
Hyperlipidemia
-Continue atorvastatin
DVT prophylaxis�subcu Lovenox
DNR (patient elects to be full code for elective procedures only)
--- NOTE | 2023-07-01 15:05 | PTCARENOTE ---
Pleural fluid culture sent to lab.
[2023-07-01 15:16] VITALS: BP 108/65
[2023-07-01] MEDS: TYLENOL 650 MG PO (18:17)
[2023-07-01] MEDS: LOVENOX 40 MG SC (18:17)
[2023-07-01] MEDS: LIPITOR 80 MG PO (20:13)
[2023-07-01] MEDS: ProAIR HFA INHALER 1 PUFF INH (20:38)
[2023-07-01] MEDS: MELATONIN 10 MG PO (23:39)
[2023-07-01] MEDS: FLEXERIL 5 MG PO (23:39)
[2023-07-01] MEDS: ULTRAM 50 MG PO (23:40)
[2023-07-01 23:48] VITALS: BP 105/67
[2023-07-02 06:05] LABS: % Basophils 0.6 % (0-2); % Eosinophils 0.7 % (0-6); % Immature Granulocytes 1.1 % (0-0.5); % Lymphocytes 8.2 % (20.5-51.1); % Monocytes 9.5 % (1.7-9.3); % Neutrophils 79.9 % (42.2-75.2); Absolute Eosinophils 0.1 10^3/uL (0-0.7); Absolute Immature Granulocytes 0.1 10^3/uL (0-0.05); Absolute Lymphocytes 0.6 10^3/uL (1.2-3.4); Absolute Monocytes 0.7 10^3/uL (0.1-0.6); Absolute Neutrophils 5.6 10^3/uL (1.4-6.5); Hematocrit 29.1 % (39.0-52.0); Hemoglobin 9.5 g/dL (13.0-18.0); Mean Corp Hgb Conc. 32.6 g/dL (33.0-37.0); Mean Corpuscular Volume 79.5 fL (80.0-94.0); Mean Platelet Volume 8.1 fL (7.4-10.4); Nucleated Red Blood Cells % 0 % (-); Platelet Count 147 10^3/uL (130-400); Red Blood Cell Count 3.66 10^6/uL (4.70-6.10); Red Cell Dist. Width 20.1 % (11.5-14.5); White Blood Cell Count 7.1 10^3/uL (4.8-10.8)
[2023-07-02 06:45] LABS: ALT (SGPT) 10 U/L (0-50); AST (SGOT) 20 U/L (17-59); Albumin 2.7 g/dl (3.5-5.0); Alkaline Phosphatase 80 U/L (38-126); Blood Urea Nitrogen 10 mg/dl (9-20); Calcium 8.8 mg/dl (8.4-10.2); Carbon Dioxide 24 mmol/L (22-30); Chloride 102 mmol/L (98-107); Estimated Creatinine Clearance 112 ml/min; Glucose 107 mg/dl (70-99); Potassium 3.8 mmol/L (3.5-5.1); Sodium 136 mmol/L (135-145); Total Bilirubin 0.4 mg/dl (0.2-1.3); Total Protein 5.8 g/dl (6.3-8.2); eGFR > 60.00
[2023-07-02] MEDS: SPIRIVA RESPIMAT 2.5 MCG 2 PUFF INH (07:39)
[2023-07-02] MEDS: SYMBICORT 80/4.5 MCG INHALER 2 PUFF INH ×2 (07:40→20:59)
[2023-07-02] MEDS: ProAIR HFA INHALER 1 PUFF INH (07:40)
--- NOTE | 2023-07-02 08:19 | W.PN.HOSP.TC ---
Addendum entered and electronically signed by Neel Gill MD 07/02/23 14:13:
Impression:
Large right pleural effusion secondary to empyema
Status post chest tube placement 06/15
Conditions prior to admission:
Right upper lobe mass/stage IV adenocarcinoma with right malignant pleural effusion.
� Status post 2 cycles of chemotherapy
Status post chest tube placement with Heimlich valve (BP fistula/trapped lung physiology)
COPD
CAD with stent
Essential hypertension
Dyslipidemia
History of gastric ulcer complicated with gastrointestinal hemorrhage 2019.
History of H. pylori.
Former smoker
Plan:
Right pleural effusion secondary to empyema.
Pleural culture with E. coli and staph hemolyticus sensitive to tetracycline
Respiratory status stable while on room air
Concern for aspiration
Repeated pleural fluid cultures with E. coli
Antibiotics changed to levofloxacin.
Given decreased chest tube output plan is to pull chest tube and monitor over the next 24 hours for pleural fluid accumulation.
Will required chronic antibiotic suppression.
Hyponatremia improved
Microcytic anemia
-Likely due to chemotherapy
-Monitor H&H
COPD without exacerbation
-Stable, continue Spiriva, Symbicort
CAD s/p stent
-Continue statin, beta-homer
Essential hypertension
-Stable on beta-homer
Hyperlipidemia
-Continue atorvastatin
DVT prophylaxis�subcu Lovenox
DNR (patient elects to be full code for elective procedures only)
Original Note:
Today's Communication/Plan
-
Chest tube to be removed today.
Observation for 24 hours for reaccumulation of fluid.
Continue levofloxacin.
Assessment / Plan
Assessment / Plan
Assessment-
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
drainage from chest tube site became clear, then blood, then yellow and greenish (pus) 06/13/2023 over 2 days. 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
Plan-
Right-sided empyema
Repeat pleural cultures yesterday-preliminary Gram stain negative, final cultures pending-07/01/2023.
Respiratory status stable on room air.
CT drainage-55mL over 24 hours.
Pleural culture with E. coli and staph hemolyticus sensitive to tetracycline.
CT 06/26/2023 with moderate size right pneumothorax and slight improvement in inflation of right middle lobe and right lower lobe.
Appreciate IR, pulmonary input, s/p right chest tube 06/16/2023 draining purulent brown fluid
Appreciate ID input, status post Unasyn, continue doxycycline indefinitely as per ID
Appreciate CT surgery input, CT surgery rec waterseal, antibiotics, and eventual transition to PleurX. Status post tPA x 6.
Touch base with pulmonology-plan changed to eventual catheterization with Pleurx.
ID switched from doxycycline to Levaquin. Possibility of aspiration.
Speech therapy evaluation for aspiration assessment done in the past. Recommended [facility] inpatient. Speech therapy reconsulted today.
Plan is to remove the chest tube today and observe the patient for 24 hours. If the patient reaccumulate's fluid, then a Pleurx catheter will be considered.
Follows with oncology [facility], s/p 2 cycles of chemotherapy.
Hyponatremia
Resolved.
Microcytic anemia
Likely due to chemotherapy
Monitor H&H
COPD without exacerbation
Stable, continue Spiriva, Symbicort
CAD s/p stent
Continue statin, beta-homer
Essential hypertension
Stable on beta-homer
Hyperlipidemia
Continue atorvastatin
DVT prophylaxis�subcu Lovenox
DNR (patient elects to be full code for elective procedures only)
Anticipated Discharge: 24 - 48 hours
Subjective/Interval History
-
Date of Service: July 02, 2023
Patient reports no complaints today.
Objective Data
-
Labs:
Laboratory Results
07/02/23
05:54
WBC 7.1
Hgb 9.5 L
Hct 29.1 L
Plt Count 147
Sodium 136
Potassium 3.8
Chloride 102
Carbon Dioxide 24
BUN 10
Creatinine 0.6 L
Glucose 107 H
Calcium 8.8
Total Bilirubin 0.4
AST 20
ALT 10
Alkaline Phosphatase 80
Vital Signs:
Vital Signs
Temp Pulse Resp BP Pulse Ox
98.4 F 102 14 105/67 95
07/02/23 07:15 07/02/23 07:45 07/02/23 07:45 07/01/23 23:48 07/02/23 08:08
I&O
07/01/23 07/02/23 07/03/23
06:59 06:59 06:59
Intake Total 720 / 720
Output Total 55 / 55 230 / 230
Balance 665 / 665 -230 / -230
Review of Systems
-
History Source: Patient
All other systems: Reviewed and negative
Physical Exam
-
General: Comfortable (On room air.)
HEENT: Normocephalic, Atraumatic and Moist Mucous Membranes
Respiratory: Clear to Auscultation (On the posterior left side.), Decreased Breath Sounds (On the right lower lobe, crackles in the right lower lobe.) and Chest Tubes (Present on the right side.)
Cardiac: Regular Rhythm, S1/S2 and Other (No murmurs, rubs, gallops)
GI: Soft, Nontender, Nondistended and Normal Bowel Sounds
Musculoskeletal: No Edema
Skin: Warm
Neuro: AO x 3
Psych: Calm
[2023-07-02] MEDS: COLACE 100 MG PO ×2 (08:23→21:26)
[2023-07-02] MEDS: LEVAQUIN 750 MG PO (08:23)
[2023-07-02] MEDS: TOPROL XL 12.5 MG PO ×2 (08:23→21:26)
[2023-07-02] MEDS: FOLVITE 1 MG PO (08:23)
[2023-07-02] MEDS: FLOMAX 0.400000000000000022 MG PO (08:23)
[2023-07-02] MEDS: MIRALAX 17 GRAMS PO (08:24)
[2023-07-02] MEDS: ULTRAM 50 MG PO ×2 (08:27→23:45)
--- NOTE | 2023-07-02 09:04 | W.PN.PUL3 ---
Today's Communication / Plan
-
Discontinue chest tube today, consult placed to IR
We discussed timing of pleurex placement pending fluid reaccumulation, reassuring that the past 72 hours has been diminished
Continue abx per ID
Patient understands and is agreeable to trial
Observation 24 hours
Assessment
-
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
at [place] ([facility]). Patient had a surgical procedure, details unknown, chest tube upon discharge with Heimlich valve, which spontaneously came out about 6 weeks ago. At that time he stopped his antibiotic therapy and started chemotherapy. His last
dose of chemotherapy (second cycle) was 3 weeks ago. He developed fevers over the last week and spontaneous drainage at his old chest tube site, now prompting admission for suspected empyema 06/15/2023
Large right pleural effusion due to empyema status post chest tube 06/15 by IR
Pleural fluid Cx (+) for E. coli
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
History of right large effusion with complete right lung atelectasis
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
Heimlich valve placed, spontaneously fell out approximately mid April 2023
Right upper lobe mass, right lung volume loss with pneumothorax ex-vacuo due to entrapped lung physiology given his adenocarcinoma with MPE
Leukopenia, anemia
Stage IV adenocarcinoma
Malignant right pleural effusion diagnosed March 2023
Status post 2 cycles of chemotherapy (carboplatin, Taxol, Keytruda?)
sees Izabela Wood ([place])
Progressive weight loss
Clubbing on exam
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
CAD s/p stents
HTN
HLD
GIB, gastric ulcer 2019
H/o H pylori
Former bipjlw-18-bffb-year quit 15 years old
Plan/recommendations
At this time, patient continues to improve clinically, stable on RA
Not on O2, no need for home use
Continue with outpatient inhaler regimen--Symbicort/Spiriva will replace Trelegy
E. coli Empyema s/p chest tube 06/15
Status post intrapleural lytic therapy, tPA and dornase injection. 06/19/2023. + another 6 doses from 06/22 - 06/24
Patient completed lytic therapy through 06/24
Trapped lung physiology. We do not expect pleural space to be fluid free given trapped lung physiology, given known adenocarcinoma with right upper lobe mass
There is no role for any acute intervention at this time
Will need to continue to drain, ideally conversion to pleurex would be best
We discussed this can be done as OP if fluid output has remained low
Patient does have trapped lung physiology and had persistent air leak with prior chest tube back in March.
Unclear whether he had a BP fistula but with patient was discharged on chronic antibiotic therapy and chest tube with Heimlich valve which spontaneously fell out around middle of April ([place])
If there is ongoing excessive fluid drainage, this would likely preclude use of Heimlich, this was discussed with patient
Given low output past 72 hours, would be reasonable to trial off, this was discussed with IR
Discontinue chest tube today, trial and repeat CXR in next 24 hours
Remains on antibiotic therapy indefinitely, doxycycline--changed to LVQ
ID consult obtained, correspondence reviewed
Repeat culture 06/25 showing persistent E. coli infection
Repeat pleural culture 06/30 pending
ECHO in past with stable function
No role for diuresis in malignant pleural effusions
Dr. Petty: reached out to Thoracic Surgery ([facility]) - pt also spoke with oncology and asked them to reach out to us for updates
Pt wants to transition his Oncology care here after discharge.
He would follow up with [place]
DVT prophylaxis: Enoxaparin
Encourage ambulation with physical therapy
Encourage nutrition. Patient with good appetite
Continue to follow
Reviewed with primary service and nursing
Paln of care is reviewed with care team
Diagnostic Data
CXR 06/29/23- No significant interval change compared to recent prior studies. Right basilar chest remains in place with stable appearance of hydropneumothorax and pleural thickening. Unchanged right confluent apical opacity which may represent
chronic airspace consolidation and/or residual tumor. Hyperexpansion of the left lung with pain and swelling within the mid to lower portion.
CT Chest 06/26/23- Right pleural pigtail catheter is present. Moderate-sized right pneumothorax, which is decreased in size compared to CT examination of April 13, 2023. Slight improvement in inflation of the right middle lobe and right lower lobe
compared to most recent CT from March 2023. Ovoid focus of confluent parenchymal opacity involving the right upper lobe, fairly stable from prior CT, and probably representing chronic atelectasis/trapped lung. Within the posterior aspect of the
left lower lobe of the lung, patchy predominantly nodular areas of parenchymal opacity, new compared to CT of April 13, 2023, and likely representing patchy pneumonia. Dense coronary artery calcifications are present.
04/28/23- 1. No evidence of pulmonary embolism.
2. Moderate right hydropneumothorax with chest tube in place.
3. Grossly stable associated right lung atelectasis/consolidation and possible right upper lobe mass.
ECHO 04/13/23- Normal left ventricular size and systolic function. No regional wall motion abnormalities are seen. LV ejection fraction is 50-55% by Ramirez's method of discs. Mild concentric left ventricular hypertrophy. Mild aortic regurgitation.
Mild to moderate tricuspid regurgitation. Estimated pulmonary artery pressure of 45-50 mmHg. Compared to the previous echo Oct 2022, there is now TR with no other significant change.
Subjective Data
-
Date of Service:
Date of Service: July 02, 2023
Chief Complaint: Pulmonary Follow Up (Empyema)
Subjective:
output seems less overall
remains stable on room air
tidaling noted in tube without air leak
Objective Data
Data Reviewed
Vital Signs / I&O / Oxygen:
Vital Signs
Temp Pulse Resp BP Pulse Ox
98.4 F 102 14 105/67 95
07/02/23 07:15 07/02/23 07:45 07/02/23 07:45 07/01/23 23:48 07/02/23 08:08
Intake and Output
07/01/23 07/02/23 07/03/23
06:59 06:59 06:59
Intake Total 720 / 720
Output Total 55 / 55 230 / 230
Balance 665 / 665 -230 / -230
SaO2 95
Nasal Cannula flow liters per 3
minute
Physical Exam
General: Comfortable and Good Appetite
HEENT: Normocephalic, Anicteric and Moist Mucous Membranes
Cardiovascular: S1-S2, Murmur (n) and Rub (n)
Respiratory: Clear (on L), Chest Tube (Right-sided chest tube) and Other (overall decreased on R)
GI: Soft, Non Distended and Non Tender
Neurology: Awake, Alert, Oriented, AO x 3 and Tremors (negative)
Skin: Warm, Dry, Cyanosis (n) and Jaundice (n)
Labs/Micro/Reports
Lab Data
07/02/23 05:54
07/02/23 05:54
Microbiology
07/01/23 14:15 Pleural Fluid Gram Stain - Preliminary
06/26/23 16:41 Pleural Fluid Fungal Culture - Preliminary
Culture in progress.
Positive cultures are reported as soon as detected.
Final report to follow in four to five weeks.
06/16/23 16:39 Pleural Fluid Fungal Smear - Final
No yeast or fungal elements seen.
06/16/23 16:39 Pleural Fluid Fungal Culture - Preliminary
Culture in progress.
Positive cultures are reported as soon as detected.
Final report to follow in four to five weeks.
06/26/23 16:41 Pleural Fluid Acid Fast Bacilli Smear - Preliminary
06/26/23 16:41 Pleural Fluid Acid Fast Bacilli Culture - Preliminary
[2023-07-02 10:41] VITALS: BP 120/73
--- NOTE | 2023-07-02 12:54 | PTCARENOTE ---
all documentation on pt worklist done at 0808 this am was done by myself, Hue Roberts RN. documentation miskenly entered under Chay Fish name as chart was left open.
--- NOTE | 2023-07-02 13:44 | W.PN.ID1 ---
Date of Service
Date of Service: July 02, 2023
Today's Communication
- continue levofloxacin - may consider a shorter duration such as 1-2 months, decision pending culture
Assessment / Plan
Empyema
Chronic Pleural Effusions
Stage IV adenocarcinoma
Malignant right pleural effusion diagnosed March 2023
Status post 2 cycles of chemotherapy (carboplatin, Taxol, Keytruda?); sees Dr Izabela Wood ([place])
Progressive weight loss
- 06/14 pleural cultures E coli x2 and rare CONS
- 06/25 repeat quantity down to few E coli from many, LDH markedly improved, glucose remains very low, pH not done, fluid WBC was not able to be quantified
no further S haemolytics seen
- 06/30 culture gram stain negative, no growth to date
- continue aspiration precautions
I am concern that he may have some ongoing aspiration; this problem cannot be fully resolved, and is a potential source of reinfection
- continue levofloxacin - may consider a shorter duration such as 1-2 months, decision pending culture
- qtc remains acceptable
- follow clinically
Chief Complaint
-: Other (empyema)
Subjective / Review of Systems
afebrile
bp stbale
rare wbc on 06/30 pleural fluid - gram stain neg
tolerating current therapies
qtc acceptable
chest tube to be removed today
Vital Signs / Physical Exam
Vital Signs
Vital Signs
Temp Pulse Resp BP Pulse Ox
98.4 F 102 14 105/67 95
07/02/23 11:30 07/02/23 07:45 07/02/23 07:45 07/01/23 23:48 07/02/23 08:08
Physical Exam
Constitutional: No Acute Distress and Chronically Ill
Cardiovascular: Regular Rate and S1/S2; Negative Murmur or Rub
Pulmonary: Clear and Symmetric; Negative Wheezes or Rales
Gastrointestinal: Soft, Non Tender, Non Distended and Normal Bowel Sounds
Skin: Warm and Dry; Negative Rash or Jaundice
Objective Data
Lab Data
Lab Results
07/02/23 05:54
07/02/23 05:54
PT 15.4 Sec (11.4-14.6) H 06/16/23 07:44
INR 1.24 06/16/23 07:44
Estimated Creat Clear 112 ml/min 07/02/23 05:54
Lactic Acid Cancelled 06/15/23 19:00
Total Bilirubin 0.4 mg/dl (0.2-1.3) 07/02/23 05:54
AST 20 U/L (17-59) 07/02/23 05:54
ALT 10 U/L (0-50) 07/02/23 05:54
Alkaline Phosphatase 80 U/L (38-126) 07/02/23 05:54
Most recent labs reviewed.
Micro Results:
07/01/23 14:15 Body Fluid Culture - Pending
Pleural Fluid Gram Stain - Preliminary
06/26/23 16:41 Fungal Culture - Preliminary
Pleural Fluid Culture in progress.
Positive cultures are reported as soon as detected.
Final report to follow in four to five weeks.
06/16/23 16:39 Fungal Smear - Final
Pleural Fluid No yeast or fungal elements seen.
Fungal Culture - Preliminary
Culture in progress.
Positive cultures are reported as soon as detected.
Final report to follow in four to five weeks.
06/26/23 16:41 Acid Fast Bacilli Smear - Preliminary
Pleural Fluid Acid Fast Bacilli Culture - Preliminary
06/26/23 16:41 Body Fluid Culture - Final
Pleural Fluid Escherichia coli
Gram Stain - Final
06/15/23 14:59 Blood Culture - Final
Blood/Venous No Growth - Final Report
06/15/23 14:59 Blood Culture - Final
Blood/Venous No Growth - Final Report
06/15/23 17:53 Wound Culture - Final
Chest - Right Escherichia coli
Staphylococcus haemolyticus
Gram Stain - Final
06/16/23 16:39 Acid Fast Bacilli Smear - Preliminary
Pleural Fluid Acid Fast Bacilli Culture - Preliminary
06/16/23 16:38 Body Fluid Culture - Final
Pleural Fluid Escherichia coli
Gram Stain - Final
06/15/23 20:36 MRSA Screen - Final
Nose No Methicillin Resistant Staphylococcus aureus isolated.
--- NOTE | 2023-07-02 17:40 | PN.IRAD.UPD ---
Update Note - IRAD
- -
Cleaned right sided chest tube with chloraprep and removed bedside. Site dressed with vaseline gauze and a primapore.
Abdoulaye Hammond RT(R)()
[2023-07-02] MEDS: LOVENOX 40 MG SC (18:16)
[2023-07-02] MEDS: LIPITOR 80 MG PO (21:26)
[2023-07-02 23:22] VITALS: BP 119/74
[2023-07-02] MEDS: FLEXERIL 5 MG PO (23:44)
[2023-07-02] MEDS: MELATONIN 10 MG PO (23:45)
[2023-07-03 05:06] LABS: Hemoglobin 9.7 g/dL (13.0-18.0); Mean Corp Hgb Conc. 32.3 g/dL (33.0-37.0); Mean Corpuscular Volume 80.4 fL (80.0-94.0); Mean Platelet Volume 8.1 fL (7.4-10.4); Platelet Count 161 10^3/uL (130-400); Red Blood Cell Count 3.73 10^6/uL (4.70-6.10); Red Cell Dist. Width 20.3 % (11.5-14.5)
[2023-07-03 05:26] LABS: ALT (SGPT) 10 U/L (0-50); AST (SGOT) 19 U/L (17-59); Albumin 2.9 g/dl (3.5-5.0); Alkaline Phosphatase 86 U/L (38-126); Blood Urea Nitrogen 12 mg/dl (9-20); Calcium 8.9 mg/dl (8.4-10.2); Carbon Dioxide 27 mmol/L (22-30); Chloride 101 mmol/L (98-107); Estimated Creatinine Clearance 112 ml/min; Glucose 111 mg/dl (70-99); Potassium 3.8 mmol/L (3.5-5.1); Sodium 136 mmol/L (135-145); Total Bilirubin 0.5 mg/dl (0.2-1.3); eGFR > 60.00
--- NOTE | 2023-07-03 05:35 | PTCARENOTE ---
Pt AAOx3, calm, cooperative. Mild to moderate pain at R previous chest tube site, controlled by one dose PRN tramadol, see MAR. Site dressing is CDI. Pt encouraged to alert staff of any needs. Rings appropriately
[2023-07-03] MEDS: SPIRIVA RESPIMAT 2.5 MCG 2 PUFF INH (07:27)
[2023-07-03] MEDS: SYMBICORT 80/4.5 MCG INHALER 2 PUFF INH (07:27)
[2023-07-03 07:50] VITALS: BP 120/76
--- NOTE | 2023-07-03 08:24 | W.PN.HOSP.TC ---
Addendum entered and electronically signed by Neel Gill MD 07/03/23 16:19:
Impression:
Large right pleural effusion secondary to empyema
Status post chest tube placement 06/15
Conditions prior to admission:
Right upper lobe mass/stage IV adenocarcinoma with right malignant pleural effusion.
� Status post 2 cycles of chemotherapy
Status post chest tube placement with Heimlich valve (BP fistula/trapped lung physiology)
COPD
CAD with stent
Essential hypertension
Dyslipidemia
History of gastric ulcer complicated with gastrointestinal hemorrhage 2019.
History of H. pylori.
Former smoker
Plan:
Right pleural effusion secondary to empyema.
Pleural culture with E. coli and staph hemolyticus sensitive to tetracycline
Respiratory status stable while on room air
Concern for aspiration
Repeated pleural fluid cultures with E. coli
Antibiotics changed to levofloxacin and given persistent pleural fluid culture will be continued for another 2 to 3 months with outpatient ID follow-up.
Chest tube discontinued on 07/01. Remained stable respiratory status.
Hyponatremia improved
Microcytic anemia
-Likely due to chemotherapy
-Monitor H&H
COPD without exacerbation
-Stable, continue Spiriva, Symbicort
CAD s/p stent
-Continue statin, beta-homer
Essential hypertension
-Stable on beta-homer
Hyperlipidemia
-Continue atorvastatin
DVT prophylaxis�subcu Lovenox
DNR (patient elects to be full code for elective procedures only)
Stable for discharge.
Original Note:
Today's Communication/Plan
-
Continue Levaquin for 3 months
Chest Xray and follow up with pulmonology in 1 week
Follow up with Oncology
Follow up with ID in 2 months.
Assessment / Plan
Assessment / Plan
Assessment-
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
drainage from chest tube site became clear, then blood, then yellow and greenish (pus) 06/13/2023 over 2 days. Chest tube fell of 6 weeks [employer].� Diagnosed with right-sided empyema.
Plan-
Right-sided empyema
Repeat pleural cultures yesterday-preliminary Gram stain negative, final cultures pending-07/01/2023.
Respiratory status stable on room air.
CT drainage-55mL over 24 hours.
Pleural culture with E. coli and staph hemolyticus sensitive to tetracycline.
CT 06/26/2023 with moderate size right pneumothorax and slight improvement in inflation of right middle lobe and right lower lobe.
Appreciate IR, pulmonary input, s/p right chest tube 06/16/2023 draining purulent brown fluid
Appreciate ID input, status post Unasyn, continue doxycycline indefinitely as per ID
Appreciate CT surgery input, CT surgery rec waterseal, antibiotics, and eventual transition to PleurX. Status post tPA x 6.
Touch base with pulmonology-plan changed to eventual catheterization with Pleurx.
ID switched from doxycycline to Levaquin. Possibility of aspiration.
Speech therapy evaluation for aspiration assessment done in the past. Recommended SUKUMAR inpatient. Speech therapy recommendations remain the same from most recent consult.
Touch based with ID - Plan is to discharge him on levaquin for 3 months and follow up with ID on outpatient basis in 2 months.
Follow up with pulmonology in 1 week with a chest x ray for re-assessment of chest tube placement.
Follows with oncology [facility], s/p 2 cycles of chemotherapy.
Hyponatremia
Resolved.
Microcytic anemia
Likely due to chemotherapy
Monitor H&H
COPD without exacerbation
Stable, continue Spiriva, Symbicort
CAD s/p stent
Continue statin, beta-homer
Essential hypertension
Stable on beta-homer
Hyperlipidemia
Continue atorvastatin
DVT prophylaxis�subcu Lovenox
DNR (patient elects to be full code for elective procedures only)
Anticipated Discharge: Today
Subjective/Interval History
-
Date of Service: July 03, 2023
No complaints overnight.
Cultures still growing E.coli.
Objective Data
-
Labs:
Laboratory Results
07/03/23
04:50
WBC 7.0
Hgb 9.7 L
Hct 30.0 L
Plt Count 161
Sodium 136
Potassium 3.8
Chloride 101
Carbon Dioxide 27
BUN 12
Creatinine 0.6 L
Glucose 111 H
Calcium 8.9
Total Bilirubin 0.5
AST 19
ALT 10
Alkaline Phosphatase 86
Vital Signs:
Vital Signs
Temp Pulse Resp BP Pulse Ox
98.4 F 107 16 119/74 95
07/02/23 23:22 07/03/23 07:28 07/03/23 07:28 07/02/23 23:22 07/03/23 07:28
I&O
07/02/23 07/03/23 07/04/23
06:59 06:59 06:59
Output Total 230 / 230
Balance -230 / -230
Review of Systems
-
History Source: Patient
All other systems: Reviewed and negative
Physical Exam
-
General: No Apparent Distress and Comfortable (on room air.)
HEENT: Normocephalic, Atraumatic and Moist Mucous Membranes
Respiratory: Clear to Auscultation (left upper and lower lobes, anteriorly and posteriorly.) and Other (Diminished breath sounds on the right lower lobe, )
Cardiac: Regular Rhythm, S1/S2 and Other (No murmurs, rubs, gallops.)
GI: Soft, Nontender, Nondistended and Normal Bowel Sounds
Musculoskeletal: No Edema
Psych: Calm
[2023-07-03] MEDS: LEVAQUIN 750 MG PO (08:28)
[2023-07-03] MEDS: FOLVITE 1 MG PO (08:28)
[2023-07-03] MEDS: FLOMAX 0.400000000000000022 MG PO (08:28)
[2023-07-03] MEDS: COLACE 100 MG PO (08:28)
[2023-07-03] MEDS: TOPROL XL 12.5 MG PO (08:28)
[2023-07-03] MEDS: MIRALAX 17 GRAMS PO (08:29)
--- NOTE | 2023-07-03 09:06 | W.PN.PUL3 ---
Today's Communication / Plan
-
Pleural fluid still growing E coli, abx per ID
Chest tube discontinued 07/01, doing well
We will arrange short term FU in 1 week for assessment of CXR and need for indwelling pleural cath placement
He was in agreement with plan
Discharge planning per team
Assessment
-
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
at [place] ([place]). Patient had a surgical procedure, details unknown, chest tube upon discharge with Heimlich valve, which spontaneously came out about 6 weeks ago. At that time he stopped his antibiotic therapy and started chemotherapy. His last
dose of chemotherapy (second cycle) was 3 weeks ago. He developed fevers over the last week and spontaneous drainage at his old chest tube site, now prompting admission for suspected empyema 06/15/2023
Large right pleural effusion due to empyema status post chest tube 06/15 by IR
Pleural fluid Cx (+) for E. coli
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
History of right large effusion with complete right lung atelectasis
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
Heimlich valve placed, spontaneously fell out approximately mid April 2023
Right upper lobe mass, right lung volume loss with pneumothorax ex-vacuo due to entrapped lung physiology given his adenocarcinoma with MPE
Leukopenia, anemia
Stage IV adenocarcinoma
Malignant right pleural effusion diagnosed March 2023
Status post 2 cycles of chemotherapy (carboplatin, Taxol, Keytruda?)
jeanna Wood ([place])
Progressive weight loss
Clubbing on exam
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
CAD s/p stents
HTN
HLD
GIB, gastric ulcer 2019
H/o H pylori
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
Plan/recommendations
At this time, patient continues to improve clinically, stable on RA
Not on O2, no need for home use
Continue with outpatient inhaler regimen--Symbicort/Spiriva will replace Trelegy
E. coli Empyema s/p chest tube 06/15
Status post intrapleural lytic therapy, tPA and dornase injection. 06/19/2023. + another 6 doses from 06/22 - 06/24
Patient completed lytic therapy through 06/24
Trapped lung physiology. We do not expect pleural space to be fluid free given trapped lung physiology, given known adenocarcinoma with right upper lobe mass
There is no role for any acute intervention at this time
Will need to continue to drain, ideally conversion to pleurex would be best
We discussed this can be done as OP if fluid output has remained low
Patient does have trapped lung physiology and had persistent air leak with prior chest tube back in March.
Unclear whether he had a BP fistula but with patient was discharged on chronic antibiotic therapy and chest tube with Heimlich valve which spontaneously fell out around middle of April ([place])
If there is ongoing excessive fluid drainage, this would likely preclude use of Heimlich, this was discussed with patient
Given low output past 72 hours, chest tube was discontinued 07/03/23
Remains on antibiotic therapy indefinitely, doxycycline--changed to LVQ
ID consult obtained, correspondence reviewed
Repeat culture 06/25 showing persistent E. coli infection
Repeat pleural culture 06/30 still growing E coli
ECHO in past with stable function
No role for diuresis in malignant pleural effusions
Dr. Petty: reached out to Thoracic Surgery ([facility]) - pt also spoke with oncology and asked them to reach out to us for updates
Pt wants to transition his Oncology care here after discharge.
He would follow up with [place]
DVT prophylaxis: Enoxaparin
Encourage ambulation with physical therapy
Encourage nutrition. Patient with good appetite
Continue to follow
Reviewed with primary service and nursing
Paln of care is reviewed with care team
Diagnostic Data
CXR 06/29/23- No significant interval change compared to recent prior studies. Right basilar chest remains in place with stable appearance of hydropneumothorax and pleural thickening. Unchanged right confluent apical opacity which may represent
chronic airspace consolidation and/or residual tumor. Hyperexpansion of the left lung with pain and swelling within the mid to lower portion.
CT Chest 06/26/23- Right pleural pigtail catheter is present. Moderate-sized right pneumothorax, which is decreased in size compared to CT examination of April 13, 2023. Slight improvement in inflation of the right middle lobe and right lower lobe
compared to most recent CT from March 2023. Ovoid focus of confluent parenchymal opacity involving the right upper lobe, fairly stable from prior CT, and probably representing chronic atelectasis/trapped lung. Within the posterior aspect of the
left lower lobe of the lung, patchy predominantly nodular areas of parenchymal opacity, new compared to CT of April 13, 2023, and likely representing patchy pneumonia. Dense coronary artery calcifications are present.
04/28/23- 1. No evidence of pulmonary embolism.
2. Moderate right hydropneumothorax with chest tube in place.
3. Grossly stable associated right lung atelectasis/consolidation and possible right upper lobe mass.
ECHO 04/13/23- Normal left ventricular size and systolic function. No regional wall motion abnormalities are seen. LV ejection fraction is 50-55% by Ramirez's method of discs. Mild concentric left ventricular hypertrophy. Mild aortic regurgitation.
Mild to moderate tricuspid regurgitation. Estimated pulmonary artery pressure of 45-50 mmHg. Compared to the previous echo Oct 2022, there is now TR with no other significant change.
Subjective Data
-
Date of Service:
Date of Service: July 03, 2023
Chief Complaint: Pulmonary Follow Up (Empyema)
Subjective:
chest tube was discontinued, no new complaints
remains stable on room air
feels his breathing has improved significantly
wants to go home
Objective Data
Data Reviewed
Vital Signs / I&O / Oxygen:
Vital Signs
Temp Pulse Resp BP Pulse Ox
98.4 F 107 16 119/74 95
07/02/23 23:22 07/03/23 07:28 07/03/23 07:28 07/02/23 23:22 07/03/23 07:28
Intake and Output
07/02/23 07/03/23 07/04/23
06:59 06:59 06:59
Output Total 230 / 230
Balance -230 / -230
SaO2 95
Nasal Cannula flow liters per 3
minute
Physical Exam
General: Comfortable and Good Appetite
HEENT: Normocephalic, Anicteric and Moist Mucous Membranes
Cardiovascular: S1-S2, Murmur (n) and Rub (n)
Respiratory: Clear (on L), Chest Tube (Right-sided chest tube) and Other (overall decreased on R)
GI: Soft, Non Distended and Non Tender
Neurology: Awake, Alert, Oriented, AO x 3 and Tremors (negative)
Skin: Warm, Dry, Cyanosis (n) and Jaundice (n)
Labs/Micro/Reports
Lab Data
07/03/23 04:50
07/03/23 04:50
Microbiology
07/01/23 14:15 Pleural Fluid Body Fluid Culture - Preliminary
Escherichia coli
07/01/23 14:15 Pleural Fluid Gram Stain - Preliminary
--- NOTE | 2023-07-03 10:49 | W.PN.ID1 ---
Date of Service
Date of Service: July 03, 2023
Today's Communication
- continue levofloxacin - please give a 3 month script on dc, will reassess patient around 8-10 weeks
Assessment / Plan
Empyema
Chronic Pleural Effusions
Stage IV adenocarcinoma
Malignant right pleural effusion diagnosed March 2023
Status post 2 cycles of chemotherapy (carboplatin, Taxol, Keytruda?); sees Dr Izabela Wood ([place])
Progressive weight loss
- 06/14 pleural cultures E coli x2 and rare CONS
- 06/25 repeat quantity down to few E coli from many, LDH markedly improved, glucose remains very low, pH not done, fluid WBC was not able to be quantified
no further S haemolytics seen
- 06/30 culture gram stain negative, few E coli
- continue aspiration precautions
I am concern that he may have some ongoing aspiration; this problem cannot be fully resolved, and is a potential source of reinfection
- continue levofloxacin - please give a 3 month script on dc, will reassess patient around 8-10 weeks
- qtc remains acceptable
- follow up in ID clinic
Chief Complaint
-: Other (empyema)
Subjective / Review of Systems
afebrile
bp stable
without leukocytosis
cr stable
06/30 body fluid few e coli
in good spirits
no dyspnea with ambulation short distance
Vital Signs / Physical Exam
Vital Signs
Vital Signs
Temp Pulse Resp BP Pulse Ox
98.0 F 107 16 119/74 95
07/03/23 07:15 07/03/23 07:28 07/03/23 07:28 07/02/23 23:22 07/03/23 10:06
Physical Exam
Constitutional: No Acute Distress
Cardiovascular: Regular Rate and S1/S2; Negative Murmur or Rub
Pulmonary: Clear and Symmetric; Negative Wheezes or Rales
Gastrointestinal: Soft, Non Tender, Non Distended and Normal Bowel Sounds
Skin: Warm and Dry; Negative Rash or Jaundice
Objective Data
Lab Data
Lab Results
07/03/23 04:50
07/03/23 04:50
PT 15.4 Sec (11.4-14.6) H 06/16/23 07:44
INR 1.24 06/16/23 07:44
Estimated Creat Clear 112 ml/min 07/03/23 04:50
Lactic Acid Cancelled 06/15/23 19:00
Total Bilirubin 0.5 mg/dl (0.2-1.3) 07/03/23 04:50
AST 19 U/L (17-59) 07/03/23 04:50
ALT 10 U/L (0-50) 07/03/23 04:50
Alkaline Phosphatase 86 U/L (38-126) 07/03/23 04:50
Most recent labs reviewed.
Micro Results:
07/01/23 14:15 Body Fluid Culture - Preliminary
Pleural Fluid Escherichia coli
Gram Stain - Preliminary
06/26/23 16:41 Fungal Culture - Preliminary
Pleural Fluid Culture in progress.
Positive cultures are reported as soon as detected.
Final report to follow in four to five weeks.
06/16/23 16:39 Fungal Smear - Final
Pleural Fluid No yeast or fungal elements seen.
Fungal Culture - Preliminary
Culture in progress.
Positive cultures are reported as soon as detected.
Final report to follow in four to five weeks.
06/26/23 16:41 Acid Fast Bacilli Smear - Preliminary
Pleural Fluid Acid Fast Bacilli Culture - Preliminary
06/26/23 16:41 Body Fluid Culture - Final
Pleural Fluid Escherichia coli
Gram Stain - Final
06/15/23 14:59 Blood Culture - Final
Blood/Venous No Growth - Final Report
06/15/23 14:59 Blood Culture - Final
Blood/Venous No Growth - Final Report
06/15/23 17:53 Wound Culture - Final
Chest - Right Escherichia coli
Staphylococcus haemolyticus
Gram Stain - Final
06/16/23 16:39 Acid Fast Bacilli Smear - Preliminary
Pleural Fluid Acid Fast Bacilli Culture - Preliminary
06/16/23 16:38 Body Fluid Culture - Final
Pleural Fluid Escherichia coli
Gram Stain - Final
06/15/23 20:36 MRSA Screen - Final
Nose No Methicillin Resistant Staphylococcus aureus isolated.
Care Review
Plan reviewed with: Physician (Dr Gill - duration of abx)
--- NOTE | 2023-07-03 12:25 | W.DCSUMMARY ---
Documented by User: Fanny Gale MD, Resident 07/03/23 14:58
Discharge Summary
Discharge Data
Date of Admission: 06/15/23
Date of Discharge: 07/03/23
-
Pending Results: No
Hospital Course
Assessment-
73-year-old male with PMHx of complete right lung atelectasis secondary to small cell adenocarcinoma stage IV s/p thoracocentesis and bilateral chest tube placement in March 2023 presented to the [facility] on 06/15/2023 with fever of
101.5 degrees for several days and drainage from the chest tube site that was initially clear, then had bled, then pus x 2 days. Right-sided chest tube (Heimlich's)that spontaneously came out about 6 weeks ago.
Diagnosed to have empyema.
Impression-
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
Empyema diagnosed on admission-s/p chest tube placement on 06/15-cultures positive for E. coli and MR staph hemolyticus
History of right large pleural effusion with complete right lung atelectasis.
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 Gee) at [place]-Heimlich valve placed-March 2023, that spontaneously fell-April 2023
Stage IV adenocarcinoma
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
Status post 2 cycles of chemotherapy (carboplatin, Taxol, Keytruda)-Izabela Cardozo (oncology at [facility]).
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
Leukopenia, anemia of chronic disease.
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
CAD status post stents
Hypertension
Hyperlipidemia
GIB, gastric ulcer 2019
History of H. pylori
Former smoker-40 pack years, quit smoking in 2016.
Hospital course-
Upon admission, patient's pleural fluid was collected from the site of drainage and was sent for cultures patient was started on IV Unasyn on 06/14. On 06/15, a chest tube was placed and patient received intrapleural lytic therapy with tPA and
dornase injection beginning 06/19/2023 through 06/25/2023-a total of 6 doses and completed the therapy. ID was consulted and patient's Unasyn was changed to 2 doxycycline, and patient's cultures remain positive for E. coli on 06/26/2023. Hence
patient's antibiotic was changed to Levaquin on 06/26/2023. After changing to Levaquin patient's chest tube output reduce it significantly over the next 5 days, and the decision was made to remove the chest tube given low output x 72 hours. Chest
tube was removed on 07/02/2023 and patient was observed for redevelopment of symptoms. In the setting of absence symptoms, a decision was made to discharge patient home and reevaluate the necessity for long-term indwelling catheter within 1 week
with pulmonology, and a follow-up with infectious diseases was set up in 2 months.
Repeat cultures on 07/01/2023 were still positive for E. coli, and there was some concern for aspiration, speech therapy consulted. Speech therapy recommended further GI evaluation for aspiration, however patient declined further evaluation for
aspiration. Patient to follow speech therapy recommendations to avoid aspiration upon discharge.
During this management, patient was initially started on nasal cannula flow and was eventually weaned off of oxygen. Patient remained stable on room air during the last week of hospital course.
Patient has a trapped lung physiology, and the pleural space can never be free of fluid in the setting of adenocarcinoma and right upper lobe mass. This does not warrant any acute intervention at this point of time based on pulmonology.
Patient was continued with his home medication regimen for his COPD, hypertension, coronary artery disease s/p stenting, hyperlipidemia during his hospital course.
Patient was also given Flexeril and tramadol for pain control.
Patient was given Lovenox for DVT prophylaxis.
Imaging-
CXR 06/29/23- No significant interval change compared to recent prior studies. Right basilar chest remains in place with stable appearance of hydropneumothorax and pleural thickening. Unchanged right confluent apical opacity which may represent
chronic airspace consolidation and/or residual tumor. Hyperexpansion of the left lung with pain and swelling within the mid to lower portion.
CT Chest 06/26/23- Right pleural pigtail catheter is present. Moderate-sized right pneumothorax, which is decreased in size compared to CT examination of April 13, 2023. Slight improvement in inflation of the right middle lobe and right lower lobe
compared to most recent CT from March 2023. Ovoid focus of confluent parenchymal opacity involving the right upper lobe, fairly stable from prior CT, and probably representing chronic atelectasis/trapped lung. Within the posterior aspect of the
left lower lobe of the lung, patchy predominantly nodular areas of parenchymal opacity, new compared to CT of April 13, 2023, and likely representing patchy pneumonia. Dense coronary artery calcifications are present.
CT chest 04/28/23- 1. No evidence of pulmonary embolism.
2. Moderate right hydropneumothorax with chest tube in place.
3. Grossly stable associated right lung atelectasis/consolidation and possible right upper lobe mass.
ECHO 04/13/23- Normal left ventricular size and systolic function. No regional wall motion abnormalities are seen. LV ejection fraction is 50-55% by Ramirez's method of discs. Mild concentric left ventricular hypertrophy. Mild aortic regurgitation.
Mild to moderate tricuspid regurgitation. Estimated pulmonary artery pressure of 45-50 mmHg. Compared to the previous echo Oct 2022, there is now TR with no other significant change.
Recommendations upon discharge-
Pain medication-tramadol, Flexeril.
Follow-up with oncology in 1 to 2 weeks.
Follow-up with pulmonology within 1 week with a chest x-ray out on outpatient basis.
Follow-up with primary care for transition of care.
Follow-up with infectious diseases in 2 months.
Follow speech therapy recommendations for prevention of aspiration.
Discharge Plan
-
Patient Disposition: Home (Routine Discharge)
Discharge Diagnosis/Procedures: Empyema
Condition: Good
Diet: As tolerated
Activity: As tolerated
Driving Restrictions: As prior to admission
Bathing Restrictions: None
Others Tests: Chest X ray in next 3-5 days
Other Services: VN
Activity Restrictions/Additional Instructions:
If Shortness of breath, or fever, chills, or rigor develops please return back to the emergency room.
Referrals:
Luís Pettit MD, Resident [Active] - in less than 1 week (Establish primary care, Transition of care.)
Sherif Davis MD [Active] - in one week (PFT)
NONE,* [Family Provider] -
Rebeka Pantoja MD [Active] - in one to two months (In two months)
Prescriptions:
New
levofloxacin 750 mg Tablet
750 mg PO DAILY Qty: 90 0RF
metoprolol succinate 25 mg tablet extended release 24 hr
12.5 mg PO BID 90 Days Qty: 90 0RF
Continued
atorvastatin 80 mg Tablet
80 mg PO HS
sennosides [senna] 8.6 mg Tablet
17.2 mg PO [id number] PRN (Reason: constipation)
acetaminophen [Tylenol] 325 mg Tablet
650 mg PO Q6H PRN (Reason: mild pain)
tamsulosin 0.4 mg Capsule
0.4 mg PO DAILY
folic acid 1 mg Tablet
1 mg PO DAILY
bisacodyl [Dulcolax (bisacodyl)] 5 mg Tablet,Delayed Release (Dr/Ec)
15 mg PO DAILYPRN PRN (Reason: constipation)
albuterol sulfate 90 mcg/actuation Hfa Aerosol Inhaler
2 puff INHALATION R Q6HPRN PRN (Reason: sob)
Trelegy Ellipta 100-62.5-25 mcg Blister With Device
1 inh INHALATION R DAILY
melatonin 10 mg Tablet
10 mg PO HS PRN (Reason: sleep)
tramadol 50 mg Tablet
50 mg PO Q8H PRN (Reason: pain) Qty: 30 0RF
cyclobenzaprine 5 mg Tablet
5 mg PO Q8HPRN PRN (Reason: muscle spasms) Qty: 30 0RF
Discontinued
metoprolol tartrate 25 mg Tablet
12.5 mg PO BID
cefadroxil 500 mg Capsule
500 mg PO ONCE
Patient Comments:
06/15/2023, pt. used old prescription and took one capsule last night to prevent infection.
Discharge Orders:
Discharge Patient (As Directed); Ordered 07/03/23
Ordered By: Fanny Gale
Discharge Date and Time
Discharge Date/Time: 07/03/23 13:33
Print Language: HONDURAN

Documented by User: Neel Gill MD 07/03/23 16:13
Discharge Summary
Discharge Data
Date of Admission: 06/15/23
Date of Discharge: 07/03/23
Discharge Plan
-
Patient Disposition: Home (Routine Discharge)
Discharge Diagnosis/Procedures: Empyema
Condition: Good
Diet: As tolerated
Activity: As tolerated
Driving Restrictions: As prior to admission
Bathing Restrictions: None
Others Tests: Chest X ray in next 3-5 days
Other Services: VN
Activity Restrictions/Additional Instructions:
If Shortness of breath, or fever, chills, or rigor develops please return back to the emergency room.
Referrals:
Luís Pettit MD, Resident [Active] - in less than 1 week (Establish primary care, Transition of care.)
Sherif Davis MD [Active] - in one week (PFT)
NONE,* [Family Provider] -
Rebeka Pantoja MD [Active] - in one to two months (In two months)
Prescriptions:
New
levofloxacin 750 mg Tablet
750 mg PO DAILY Qty: 90 0RF
metoprolol succinate 25 mg tablet extended release 24 hr
12.5 mg PO BID 90 Days Qty: 90 0RF
Continued
atorvastatin 80 mg Tablet
80 mg PO HS
sennosides [senna] 8.6 mg Tablet
17.2 mg PO [id number] PRN (Reason: constipation)
acetaminophen [Tylenol] 325 mg Tablet
650 mg PO Q6H PRN (Reason: mild pain)
tamsulosin 0.4 mg Capsule
0.4 mg PO DAILY
folic acid 1 mg Tablet
1 mg PO DAILY
bisacodyl [Dulcolax (bisacodyl)] 5 mg Tablet,Delayed Release (Dr/Ec)
15 mg PO DAILYPRN PRN (Reason: constipation)
albuterol sulfate 90 mcg/actuation Hfa Aerosol Inhaler
2 puff INHALATION R Q6HPRN PRN (Reason: sob)
Trelegy Ellipta 100-62.5-25 mcg Blister With Device
1 inh INHALATION R DAILY
melatonin 10 mg Tablet
10 mg PO HS PRN (Reason: sleep)
tramadol 50 mg Tablet
50 mg PO Q8H PRN (Reason: pain) Qty: 30 0RF
cyclobenzaprine 5 mg Tablet
5 mg PO Q8HPRN PRN (Reason: muscle spasms) Qty: 30 0RF
Discontinued
metoprolol tartrate 25 mg Tablet
12.5 mg PO BID
cefadroxil 500 mg Capsule
500 mg PO ONCE
Patient Comments:
06/15/2023, pt. used old prescription and took one capsule last night to prevent infection.
Discharge Orders:
Discharge Patient (As Directed); Ordered 07/03/23
Ordered By: Fanny Gale
Discharge Date and Time
Discharge Date/Time: 07/03/23 13:33
Print Language: HONDURAN
[2023-07-03 13:30] VITALS: BP 106/70
--- NOTE | 2023-07-03 16:42 | CM ---
Patient with Hx lung CA on chemo with Dx Right-sided empyema, Recurrent malignant right pleural effusion. Room air. Chest tube reomoved yesterday. PT recommends HH. Declined OT.
Met with patient and Christen; both agree to d/c home today. IMM completed. Patient/ aware [facility] is setup. will provide transport home.
Spoke with Kat Hernandez; provided clinical update and informed her of d/c today.
Plan home today with resumption [facility].
== END 2023-07-03 13:33 | disposition home health service (06) | DRG 180 ==
LOC: IMU 17:56
PROVIDERS: Clinical Nurse Specialist Family Health; Internal Medicine Critical Care Medicine; Internal Medicine Infectious Disease; Nurse Practitioner Family; Physician Assistant; Radiology Diagnostic Radiology; Radiology Vascular & Interventional Radiology; Student in an Organized Health Care Education/Training Program; ADMITTING PHYSICIAN Hospitalist; ATTENDING PHYSICIAN Internal Medicine; CONSULT PHYSICIAN Thoracic Surgery (Cardiothoracic Vascular Surgery); EMERGENCY PHYSICIAN Emergency Medicine; OTHER PHYSICIAN Internal Medicine Critical Care Medicine; OTHER PHYSICIAN Student in an Organized Health Care Education/Training Program
PROC: 0W9930Z Drainage of Right Pleural Cavity with Drainage Device, Percutaneous Approach (ICD-10-PCS; 2023-06-16)
PROC: 3E0L317 Introduction of Other Thrombolytic into Pleural Cavity, Percutaneous Approach (ICD-10-PCS; 2023-06-18)
DX: C34.11 Malignant neoplasm of upper lobe, right bronchus or lung (principal); J86.0 Pyothorax with fistula; J91.0 Malignant pleural effusion; J93.82 Other air leak; E87.1 Hypo-osmolality and hyponatremia; J98.11 Atelectasis; J94.8 Other specified pleural conditions; D84.821 Immunodeficiency due to drugs; E78.00 Pure hypercholesterolemia, unspecified; I10 Essential (primary) hypertension; I25.10 Atherosclerotic heart disease of native coronary artery without angina pectoris; J44.9 Chronic obstructive pulmonary disease, unspecified; N40.0 Benign prostatic hyperplasia without lower urinary tract symptoms; D50.9 Iron deficiency anemia, unspecified; K21.9 Gastro-esophageal reflux disease without esophagitis; Z66 Do not resuscitate; D53.9 Nutritional anemia, unspecified; T45.1X5A Adverse effect of antineoplastic and immunosuppressive drugs, initial encounter; B96.20 Unspecified Escherichia coli [E. coli] as the cause of diseases classified elsewhere; K59.00 Constipation, unspecified; D63.0 Anemia in neoplastic disease; R63.4 Abnormal weight loss; Z68.24 Body mass index [BMI] 24.0-24.9, adult; Z79.899 Other long term (current) drug therapy; Z87.11 Personal history of peptic ulcer disease; Z87.891 Personal history of nicotine dependence; Z95.5 Presence of coronary angioplasty implant and graft; Z98.1 Arthrodesis status
CPT/HCPCS: 32557; 32561; 32562; 71045; 71046; 71250; 80048; 80053; 80202; 82042; 82150; 82570; 82945; 83605; 83615; 83935; 83986; 84157; 84300; 84443; 84478; 85025; 85027; 85610; 87015; 87040; 87070; 87071; 87077; 87102; 87116; 87147; 87186; 87205; 87206; 89051; 92526; 92610; 93005; 94640; 97116; 97163; 97167; 97530; 97535; 99152; 99153; 99285; C1729; C1769; J2997

== ENCOUNTER → 2023-07-08 10:59 | Outpatient (REF) | payer OTHER, SELFPAY | LOC: RAD 10:59 | PROVIDERS: ATTENDING PHYSICIAN Nurse Practitioner Family | DX: J45.40 Moderate persistent asthma, uncomplicated (principal); J90 Pleural effusion, not elsewhere classified; J44.9 Chronic obstructive pulmonary disease, unspecified | CPT/HCPCS: 71046 ==

== ENCOUNTER → 2023-07-15 08:48 | Outpatient (REF) | payer OTHER, SELFPAY ==
[2023-07-15 09:28] LABS: % Basophils 0.6 % (0-2); % Eosinophils 3.1 % (0-6); % Immature Granulocytes 0.4 % (0-0.5); % Lymphocytes 21.1 % (20.5-51.1); % Monocytes 10.1 % (1.7-9.3); % Neutrophils 64.7 % (42.2-75.2); Absolute Eosinophils 0.2 10^3/uL (0-0.7); Absolute Lymphocytes 1.1 10^3/uL (1.2-3.4); Absolute Monocytes 0.5 10^3/uL (0.1-0.6); Absolute Neutrophils 3.3 10^3/uL (1.4-6.5); Hematocrit 36.6 % (39.0-52.0); Hemoglobin 11.6 g/dL (13.0-18.0); Mean Corp Hgb Conc. 31.7 g/dL (33.0-37.0); Mean Corpuscular Hgb 25.7 pg (27.0-31.0); Mean Platelet Volume 7.5 fL (7.4-10.4); Nucleated Red Blood Cells % 0 % (-); Platelet Count 145 10^3/uL (130-400); Red Blood Cell Count 4.52 10^6/uL (4.70-6.10); White Blood Cell Count 5.1 10^3/uL (4.8-10.8)
[2023-07-15 11:13] LABS: Free T4 1.44 ng/dl (0.78-2.19)
[2023-07-15 11:17] LABS: ALT (SGPT) 15 U/L (0-50); AST (SGOT) 33 U/L (17-59); Albumin 3.2 g/dl (3.5-5.0); Alkaline Phosphatase 85 U/L (38-126); Blood Urea Nitrogen 13 mg/dl (9-20); Carbon Dioxide 25 mmol/L (22-30); Chloride 102 mmol/L (98-107); Glucose 134 mg/dl (70-99); Potassium 4.4 mmol/L (3.5-5.1); Sodium 136 mmol/L (135-145); Total Bilirubin 0.5 mg/dl (0.2-1.3); Total Protein 6.7 g/dl (6.3-8.2); eGFR > 60.00
[2023-07-15 11:27] LABS: TSH 2.23 uIU/ml (0.47-4.68)
[2023-07-16 11:41] LABS: Total T3 (Sendout) 127 ng/dL (80-200)
== END ==
LOC: RADI 08:48
PROVIDERS: ATTENDING PHYSICIAN Nurse Practitioner Family; REFERRING PHYSICIAN Internal Medicine Hematology & Oncology
DX: J90 Pleural effusion, not elsewhere classified (principal); Z53.8 Procedure and treatment not carried out for other reasons
CPT/HCPCS: 36415; 76604; 80053; 84439; 84443; 84480; 85025

== ENCOUNTER → 2023-07-27 10:50 | Outpatient (REF) | payer OTHER, SELFPAY ==
[2023-07-27 11:06] VITALS: BP 122/79; BP_SYST 94
[2023-07-27] MEDS: ANCEF 10 IV (11:34)
[2023-07-27 12:52] VITALS: BP 114/79
== END ==
LOC: RADI 10:50
PROVIDERS: ATTENDING PHYSICIAN Nurse Practitioner Family; FAMILY PHYSICIAN Family Medicine
DX: C34.11 Malignant neoplasm of upper lobe, right bronchus or lung (principal)
CPT/HCPCS: 36561; 71046; 76937; 77001; 99152; 99153; C1788

== ENCOUNTER → 2023-09-04 10:44 | Outpatient (REF) | payer OTHER, SELFPAY | LOC: RAD 10:44 | PROVIDERS: ATTENDING PHYSICIAN Internal Medicine Hematology & Oncology; FAMILY PHYSICIAN Family Medicine | DX: C34.11 Malignant neoplasm of upper lobe, right bronchus or lung (principal) | CPT/HCPCS: 71260; 74177; Q9967 ==

== ENCOUNTER 2023-11-16 16:27 | Inpatient (IN) | payer OTHER, SELFPAY ==
[2023-11-16] VITALS (14 sets, daily range): BP systolic 93–142; BP diastolic 58–120; BMI 25.4; BMI 23.7
[2023-11-16 11:37] LABS: % Basophils 0.3 % (0-2); % Immature Granulocytes 0.8 % (0-0.5); % Lymphocytes 5.7 % (20.5-51.1); % Monocytes 6.8 % (1.7-9.3); % Neutrophils 83.4 % (42.2-75.2); Absolute Eosinophils 0.3 10^3/uL (0-0.7); Absolute Immature Granulocytes 0.1 10^3/uL (0-0.05); Absolute Lymphocytes 0.5 10^3/uL (1.2-3.4); Absolute Monocytes 0.6 10^3/uL (0.1-0.6); Absolute Neutrophils 7.5 10^3/uL (1.4-6.5); Hematocrit 36.5 % (39.0-52.0); Hemoglobin 12.2 g/dL (13.0-18.0); Mean Corp Hgb Conc. 33.4 g/dL (33.0-37.0); Mean Corpuscular Hgb 28.5 pg (27.0-31.0); Mean Corpuscular Volume 85.3 fL (80.0-94.0); Mean Platelet Volume 8.2 fL (7.4-10.4); Nucleated Red Blood Cells % 0 % (-); Platelet Count 361 10^3/uL (130-400); Red Blood Cell Count 4.28 10^6/uL (4.70-6.10); Red Cell Dist. Width 16.4 % (11.5-14.5)
[2023-11-16 12:01] LABS: ALT (SGPT) 27 U/L (0-50); AST (SGOT) 33 U/L (17-59); Albumin 3.4 g/dl (3.5-5.0); Alkaline Phosphatase 85 U/L (38-126); Blood Urea Nitrogen 21 mg/dl (9-20); Calcium 9.2 mg/dl (8.4-10.2); Carbon Dioxide 23 mmol/L (22-30); Chloride 98 mmol/L (98-107); Estimated Creatinine Clearance 72 ml/min; Glucose 220 mg/dl (70-99); Potassium 4.4 mmol/L (3.5-5.1); Sodium 137 mmol/L (135-145); Total Bilirubin 0.7 mg/dl (0.2-1.3); Total Protein 6.6 g/dl (6.3-8.2); eGFR > 60.00
[2023-11-16 12:02] LABS: NT-proBNP 5840 pg/ml
--- NOTE | 2023-11-16 12:06 | ED.GENMED ---
History of Present Illness
General
Chief Complaint: Breathing Problem
Time Seen by Provider: 11/16/23 11:24
History of Present Illness
History of Present Illness:
73-year-old male with history of lung cancer currently on chemotherapy (last treatment 3 weeks ago) presents to the emergency department for evaluation of shortness of breath gradually worsening over the past 2 weeks. On arrival he was noted to
have room air oxygen saturations in the mid 80s. Placed on nasal cannula oxygen. States he feels similar to when he had a pulmonary effusion previously. Denies any fevers or chills. He does have a productive cough of 'disgusting' mucus. No
chest pain or leg swelling.
Past History
Past History
ED Past Medical History: HTN and Hypercholesterolemia
ED Past Surgical History: Negative Cardiac
Social History
Tobacco: Smoker
Alcohol: Occasional
Drug: None
Personal:
Living: with family
Employment: Employed
Family History
Family History: Hypertension
Review of Systems
Review of Systems
Allergies reviewed?: Yes
All Other Systems: ROS reviewed and negative except as documented in HPI and ROS
Phy Exam
Physical Exam
Physical Exam:
GEN: Ill-appearing, acute respiratory distress with conversational dyspnea
Eyes: PERRLA, EOMs intact, no scleral icterus
HENT: NCAT, oral mucosa moist, no JVD, no cervical adenopathy.
Lungs: Conversational dyspnea with tachypnea and accessory muscle use, diminished right middle and lower lobe breath sounds
Cardiac: RRR, no M/R/G, no peripheral edema. Radial pulses 2+ bilat
Abdomen: S, NT, ND, NABS, no masses or hepatosplenomegaly
Neuro: AO x 3
MSK: No gross deformity or ecchymosis. No edema. No digital clubbing
Skin: No rashes, petechiae. Normal color, no pallor or jaundice.
Psych: Calm, cooperative, proper hygiene
Scores
Heart Failure Risk
Heart Failure Risk Score: Not Applicable
Course
Orders/Labs/Results
Orders:
Orders
11/16/23 11:21
Electrocardiogram (*1) Urgent
Reason for Study: Shortness of Breath
EKG- Treatment ONCE
11/16/23 11:31
Complete Blood Count/With Diff Urgent
Comprehensive Metabolic Panel Urgent
NT-proBNP Urgent
TSH Reflex To Free T4 Urgent
Comment: ADD ON
Troponin I Urgent
Comment: ADD ON
11/16/23 11:36
CR Chest Portable - 1 View Urgent
Comment:
Reason For Exam: SOB/hypoxia
Reason Study Needs to be Portable: Patient Unstable
11/16/23 12:00
Diltiazem 125 mg/125 ml Nss [Cardizem] 125 mg in 125 ml IV PER PROTOCOL
Initial dose in mg/hr, then titrate:: 5
Titrate to keep:: Heart rate 80-100 bpm
Titrate by mg/hr:: 5 mg/hr
Frequency of titrations (minutes):: 15
Maximum dose in mg/hr:: 15
11/16/23 12:02
CT Chest Pe Study Urgent
Comment:
Reason For Exam: SOB/hypoxia, lung CA
11/16/23 13:15
Add On- LAB Urgent
Tests Added?: troponin
11/16/23 13:30
Electrocardiogram (*1) Urgent
Reason for Study: Other
Other Reason for Exam: rhythm change
11/16/23 13:31
EKG- Treatment ONCE
11/16/23 14:50
Cefepime HCl [Maxipime] 2,000 mg IV NOW STA
11/16/23 15:18
Sputum Culture [Respiratory Culture/Gram Stain] Routine
GIORGI Source: Sputum
Specimen Description:
Date Specimen was Collected: 11/16/23
Time Specimen was Collected: 15:30
11/16/23 15:22
Vancomycin [Vancocin] 2,000 mg 0.9% Sodium Chloride 500 ml [Nss] 500 ml IV NOW
11/16/23 15:42
Furosemide [Lasix] 40 mg IV NOW STA
11/16/23 15:44
Consult Pulmonary [PULMONARY CONSULT] Routine
Consulting Provider: Nicola Saab
Was physician already notified: Yes
11/16/23 15:48
HEMATOLOGY CONSULT Routine
Consulting Provider: Isabel Vizcaino
Was physician already notified: Yes
11/16/23 15:50
Consult Cardiology [CARDIOLOGY CONSULT] Routine
Consulting Provider: Dayday Comer
Was physician already notified: Yes
11/16/23 15:55
Admit/Transfer Patient As Directed
Co-Sign Provider:
Level of Care: Inpatient admission
Assign to:: Telemetry
Physician / Group: Shruthi Cosby
Diagnosis: hypoxic respiratory insufficiency; new heart failure; exudative pleural eff
Reason for Telemetry: Pulmonary Edema
Date to Stop Telemetry: 11/19/23
Time to Stop Telemetry: 11:00
Reason for Hospitalization: hypoxic respiratory insufficiency; new heart failure; exudative pleural eff
Expected length of stay greater than two midnights?: Yes
ELOS- Estimated Length of Stay in days: 4
I certify the patient meets the requirements for IP care: Yes
11/16/23 15:56
PRN Pain Medication Management As Directed
May give lesser potent ordered pain med per pt: Yes
preference::
Protocol:: Medication orders for pain may be administered in a
manner that supports deferring to patient preference
when the pt is:
- Requesting an ordered lesser potent pain medication.
Least to most potent pain medications are defined
as: acetaminophen < NSAID < tramadol < opioids
(morphine, oxycodone, hydromorphone).
- Requesting a lesser dose of the same medication IF
ORDERED.
- Requesting a less intrusive route of administration
if both routes are prescribed by the provider (PO <
IV).
11/16/23 15:59
Code Status As Directed
Resuscitation Status: Do not resuscitate
Reached after discussion with pt or family/Healthcare POA: Yes
DNR Bracelet Application ONCE
11/16/23 16:02
Aspirin Chewable [Low Strength Aspirin] 162 mg PO NOW STA
11/16/23 16:03
Add On- LAB Routine
Tests Added?: TSH with reflex to T4
11/16/23 17:56
COVID-19 Antigen Routine
Source: Nasal Swab
Influenza A+B Rapid Molecular Routine
GIORGI Source: Nasal Swab
Specimen Description:
11/19/23 11:00
DC Protocol for Telemetry ONCE
Abnormal Lab Results
11/16/23
11:31
RBC 4.28 L 10^6/uL
(4.70-6.10)
Hgb 12.2 L g/dL
(13.0-18.0)
Hct 36.5 L %
(39.0-52.0)
RDW 16.4 H %
(11.5-14.5)
Abs Immat Gran (auto) 0.1 H 10^3/uL
(0-0.05)
Absolute Neuts (auto) 7.5 H 10^3/uL
(1.4-6.5)
Absolute Lymphs (auto) 0.5 L 10^3/uL
(1.2-3.4)
Immature Gran % 0.8 H %
(0-0.5)
Neutrophils % 83.4 H %
(42.2-75.2)
Lymphocytes % 5.7 L %
(20.5-51.1)
BUN 21 H mg/dl
(9-20)
Glucose 220 H mg/dl
(70-99)
Troponin I 0.130 H* ng/ml
Albumin 3.4 L g/dl
(3.5-5.0)
11/16/23 11:31
11/16/23 11:31
Vital Signs
Initial and Last Documented VS:
Initial Vital Signs
Temp Pulse Resp Pulse Ox
97.9 F 107 24 86
11/16/23 11:17 11/16/23 11:17 11/16/23 11:17 11/16/23 11:17
Last Documented Vital Signs
Temp Pulse Resp BP Pulse Ox
97.9 F 127 20 117/74 94
11/16/23 11:19 11/16/23 17:50 11/16/23 16:38 11/16/23 17:50 11/16/23 16:38
MDM/Problems Addressed
MDM/Problems Addressed:
73-year-old male presents with increased work of breathing. Initial diagnostic considerations include pneumonia, pleural effusion, pulmonary embolism, CHF, pneumothorax. Workup reveals a large right pleural effusion that is likely exudative which
explain his purulent sputum production, will cover him broadly with IV antibiotics cefepime and vancomycin, PE study was obtained due to the significant tachycardia this was fortunately reassuring against PE. The patient's initial EKG was
suspicious for rapid atrial fibrillation and he was initially managed conservatively with just rest and supportive oxygen however given his persistent tachycardia we started him on diltiazem. After rate control became more apparent that this was a
sinus tachycardia with PACs and diltiazem was discontinued, heart rates remained stable. He will be admitted on IV antibiotics to the hospitalist service
*Critical Care Note
Total Time (30-74mins, 75-104mins- exclusive of procedures): Not Applicable
Update Note
Update Note:
Patient noted to have improved heart rates on telemetry, repeat EKG shows sinus tachycardia with frequent PACs. Upon review of initial EKG rates are quite fast making interpretation challenging however I suspect this may have also been a sinus tach
with frequent PACs, Cardizem will be discontinued at this time
ED Attending Note
-
Portions of this chart may have been created with voice recognition software.� Occasional wrong word or��sound alike� substitutions may have occurred due to the inherent limitations of voice recognition software.
Discharge Plan
Departure
Patient Disposition: Admit
Date of Disposition: 11/16/23
Time of Disposition: 15:02
Admit to: Med/Surg
Presentation/result/management discussed w/ accepting MD/DO: Hospitalist
Discharge Problem:
Acute hypoxic respiratory failure, Pleural effusion
Interventions
Interventions:
*Risk Screen - Suicide Last Done: 11/16/23 11:19
*General Assessment Last Done: 11/16/23 11:34
*Neglect/Abuse Screening Last Done: 11/16/23 11:19
ED- Fall Risk Assessment Last Done: 11/16/23 11:34
*ED COVID-19 Vaccine History Last Done: 11/16/23 11:34
ED- Cardiac Assessment Last Done: 11/16/23 11:34
ED- Pulmonary Assessment Last Done: 11/16/23 11:34
[2023-11-16] MEDS: CARDIZEM 125 IV (12:15)
--- NOTE | 2023-11-16 13:55 | EDRN ---
Cardizem gtt turned off per Ryan BROWN orders for NST with PAC's
--- NOTE | 2023-11-16 15:01 | HPS.HSE ---
Family Physician
-
Family Physician: * NONE
Chief Complaint
-
shortness of breath
History of Present Illness
Mr. Nito Pearson is a 73 yo man with hx CAD, HTN, HLD, former smoker, COPD, stage IV lung adenocarcinoma (undergoing chemotherapy) with right malignant pleural effusion s/p b/l chest tube placement 04/11 which spontaneously came out; admission
06/14-07/03/23 with treatment of Empyema (placement and then removal of chest tube) discharged on long Levaquin course presents to the ER with shortness of breath.
Patient states his last chemotherapy was 3 weeks ago. Previously he states he tolerated sessions well. Since this episode he has had progressive weakness and shortness of breath. Reminds him of prior Empyema. + low grade fevers to low 100's. No
chest pain. + nausea, no vomiting. He takes Zofran at home which helps. Decreased appetite, able to drink protein drinks and gingerale. + productive cough of green sputum.
No headache. No LE swelling. No focal weakness. No new medications.
Medical History
Past Medical History
Past Medical History: Reports Other
Additional Past Medical History:
lung CA requiring multiple chest tubes
Multiple thoracentesis
COPD
former smoker 40-year quit 16 years ago
HTN
CAD/cardiac stent
BPH
HLD
chronic microcytic anemia
GERD
erosive gastropathy March 2023
GI bleed gastric ulcer 2019
H. pylori,
Past Surgical History: Reports Other
Additional Past Surgical History:
Multiple thoracentesis
Bilateral chest tube placements
Right knee replacement
Cardiac stent
L3-S1 fusion
Social History
Tobacco: Former Smoker (30-year 1 pack a day quit 15 years ago)
Alcohol: None
Drug: None
Employment: Retired
Family History
Family History: Other (Mother uterine cancer, father CVA)
Allergies / Home Medications
Allergies reflects when Allergies were last updated in [facility] [employer].
Home Medications with original date entered in [facility] [employer]
Allergy/Medication List:
Allergies
Allergy/AdvReac Type Severity Reaction Status Date / Time
No Known Allergies Allergy Verified 07/23/23 13:45
Home Medications
acetaminophen 325 mg tablet (Tylenol) 650 mg PO DAILY 06/15/23
albuterol sulfate 90 mcg/actuation aerosol inhaler 2 puff inhalation R Q6HPRN PRN sob 06/15/23
atorvastatin 80 mg tablet 80 mg PO HS High Cholesterol 06/15/23
fluticasone fur. 100 mcg-umeclid 62.5 mcg-vilant 25 mcg inhalat.powder (Trelegy Ellipta) 1 inh inhalation R DAILY Lung/Breathing Issues 06/15/23
folic acid 1 mg tablet 1 mg PO DAILY Supplement 06/15/23
tamsulosin 0.4 mg capsule 0.4 mg PO DAILY Urinary Issue 06/15/23
cyclobenzaprine 5 mg tablet 5 mg PO Q8HPRN PRN muscle spasms #30 tabs 07/03/23
metoprolol succinate 25 mg tablet,extended release 24 hr 12.5 mg (1/2 x 25 mg) PO BID Heart disease/condition 90 days #90 tabs 07/03/23
dexamethasone 4 mg tablet 4 mg PO UD 07/27/23
ondansetron HCl 8 mg tablet 8 mg PO [id number] PRN nausea 07/27/23
polyethylene glycol 3350 17 gram oral powder packet (Miralax) 17 g PO DAILYPRN PRN constipation 11/16/23
tramadol 50 mg tablet 50 mg PO Q8HPRN PRN moderate pain 11/16/23
Review of Systems
-
History Source: Patient
A 12 point ROS was completed and negative except as noted: Yes
Physical Exam
Vital Signs
Vital Signs
Temp Pulse Resp BP Pulse Ox
97.9 F 124 22 121/60 96
11/16/23 11:19 11/16/23 14:12 11/16/23 14:12 11/16/23 14:12 11/16/23 14:12
Physical Exam
General: Other (appears frail, mildly tachypneic )
HEENT: PERRLA
Respiratory: Other (decreased breath sounds right lower lobe )
Cardiac: S1/S2, Regular Rhythm and JVD
GI: Soft, Non Tender and Non Distended
Musculoskeletal: No Edema
Skin: Warm and Dry; No Rash
Neuro: AO x 3
Psych: Calm
Laboratory Results
-
11/16/23 11:31
11/16/23 11:31
Laboratory Results
Total Bilirubin 0.7 mg/dl (0.2-1.3) 11/16/23 11:31
AST 33 U/L (17-59) 11/16/23 11:31
ALT 27 U/L (0-50) 11/16/23 11:31
Alkaline Phosphatase 85 U/L (38-126) 11/16/23 11:31
Data Reviewed
-
Diagnostic Radiology: Report Reviewed by me
Lab Data: Labs Reviewed by me
Impression/Plan
-
Mr. Nito Pearson is a 73 yo man with hx CAD, HTN, HLD, former smoker, COPD, stage IV lung adenocarcinoma (undergoing chemotherapy) with right malignant pleural effusion s/p b/l chest tube placement 04/11 which spontaneously came out; admission
06/14-07/03/23 with treatment of Empyema (placement and then removal of chest tube) discharged on long Levaquin course presents to the ER with shortness of breath.
Triage VS: T 97.9, P 107, RR 24, SpO2 86% RA
LABS: WBC 9, Hg 12.2, PLT 361, Na 137, K+ 4.4, Cl 98, BUN 21, Cr 0.9, Glucose 220, liver enzymes WNL, BNP 5840
EKG with multifocal atrial tachycardia
CXR 9/30/24
IMPRESSION:
1. Moderate right pleural effusion, likely with some loculation.
2. Right lower lobe airspace disease may also be present.
3. Right upper lobe mass seen on prior CT dated 09/04/2023 is not well appreciated on the current chest x-ray.
CHEST CT 11/16/23
IMPRESSION:
1. No evidence of pulmonary embolism or thoracic aortic dissection.
2. Small right pleural effusion, exudative, likely with some loculation.
3. Minimal right lower lobe airspace consolidation, which may represent compressive atelectasis or pneumonia.
4. Right upper lobe mass measures 4.8 cm in diameter, decreased in size compared to prior CT. Increased internal cavitation within the mass.
5. Mediastinal lymphadenopathy, new/worse compared to prior CT, likely metastatic.
6. Small sclerotic lesions within the thoracic spine, measuring up to 3 mm in diameter. Lesions are new compared to prior CT dated 04/09/2023, therefore concerning for small osseous metastases.
7. Moderate coronary arterial calcification. Please correlate with symptoms of and risk factors for coronary artery disease, with further workup as clinically appropriate.
Right-sided malignant Pleural Effusion
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 >Coli, Staphy Haemolyticus)
Hx Bronchopleural fistula s/p VATS procedure at [place] with Dr. Gee
Hx of Empyema with admission 06/14-07/03/23 s/p 3 months course of Levaquin
Hypoxic Respiratory Insufficiency
-admit to telemetry
-asking IR to evaluate for thoracentesis
-Pulmonary consult
-F/U sputum culture, flu/covid
-will continue IV antibiotics Vanc/Cefepime - consider ID consult based on above results
Heart Failure, Unknown Ejection Fraction
-patient with JVP on exam, suspect this is contributing to hypoxia and symptoms
-lasix 40mg IV x 1 and daily - monitor response with daily BMP
-daily weights, strict I/O
-TTE
-Cardiology consult
Non-OH Troponin Elevation
-suspect 2/2 stress from heart failure
-trend
-give aspirin now
-TTE as above
Stage IV Adenocarcinoma
Chest CT with progressive mediastinal lymphadenopathy and new small sclerotic lesions thoracic spine
-Hematology consult
Coronary Artery Disease
-asa 81mg PO QD (per last cards note in August this was to be resumed)
-MOLD PARTER Metoprolol
Essential Hypertension
-MOLD PARTER Metoprolol
Hyperlipidemia
-MOLD PARTER Lipitor
BPH
-MOLD PARTER Flomax
DVT PPx Lovenox subQ
DNR - discussed on admission
76 minutes spent on patient evaluation, coordination of care, medical decision making
[2023-11-16] MEDS: MAXIPIME 2000 MG IV ×2 (15:42→23:07)
[2023-11-16] MEDS: VANCOCIN 540 MG IV (15:42)
[2023-11-16] MEDS: LOW STRENGTH ASPIRIN 162 MG PO (16:08)
[2023-11-16] MEDS: LASIX 40 MG IV (16:09)
--- NOTE | 2023-11-16 16:35 | CON.CAR ---
Addendum entered and electronically signed by Dayday Comer DO 11/16/23 19:39:
I saw and examined the patient.
The Pencil Inspector's note was reviewed and I agree with the note.
Comment:
Plan:
Multifactorial dyspnea with exudative effusion and possible volume overload.
Check echo to reeval EF. Last echo with preserved EF
IV lasix diuresis and monitor Is and Os and daily wts and cr.
Cont medical therapy of likely nonMI trop. Trend troponin until it peaks.
Cont beta homer for MAT likely secondary to chronic lung disease
Cont lung cancer tx, pt currently receiving chemo.
Discussed with primary service.
HPI: Patient came to [facility] today with increased SOB and is being admitted with right pleural effusion and possible CHF and cardiology is consulted for CHF and elevated Troponin. Patient says he has chest pain most of the time and describes it as an
inspiratory chest pain that has been getting worse as his SOB has been worsening. Patient denies chest pain with activity. No weight gain, he says he is losing weight due to cancer and chemo. No edema or bloating. He has some orthopnea. He has a h/o
malignant pleural effusion and previously had a chest tube in place in 03/2023. Patient was not taking a diuretic prior to admission.
Original Note:
Consultation
Consultation Request
Date/Time Consultation Requested: 11/16/23
Date/Time Consultation Performed: 11/16/23
Requesting Provider: Dr. Cosby
Performing Provider: Dr. Comer
Reason for Consultation: Elevated Troponin, possible acute HF
Medical History
-
History of Present Illness:
Patient came to [facility] today with increased SOB and is being admitted with right pleural effusion and possible CHF and cardiology is consulted for CHF and elevated Troponin. Patient says he has chest pain most of the time and describes it as an
inspiratory chest pain that has been getting worse as his SOB has been worsening. Patient denies chest pain with activity. No weight gain, he says he is losing weight due to cancer and chemo. No edema or bloating. He has some orthopnea. He has a h/o
malignant pleural effusion and previously had a chest tube in place in 03/2023. Patient was not taking a diuretic prior to admission.
PMH:
h/o malignant right pleural effusion
Lung cancer on chemotherapy
Sinus tachycardia
Multifocal atrial tachycardia
CAD h/o LAD PCI 2013
HTN
Hyperlipidemia
Past Medical History
Past Medical History: Other (in HPI)
Past Surgical History: Cardiac (LAD PCI), Orthopedic and Tonsilectomy
Social History
Tobacco: Former Smoker
Alcohol: None
Drug: None
Family History
Family History: Cancer and Diabetes
Allergies / Home Medications
Allergy/AdvReac Type Severity Reaction Status Date / Time
No Known Allergies Allergy Verified 07/23/23 13:45
�Medication �Instructions �Recorded �Confirmed �Type
acetaminophen 325 mg tablet 650 mg PO DAILY 06/15/23 11/16/23 History
(Tylenol)
albuterol sulfate 90 mcg/actuation 2 puff inhalation R Q6HPRN PRN sob 06/15/23 11/16/23 History
aerosol inhaler
atorvastatin 80 mg tablet 80 mg PO HS High Cholesterol 06/15/23 11/16/23 History
fluticasone fur. 100 mcg-umeclid 1 inh inhalation R DAILY 06/15/23 11/16/23 History
62.5 mcg-vilant 25 mcg Lung/Breathing Issues
inhalat.powder (Trelegy Ellipta)
folic acid 1 mg tablet 1 mg PO DAILY Supplement 06/15/23 11/16/23 History
tamsulosin 0.4 mg capsule 0.4 mg PO DAILY Urinary Issue 06/15/23 11/16/23 History
cyclobenzaprine 5 mg tablet 5 mg PO Q8HPRN PRN muscle spasms 07/03/23 11/16/23 Rx
#30 tabs
metoprolol succinate 25 mg 12.5 mg (1/2 x 25 mg) PO BID Heart 07/03/23 11/16/23 Rx
tablet,extended release 24 hr disease/condition 90 days #90 tabs
dexamethasone 4 mg tablet 4 mg PO UD 07/27/23 11/16/23 History
ondansetron HCl 8 mg tablet 8 mg PO [id number] PRN nausea 07/27/23 11/16/23 History
polyethylene glycol 3350 17 gram 17 g PO DAILYPRN PRN constipation 11/16/23 11/16/23 History
oral powder packet (Miralax)
tramadol 50 mg tablet 50 mg PO Q8HPRN PRN moderate pain 11/16/23 11/16/23 History
Review of Systems
-
History Source: Patient
All other systems: Negative unless noted
Physical Exam
Vital Signs
Temp Pulse Resp BP Pulse Ox
97.9 F 117 20 111/71 96
11/16/23 11:19 11/16/23 16:09 11/16/23 15:26 11/16/23 16:09 11/16/23 15:26
General: AAOX3
HEENT: EOMI, MMM
Heart: Rapid with ectopy, no murmur
Lungs: Wearing oxygen at 5 L NC. Decreased breath sounds right worse than left.
Abd: +BS, ND, NT, soft
Ext: No clubbing, cyanosis, lesions or edema B/L
Neuro: nonfocal
Lab Results
11/16/23 11:31
11/16/23 11:31
Troponin I 0.130 ng/ml H* 11/16/23 11:31
Cgn-K-[id number] Pept 5840 pg/ml 11/16/23 11:31
Impression / Plan
-
PCP: Dr. Paul
Cardiology: Dr. Raphael
Impression:
Acute hypoxic respiratory failure
PNA
h/o malignant right pleural effusion
Possible acute HFpEF
Elevated Troponin
Lung cancer on chemotherapy
Sinus tachycardia
Multifocal atrial tachycardia
CAD h/o LAD PCI 2013
HTN
Hyperlipidemia
Lexiscan stress test 07/2022: Fixed inferior defect, EF 63%
Echo 10/27/22: EF 60%, trace MR, mild aortic regurgitation
Echo 04/13/23: EF 50-55%, mild conc LVH, mild aortic regurgitation, mild to mod TR with PAP 45-50 mmHg
Plan:
-Patient came to [facility] today with increased SOB and is being admitted with right pleural effusion and possible CHF and cardiology is consulted for CHF and elevated Troponin. Patient says he has chest pain most of the time and describes it as an
inspiratory chest pain that has been getting worse as his SOB has been worsening. Patient denies chest pain with activity. No weight gain, he says he is losing weight due to cancer and chemo. No edema or bloating. He has some orthopnea. He has a h/o
malignant pleural effusion and previously had a chest tube in place in 03/2023. Patient was not taking a diuretic prior to admission.
-Check echo
-Start Lasix 40 mg IV daily and follow BMP and weights.
-Troponin 0.130 initially and will trend. Chest pain is atypical and no ischemic changes on ECG so suspect this is a nonischemic myocardial injury Troponin elevation.
-ECG reviewed by me with MAT. No ischemic changes.
-Cont Lopressor 12.5 mg BID. Patient missed his dose of Lopressor this AM so will give a dose now.
--- NOTE | 2023-11-16 16:36 | W.PN.UPDATE ---
Update Note
Progress Note Update
Discussed with IR, effusion looks small and chronic appearing, no need for intervention currently
given increased mucus production and possible PNA on CXR will continue abx
[2023-11-16] MEDS: LOPRESSOR 12.5 MG PO (17:50)
[2023-11-16 18:23] LABS: COVID-19 Antigen Negative (Negative)
[2023-11-16] MEDS: LIPITOR 80 MG PO (21:14)
[2023-11-16] MEDS: TOPROL XL 12.5 MG PO (21:14)
[2023-11-16] MEDS: LOVENOX 40 MG SC (21:14)
--- NOTE | 2023-11-16 21:35 | PHA.VAN.IN ---
Assessment
- Assessment
Renal Function: Appears elevated from baseline (07/01/23 BASELINE SCR: 0.7)
Concomitant Antimicrobials: CEFEPIME
- Previous Dosing Experience
Previous Regimen: 1250MG IV Q12H
Date of Regimen: 06/19/23
Provided Trough of: 12.3
Provided AUC of: 505 PREDICTED
Patient's SCR is: Elevated compared to previous dosing experience (06/19/23 SCR = 0.5)
Patient's weight is: Elevated compared to previous dosing experience (06/19/23 WT = 76.8 KG)
AUC Dosing Plan
- Dosing Variables
Dosing Weight (kg): 78
Dosing CrCl (ml/min): 72
Vd coefficient (L/kg): 0.7
- Empiric Dosing
Initial / Loading Dose: 2GM
Maintenance Regimen: 1GM IV Q12H
Estimated AUC (mcg*h/mL): 589
Estimated Peak (mcg*h/mL): 34.1
Estimated Trough (mcg/ml): 16.8
Estimated Half Life (H): 10.8
Pharmacokinetics Vancomycin I
- -
Patient Age: 73
Patient Sex: Male
Vancomycin Day #: 1
Indication: Pulmonary/Respiratory
Requesting Provider: DEN
Height / Weight:
Height 5 ft 10 in
Actual Weight 74.899 kg
Pertinent Past Medical History: LUNG CA W/CHEMO; ELEVATED BG
- Vital Signs / Lab Results
Temp Pulse Resp BP Pulse Ox
100.2 F 130 22 142/61 89
11/16/23 20:35 11/16/23 20:35 11/16/23 20:35 11/16/23 20:35 11/16/23 20:35
Lab Results - Hematology
11/16/23
11:31
WBC 9.0
Lab Results - Chemistry
11/16/23
11:31
BUN 21 H
Creatinine 0.9
Estimated Creat Clear 72
Albumin 3.4 L
Microbiology Results
11/16/23 17:56 Gram Stain - Preliminary
Sputum
11/16/23 17:56 Influenza Types A & B (SANA) - Final
Nasal Swab Negative for Influenza A & B, NAAT
Negative results must be combined with clinical observations
and patient history.
Nucleic Acid Amplification test (NAAT)performed on the
[employer] platform.
[2023-11-16 21:57] LABS: Troponin I 0.122 ng/ml
[2023-11-16] MEDS: FLOMAX 0.4 MG PO (22:04)
[2023-11-16] MEDS: ZOFRAN 4 MG IV (22:04)
[2023-11-16] MEDS: TYLENOL 650 MG PO (22:38)
[2023-11-16] MEDS: LOPRESSOR 5 MG IV (23:07)
[2023-11-16] MEDS: STERILE WATER FOR INJECTION 10 ML IV (23:07)
[2023-11-17] VITALS (9 sets, daily range): BP systolic 87–120; BP diastolic 47–64; BMI 23.7
--- NOTE | 2023-11-17 01:24 | PTCARENOTE ---
pt is aaox3, no c/o chest pain. pt has lung cancer last chemo 3 weeks ago. pt is on 6L O2. b/l lungs diminished right worse then left. states he feels SOB but doesn't need a treatment. pt HR130's. informed RECREATION ADVISER Salima Stokes. - given prn iv Lopressor w/
+effect. HR 110's.
pt oriented to room a/ call gray in reach.
[2023-11-17 04:03] LABS: Hematocrit 32.2 % (39.0-52.0); Hemoglobin 10.7 g/dL (13.0-18.0); Mean Corp Hgb Conc. 33.2 g/dL (33.0-37.0); Mean Corpuscular Hgb 27.4 pg (27.0-31.0); Mean Corpuscular Volume 82.4 fL (80.0-94.0); Mean Platelet Volume 8.2 fL (7.4-10.4); Platelet Count 306 10^3/uL (130-400); Red Blood Cell Count 3.91 10^6/uL (4.70-6.10); Red Cell Dist. Width 16.5 % (11.5-14.5); White Blood Cell Count 11.2 10^3/uL (4.8-10.8)
[2023-11-17 04:29] LABS: Blood Urea Nitrogen 27 mg/dl (9-20); Calcium 8.6 mg/dl (8.4-10.2); Carbon Dioxide 27 mmol/L (22-30); Chloride 98 mmol/L (98-107); Estimated Creatinine Clearance 56 ml/min; Glucose 135 mg/dl (70-99); HDL Cholesterol 25 mg/dl; LDL Cholesterol, Calculated 77 mg/dl; Potassium 4.1 mmol/L (3.5-5.1); Sodium 138 mmol/L (135-145); Total Cholesterol 125 mg/dl (50-199); Triglyceride 117 mg/dl (10-149); Very Low Density Lipoprotein 23 mg/dl (0-30); eGFR > 60.00
[2023-11-17 04:30] LABS: Troponin I 0.098 ng/ml
[2023-11-17] MEDS: VANCOCIN 200 IV (05:26)
[2023-11-17] MEDS: SYMBICORT 80/4.5 MCG INHALER 2 PUFF INH ×2 (07:08→19:24)
[2023-11-17] MEDS: LOW STRENGTH ASPIRIN 81 MG PO (08:14)
[2023-11-17] MEDS: TOPROL XL 12.5 MG PO ×2 (08:14→21:18)
[2023-11-17] MEDS: FLOMAX 0.4 MG PO (08:14)
[2023-11-17] MEDS: FOLVITE 1 MG PO (08:14)
[2023-11-17] MEDS: LASIX 40 MG IV (08:15)
[2023-11-17] MEDS: MAXIPIME 2000 MG IV ×2 (08:15→15:27)
[2023-11-17] MEDS: STERILE WATER FOR INJECTION 10 ML IV ×2 (08:16→15:27)
[2023-11-17] MEDS: ZOFRAN 4 MG IV (08:33)
--- NOTE | 2023-11-17 09:20 | W.PN.HOSP.TC ---
Today's Communication/Plan
-
diuresis, F/U TTE
Vanc/Cefepime - F/U MRSA screen and sputum culture
appreciate consultants
Assessment / Plan
Assessment / Plan
Mr. Nito Pearson is a 73 yo man with hx CAD, HTN, HLD, former smoker, COPD, stage IV lung adenocarcinoma (undergoing chemotherapy) with right malignant pleural effusion s/p b/l chest tube placement 04/11 which spontaneously came out; admission
06/14-07/03/23 with treatment of Empyema (placement and then removal of chest tube) discharged on long Levaquin course presents to the ER with shortness of breath found to have chronic appearing exudative effusion, possible PNA and new diagnosis heart
failure.
CXR 11/16/23
IMPRESSION:
1. Moderate right pleural effusion, likely with some loculation.
2. Right lower lobe airspace disease may also be present.
3. Right upper lobe mass seen on prior CT dated 09/04/2023 is not well appreciated on the current chest x-ray.
CHEST CT 11/16/23
IMPRESSION:
1. No evidence of pulmonary embolism or thoracic aortic dissection.
2. Small right pleural effusion, exudative, likely with some loculation.
3. Minimal right lower lobe airspace consolidation, which may represent compressive atelectasis or pneumonia.
4. Right upper lobe mass measures 4.8 cm in diameter, decreased in size compared to prior CT. Increased internal cavitation within the mass.
5. Mediastinal lymphadenopathy, new/worse compared to prior CT, likely metastatic.
6. Small sclerotic lesions within the thoracic spine, measuring up to 3 mm in diameter. Lesions are new compared to prior CT dated 04/09/2023, therefore concerning for small osseous metastases.
7. Moderate coronary arterial calcification. Please correlate with symptoms of and risk factors for coronary artery disease, with further workup as clinically appropriate.
Right-sided malignant Pleural Effusion
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 >Coli, Staphy Haemolyticus)
Hx Bronchopleural fistula s/p VATS procedure at [place] with Dr. Gee
Hx of Empyema with admission 06/14-07/03/23 s/p 3 months course of Levaquin
Hypoxic Respiratory Insufficiency
-admit to telemetry
-appreciate IR and Pulm eval - effusion appears exudative and chronic - no need for thoracentesis at this time
-F/U sputum culture
-Flu and covid negative
-s/p MRSA screen
-will continue IV antibiotics Vanc/Cefepime
Heart Failure, Unknown Ejection Fraction
-patient with JVP on exam, suspect this is contributing to hypoxia and symptoms
-lasix 40mg IV x 1 and daily - monitor response with daily BMP, creatinine mildly up today
-daily weights, strict I/O
-TTE
-Cardiology consult appreciated
Non-NV Troponin Elevation
-suspect 2/2 stress from heart failure
-trend
-give aspirin now
-TTE as above
Stage IV Adenocarcinoma
Chest CT with progressive mediastinal lymphadenopathy and new small sclerotic lesions thoracic spine
-Hematology consult appreciated - plan for PET as outpatient; LN may be reactive; sclerotic lesions not specific
Coronary Artery Disease
-asa 81mg PO QD (per last cards note in August this was to be resumed)
-HOGSHEAD PRESS OPERATOR Metoprolol
Essential Hypertension
-HOGSHEAD PRESS OPERATOR Metoprolol
Hyperlipidemia
-HOGSHEAD PRESS OPERATOR Lipitor
BPH
-HOGSHEAD PRESS OPERATOR Flomax
DVT PPx Lovenox subQ
DNR - discussed on admission
51 minutes spent on patient care
Anticipated Discharge: > 48 hours
Subjective/Interval History
-
Date of Service: November 17, 2023
urinating frequently
feeling better than yesterday
Objective Data
-
Labs:
Laboratory Results
11/17/23
03:52
WBC 11.2 H
Hgb 10.7 L
Hct 32.2 L
Plt Count 306
Sodium 138
Potassium 4.1
Chloride 98
Carbon Dioxide 27
BUN 27 H
Creatinine 1.2
Glucose 135 H
Calcium 8.6
Vital Signs:
Vital Signs
Temp Pulse Resp BP Pulse Ox
98.5 F 110 20 105/61 94
11/17/23 07:38 11/17/23 08:15 11/17/23 07:38 11/17/23 08:15 11/17/23 07:38
I&O
11/16/23 11/17/23 11/18/23
06:59 06:59 06:59
Intake Total 500 / 500 10 10
Output Total 1600 / 1600 100 / 100
Balance -1100 / -1100 -90 / -90
Review of Systems
-
History Source: Patient
Physical Exam
-
General: No Apparent Distress and Conversant
HEENT: PERRLA
Respiratory: Decreased Breath Sounds
Cardiac: Regular Rhythm, S1/S2 and JVD (not as obvious on exam today )
GI: Soft and Nontender
Musculoskeletal: No Edema
Skin: Warm and Dry; Negative Rash
Neuro: AO x 3
Psych: Calm
Data Reviewed
-
Diagnostic Radiology: Report Reviewed by me
Labs: Labs Reviewed by me
--- NOTE | 2023-11-17 09:51 | CON.PUL ---
Consultation
Consultation Request
Date/Time Consultation Requested: 11/17/2023
Date/Time Consultation Performed: 11/17/2023
Requesting Provider: Dr. Cosby
Performing Provider: Dr. Nicola Doyle
Reason for Consultation: Pleural effusion/hypoxemic respiratory failure
Medical History
-
History of Present Illness:
History obtained from the chart and from the patient. Patient is a pleasant 73-year-old male with complex pulmonary history including recently diagnosed stage IV adenocarcinoma of the lung when he presented with complete right lung atelectasis back
in March, requiring chest tube, with persistent large air leak, requiring eventual transfer to thoracic surgery at [facility] ([facility]). Details of that hospital stay are unclear but patient recalls having a surgical procedure then went home with
Heimlich valve/chest tube. He was readmitted to [facility] 05/2023 with empyema. During that time he was getting chemotherapy.
-
Readmitted to [facility] 11/16/2023 complaining of shortness of breath.
He completed his last chemotherapy 3 weeks ago. Since then has reported progressive weakness, shortness of breath. Also noted to have low-grade fevers. Denies any chest pain, or wheezing.
His appetite has decreased as well. He does report cough productive of greenish sputum.
Denies any diarrhea.
Denies any significant chest discomfort.
CT chest demonstrated small loculated pleural effusion. Similar to prior. Found to have increased proBNP with minimal right lower lobe consolidation. Right upper lobe lung mass measures 4.8 cm in diameter decreasing size compared to prior. There
is mediastinal lymphadenopathy new compared to prior possibly metastatic.
Past Medical History
Past Medical History: Other (See assessment and plan findings)
Past Surgical History: None (See above)
Social History
Tobacco: Former Smoker ([id number] history of smoking quit around 2006)
Alcohol: None
Drug: None
Personal:
Living: With Family
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
Family History
Family History: Reviewed & Not Pertinent
Allergies / Home Medications
Allergies
Allergy/AdvReac Type Severity Reaction Status Date / Time
No Known Allergies Allergy Verified 07/23/23 13:45
Home Medications
�Medication �Instructions �Recorded �Confirmed �Last Taken �Type
acetaminophen 325 mg tablet 650 mg PO DAILY 06/15/23 11/16/23 11/15/23 History
(Tylenol)
albuterol sulfate 90 mcg/actuation 2 puff inhalation R Q6HPRN PRN sob 06/15/23 11/16/23 11/16/23 History
aerosol inhaler
atorvastatin 80 mg tablet 80 mg PO HS High Cholesterol 06/15/23 11/16/23 4 Days Ago History
~11/12/23
fluticasone fur. 100 mcg-umeclid 1 inh inhalation R DAILY 06/15/23 11/16/23 07/27/23 History
62.5 mcg-vilant 25 mcg Lung/Breathing Issues
inhalat.powder (Trelegy Ellipta)
folic acid 1 mg tablet 1 mg PO DAILY Supplement 06/15/23 11/16/23 07/27/23 History
tamsulosin 0.4 mg capsule 0.4 mg PO DAILY Urinary Issue 06/15/23 11/16/23 07/27/23 History
cyclobenzaprine 5 mg tablet 5 mg PO Q8HPRN PRN muscle spasms 07/03/23 11/16/23 07/27/23 Rx
#30 tabs
metoprolol succinate 25 mg 12.5 mg (1/2 x 25 mg) PO BID Heart 07/03/23 11/16/23 07/27/23 Rx
tablet,extended release 24 hr disease/condition 90 days #90 tabs
dexamethasone 4 mg tablet 4 mg PO UD 07/27/23 11/16/23 Unknown History
ondansetron HCl 8 mg tablet 8 mg PO [id number] PRN nausea 07/27/23 11/16/23 11/16/23 History
polyethylene glycol 3350 17 gram 17 g PO DAILYPRN PRN constipation 11/16/23 11/16/23 Unknown History
oral powder packet (Miralax)
tramadol 50 mg tablet 50 mg PO Q8HPRN PRN moderate pain 11/16/23 11/16/23 Unknown History
Review of Systems
Vitals / Labs / Diagnostic Testing
Vital Signs
Temp Pulse Resp BP Pulse Ox
98.5 F 110 20 105/61 94
11/17/23 07:38 11/17/23 08:15 11/17/23 07:38 11/17/23 08:15 11/17/23 07:38
Lab Data
11/17/23 03:52
11/17/23 03:52
Microbiology
11/16/23 17:56 Sputum Gram Stain - Preliminary
11/16/23 17:56 Nasal Swab Influenza Types A & B (SANA) - Final
Negative for Influenza A & B, NAAT
Negative results must be combined with clinical observations
and patient history.
Nucleic Acid Amplification test (NAAT)performed on the
[employer] platform.
Diagnostic Testing:
Physical Exam
-
HEENT: Normocephalic
Cardiovascular: S1/S2
Respiratory: Wheeze (n), Rales (Left base) and Other (Decreased breath sounds on the right)
GI: Soft and Non Distended
Neurology: Awake, Alert, Oriented and AO x 3
Skin: Warm
General: Comfortable
Assessment
-
73-year-old male who is known to our practice with history of stage IV adenocarcinoma of the lung, malignant pleural effusion on the right, prior bronchopleural fistula, prior chest tube placement March and June 2023, evaluated at [facility]
[place] for PPF. Received antibiotics for empyema as well.
Readmitted 11/16/2023 for shortness of breath, we were consulted to evaluate his pleural effusion/abnormal CT chest.
Shortness of breath: Acute hypoxemic respiratory failure, currently on 5 L nasal cannula-multifactorial
Abnormal CT chest. 11/16/2023.
1. No evidence of pulmonary embolism or thoracic aortic dissection.
2. Small right pleural effusion, exudative, likely with some loculation.
3. Minimal right lower lobe airspace consolidation, which may represent compressive atelectasis or pneumonia.
4. Right upper lobe mass measures 4.8 cm in diameter, decreased in size compared to prior CT. Increased internal cavitation within the mass.
. Mediastinal lymphadenopathy, new/worse compared to prior CT, likely metastatic.
6. Small sclerotic lesions within the thoracic spine, measuring up to 3 mm in diameter. Lesions are new compared to prior CT dated 04/09/2023, therefore concerning for small osseous metastases.
7. Moderate coronary arterial calcification. Please correlate with symptoms of and risk factors for coronary artery disease, with further workup as clinically appropriate.
Low-grade fevers
Possible right lower lobe pneumonia
Mildly increased troponins/proBNP 5840 cannot rule out heart failure with preserved ejection fraction acute on chronic
Echocardiogram 04/13/2023: Report reviewed showed normal LVEF. Mild LVH. Mild AR. Mild to moderate TR. Estimated pulmonary artery pressure 45 to 50 mmHg.
RV function
EKG reviewed: Sinus tachycardia with premature atrial complexes. Nonspecific T wave abnormality.
Chronic normocytic anemia-likely contributing to symptoms
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
Large right pleural effusion due to empyema status post chest tube 06/15 by IR
Pleural fluid Cx (+) for E. coli
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
History of right large effusion with complete right lung atelectasis
Persistent air leak, suspected BP fistula, tx to [facility] 03/2023
Heimlich valve placed, spontaneously fell out approximately mid April 2023
Right upper lobe mass, right lung volume loss with pneumothorax ex-vacuo due to entrapped lung physiology given his adenocarcinoma with MPE
Stage IV adenocarcinoma
Malignant right pleural effusion diagnosed March 2023
On chemotherapy -Follows Dr. Mallory locally.
sees Izabela Wood ([facility])
COPD, on Trelegy- Follows with Dr. Petty
Last 6-minute walk testing 09/11/2023-with chronic sinus tachycardia. No oxygen requirements at that time low saturation was 93%. Dyspnea sensation 2 out of 10.
CAD s/p stents
HTN
HLD
GIB, gastric ulcer 2019
H/o H pylori
Former [id number]-year quit 2008.
Plan recommendations:
Acute hypoxemic respiratory failure multifactorial.
Suspect pneumonia based on CAT scan and low-grade fevers.
Agree with broad-spectrum antibiotics with vancomycin/cefepime.
Sputum/blood culture as able
Patient usually not on oxygen based on 6-minute walk testing 08/2023 patient did not require oxygen after 6 minutes of ambulation. He does have baseline sinus tachycardia.
Currently on 5 L nasal cannula, will wean as tolerated.
-
Patient is immunosuppressed. Will need close observation. Status post chemotherapy 3 weeks ago for his stage IV lung cancer.
CT chest reviewed: A small loculated right pleural effusion. Interventional radiology also agrees that at this point too small for thoracentesis. Will need to be followed. If there is enlargement of pleural effusion prior to discharge may need to
sample fluid given prior history of empyema. At this point close observation.
Will follow fever curve and leukocytosis
-
With increased proBNP up to 5000, heart failure component also possibility.
Agree with IV diuretics
Trend troponins- currently chest pain free.
May need to update echocardiogram
Cardiology has been consulted
-
In regards to COPD: Usually on Trelegy in the outpatient setting. No evidence for acute exacerbation
No indication for systemic corticosteroids.
Will continue to follow
-
Continue inhalers
Nebulizers as needed
Secretion clearance, Acapella device.
Physical therapy/Occupational Therapy as able
Incentive spirometry
-
In regards to stage IV lung cancer: On chemotherapy, follows up with Dr. Mallory.
New mediastinal lymph nodes may be reactive versus metastatic.
Right upper lobe lung mass small in size but has a cavitation. Will need outpatient radiographic follow-up.
-
DVT prophylaxis
-
I personally reviewed ECW and prior Records, imaging of the chest also reviewed in detail. discussed with patient as well.
Data Reviewed
-
EKG: Tracing personally visualized and interpreted and Report reviewed by me
Radiology: Image personally visualized and interpreted and Report reviewed by me
CT Scan: Image personally visualized and interpreted and Report reviewed by me
Labs: Labs reviewed by me and Discussed with Patient
Old Records: Reviewed
[2023-11-17] MEDS: LOPRESSOR 5 MG IV (10:40)
--- NOTE | 2023-11-17 10:59 | CON.ONC ---
Impression
Impression
stage IV lung cancer, on maintenance chemo/IO, last on 10/29/23
shortness of breath
fever, suspected pneumonia
elevated BNP, suspected CHF
Plan
Plan
Continue antibiotics and diuresis per primary team, cardiology, pulmonology
Primary lung mass appears smaller on CT scan, mediastinal nodes may be reactive, bone lesions are of uncertain significance
Monitor CBC, no significant cytopenias
Will plan to check PET as outpatient to assess further
Will postpone next treatment from 11/18 to 11/25
Will follow along
Patient History
History of Present Illness
This is a 73 yo M w/ stage 4 lung cancer, currently on maintenance therapy w/ Alimta and Keytruda, who developed increasing dyspnea and weakness 2 weeks ago, and presented to the ER for evaluation. Work-up suggests CHF w/ elevated BNP and likely
pneumonia, with fevers. CT showed decrease in size of lung mass, increase in mediastinal MINH, and possible small bone lesions. He's been started on antibiotics and diuresis, with some improvement in symptoms since admission. Echo was done this am,
results pending.
Past-Medical/Surgical History
PMH/PSH - as per the HPI, also HTN, CAD with stent, COPD, knee replacement, spinal fusion
Patient Medication
�Medication �Instructions �Recorded �Confirmed �Last Taken �Type
acetaminophen 325 mg tablet 650 mg PO DAILY Pain 06/15/23 11/16/23 11/15/23 History
(Tylenol)
albuterol sulfate 90 mcg/actuation 2 puff inhalation R Q6HPRN PRN sob 06/15/23 11/16/23 11/16/23 History
aerosol inhaler
atorvastatin 80 mg tablet 80 mg PO HS High Cholesterol 06/15/23 11/16/23 4 Days Ago History
~11/12/23
fluticasone fur. 100 mcg-umeclid 1 inh inhalation R DAILY 06/15/23 11/16/23 07/27/23 History
62.5 mcg-vilant 25 mcg Lung/Breathing Issues
inhalat.powder (Trelegy Ellipta)
folic acid 1 mg tablet 1 mg PO DAILY Supplement 06/15/23 11/16/23 07/27/23 History
tamsulosin 0.4 mg capsule 0.4 mg PO DAILY Urinary Issue 06/15/23 11/16/23 07/27/23 History
cyclobenzaprine 5 mg tablet 5 mg PO Q8HPRN PRN muscle spasms 07/03/23 11/16/23 07/27/23 Rx
#30 tabs
metoprolol succinate 25 mg 12.5 mg (1/2 x 25 mg) PO BID Heart 07/03/23 11/16/23 07/27/23 Rx
tablet,extended release 24 hr disease/condition 90 days #90 tabs
dexamethasone 4 mg tablet 4 mg PO UD INFLAMMATION 07/27/23 11/16/23 Unknown History
ondansetron HCl 8 mg tablet 8 mg PO [id number] PRN nausea 07/27/23 11/16/23 11/16/23 History
polyethylene glycol 3350 17 gram 17 g PO DAILYPRN PRN constipation 11/16/23 11/16/23 Unknown History
oral powder packet (Miralax)
tramadol 50 mg tablet 50 mg PO Q8HPRN PRN moderate pain 11/16/23 11/16/23 Unknown History
Active Medications
Generic Name Dose Route Start Last Admin
Trade Name Freq PRN Reason Stop Dose Admin
Acetaminophen 650 mg 11/16/23 22:31 11/16/23 22:38
Acetaminophen 325 Mg Tablet PO 12/14/23 20:18 650 mg
Q6HPRN PRN Administration
mild pain/ fever>100.1F
Albuterol 2 puff 11/16/23 20:19
Albuterol Hfa [90 Mcg/Dose] Inhaler INH
R Q6HPRN PRN
sob
Protocol
Aspirin 81 mg 11/17/23 08:00 11/17/23 08:14
Aspirin 81 Mg Chewable Tablet PO 12/15/23 07:59 81 mg
DAILY RAGINI Administration
Atorvastatin Calcium 80 mg 11/16/23 22:00 11/16/23 21:14
Atorvastatin (Lipitor) 80 Mg Tablet PO 12/14/23 21:59 80 mg
HS RAGINI Administration
Budesonide/Formoterol Fumarate 2 puff 11/17/23 08:00 11/17/23 07:08
Symbicort Inhaler 80/4.5 INH 12/15/23 07:59 2 puff
R BID RAGINI Administration
Cefepime HCl 2,000 mg 11/17/23 00:00 11/17/23 08:15
Cefepime Hcl 2,000 Mg/12.5 Ml Vial IV 2,000 mg
Q8H RAGINI Administration
Cyclobenzaprine HCl 5 mg 11/16/23 20:46
Cyclobenzaprine 10 Mg Tablet PO 12/14/23 20:45
Q8HPRN PRN
muscle spasms
Enoxaparin Sodium 40 mg 11/16/23 20:19 11/16/23 21:14
Enoxaparin Sodium 40 Mg/0.4 Ml Syringe SC 12/14/23 20:18 40 mg
QPM RAGINI Administration
Folic Acid 1 mg 11/17/23 08:00 11/17/23 08:14
Folic Acid 1 Mg Tablet PO 12/15/23 07:59 1 mg
DAILY RAGINI Administration
Furosemide 40 mg 11/17/23 08:00 11/17/23 08:15
Furosemide 40 Mg (10 Mg/Ml) 4 Ml Vial IV 12/15/23 07:59 40 mg
DAILY RAGINI Administration
Heparin Sodium (Porcine) 500 unit 11/17/23 04:17 11/17/23 06:36
Heparin Flush Pf (100 Unit/Ml) 5 Ml Syringe IV 12/15/23 04:16 500 unit
PRN PRN Administration
PORT FLUSH
Heparin Sodium (Porcine) 500 unit 11/17/23 07:15 11/17/23 10:45
Heparin Flush Pf (100 Unit/Ml) 5 Ml Syringe IV 12/15/23 07:14 500 unit
PER PROTOCOL RAGINI Administration
Vancomycin HCl 1 gram in 200 mls @ 200 mls/hr 11/17/23 06:00 11/17/23 05:26
Vancocin IV 200 mls
Q12H RAGINI Administration
Protocol
Metoprolol Succinate 12.5 mg 11/16/23 21:00 11/17/23 08:14
Metoprolol 12.5 Mg Extended Release Dose (1/2 Of 25 Mg Xl Tablet) PO 12/14/23 20:59 12.5 mg
BID RAGINI Administration
Metoprolol Tartrate 5 mg 11/16/23 22:33 11/17/23 10:40
Metoprolol 5 Mg/5 Ml Vial IV 12/14/23 22:32 5 mg
Q4HPRN PRN Administration
HR >110
Ondansetron HCl 4 mg 11/16/23 20:19 11/17/23 08:33
Ondansetron 4 Mg/2 Ml Vial IV 12/14/23 20:18 4 mg
Q6HPRN PRN Administration
NAUSEA/VOMITING
Polyethylene Glycol 17 grams 11/16/23 20:19
Polyethylene Glycol Powder 17 Grams Packet PO 12/14/23 20:18
DAILYPRN PRN
constipation
Sodium Chloride 0 flush 11/16/23 17:00
Sodium Chloride 0.9% (Flush) Syringe IV 12/14/23 16:59
PER PROTOCOL RAGINI
Sterile Water 10 ml 11/17/23 00:00 11/17/23 08:16
Sterile Water For Injection 10 Ml Vial IV 12/15/23 00:00 10 ml
Q8H RAGINI Administration
Tamsulosin HCl 0.4 mg 11/17/23 08:00 11/17/23 08:14
Tamsulosin 0.4 Mg Capsule PO 12/15/23 07:59 0.4 mg
DAILY RAGINI Administration
Tramadol HCl 50 mg 11/16/23 20:19
Tramadol Hcl 50 Mg Tablet PO 12/14/23 20:18
Q8HPRN PRN
moderate pain
Review of Systems
-
All Other Systems: Not reviewed unless documented
Physical Exam
-
General: Well Developed, Well Nourished and No Apparent Distress
HEENT: Moist Mucous Membranes
Cardiology: Normal Sinus Rhythm
Pulmonary: Rales
GI: Soft
Musculoskeletal: No Clubbing, No Cyanosis and No Edema
Extremities: No C/C/E
Neurology: Non Focal
Skin: Warm and Dry
Psych: Calm and Intact Judgement/Insight
Labs
Lab Results
WBC 11.2 10^3/uL (4.8-10.8) H 11/17/23 03:52
RBC 3.91 10^6/uL (4.70-6.10) L 11/17/23 03:52
Hgb 10.7 g/dL (13.0-18.0) L 11/17/23 03:52
Hct 32.2 % (39.0-52.0) L 11/17/23 03:52
MCV 82.4 fL (80.0-94.0) 11/17/23 03:52
MCH 27.4 pg (27.0-31.0) 11/17/23 03:52
MCHC 33.2 g/dL (33.0-37.0) 11/17/23 03:52
RDW 16.5 % (11.5-14.5) H 11/17/23 03:52
Plt Count 306 10^3/uL (130-400) 11/17/23 03:52
MPV 8.2 fL (7.4-10.4) 11/17/23 03:52
Abs Immat Gran (auto) 0.1 10^3/uL (0-0.05) H 11/16/23 11:31
Absolute Neuts (auto) 7.5 10^3/uL (1.4-6.5) H 11/16/23 11:31
Absolute Lymphs (auto) 0.5 10^3/uL (1.2-3.4) L 11/16/23 11:31
Absolute Monos (auto) 0.6 10^3/uL (0.1-0.6) 11/16/23 11:31
Absolute Eos (auto) 0.3 10^3/uL (0-0.7) 11/16/23 11:31
Absolute Basos (auto) 0.0 10^3/uL (0-0.2) 11/16/23 11:31
Immature Gran % 0.8 % (0-0.5) H 11/16/23 11:31
Neutrophils % 83.4 % (42.2-75.2) H 11/16/23 11:31
Lymphocytes % 5.7 % (20.5-51.1) L 11/16/23 11:31
Monocytes % 6.8 % (1.7-9.3) 11/16/23 11:31
Eosinophils % 3.0 % (0-6) 11/16/23 11:31
Basophils % 0.3 % (0-2) 11/16/23 11:31
Creatinine 1.2 mg/dL (0.7-1.3) 11/17/23 03:52
Vital Signs
Vital Signs
Temp Pulse Resp BP Pulse Ox
98.5 F 127 20 97/61 94
11/17/23 07:38 11/17/23 10:40 11/17/23 07:38 11/17/23 10:40 11/17/23 07:38
--- NOTE | 2023-11-17 11:13 | W.PN.CARDCBS ---
Addendum entered and electronically signed by Dayday Comer DO 11/17/23 15:05:
I saw and examined the patient.
The Social Media Marketing Manager's note was reviewed and I agree with the note.
Comment:
Plan:
Multifactorial dyspnea with exudative effusion and possible volume overload.
Echo pending to reeval EF. Last echo with preserved EF
Continue IV lasix diuresis and monitor Is and Os and daily wts and cr.
Cont medical therapy of nonMI trop that peaked at 0.1.
Hold beta homer for hypotension.
Has had MAT likely secondary to chronic lung disease
Cont lung cancer tx, pt currently receiving chemo.
Discussed with nursing
HPI: Patient [facility] today with increased SOB and is being admitted with right pleural effusion and possible CHF and cardiology is consulted for CHF and elevated Troponin. Patient says he has chest pain most of the time and describes it as an
inspiratory chest pain that has been getting worse as his SOB has been worsening. Patient denies chest pain with activity. No weight gain, he says he is losing weight due to cancer and chemo. No edema or bloating. He has some orthopnea. He has a h/o
malignant pleural effusion and previously had a chest tube in place in 03/2023. Patient was not taking a diuretic prior to admission.
Original Note:
Today's Communication / Plan
-
Cont Lasix 40 mg IV daily and follow labs
Impression / Plan
-
PCP: Dr. Paul
Cardiology: Dr. Raphael
Impression:
Acute hypoxic respiratory failure
PNA
h/o malignant right pleural effusion
Possible acute HFpEF
Elevated Troponin
Lung cancer on chemotherapy
Sinus tachycardia
Multifocal atrial tachycardia
CAD h/o LAD PCI 2013
HTN
Hyperlipidemia
Lexiscan stress test 07/2022: Fixed inferior defect, EF 63%
Echo 10/27/22: EF 60%, trace MR, mild aortic regurgitation
Echo 04/13/23: EF 50-55%, mild conc LVH, mild aortic regurgitation, mild to mod TR with PAP 45-50 mmHg
Echo 11/17/23: Study pending
Plan:
-Remains hypoxic and requiring 5 L NC. Patient was not using supplemental oxygen prior to admission.
-Antibiotics continued for possible PNA.
-No indication for thoracentesis given chronic right pleural effusion
-Oncology consult reviewed and they report that primary lung mass is small and mediastinal lymph nodes could be reactive as opposed to metastatic.
-From a cardiac standpoint, weight unchanged despite Lasix 40 mg IV daily diuresis. Cre stable at 1.2. Patient was not taking a diuretic prior to admission. Would continue attempts at diuresis
-Check echo
-Tele reviewed by me 11/17/23 and patient continues with sinus tachycardia with PACs vs MAT. Cont Toprol XL 12.5 mg BID and unable to increase dose due to hypotension.
-Troponin 0.130 initially and trended down thereafter. Chest pain is atypical and no ischemic changes on ECG so suspect this is a nonischemic myocardial injury Troponin elevation.
HPI: Patient came to [facility] today with increased SOB and is being admitted with right pleural effusion and possible CHF and cardiology is consulted for CHF and elevated Troponin. Patient says he has chest pain most of the time and describes it as an
inspiratory chest pain that has been getting worse as his SOB has been worsening. Patient denies chest pain with activity. No weight gain, he says he is losing weight due to cancer and chemo. No edema or bloating. He has some orthopnea. He has a h/o
malignant pleural effusion and previously had a chest tube in place in 03/2023. Patient was not taking a diuretic prior to admission.
Progress Note - Automatic Lathe Operator
Subjective
Date of Service: November 17, 2023
Feels better like he can take a better breath
Objective
Labs:
11/17/23 03:52
11/17/23 03:52
Labs
Hgb 10.7 g/dL (13.0-18.0) L 11/17/23 03:52
Hct 32.2 % (39.0-52.0) L 11/17/23 03:52
Plt Count 306 10^3/uL (130-400) 11/17/23 03:52
Sodium 138 mmol/L (135-145) 11/17/23 03:52
Potassium 4.1 mmol/L (3.5-5.1) 11/17/23 03:52
BUN 27 mg/dl (9-20) H 11/17/23 03:52
Creatinine 1.2 mg/dL (0.7-1.3) 11/17/23 03:52
Glucose 135 mg/dl (70-99) H 11/17/23 03:52
Troponins
11/16/23 11/16/23 11/17/23
11:31 21:23 03:52
Troponin I 0.130 H* 0.122 H* 0.098 H*
Vital Signs and I&O:
Vital Signs
Temp Pulse Resp BP Pulse Ox
98.5 F 109 17 88/57 96
11/17/23 11:10 11/17/23 11:10 11/17/23 11:10 11/17/23 11:10 11/17/23 11:10
Vital Signs
Temp Pulse Resp BP Pulse Ox
98.5 F 109 17 88/57 96
11/17/23 11:10 11/17/23 11:10 11/17/23 11:10 11/17/23 11:10 11/17/23 11:10
Intake & Output
11/15/23 11/16/23 11/17/23 11/18/23
06:59 06:59 06:59 06:59
Intake Total 500 / 500
Output Total 1600 / 1600 100 / 100
Balance -1100 / -1100 -90 / -90
Physical Exam
Physical Exam
General: AAOX3
HEENT: MMM
Heart: MAT on tele
Lungs: Wearing oxygen at 5 L NC.
Abd: ND
Ext: No edema B/L
Neuro: nonfocal
--- NOTE | 2023-11-17 13:09 | CM ---
Patient seen bedside, initial assessment completed. Patient resides in a multiple level home with his , one step to enter. Patient denies use of DME, currently on O2, previously had home O2 through [facility] but sent it back as no longer
needed it. Patient reports [facility] in past, denies SNF. Patient does not have a PCP, interested in a list of primary physicians. Patient confirms pharmacy [facility], confirms prescription coverage. Patient denies any food, housing/utility,
transportation insecurities at home. Patient reports he attends [facility] every three weeks for chemo. CM will continue to follow for all discharge planning needs.
Plan; home, watch for O2, VN needs.
--- NOTE | 2023-11-17 15:03 | PTCARENOTE ---
MD Cosby and MD Comer made aware of pts soft BP of 88/47, HR >110: 129 and dizziness. pt due to get another does of PRN Lopressor. Per Md Comer: hold Lopressor for now. pt assisted back into bed from bedside chair without issue. remains on
equipment monitor phototypesetting. remains on 5L NC. attempted to wean to 4L with sat going to 91-92; with pt requesting it be bumped back up as he did not feel comfortable with sat increasing to 95-97% at 5 L. care plan continues to be followed.
[2023-11-17] MEDS: NSS 250 IV ×2 (15:36→17:14)
[2023-11-17] MEDS: LOVENOX 40 MG SC (17:19)
[2023-11-17] MEDS: LIPITOR 80 MG PO (21:17)
[2023-11-18] MEDS: STERILE WATER FOR INJECTION 10 ML IV ×4 (00:17→23:19)
[2023-11-18] MEDS: MAXIPIME 2000 MG IV ×4 (00:17→23:19)
[2023-11-18] MEDS: ZOFRAN 4 MG IV ×2 (02:05→08:58)
[2023-11-18 03:48] VITALS: BP 101/65
[2023-11-18] MEDS: LOPRESSOR 5 MG IV (03:52)
[2023-11-18 07:40] VITALS: BP 98/50
[2023-11-18] MEDS: SYMBICORT 80/4.5 MCG INHALER 2 PUFF INH ×2 (07:46→20:32)
[2023-11-18 08:25] LABS: % Basophils 0.3 % (0-2); % Eosinophils 8.8 % (0-6); % Monocytes 8.1 % (1.7-9.3); % Neutrophils 75.8 % (42.2-75.2); Absolute Eosinophils 0.6 10^3/uL (0-0.7); Absolute Immature Granulocytes 0.1 10^3/uL (0-0.05); Absolute Lymphocytes 0.4 10^3/uL (1.2-3.4); Absolute Monocytes 0.6 10^3/uL (0.1-0.6); Absolute Neutrophils 5.2 10^3/uL (1.4-6.5); Hematocrit 30.4 % (39.0-52.0); Hemoglobin 9.9 g/dL (13.0-18.0); Mean Corp Hgb Conc. 32.6 g/dL (33.0-37.0); Mean Corpuscular Hgb 28.3 pg (27.0-31.0); Mean Corpuscular Volume 86.9 fL (80.0-94.0); Mean Platelet Volume 8.3 fL (7.4-10.4); Nucleated Red Blood Cells % 0 % (-); Platelet Count 300 10^3/uL (130-400); Red Cell Dist. Width 16.4 % (11.5-14.5); White Blood Cell Count 6.8 10^3/uL (4.8-10.8)
[2023-11-18 08:48] LABS: Blood Urea Nitrogen 27 mg/dl (9-20); Calcium 8.6 mg/dl (8.4-10.2); Carbon Dioxide 27 mmol/L (22-30); Chloride 97 mmol/L (98-107); Estimated Creatinine Clearance 56 ml/min; Glucose 125 mg/dl (70-99); Potassium 3.8 mmol/L (3.5-5.1); Sodium 134 mmol/L (135-145); eGFR > 60.00
[2023-11-18] MEDS: LOW STRENGTH ASPIRIN 81 MG PO (09:43)
[2023-11-18] MEDS: TOPROL XL 12.5 MG PO ×2 (09:43→20:33)
[2023-11-18] MEDS: FLOMAX 0.4 MG PO (09:43)
[2023-11-18] MEDS: FOLVITE 1 MG PO (09:43)
--- NOTE | 2023-11-18 10:34 | CM ---
Patient seen bedside, provided list of PCP's and [facility]- placed in patients chart upon discharge. Patient remains on O2, watch for home O2 needs. CM will continue to follow for all discharge planning needs.
Plan; home, watch for VN/O2 needs.
[2023-11-18 10:39] VITALS: BMI 23.5
--- NOTE | 2023-11-18 11:24 | PN.CDI ---
CDI
- -
CDI:
Physician Documentation Request
Admit Date: 11/16/23 16:27
Dear Doctor Harjeet,
Please review the following and provide your response in the progress notes.
Clinical Indicators:
Pt admitted with pneumonia and heart failure.
11/15 ER note: 'On arrival he was noted to have room air oxygen saturations in the mid 80s.. Ill-appearing, acute respiratory distress with conversational dyspnea..Lungs: Conversational dyspnea with tachypnea and accessory muscle use...'
11/16 Progress note: 'Hypoxic Respiratory Insufficiency'
11/16 Cardiology Note: 'Acute hypoxic respiratory failure...-Remains hypoxic and requiring 5 L NC. Patient was not using supplemental oxygen prior to admission.'
Selected Entries
11/16/23
11:17 11/16/23
16:00
Resp Rate 24 27
SaO2 86 92
Nasal Cannula flow liters per minute 6
Due to potential conflicting documentation, please clarify which of the following accurately represents the patient's respiratory status:
Acute respiratory failure
Hypoxic respiratory insufficiency
Other
Additional information for Respiratory Failure:
Recognized criteria for Respiratory Failure (Source: [facility] Hospitalist Dec 2012)
ABGs: (1 or more) Symptoms Please indicate type if known
1. p)2 <60 or RA SPO2 <91% on RA 1. Tachypnea, SOB, dyspnea Hypoxic
2. pCO2 50 and pH <7.35 2. Use of accessory muscles Hypercapnic
3. pO2 decrease of pCO2 increase by 3. Pallor or cyanosis Hypoxic and Hypercapnic
10 mmHg from baseline if known 4. Anxiety or restlessness Unable to determine
5. Unable to speak in full sentences
Supplemental O2 of > 40% (5LPM) Intubation is not required
Use of terms such as suspected, likely, concern for, or probable (associated with a specific diagnosis that is being evaluated, monitored, or treated as if it exists) are acceptable and can be coded in the inpatient setting, when documented at the
time of discharge.
Thank you,
Amina Day RN, BSN
CDI Specialist
Available via [employer]
Please use your independent medical judgment in providing your response.
[2023-11-18 11:50] VITALS: BP 100/50
--- NOTE | 2023-11-18 11:53 | PTCARENOTE ---
Pt weaned to 4L O2 via N/C--maintaining pulse ox of 92-93%
--- NOTE | 2023-11-18 12:09 | W.PN.HOSP.TC ---
Today's Communication/Plan
-
IV Cefepime
home O2 testing tomorrow
appreciate consultants
Assessment / Plan
Assessment / Plan
Mr. Nito Pearson is a 73 yo man with hx CAD, HTN, HLD, former smoker, COPD, stage IV lung adenocarcinoma (undergoing chemotherapy) with right malignant pleural effusion s/p b/l chest tube placement 04/11 which spontaneously came out; admission
06/14-07/03/23 with treatment of Empyema (placement and then removal of chest tube) discharged on long Levaquin course presents to the ER with shortness of breath found to have chronic appearing exudative effusion, possible PNA and new diagnosis heart
failure.
CXR 11/16/23
IMPRESSION:
1. Moderate right pleural effusion, likely with some loculation.
2. Right lower lobe airspace disease may also be present.
3. Right upper lobe mass seen on prior CT dated 09/04/2023 is not well appreciated on the current chest x-ray.
CHEST CT 11/16/23
IMPRESSION:
1. No evidence of pulmonary embolism or thoracic aortic dissection.
2. Small right pleural effusion, exudative, likely with some loculation.
3. Minimal right lower lobe airspace consolidation, which may represent compressive atelectasis or pneumonia.
4. Right upper lobe mass measures 4.8 cm in diameter, decreased in size compared to prior CT. Increased internal cavitation within the mass.
5. Mediastinal lymphadenopathy, new/worse compared to prior CT, likely metastatic.
6. Small sclerotic lesions within the thoracic spine, measuring up to 3 mm in diameter. Lesions are new compared to prior CT dated 04/09/2023, therefore concerning for small osseous metastases.
7. Moderate coronary arterial calcification. Please correlate with symptoms of and risk factors for coronary artery disease, with further workup as clinically appropriate.
TTE 11/17/23
CONCLUSIONS
Technically difficult study
Normal left ventricular size and function. Normal left ventricular wall
thickness. Left ventricular ejection fraction is 50-55% by visual assessment.
No gross regional wall motion abnormalities within limits of the study quality.
Normal diastolic function.
Dilated right ventricle with reduced systolic function.
Aortic sclerosis without stenosis. Mild aortic regurgitation.
Mild tricuspid regurgitation. Estimated pulmonary artery pressure of 30 mmHg.
Assuming a right atrial pressure of 3 mmHg.
Compared to prior study dated 04/13/2023 which was directly reviewed, right
ventricle now appears dilated
Right-sided malignant Pleural Effusion
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 >Coli, Staphy Haemolyticus)
Hx Bronchopleural fistula s/p VATS procedure at [facility] with Dr. Gee
Hx of Empyema with admission 06/14-07/03/23 s/p 3 months course of Levaquin
Hypoxic Respiratory Insufficiency
-admit to telemetry
-appreciate IR and Pulm eval - effusion appears exudative and chronic - no need for thoracentesis at this time
-F/U sputum culture
-Flu and covid negative
-s/p MRSA screen
-will continue IV antibiotics Cefepime (stop Vanc with negative MRSA)
Heart Failure, Unknown Ejection Fraction
-patient with JVP on exam, suspect contributed to symptoms. patient then overdiuresed s/p fluids back
-hold further lasix
-Cardiology consult appreciated
Non-AL Troponin Elevation
-suspect 2/2 stress from heart failure
-trend
-give aspirin now
-TTE as above
MAT
tachycardia
-continue metoprolol, dosing limited with low blood pressures
Stage IV Adenocarcinoma
Chest CT with progressive mediastinal lymphadenopathy and new small sclerotic lesions thoracic spine
-Hematology consult appreciated - plan for PET as outpatient; LN may be reactive; sclerotic lesions not specific
Coronary Artery Disease
-asa 81mg PO QD (per last cards note in August this was to be resumed)
-PLOW MECHANIC Metoprolol
Essential Hypertension
-PLOW MECHANIC Metoprolol
Hyperlipidemia
-PLOW MECHANIC Lipitor
BPH
-PLOW MECHANIC Flomax
DVT PPx Lovenox subQ
DNR - discussed on admission
51 minutes spent on patient care
Anticipated Discharge: 24 - 48 hours
Subjective/Interval History
-
Date of Service: November 18, 2023
feels cough is improving
less dizzy post fluids yesterday
denies palpitations
Objective Data
-
Labs:
Laboratory Results
11/18/23
07:49
WBC 6.8
Hgb 9.9 L
Hct 30.4 L
Plt Count 300
Sodium 134 L
Potassium 3.8
Chloride 97 L
Carbon Dioxide 27
BUN 27 H
Creatinine 1.2
Glucose 125 H
Calcium 8.6
Vital Signs:
Vital Signs
Temp Pulse Resp BP Pulse Ox
98.4 F 105 26 100/50 93
11/18/23 11:50 11/18/23 11:50 11/18/23 11:50 11/18/23 11:50 11/18/23 11:50
I&O
11/17/23 11/18/23 11/19/23
06:59 06:59 06:59
Intake Total 500 / 500 1580 / 1580
Output Total 1600 / 1600 1650 / 1650
Balance -1100 / -1100 -70 / -70
Review of Systems
-
History Source: Patient
All other systems: Reviewed and negative
Physical Exam
-
General: No Apparent Distress
HEENT: PERRLA
Respiratory: Clear to Auscultation; Negative Wheezes
Cardiac: Regular Rhythm and S1/S2; Negative JVD
GI: Soft and Nontender
Musculoskeletal: No Edema
Skin: Warm and Dry; Negative Rash
Neuro: AO x 3
Psych: Calm
Data Reviewed
-
Diagnostic Radiology: Report Reviewed by me
Labs: Labs Reviewed by me
--- NOTE | 2023-11-18 14:51 | W.PN.CARDCBS ---
Addendum entered and electronically signed by Rand Orosco DO 11/18/23 20:53:
I saw and examined the patient.
The [employer]'s note was reviewed and I agree with the note.
Comment: Seen and examined. Overall feeling better with resolved cough and less O2 requirements. No fevers.
General: AAOX3, NAD on nc O2
HEENT: MMM
Heart: regular with ectopy. +S1S2 no murmur
Lungs: bronchovesicular BS, decreased. no wheeze or crackles.
Abd: ND/NT +BS
Ext: No edema B/L
Plan:
Hypoxic respiratory failure and hypotension with PNA
-hx of stage IV adenocarcinoma of the lung, malignant pleural effusion on the right, prior bronchopleural fistula, hx empyema, prior chest tube placement March and June 2023, evaluated at [facility] for PPF
-Abnormal CT chest 11/16/2023 with No evidence of pulmonary embolism or thoracic aortic dissection. Small right pleural effusion, exudative, likely with some loculation. Minimal right lower lobe airspace consolidation, which may represent compressive
atelectasis or pneumonia. Right upper lobe mass measures 4.8 cm in diameter, decreased in size compared to prior CT. Increased internal cavitation within the mass. Mediastinal lymphadenopathy, new/worse compared to prior CT, likely metastatic. Small
sclerotic lesions within the thoracic spine, measuring up to 3 mm in diameter. Lesions are new compared to prior CT dated 04/09/2023, therefore concerning for small osseous metastases.
-Treatment of PNA per pulmonary and ID
-Hemodynamic improved after IV fluid resuscitation
-Wean O2 supplementation as able. Check home oxygen assessment in the morning. May need temporary oxygen for mentation to go home.
-Will need close follow up with Dr. Mallory
-Nonischemic myocardial injury Troponin elevation.
-Troponin 0.130 initially and trended down thereafter.
- Chest pain is atypical and no ischemic changes on ECG but does have CAD noted on CT chest with hx of LAD PCI in 2013
- OMT as able: ASA, BB, statin
-Lexiscan stress test 07/2022: Fixed inferior defect, EF 63%
HFPEF after fluid resuscitation
-proBNP 5840
-Echocardiogram 11/17/23 EF 50 to 55%, no gross regional wall motion abnormalities, dilated RV with reduced RV systolic function, mild aortic regurgitation, mild TR with PAP 30 mmHg
-Will stop Lasix; would not d/c to home on diuretics
ST/MAT/PACs on tele
-Cont Toprol XL 12.5 mg BID and unable to increase dose due to hypotension.
Will sign off, recall if needed
Follow to be arranged with Dr. Raphael
Original Note:
Today's Communication / Plan
-
Likely not acute HF and would not continue IV diuresis, would not d/c to home on diuretics
Impression / Plan
-
PCP: Dr. Paul
Cardiology: Dr. Raphael
Impression:
Acute hypoxic respiratory failure
PNA
h/o malignant right pleural effusion
Elevated Troponin
Lung cancer on chemotherapy
Sinus tachycardia
Multifocal atrial tachycardia
CAD h/o LAD PCI 2013
HTN
Hyperlipidemia
Lexiscan stress test 07/2022: Fixed inferior defect, EF 63%
Echo 10/27/22: EF 60%, trace MR, mild aortic regurgitation
Echo 04/13/23: EF 50-55%, mild conc LVH, mild aortic regurgitation, mild to mod TR with PAP 45-50 mmHg
Echo 11/17/23: EF 50 to 55%, no gross regional wall motion abnormalities, dilated RV with reduced RV systolic function, mild aortic regurgitation, mild TR with PAP 30 mmHg
Plan:
-Patient with symptomatic hypotension on 11/17/23 that improved with 500 ml bolus. Lasix now stopped.
-No appreciable diuresis despite Lasix 40 mg IV daily since admission and with hypotension would suspect that patient did not have acute HF on admission. Would not d/c to home on diuretic.
-EF preserved on echo
-Remains hypoxic and requiring 4 L NC. Patient was not using supplemental oxygen prior to admission.
-Antibiotics continued for possible PNA.
-Tele reviewed by me 11/17/23 and patient continues with sinus tachycardia with PACs vs MAT. Cont Toprol XL 12.5 mg BID and unable to increase dose due to hypotension.
-Troponin 0.130 initially and trended down thereafter. Chest pain is atypical and no ischemic changes on ECG so suspect this is a nonischemic myocardial injury Troponin elevation.
HPI: [facility] with increased SOB and is being admitted with right pleural effusion and possible CHF and cardiology is consulted for CHF and elevated Troponin. Patient says he has chest pain most of the time and describes it as an
inspiratory chest pain that has been getting worse as his SOB has been worsening. Patient denies chest pain with activity. No weight gain, he says he is losing weight due to cancer and chemo. No edema or bloating. He has some orthopnea. He has a h/o
malignant pleural effusion and previously had a chest tube in place in 03/2023. Patient was not taking a diuretic prior to admission.
Progress Note - [employer]
Subjective
Date of Service: November 18, 2023
He thinks breathing is better
Objective
Labs:
11/18/23 07:49
11/18/23 07:49
Labs
Hgb 9.9 g/dL (13.0-18.0) L 11/18/23 07:49
Hct 30.4 % (39.0-52.0) L 11/18/23 07:49
Plt Count 300 10^3/uL (130-400) 11/18/23 07:49
Sodium 134 mmol/L (135-145) L 11/18/23 07:49
Potassium 3.8 mmol/L (3.5-5.1) 11/18/23 07:49
BUN 27 mg/dl (9-20) H 11/18/23 07:49
Creatinine 1.2 mg/dL (0.7-1.3) 10/02/24 07:49
Glucose 125 mg/dl (70-99) H 11/18/23 07:49
Troponins
11/16/23 11/16/23 11/17/23
11:31 21:23 03:52
Troponin I 0.130 H* 0.122 H* 0.098 H*
Vital Signs and I&O:
Vital Signs
Temp Pulse Resp BP Pulse Ox
98.4 F 105 26 100/50 93
11/18/23 11:50 11/18/23 11:50 11/18/23 11:50 11/18/23 11:50 11/18/23 11:50
Vital Signs
Temp Pulse Resp BP Pulse Ox
98.4 F 105 26 100/50 93
11/18/23 11:50 11/18/23 11:50 11/18/23 11:50 11/18/23 11:50 11/18/23 11:50
Intake & Output
11/16/23 11/17/23 11/18/23 11/19/23
06:59 06:59 06:59 06:59
Intake Total 500 / 500 1580 / 1580
Output Total 1600 / 1600 1650 / 1650
Balance -1100 / -1100 -70 / -70
Physical Exam
Physical Exam
General: AAOX3
HEENT: MMM
Heart: MAT on tele
Lungs: Wearing oxygen at 4 L NC.
Abd: ND
Ext: No edema B/L
Neuro: nonfocal
[2023-11-18 15:20] VITALS: BP 128/69
--- NOTE | 2023-11-18 16:39 | W.PN.PUL3 ---
Today's Communication / Plan
-
Continue current antibiotics, hopefully can transition to orals in the next 24 to 48 hours
Home oxygen assessment in the morning
No further diuretics needed
Continue current antibiotics
Continue inhalers
Nebulizers as needed
Continue to follow culture
Assessment
-
73-year-old male who is known to our practice with history of stage IV adenocarcinoma of the lung, malignant pleural effusion on the right, prior bronchopleural fistula, prior chest tube placement March and June 2023, evaluated at [place] [facility]
[place] for PPF. Received antibiotics for empyema as well.
Readmitted 11/16/2023 for shortness of breath, we were consulted to evaluate his pleural effusion/abnormal CT chest.
Shortness of breath: Acute hypoxemic respiratory failure, currently on 5 L nasal cannula-multifactorial
Abnormal CT chest. 11/16/2023.
1. No evidence of pulmonary embolism or thoracic aortic dissection.
2. Small right pleural effusion, exudative, likely with some loculation.
3. Minimal right lower lobe airspace consolidation, which may represent compressive atelectasis or pneumonia.
4. Right upper lobe mass measures 4.8 cm in diameter, decreased in size compared to prior CT. Increased internal cavitation within the mass.
. Mediastinal lymphadenopathy, new/worse compared to prior CT, likely metastatic.
6. Small sclerotic lesions within the thoracic spine, measuring up to 3 mm in diameter. Lesions are new compared to prior CT dated 04/09/2023, therefore concerning for small osseous metastases.
7. Moderate coronary arterial calcification. Please correlate with symptoms of and risk factors for coronary artery disease, with further workup as clinically appropriate.
Low-grade fevers
Possible right lower lobe pneumonia
Mildly increased troponins/proBNP 5840 cannot rule out heart failure with preserved ejection fraction acute on chronic
Echocardiogram 04/13/2023: Report reviewed showed normal LVEF. Mild LVH. Mild AR. Mild to moderate TR. Estimated pulmonary artery pressure 45 to 50 mmHg.
RV function
EKG reviewed: Sinus tachycardia with premature atrial complexes. Nonspecific T wave abnormality.
Chronic normocytic anemia-likely contributing to symptoms
Conditions [employer]:
Large right pleural effusion due to empyema status post chest tube 06/15 by IR
Pleural fluid Cx (+) for E. coli
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
History of right large effusion with complete right lung atelectasis
Persistent air leak, suspected BP fistula, tx to [place] 03/2023
Heimlich valve placed, spontaneously fell out approximately mid April 2023
Right upper lobe mass, right lung volume loss with pneumothorax ex-vacuo due to entrapped lung physiology given his adenocarcinoma with MPE
Stage IV adenocarcinoma
Malignant right pleural effusion diagnosed March 2023
On chemotherapy -Follows Dr. Mallory locally.
sees Izabela Wood ([place])
COPD, on Trelegy- Follows with Dr. Petty
Last 6-minute walk testing 09/11/2023-with chronic sinus tachycardia. No oxygen requirements at that time low saturation was 93%. Dyspnea sensation 2 out of 10.
CAD s/p stents
HTN
HLD
GIB, gastric ulcer 2019
H/o H pylori
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
Plan recommendations:
Acute hypoxemic respiratory failure multifactorial.
-
Suspect pneumonia based on CAT scan and low-grade fevers.
Agree with broad-spectrum antibiotics with vancomycin/cefepime.
Cultures negative so far-sputum culture with usual respiratory roseann.
Afebrile without leukocytosis.
-
Patient usually not on oxygen based on 6-minute walk testing 08/2023 patient did not require oxygen after 6 minutes of ambulation. He does have baseline sinus tachycardia.
Currently on 4 L nasal cannula, will wean as tolerated.
Check home oxygen assessment in the morning. May need temporary oxygen for mentation to go home.
-
Patient is immunosuppressed. Will need close observation. Status post chemotherapy 3 weeks ago for his stage IV lung cancer.
CT chest reviewed: A small loculated right pleural effusion. Interventional radiology also agrees that at this point too small for thoracentesis. Will need to be followed. If there is enlargement of pleural effusion prior to discharge may need to
sample fluid given prior history of empyema. At this point close observation.
Will follow fever curve and leukocytosis.
Repeat chest x-ray tomorrow morning 11/19/2023.
-
With increased proBNP up to 5000, heart failure component also possibility.
Status post diuresis but developed hypotension. Cardiology does not feel heart failure is present.
Non-VT increase in troponins, trend troponins- currently chest pain free.
Reviewed, echo 11/17/23: EF 50 to 55%, no gross regional wall motion abnormalities, dilated RV with reduced RV systolic function, mild aortic regurgitation, mild TR with PAP 30 mmHg
Cardiology follow, correspondence reviewed
-
In regards to COPD: Usually on Trelegy in the outpatient setting. No evidence for acute exacerbation
No indication for systemic corticosteroids.
Will continue to follow
-
Continue inhalers
Nebulizers as needed
Secretion clearance, Acapella device.
Physical therapy/Occupational Therapy as able
Incentive spirometry
-
In regards to stage IV lung cancer: On chemotherapy, follows up with Dr. Mallory.
New mediastinal lymph nodes may be reactive versus metastatic.
Right upper lobe lung mass small in size but has a cavitation. Will need outpatient radiographic follow-up.
-
DVT prophylaxis
-
I personally reviewed ECW and prior Records, imaging of the chest also reviewed in detail. discussed with patient as well.
-
Continue with current care
Subjective Data
-
Date of Service:
Date of Service: November 18, 2023
Chief Complaint: Pulmonary Follow Up (Pneumonia)
Subjective:
Patient feels better
Hypotension noted, denies dizziness
Denies hemoptysis
Review of Systems
Cardiopulmonary: Dyspnea (Improved) and Cough
GI: Abdominal Pain (n) and Nausea (n)
Neuro: Headache (n)
Objective Data
Data Reviewed
Vital Signs / I&O / Oxygen:
Vital Signs
Temp Pulse Resp BP Pulse Ox
98.7 F 65 20 128/69 96
11/18/23 15:20 11/18/23 15:20 11/18/23 15:20 11/18/23 15:20 11/18/23 15:20
Intake and Output
11/17/23 11/18/23 11/19/23
06:59 06:59 06:59
Intake Total 500 / 500 1580 / 1580
Output Total 1600 / 1600 1650 / 1650
Balance -1100 / -1100 -70 / -70
SaO2 96
Nasal Cannula flow liters per 4
minute
Physical Exam
General: Comfortable
HEENT: Normocephalic
Cardiovascular: S1-S2
Respiratory: Crackles
GI: Soft and Non Distended
Neurology: Awake, Alert and No Motor Deficits
Skin: Warm
Labs/Micro/Reports
Lab Data
11/18/23 07:49
11/18/23 07:49
Microbiology
11/16/23 17:56 Sputum Respiratory Culture - Final
Usual Respiratory Roseann
11/16/23 17:56 Sputum Gram Stain - Final
11/17/23 10:23 Nose Nasal Screen MRSA (PCR) - Final
MRSA not detected - performed by PCR methodology.
11/16/23 17:56 Nasal Swab Influenza Types A & B (SNAA) - Final
Negative for Influenza A & B, NAAT
Negative results must be combined with clinical observations
and patient history.
Nucleic Acid Amplification test (NAAT)performed on the
[employer] platform.
[2023-11-18] MEDS: LOVENOX 40 MG SC (17:06)
[2023-11-18 19:32] VITALS: BP 123/57
[2023-11-18] MEDS: DESYREL 25 MG PO (21:02)
[2023-11-18] MEDS: LIPITOR 80 MG PO (21:03)
[2023-11-18 23:05] VITALS: BP 114/65
[2023-11-19 03:33] VITALS: BP 125/74
[2023-11-19 06:00] VITALS: BMI 24.4
[2023-11-19 07:44] VITALS: BP 109/65
[2023-11-19] MEDS: SYMBICORT 80/4.5 MCG INHALER 2 PUFF INH ×2 (07:56→20:32)
[2023-11-19] MEDS: FOLVITE 1 MG PO (08:23)
[2023-11-19] MEDS: LOW STRENGTH ASPIRIN 81 MG PO (08:23)
[2023-11-19] MEDS: STERILE WATER FOR INJECTION 10 ML IV ×2 (08:23→15:11)
[2023-11-19] MEDS: FLOMAX 0.4 MG PO (08:23)
[2023-11-19] MEDS: MAXIPIME 2000 MG IV ×2 (08:23→15:11)
[2023-11-19] MEDS: TOPROL XL 12.5 MG PO ×2 (08:23→19:42)
[2023-11-19 08:41] LABS: Blood Urea Nitrogen 20 mg/dl (9-20); Calcium 8.7 mg/dl (8.4-10.2); Carbon Dioxide 27 mmol/L (22-30); Chloride 98 mmol/L (98-107); Estimated Creatinine Clearance 67 ml/min; Glucose 118 mg/dl (70-99); Potassium 3.7 mmol/L (3.5-5.1); Sodium 135 mmol/L (135-145); eGFR > 60.00
--- NOTE | 2023-11-19 09:09 | RESPNOTE ---
Patient is unable to walk very far , he feels lightheaded when walking around bed and needed to sit down.
--- NOTE | 2023-11-19 10:31 | W.PN.HOSP.TC ---
Today's Communication/Plan
-
anticipate DC tomorrow
continue Cefepime
home with O2 - discussed with CM
Assessment / Plan
Assessment / Plan
Mr. Nito Pearson is a 73 yo man with hx CAD, HTN, HLD, former smoker, COPD, stage IV lung adenocarcinoma (undergoing chemotherapy) with right malignant pleural effusion s/p b/l chest tube placement 04/11 which spontaneously came out; admission
06/14-07/03/23 with treatment of Empyema (placement and then removal of chest tube) discharged on long Levaquin course presents to the ER with shortness of breath found to have chronic appearing exudative effusion, possible PNA and new diagnosis heart
failure.
CXR 11/16/23
IMPRESSION:
1. Moderate right pleural effusion, likely with some loculation.
2. Right lower lobe airspace disease may also be present.
3. Right upper lobe mass seen on prior CT dated 09/04/2023 is not well appreciated on the current chest x-ray.
CHEST CT 11/16/23
IMPRESSION:
1. No evidence of pulmonary embolism or thoracic aortic dissection.
2. Small right pleural effusion, exudative, likely with some loculation.
3. Minimal right lower lobe airspace consolidation, which may represent compressive atelectasis or pneumonia.
4. Right upper lobe mass measures 4.8 cm in diameter, decreased in size compared to prior CT. Increased internal cavitation within the mass.
5. Mediastinal lymphadenopathy, new/worse compared to prior CT, likely metastatic.
6. Small sclerotic lesions within the thoracic spine, measuring up to 3 mm in diameter. Lesions are new compared to prior CT dated 04/09/2023, therefore concerning for small osseous metastases.
7. Moderate coronary arterial calcification. Please correlate with symptoms of and risk factors for coronary artery disease, with further workup as clinically appropriate.
TTE 11/17/23
CONCLUSIONS
Technically difficult study
Normal left ventricular size and function. Normal left ventricular wall
thickness. Left ventricular ejection fraction is 50-55% by visual assessment.
No gross regional wall motion abnormalities within limits of the study quality.
Normal diastolic function.
Dilated right ventricle with reduced systolic function.
Aortic sclerosis without stenosis. Mild aortic regurgitation.
Mild tricuspid regurgitation. Estimated pulmonary artery pressure of 30 mmHg.
Assuming a right atrial pressure of 3 mmHg.
Compared to prior study dated 04/13/2023 which was directly reviewed, right
ventricle now appears dilated
Right-sided malignant Pleural Effusion
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 >Coli, Staphy Haemolyticus)
Hx Bronchopleural fistula s/p VATS procedure at [place] with Dr. Gee
Hx of Empyema with admission 06/14-07/03/23 s/p 3 months course of Levaquin
Hypoxic Respiratory Failure
-admit to telemetry
-appreciate IR and Pulm eval - effusion appears exudative and chronic - no need for thoracentesis at this time
-F/U sputum culture
-Flu and covid negative
-s/p MRSA screen
-will continue IV antibiotics Cefepime (stop Vanc with negative MRSA) --> transition to Levaquin tomorrow
Heart Failure, Unknown Ejection Fraction
-patient with JVP on exam, suspect contributed to symptoms. patient then overdiuresed s/p fluids back
-hold further lasix
-Cardiology consult appreciated
Non-PR Troponin Elevation
-suspect 2/2 stress from heart failure
-trend
-give aspirin now
-TTE as above
MAT
tachycardia
-continue metoprolol, dosing limited with low blood pressures
Stage IV Adenocarcinoma
Chest CT with progressive mediastinal lymphadenopathy and new small sclerotic lesions thoracic spine
-Hematology consult appreciated - plan for PET as outpatient; LN may be reactive; sclerotic lesions not specific
Coronary Artery Disease
-asa 81mg PO QD (per last cards note in August this was to be resumed)
-SHEET METAL APPRENTICE Metoprolol
Essential Hypertension
-SHEET METAL APPRENTICE Metoprolol
Hyperlipidemia
-SHEET METAL APPRENTICE Lipitor
BPH
-SHEET METAL APPRENTICE Flomax
DVT PPx Lovenox subQ
DNR - discussed on admission
51 minutes spent on patient care
Anticipated Discharge: 24 - 48 hours
Subjective/Interval History
-
Date of Service: November 19, 2023
feeling better but needs one more night in hospital
on 4L
mobility and appetite improving
Objective Data
-
Labs:
Laboratory Results
11/19/23
07:37
Sodium 135
Potassium 3.7
Chloride 98
Carbon Dioxide 27
BUN 20
Creatinine 1.0
Glucose 118 H
Calcium 8.7
Vital Signs:
Vital Signs
Temp Pulse Resp BP Pulse Ox
98.3 F 72 18 109/65 92
11/19/23 07:44 11/19/23 07:59 11/19/23 07:59 11/19/23 07:44 11/19/23 09:02
I&O
11/18/23 11/19/23 11/20/23
06:59 06:59 06:59
Intake Total 1580 / 1580 600 / 600
Output Total 1650 / 1650 1950 / 1950
Balance -70 / -70 -1350 / -1350
Review of Systems
-
History Source: Patient
All other systems: Reviewed and negative
Physical Exam
-
General: No Apparent Distress
HEENT: PERRLA
Respiratory: Clear to Auscultation; Negative Wheezes
Cardiac: Regular Rhythm and S1/S2; Negative JVD
GI: Soft and Nontender
Musculoskeletal: No Edema
Skin: Warm and Dry; Negative Rash
Neuro: AO x 3
Psych: Calm
Data Reviewed
-
Diagnostic Radiology: Report Reviewed by me
Labs: Labs Reviewed by me
--- NOTE | 2023-11-19 10:53 | W.PN.PUL3 ---
Today's Communication / Plan
-
Continue antibiotics, complete total 7 days upon discharge
Oxygen supplementation at discharge
Continue inhalers
Incentive spirometry
Radiographic follow-up in the outpatient setting
Hopefully discharge in the next 24 hours
Assessment
-
73-year-old male who is known to our practice with history of stage IV adenocarcinoma of the lung, malignant pleural effusion on the right, prior bronchopleural fistula, prior chest tube placement March and June 2023, evaluated at [facility]
[place] for PPF. Received antibiotics for empyema as well.
Readmitted 11/16/2023 for shortness of breath, we were consulted to evaluate his pleural effusion/abnormal CT chest.
Shortness of breath: Acute hypoxemic respiratory failure, currently on 5 L nasal cannula-multifactorial
Abnormal CT chest. 11/16/2023.
1. No evidence of pulmonary embolism or thoracic aortic dissection.
2. Small right pleural effusion, exudative, likely with some loculation.
3. Minimal right lower lobe airspace consolidation, which may represent compressive atelectasis or pneumonia.
4. Right upper lobe mass measures 4.8 cm in diameter, decreased in size compared to prior CT. Increased internal cavitation within the mass.
. Mediastinal lymphadenopathy, new/worse compared to prior CT, likely metastatic.
6. Small sclerotic lesions within the thoracic spine, measuring up to 3 mm in diameter. Lesions are new compared to prior CT dated 04/09/2023, therefore concerning for small osseous metastases.
7. Moderate coronary arterial calcification. Please correlate with symptoms of and risk factors for coronary artery disease, with further workup as clinically appropriate.
Low-grade fevers
Possible right lower lobe pneumonia
Mildly increased troponins/proBNP 5840 cannot rule out heart failure with preserved ejection fraction acute on chronic
Echocardiogram 04/13/2023: Report reviewed showed normal LVEF. Mild LVH. Mild AR. Mild to moderate TR. Estimated pulmonary artery pressure 45 to 50 mmHg.
RV function
EKG reviewed: Sinus tachycardia with premature atrial complexes. Nonspecific T wave abnormality.
Chronic normocytic anemia-likely contributing to symptoms
Conditions LIBRARY ASSISTANT:
Large right pleural effusion due to empyema status post chest tube 06/15 by IR
Pleural fluid Cx (+) for E. coli
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
History of right large effusion with complete right lung atelectasis
Persistent air leak, suspected BP fistula, tx to [place] 03/2023
Heimlich valve placed, spontaneously fell out approximately mid April 2023
Right upper lobe mass, right lung volume loss with pneumothorax ex-vacuo due to entrapped lung physiology given his adenocarcinoma with MPE
Stage IV adenocarcinoma
Malignant right pleural effusion diagnosed March 2023
On chemotherapy -Follows Dr. Mallory locally.
sees Izabela Wood ([place])
COPD, on Trelegy- Follows with Dr. Petty
Last 6-minute walk testing 09/11/2023-with chronic sinus tachycardia. No oxygen requirements at that time low saturation was 93%. Dyspnea sensation 2 out of 10.
CAD s/p stents
HTN
HLD
GIB, gastric ulcer 2019
H/o H pylori
Former [id number]-year quit 2008.
Plan recommendations:
Acute hypoxemic respiratory failure multifactorial-pneumonia/underlying malignant pleural effusion and lung cancer.
-
Suspect pneumonia based on CAT scan and low-grade fevers. Afebrile
Leukocytosis resolved
Chest x-ray stable pleural effusion on 11/19/2023-no pneumothorax.
Continue current antibiotics. Transition to oral antibiotics and complete total 7 days prior to discharge.
Cultures negative so far-sputum culture with usual respiratory roseann.
Negative MRSA
-
Patient usually not on oxygen based on 6-minute walk testing 08/2023 patient did not require oxygen after 6 minutes of ambulation. He does have baseline sinus tachycardia.
Currently on 4 L nasal cannula, will wean as tolerated.
Will need oxygen to go home. Which is new for him.
Will reevaluate in the outpatient setting
-
Patient is immunosuppressed. Will need close observation. Status post chemotherapy 3 weeks ago for his stage IV lung cancer.
CT chest reviewed: A small loculated right pleural effusion. Interventional radiology also agrees that at this point too small for thoracentesis. Will need to be followed. If there is enlargement of pleural effusion prior to discharge may need to
sample fluid given prior history of empyema. At this point close observation.
Will follow fever curve and leukocytosis.
Chest x-ray stable pleural effusion 11/19/2023. Reviewed.
Will need close outpatient follow-up.
-
With increased proBNP up to 5000, heart failure component also possibility.
Status post diuresis but developed hypotension. Cardiology does not feel heart failure is present.
Non-MA increase in troponins, trend troponins- currently chest pain free.
Reviewed, echo 11/17/23: EF 50 to 55%, no gross regional wall motion abnormalities, dilated RV with reduced RV systolic function, mild aortic regurgitation, mild TR with PAP 30 mmHg
Diuretics on hold patient developed some dizziness.
Cardiology follow, correspondence reviewed
-
In regards to COPD: Usually on Trelegy in the outpatient setting. No evidence for acute exacerbation
No indication for systemic corticosteroids.
Will continue to follow
-
Continue inhalers
Nebulizers as needed
Secretion clearance, Acapella device.
Physical therapy/Occupational Therapy as able
Incentive spirometry
-
In regards to stage IV lung cancer: On chemotherapy, follows up with Dr. Mallory.
New mediastinal lymph nodes may be reactive versus metastatic.
Right upper lobe lung mass small in size but has a cavitation. Will need outpatient radiographic follow-up.
-
DVT prophylaxis
-
Discharge planning in the next 24 hours.
Subjective Data
-
Date of Service:
Date of Service: November 19, 2023
Chief Complaint: Pulmonary Follow Up (Pneumonia)
Subjective:
Patient developed some dizziness with ambulation around the bed
Denies significant phlegm production or hemoptysis
Clinically he feels better
Remains on low rate supplemental oxygen
Afebrile
Review of Systems
Cardiopulmonary: Dyspnea and Dyspnea on Exertion
GI: Abdominal Pain (n)
Neuro: Headache (n)
Objective Data
Data Reviewed
Vital Signs / I&O / Oxygen:
Vital Signs
Temp Pulse Resp BP Pulse Ox
98.3 F 72 18 109/65 92
11/19/23 07:44 11/19/23 07:59 11/19/23 07:59 11/19/23 07:44 11/19/23 09:02
Intake and Output
11/18/23 11/19/23 11/20/23
06:59 06:59 06:59
Intake Total 1580 / 1580 600 / 600
Output Total 1650 / 1650 1950 / 1950
Balance -70 / -70 -1350 / -1350
SaO2 92
Nasal Cannula flow liters per 4
minute
Physical Exam
General: Comfortable
HEENT: Normocephalic
Cardiovascular: S1-S2
Respiratory: Crackles
GI: Soft and Non Distended
Neurology: Awake, Alert and No Motor Deficits
Skin: Warm
Labs/Micro/Reports
Lab Data
11/18/23 07:49
11/19/23 07:37
Microbiology
11/16/23 17:56 Sputum Respiratory Culture - Final
Usual Respiratory Roseann
11/16/23 17:56 Sputum Gram Stain - Final
11/17/23 10:23 Nose Nasal Screen MRSA (PCR) - Final
MRSA not detected - performed by PCR methodology.
11/16/23 17:56 Nasal Swab Influenza Types A & B (SANA) - Final
Negative for Influenza A & B, NAAT
Negative results must be combined with clinical observations
and patient history.
Nucleic Acid Amplification test (NAAT)performed on the
[employer] platform.
[2023-11-19 11:15] VITALS: BP 120/62
--- NOTE | 2023-11-19 11:34 | CM ---
Addendum entered by Eleanor Ribeiro 11/19/23 13:36:
CM spoke with Ebonie from [facility], O2 delivered bedside, will deliver home set up today for anticipated discharge tomorrow.
Original Note:
CM reviewed chart, discussed with Hospitalist. Patient seen bedside, discussed plan for discharge tomorrow. Patient will need home O2, patient agreeable to order through [facility], will fax to Ebonie at [facility]. CM will continue to follow for all
discharge planning needs.
Plan; home with O2, likely discharge tomorrow.
--- NOTE | 2023-11-19 11:38 | W.PN.ONC2 ---
Today's Communication / Plan
-
discharge planning in progress
Impression
Impression
stage IV lung cancer, on maintenance chemo/IO, last on 10/29/23
shortness of breath
fever, suspected pneumonia
elevated BNP, suspected CHF
Plan
Plan
Continue antibiotics and diuresis per primary team, cardiology, pulmonology
Primary lung mass appears smaller on CT scan, mediastinal nodes may be reactive, bone lesions are of uncertain significance
Monitor CBC, no significant cytopenias
Will plan to check PET as outpatient to assess further
Will postpone next treatment from 11/18 to 11/25
Subjective/Objective
Chief Complaint
no new complaints
Subjective
afebrile, no hypotension, 4L NC
Vital Signs:
Vital Signs
Temp Pulse Resp BP Pulse Ox
98.2 F 89 18 120/62 92
11/19/23 11:15 11/19/23 11:15 11/19/23 11:15 11/19/23 11:15 11/19/23 11:15
Lab Results:
Laboratory Data
WBC 6.8 10^3/uL (4.8-10.8) 11/18/23 07:49
Hgb 9.9 g/dL (13.0-18.0) L 11/18/23 07:49
Plt Count 300 10^3/uL (130-400) 11/18/23 07:49
eGFR > 60.00 11/19/23 07:37
Physical Exam
General: Well Developed, Well Nourished and No Apparent Distress
HEENT: Moist Mucous Membranes
Cardiology: Normal Sinus Rhythm
Pulmonary: Rales
GI: Soft
Musculoskeletal: No Clubbing, No Cyanosis and No Edema
Extremities: No C/C/E
Neurology: Non Focal
Skin: Warm and Dry
Psych: Calm and Intact Judgement/Insight
Review of Systems
Review of Systems
Review of systems notable for subjective otherwise negative
[2023-11-19 15:04] VITALS: BP 115/58
[2023-11-19] MEDS: ZOFRAN 4 MG IV (16:48)
[2023-11-19] MEDS: LOVENOX 40 MG SC (17:08)
[2023-11-19 19:45] VITALS: BP 133/69
[2023-11-19] MEDS: DESYREL 25 MG PO (21:12)
[2023-11-19] MEDS: LIPITOR 80 MG PO (21:13)
[2023-11-19 23:08] VITALS: BP 107/72
[2023-11-20] VITALS (7 sets, daily range): BP systolic 102–152; BP diastolic 55–86; PULSE 104; O2SAT 93; BMI 23.8
[2023-11-20] MEDS: MAXIPIME 2000 MG IV ×2 (00:25→07:52)
[2023-11-20] MEDS: STERILE WATER FOR INJECTION 10 ML IV ×2 (00:25→07:52)
[2023-11-20] MEDS: FLOMAX 0.4 MG PO (07:53)
[2023-11-20] MEDS: LOW STRENGTH ASPIRIN 81 MG PO (07:53)
[2023-11-20] MEDS: FOLVITE 1 MG PO (07:54)
[2023-11-20] MEDS: TOPROL XL 12.5 MG PO ×2 (07:54→20:43)
[2023-11-20] MEDS: SYMBICORT 80/4.5 MCG INHALER 2 PUFF INH ×2 (08:48→19:44)
--- NOTE | 2023-11-20 10:46 | W.PN.HOSP.TC ---
Addendum entered and electronically signed by Shruthi Cosby MD 11/20/23 12:12:
desaturated on 4L with PT - will keep overnight one more night
Original Note:
Today's Communication/Plan
-
OK for DC today
Assessment / Plan
Assessment / Plan
Mr. Nito Pearson is a 73 yo man with hx CAD, HTN, HLD, former smoker, COPD, stage IV lung adenocarcinoma (undergoing chemotherapy) with right malignant pleural effusion s/p b/l chest tube placement 04/11 which spontaneously came out; admission
06/14-07/03/23 with treatment of Empyema (placement and then removal of chest tube) discharged on long Levaquin course presents to the ER with shortness of breath found to have chronic appearing exudative effusion, possible PNA and new diagnosis heart
failure.
CXR 11/16/23
IMPRESSION:
1. Moderate right pleural effusion, likely with some loculation.
2. Right lower lobe airspace disease may also be present.
3. Right upper lobe mass seen on prior CT dated 09/04/2023 is not well appreciated on the current chest x-ray.
CHEST CT 11/16/23
IMPRESSION:
1. No evidence of pulmonary embolism or thoracic aortic dissection.
2. Small right pleural effusion, exudative, likely with some loculation.
3. Minimal right lower lobe airspace consolidation, which may represent compressive atelectasis or pneumonia.
4. Right upper lobe mass measures 4.8 cm in diameter, decreased in size compared to prior CT. Increased internal cavitation within the mass.
5. Mediastinal lymphadenopathy, new/worse compared to prior CT, likely metastatic.
6. Small sclerotic lesions within the thoracic spine, measuring up to 3 mm in diameter. Lesions are new compared to prior CT dated 04/09/2023, therefore concerning for small osseous metastases.
7. Moderate coronary arterial calcification. Please correlate with symptoms of and risk factors for coronary artery disease, with further workup as clinically appropriate.
TTE 11/17/23
CONCLUSIONS
Technically difficult study
Normal left ventricular size and function. Normal left ventricular wall
thickness. Left ventricular ejection fraction is 50-55% by visual assessment.
No gross regional wall motion abnormalities within limits of the study quality.
Normal diastolic function.
Dilated right ventricle with reduced systolic function.
Aortic sclerosis without stenosis. Mild aortic regurgitation.
Mild tricuspid regurgitation. Estimated pulmonary artery pressure of 30 mmHg.
Assuming a right atrial pressure of 3 mmHg.
Compared to prior study dated 04/13/2023 which was directly reviewed, right
ventricle now appears dilated
Right-sided malignant Pleural Effusion
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 >Coli, Staphy Haemolyticus)
Hx Bronchopleural fistula s/p VATS procedure at [place] with Dr. Gee
Hx of Empyema with admission 06/14-07/03/23 s/p 3 months course of Levaquin
Hypoxic Respiratory Failure
-admit to telemetry
-appreciate IR and Pulm eval - effusion appears exudative and chronic - no need for thoracentesis at this time
-Flu and covid negative, sputum culture not significant
-s/p 4 days of Cefepime --> DC on 3.5 more days Augmentin/doxy to complete 7 day course
Heart Failure, preserved EF acute exacerbation
-patient with JVP on intiial exam, suspect contributed to symptoms. patient then overdiuresed s/p fluids back
-hold further lasix
-Cardiology consult appreciated
-no need for lasix on DC
Non-AK Troponin Elevation
-suspect 2/2 stress from heart failure
-DC on aspirin given hx CAD
MAT
tachycardia
-continue metoprolol, dosing limited with low blood pressures
Stage IV Adenocarcinoma
Chest CT with progressive mediastinal lymphadenopathy and new small sclerotic lesions thoracic spine
-Hematology consult appreciated - plan for PET as outpatient; LN may be reactive; sclerotic lesions not specific
Coronary Artery Disease
-asa 81mg PO QD (per last cards note in August this was to be resumed)
-CUSTOMS DIRECTOR Metoprolol
Essential Hypertension
-CUSTOMS DIRECTOR Metoprolol
Hyperlipidemia
-CUSTOMS DIRECTOR Lipitor
BPH
-CUSTOMS DIRECTOR Flomax
DVT PPx Lovenox subQ
DNR - discussed on admission
51 minutes spent on patient care
Anticipated Discharge: Today
Subjective/Interval History
-
Date of Service: November 20, 2023
feeling better this morning and feels ready to go home
Objective Data
-
Vital Signs:
Vital Signs
Temp Pulse Resp BP Pulse Ox
98.5 F 98 19 102/63 95
11/20/23 08:06 11/20/23 08:06 11/20/23 08:06 11/20/23 08:06 11/20/23 08:56
I&O
11/19/23 11/20/23 11/21/23
06:59 06:59 06:59
Intake Total 600 / 600 1560 / 1560
Output Total 1950 / 1950 1075 / 1075
Balance -1350 / -1350 485 / 485
Review of Systems
-
History Source: Patient
All other systems: Reviewed and negative
Physical Exam
-
General: No Apparent Distress
HEENT: PERRLA
Respiratory: Clear to Auscultation; Negative Wheezes
Cardiac: Regular Rhythm and S1/S2; Negative JVD
GI: Soft and Nontender
Musculoskeletal: No Edema
Skin: Warm and Dry; Negative Rash
Neuro: AO x 3
Psych: Calm
Data Reviewed
-
Diagnostic Radiology: Report Reviewed by me
Labs: Labs Reviewed by me
[2023-11-20] MEDS: AUGMENTIN 875 MG/125 MG 1 TABLET PO ×2 (10:49→20:37)
[2023-11-20] MEDS: VIBRAMYCIN 100 MG PO ×2 (10:49→20:36)
[2023-11-20] MEDS: VISBIOME 1 CAP PO (10:49)
--- NOTE | 2023-11-20 10:50 | CM ---
Addendum entered by Eleanor Ribeiro 11/20/23 12:26:
Patient not discharging today, PT met with patient and recommending home health. Patient agreeable to [facility], TT to [facility] Liaison with referral.
Original Note:
Patient seen bedside, discussed plan for discharge. Home O2 delivered by [employer] bedside and delivered to home. Patient reports he will call his for transportation home. IMM reviewed, signed, placed in chart. CM will continue to follow for all
discharge planning needs.
Plan; home with new O2.
--- NOTE | 2023-11-20 11:03 | W.DS.TRANS ---
DC Summary - Statistician Theoretical
-
Discharge Instructions:
Discharge Diagnosis/Procedures community acquired pneumonia, multifocal atrial
tachycardia (fast heart rate)
Diet Regular
Activity As tolerated
Additional Activity Use 4L of oxygen at rest and with ambulation
Driving Restrictions As prior to admission
Bathing Restrictions None
Other Services VN,PT,OT
Instructions: *[facility] Heart Failure Instructions
Stand-Alone Forms:
Changes to Home Medications: Yes
Discharge Medications:
DC Medications w/original date entered in [employer]
acetaminophen 325 mg tablet (Tylenol) 650 mg PO DAILY Pain 06/15/23
albuterol sulfate 90 mcg/actuation aerosol inhaler 2 puff inhalation R Q6HPRN PRN sob 06/15/23
atorvastatin 80 mg tablet 80 mg PO HS High Cholesterol 06/15/23
fluticasone fur. 100 mcg-umeclid 62.5 mcg-vilant 25 mcg inhalat.powder (Trelegy Ellipta) 1 inh inhalation R DAILY Lung/Breathing Issues 06/15/23
folic acid 1 mg tablet 1 mg PO DAILY Supplement 06/15/23
tamsulosin 0.4 mg capsule 0.4 mg PO DAILY Urinary Issue 06/15/23
cyclobenzaprine 5 mg tablet 5 mg PO Q8HPRN PRN muscle spasms #30 tabs 07/03/23
metoprolol succinate 25 mg tablet,extended release 24 hr 12.5 mg (1/2 x 25 mg) PO BID Heart disease/condition 90 days #90 tabs 07/03/23
dexamethasone 4 mg tablet 4 mg PO UD INFLAMMATION 07/27/23
ondansetron HCl 8 mg tablet 8 mg PO T90BRPN PRN nausea 07/27/23
polyethylene glycol 3350 17 gram oral powder packet (Miralax) 17 g PO DAILYPRN PRN constipation 11/16/23
tramadol 50 mg tablet 50 mg PO Q8HPRN PRN moderate pain 11/16/23
Lactobac no.2-Bifidobac no.1-S. thermo 112.5 billion cell capsule (Visbiome) 1 cap PO DAILY #10 caps 11/20/23
amoxicillin 875 mg-potassium clavulanate 125 mg tablet 1 tab PO Q12 #6 tabs 11/20/23
aspirin 81 mg chewable tablet 81 mg PO DAILY #30 tabs 11/20/23
doxycycline hyclate 100 mg capsule 100 mg PO Q12 #6 caps 11/20/23
Home Medication Changes
You have 3 more days of antibiotics (Augmentin and Doxycycline)
Resume taking aspirin 81mg daily
You are prescribed a probiotic for a week - can be the one prescribed or an over the counter probiotic (can discuss with pharmacist)
Pending Results: No
--- NOTE | 2023-11-20 12:03 | W.PN.PUL3 ---
Today's Communication / Plan
-
for DC today.
ABX total 7d
Oxygen supplementation
Sign off.
Assessment
-
73-year-old male who is known to our practice with history of stage IV adenocarcinoma of the lung, malignant pleural effusion on the right, prior bronchopleural fistula, prior chest tube placement March and June 2023, evaluated at [facility]
[place] for PPF. Received antibiotics for empyema as well.
Readmitted 11/16/2023 for shortness of breath, we were consulted to evaluate his pleural effusion/abnormal CT chest.
Shortness of breath: Acute hypoxemic respiratory failure, currently on 5 L nasal cannula-multifactorial
Abnormal CT chest. 11/16/2023.
1. No evidence of pulmonary embolism or thoracic aortic dissection.
2. Small right pleural effusion, exudative, likely with some loculation.
3. Minimal right lower lobe airspace consolidation, which may represent compressive atelectasis or pneumonia.
4. Right upper lobe mass measures 4.8 cm in diameter, decreased in size compared to prior CT. Increased internal cavitation within the mass.
. Mediastinal lymphadenopathy, new/worse compared to prior CT, likely metastatic.
6. Small sclerotic lesions within the thoracic spine, measuring up to 3 mm in diameter. Lesions are new compared to prior CT dated 04/09/2023, therefore concerning for small osseous metastases.
7. Moderate coronary arterial calcification. Please correlate with symptoms of and risk factors for coronary artery disease, with further workup as clinically appropriate.
Low-grade fevers
Possible right lower lobe pneumonia
Mildly increased troponins/proBNP 5840 cannot rule out heart failure with preserved ejection fraction acute on chronic
Echocardiogram 04/13/2023: Report reviewed showed normal LVEF. Mild LVH. Mild AR. Mild to moderate TR. Estimated pulmonary artery pressure 45 to 50 mmHg.
RV function
EKG reviewed: Sinus tachycardia with premature atrial complexes. Nonspecific T wave abnormality.
Chronic normocytic anemia-likely contributing to symptoms
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
Large right pleural effusion due to empyema status post chest tube 06/15 by IR
Pleural fluid Cx (+) for E. coli
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
History of right large effusion with complete right lung atelectasis
Persistent air leak, suspected BP fistula, tx to [place] 03/2023
Heimlich valve placed, spontaneously fell out approximately mid April 2023
Right upper lobe mass, right lung volume loss with pneumothorax ex-vacuo due to entrapped lung physiology given his adenocarcinoma with MPE
Stage IV adenocarcinoma
Malignant right pleural effusion diagnosed March 2023
On chemotherapy -Follows Dr. Mallory locally.
sees Izabela Wood ([place])
COPD, on Trelegy- Follows with Dr. Petty
Last 6-minute walk testing 09/11/2023-with chronic sinus tachycardia. No oxygen requirements at that time low saturation was 93%. Dyspnea sensation 2 out of 10.
CAD s/p stents
HTN
HLD
GIB, gastric ulcer 2019
H/o H pylori
Former [id number]-lacd-year quit 2008.
Plan recommendations:
Acute hypoxemic respiratory failure multifactorial-pneumonia/underlying malignant pleural effusion and lung cancer.
-
Suspect pneumonia based on CAT scan and low-grade fevers. Afebrile
Leukocytosis resolved
Chest x-ray stable pleural effusion on 11/19/2023-no pneumothorax.
Continue current antibiotics. Transition to oral antibiotics and complete total 7 days prior to discharge.
Cultures negative so far-sputum culture with usual respiratory roseann.
Negative MRSA
-
Patient usually not on oxygen based on 6-minute walk testing 08/2023 patient did not require oxygen after 6 minutes of ambulation. He does have baseline sinus tachycardia.
Currently on 4 L nasal cannula, will DC on supplemental oxygen.
Will need oxygen to go home. Which is new for him.
Will reevaluate in the outpatient setting
-
Patient is immunosuppressed. Will need close observation. Status post chemotherapy 3 weeks ago for his stage IV lung cancer.
CT chest reviewed: A small loculated right pleural effusion. Interventional radiology also agrees that at this point too small for thoracentesis. Will need to be followed. If there is enlargement of pleural effusion prior to discharge may need to
sample fluid given prior history of empyema. At this point close observation.
Will follow fever curve and leukocytosis.
Chest x-ray stable pleural effusion 11/19/2023.
Will need close outpatient radiographic follow-up.
-
With increased proBNP up to 5000, heart failure component also possibility.
Status post diuresis but developed hypotension. Cardiology does not feel heart failure is present.
Non-IA increase in troponins, trend troponins- currently chest pain free.
Reviewed, echo 11/17/23: EF 50 to 55%, no gross regional wall motion abnormalities, dilated RV with reduced RV systolic function, mild aortic regurgitation, mild TR with PAP 30 mmHg
Diuretics on hold patient developed some dizziness.
Cardiology follow, correspondence reviewed
-
In regards to COPD: Usually on Trelegy in the outpatient setting. No evidence for acute exacerbation
No indication for systemic corticosteroids.
Will continue to follow
-
Continue inhalers
Nebulizers as needed
Secretion clearance, Acapella device.
Incentive spirometry can continue at home until recovered.
-
In regards to stage IV lung cancer: On chemotherapy, follows up with Dr. Mallory.
New mediastinal lymph nodes may be reactive versus metastatic.
Right upper lobe lung mass small in size but has a cavitation. Will need outpatient radiographic follow-up.
-
DVT prophylaxis
-
DC today.
Subjective Data
-
Date of Service:
Date of Service: November 20, 2023
Chief Complaint: Pulmonary Follow Up (Pneumonia)
Subjective:
Feels better.
No further dizziness
denies hemptysis or chest pain.
Review of Systems
Cardiopulmonary: Dyspnea (improved) and Cough (improved.)
GI: Abdominal Pain (n) and Nausea (n)
Objective Data
Data Reviewed
Vital Signs / I&O / Oxygen:
Vital Signs
Temp Pulse Resp BP Pulse Ox
98.4 F 105 17 103/73 93
11/20/23 11:09 11/20/23 11:09 11/20/23 11:09 11/20/23 11:09 11/20/23 11:09
Intake and Output
11/19/23 11/20/23 11/21/23
06:59 06:59 06:59
Intake Total 600 / 600 1560 / 1560
Output Total 1950 / 1950 1075 / 1075
Balance -1350 / -1350 485 / 485
SaO2 93
Nasal Cannula flow liters per 4
minute
Physical Exam
General: Comfortable
HEENT: Normocephalic
Cardiovascular: S1-S2
Respiratory: Crackles
GI: Soft and Non Distended
Neurology: Awake, Alert and No Motor Deficits
Skin: Warm
Labs/Micro/Reports
Lab Data
11/18/23 07:49
11/19/23 07:37
Microbiology
11/16/23 17:56 Sputum Respiratory Culture - Final
Usual Respiratory Roseann
11/16/23 17:56 Sputum Gram Stain - Final
11/17/23 10:23 Nose Nasal Screen MRSA (PCR) - Final
MRSA not detected - performed by PCR methodology.
[2023-11-20] MEDS: MUCINEX 600 MG PO ×2 (12:18→20:36)
--- NOTE | 2023-11-20 13:44 | VNURNOTE ---
Home Health Liaison met with patient at bedside to discuss [facility] nurse/therapy, visits, schedule and homebound status. Patient is agreeable and understands that visits at home will be 2-3 x per week to assess and teach medical management. He is new
to home . [facility] Patient stated PCP is Dr Paul. He last saw him Jan/Feb. [facility] brochure provided with contact information. Patient is aware that [facility] will contact them for start of care in 1-2 days after
discharge from .
[facility] referral completed in [facility].
[2023-11-20] MEDS: LOVENOX 40 MG SC (17:10)
[2023-11-20] MEDS: DESYREL 25 MG PO (20:43)
[2023-11-20] MEDS: LIPITOR 80 MG PO (20:43)
[2023-11-21] VITALS (7 sets, daily range): BP systolic 103–119; BP diastolic 63–79; PULSE 104; O2SAT 93; BMI 24.0
[2023-11-21] MEDS: SYMBICORT 80/4.5 MCG INHALER 2 PUFF INH ×2 (07:34→19:19)
[2023-11-21] MEDS: FOLVITE 1 MG PO (08:20)
[2023-11-21] MEDS: VISBIOME 1 CAP PO (08:20)
[2023-11-21] MEDS: FLOMAX 0.4 MG PO (08:20)
[2023-11-21] MEDS: AUGMENTIN 875 MG/125 MG 1 TABLET PO ×2 (08:20→20:47)
[2023-11-21] MEDS: MUCINEX 600 MG PO (08:21)
[2023-11-21] MEDS: TOPROL XL 12.5 MG PO ×2 (08:21→20:50)
[2023-11-21] MEDS: LOW STRENGTH ASPIRIN 81 MG PO (08:21)
[2023-11-21] MEDS: VIBRAMYCIN 100 MG PO ×2 (08:21→20:48)
--- NOTE | 2023-11-21 11:03 | W.PN.HOSP.TC ---
Addendum entered and electronically signed by Shrutih Cosby MD 11/22/23 11:34:
discharge order from 11/19 was meant to be cancelled
New discharge order today on 11/21 as patient is ready to leave
Original Note:
Today's Communication/Plan
-
approaching discharge
continue oral antibiotics
mucus clearing
Assessment / Plan
Assessment / Plan
Mr. Nito Pearson is a 73 yo man with hx CAD, HTN, HLD, former smoker, COPD, stage IV lung adenocarcinoma (undergoing chemotherapy) with right malignant pleural effusion s/p b/l chest tube placement 04/11 which spontaneously came out; admission
06/14-07/03/23 with treatment of Empyema (placement and then removal of chest tube) discharged on long Levaquin course presents to the ER with shortness of breath found to have chronic appearing exudative effusion, possible PNA and new diagnosis heart
failure.
CXR 11/16/23
IMPRESSION:
1. Moderate right pleural effusion, likely with some loculation.
2. Right lower lobe airspace disease may also be present.
3. Right upper lobe mass seen on prior CT dated 09/04/2023 is not well appreciated on the current chest x-ray.
CHEST CT 11/16/23
IMPRESSION:
1. No evidence of pulmonary embolism or thoracic aortic dissection.
2. Small right pleural effusion, exudative, likely with some loculation.
3. Minimal right lower lobe airspace consolidation, which may represent compressive atelectasis or pneumonia.
4. Right upper lobe mass measures 4.8 cm in diameter, decreased in size compared to prior CT. Increased internal cavitation within the mass.
5. Mediastinal lymphadenopathy, new/worse compared to prior CT, likely metastatic.
6. Small sclerotic lesions within the thoracic spine, measuring up to 3 mm in diameter. Lesions are new compared to prior CT dated 04/09/2023, therefore concerning for small osseous metastases.
7. Moderate coronary arterial calcification. Please correlate with symptoms of and risk factors for coronary artery disease, with further workup as clinically appropriate.
TTE 11/17/23
CONCLUSIONS
Technically difficult study
Normal left ventricular size and function. Normal left ventricular wall
thickness. Left ventricular ejection fraction is 50-55% by visual assessment.
No gross regional wall motion abnormalities within limits of the study quality.
Normal diastolic function.
Dilated right ventricle with reduced systolic function.
Aortic sclerosis without stenosis. Mild aortic regurgitation.
Mild tricuspid regurgitation. Estimated pulmonary artery pressure of 30 mmHg.
Assuming a right atrial pressure of 3 mmHg.
Compared to prior study dated 04/13/2023 which was directly reviewed, right
ventricle now appears dilated
Right-sided malignant Pleural Effusion
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 >Coli, Staphy Haemolyticus)
Hx Bronchopleural fistula s/p VATS procedure at [place] with Dr. Gee
Hx of Empyema with admission 06/14-07/03/23 s/p 3 months course of Levaquin
Hypoxic Respiratory Failure
-admit to telemetry
-appreciate IR and Pulm eval - effusion appears exudative and chronic - no need for thoracentesis at this time
-Flu and covid negative, sputum culture not significant
-s/p 4 days of Cefepime --> transitioned to Augmentin/Doxy to complete 7 day course
-mucinex, acapella, chest percussion
-home with O2 - 4L at rest and may need 8L on ambulation - discussed with pulmonary and not surprising given amount of chronic disease in lungs
-possible DC later today or tomorrow
Heart Failure, preserved EF acute exacerbation
-patient with JVP on intiial exam, suspect contributed to symptoms. patient then overdiuresed s/p fluids back
-hold further lasix
-Cardiology consult appreciated
-no need for lasix on DC
Non-DC Troponin Elevation
-suspect 2/2 stress from heart failure
-DC on aspirin given hx CAD
MAT
tachycardia
-continue metoprolol, dosing limited with low blood pressures
Stage IV Adenocarcinoma
Chest CT with progressive mediastinal lymphadenopathy and new small sclerotic lesions thoracic spine
-Hematology consult appreciated - plan for PET as outpatient; LN may be reactive; sclerotic lesions not specific
Coronary Artery Disease
-asa 81mg PO QD (per last cards note in August this was to be resumed)
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
Essential Hypertension
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
Hyperlipidemia
-FABRICATION MACHINE OPERATOR Lipitor
BPH
-FABRICATION MACHINE OPERATOR Flomax
DVT PPx Lovenox subQ
DNR - discussed on admission
51 minutes spent on patient care
Anticipated Discharge: Within 24 hours
Subjective/Interval History
-
Date of Service: November 21, 2023
feeling better
coughing up mucus
Objective Data
-
Vital Signs:
Vital Signs
Temp Pulse Resp BP Pulse Ox
98.2 F 102 18 103/68 96
11/21/23 07:00 11/21/23 07:40 11/21/23 07:40 11/21/23 07:00 11/21/23 08:20
I&O
11/20/23 11/21/23 11/22/23
06:59 06:59 06:59
Intake Total 1560 / 1560 960 / 960 140 / 140
Output Total 1075 / 1075 1325 / 1325 475 / 475
Balance 485 / 485 -365 / -365 -335 / -335
Review of Systems
-
History Source: Patient
All other systems: Reviewed and negative
Physical Exam
-
General: No Apparent Distress
HEENT: PERRLA
Respiratory: Other (decreased BS right lower lobe ); Negative Wheezes
Cardiac: Regular Rhythm and S1/S2; Negative JVD
GI: Soft and Nontender
Musculoskeletal: No Edema
Skin: Warm and Dry; Negative Rash
Neuro: AO x 3
Psych: Calm
Data Reviewed
-
Diagnostic Radiology: Report Reviewed by me
Labs: Labs Reviewed by me
[2023-11-21] MEDS: XOPENEX 0.63 MG INHALANT SOLUTION INH ×2 (15:05→19:20)
--- NOTE | 2023-11-21 15:58 | CM ---
Pt requested one more night in hospital. Will dc home 11/21.
Home O2 delivered and pt has portable.
[2023-11-21] MEDS: LOVENOX SC (16:02)
[2023-11-21] MEDS: ATROVENT NEBULES 0.5 MG INH (19:20)
[2023-11-21] MEDS: MUCINEX 1200 MG PO (20:47)
[2023-11-21] MEDS: LIPITOR 80 MG PO (20:48)
[2023-11-21] MEDS: DESYREL 25 MG PO (20:49)
[2023-11-22 06:00] VITALS: BMI 24.4
[2023-11-22] MEDS: SYMBICORT 80/4.5 MCG INHALER 2 PUFF INH (07:20)
[2023-11-22] MEDS: XOPENEX 0.63 MG INHALANT SOLUTION INH (07:20)
[2023-11-22] MEDS: ATROVENT NEBULES 0.5 MG INH (07:20)
[2023-11-22 07:52] VITALS: BP 105/70
[2023-11-22] MEDS: FOLVITE 1 MG PO (08:29)
[2023-11-22] MEDS: AUGMENTIN 875 MG/125 MG 1 TABLET PO (08:29)
[2023-11-22] MEDS: FLOMAX 0.4 MG PO (08:29)
[2023-11-22] MEDS: LOW STRENGTH ASPIRIN 81 MG PO (08:30)
[2023-11-22] MEDS: VISBIOME 1 CAP PO (08:30)
[2023-11-22] MEDS: VIBRAMYCIN 100 MG PO (08:30)
[2023-11-22] MEDS: TOPROL XL 12.5 MG PO (08:30)
[2023-11-22] MEDS: MUCINEX 1200 MG PO (08:30)
--- NOTE | 2023-11-22 09:41 | CM ---
Addendum entered by Delmi Acosta 11/22/23 13:23:
Pt to be discharged to home with nebulizer. [facility] will deliver this to home on Thursday. Medication to be picked up at pt's pharmacy by pt/.
Original Note:
CM met with Mr. Pearson at bedside this am. He is looking forward to going home; his will drive him home this afternoon. Portable O2 is at bedside and home O2 was delivered to home yesterday.
Mr. Pearson feels that the nebulizer treatment has been beneficial; TT to Dr. Cosby to make her aware and anticipate order for same discharge.
Plan: Discharge to home with [facility] and home O2 which has been delivered by [facility].
[2023-11-22 10:27] LABS: Hematocrit 30.7 % (39.0-52.0); Mean Corp Hgb Conc. 32.6 g/dL (33.0-37.0); Mean Corpuscular Hgb 27.9 pg (27.0-31.0); Mean Corpuscular Volume 85.8 fL (80.0-94.0); Mean Platelet Volume 8.3 fL (7.4-10.4); Red Blood Cell Count 3.58 10^6/uL (4.70-6.10); Red Cell Dist. Width 15.9 % (11.5-14.5); White Blood Cell Count 5.6 10^3/uL (4.8-10.8)
[2023-11-22 10:28] LABS: Blood Urea Nitrogen 14 mg/dl (9-20); Calcium 8.8 mg/dl (8.4-10.2); Carbon Dioxide 26 mmol/L (22-30); Chloride 100 mmol/L (98-107); Estimated Creatinine Clearance 96 ml/min; Glucose 130 mg/dl (70-99); Magnesium 1.6 mg/dl (1.6-2.3); Potassium 3.8 mmol/L (3.5-5.1); Sodium 135 mmol/L (135-145); eGFR > 60.00
[2023-11-22 11:25] LABS: Platelet Count 196 10^3/uL (130-400)
--- NOTE | 2023-11-22 11:27 | W.PN.HOSP.TC ---
Today's Communication/Plan
-
OK for DC today
Assessment / Plan
Assessment / Plan
Mr. Nito Pearson is a 73 yo man with hx CAD, HTN, HLD, former smoker, COPD, stage IV lung adenocarcinoma (undergoing chemotherapy) with right malignant pleural effusion s/p b/l chest tube placement 04/11 which spontaneously came out; admission
06/14-07/03/23 with treatment of Empyema (placement and then removal of chest tube) discharged on long Levaquin course presents to the ER with shortness of breath found to have chronic appearing exudative effusion, possible PNA and new diagnosis heart
failure.
CXR 11/16/23
IMPRESSION:
1. Moderate right pleural effusion, likely with some loculation.
2. Right lower lobe airspace disease may also be present.
3. Right upper lobe mass seen on prior CT dated 09/04/2023 is not well appreciated on the current chest x-ray.
CHEST CT 11/16/23
IMPRESSION:
1. No evidence of pulmonary embolism or thoracic aortic dissection.
2. Small right pleural effusion, exudative, likely with some loculation.
3. Minimal right lower lobe airspace consolidation, which may represent compressive atelectasis or pneumonia.
4. Right upper lobe mass measures 4.8 cm in diameter, decreased in size compared to prior CT. Increased internal cavitation within the mass.
5. Mediastinal lymphadenopathy, new/worse compared to prior CT, likely metastatic.
6. Small sclerotic lesions within the thoracic spine, measuring up to 3 mm in diameter. Lesions are new compared to prior CT dated 04/09/2023, therefore concerning for small osseous metastases.
7. Moderate coronary arterial calcification. Please correlate with symptoms of and risk factors for coronary artery disease, with further workup as clinically appropriate.
TTE 11/17/23
CONCLUSIONS
Technically difficult study
Normal left ventricular size and function. Normal left ventricular wall
thickness. Left ventricular ejection fraction is 50-55% by visual assessment.
No gross regional wall motion abnormalities within limits of the study quality.
Normal diastolic function.
Dilated right ventricle with reduced systolic function.
Aortic sclerosis without stenosis. Mild aortic regurgitation.
Mild tricuspid regurgitation. Estimated pulmonary artery pressure of 30 mmHg.
Assuming a right atrial pressure of 3 mmHg.
Compared to prior study dated 04/13/2023 which was directly reviewed, right
ventricle now appears dilated
Right-sided malignant Pleural Effusion
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 >Coli, Staphy Haemolyticus)
Hx Bronchopleural fistula s/p VATS procedure at [place] with Dr. Gee
Hx of Empyema with admission 06/14-07/03/23 s/p 3 months course of Levaquin
Hypoxic Respiratory Failure
-admit to telemetry
-appreciate IR and Pulm eval - effusion appears exudative and chronic - no need for thoracentesis at this time
-Flu and covid negative, sputum culture not significant
-s/p 4 days of Cefepime --> transitioned to Augmentin/Doxy to complete 10 day course (given prolonged recovery) - will continue the 3 additional days
-mucinex, acapella, chest percussion
-home with O2 - 4L at rest and may need 8L on ambulation - discussed with pulmonary and not surprising given amount of chronic disease in lungs
-continue nebulizers - DME to be delivered tomorrow
-OK for DC Today
Heart Failure, preserved EF acute exacerbation
-patient with JVP on intiial exam, suspect contributed to symptoms. patient then overdiuresed s/p fluids back
-hold further lasix
-Cardiology consult appreciated
-no need for lasix on DC
Non-LA Troponin Elevation
-suspect 2/2 stress from heart failure
-DC on aspirin given hx CAD
MAT
tachycardia
-continue metoprolol, dosing limited with low blood pressures
Stage IV Adenocarcinoma
Chest CT with progressive mediastinal lymphadenopathy and new small sclerotic lesions thoracic spine
-Hematology consult appreciated - plan for PET as outpatient; LN may be reactive; sclerotic lesions not specific
Coronary Artery Disease
-asa 81mg PO QD (per last cards note in August this was to be resumed)
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
Essential Hypertension
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
Hyperlipidemia
-BAKING FACTORY WORKER Lipitor
BPH
-BAKING FACTORY WORKER Flomax
DVT PPx Lovenox subQ
DNR - discussed on admission
51 minutes spent on patient care
Anticipated Discharge: Today
Subjective/Interval History
-
Date of Service: November 22, 2023
feeling better
nebulizers help
wants to go home today
Objective Data
-
Labs:
Laboratory Results
11/22/23
10:08
WBC 5.6
Hgb 10.0 L
Hct 30.7 L
Plt Count 196 D
Sodium 135
Potassium 3.8
Chloride 100
Carbon Dioxide 26
BUN 14
Creatinine 0.7
Glucose 130 H
Calcium 8.8
Vital Signs:
Vital Signs
Temp Pulse Resp BP Pulse Ox
96.6 F L 96 18 105/70 100
11/22/23 07:52 11/22/23 07:52 11/22/23 07:52 11/22/23 07:52 11/22/23 08:25
I&O
11/21/23 11/22/23 11/23/23
06:59 06:59 06:59
Intake Total 960 / 960 1700 / 1700
Output Total 1325 / 1325 1825 / 1825
Balance -365 / -365 -125 / -125
Review of Systems
-
History Source: Patient
All other systems: Reviewed and negative
Physical Exam
-
General: No Apparent Distress
HEENT: PERRLA
Respiratory: Other (decreased BS right lower lobe ); Negative Wheezes
Cardiac: Regular Rhythm and S1/S2; Negative JVD
GI: Soft and Nontender
Musculoskeletal: No Edema
Skin: Warm and Dry; Negative Rash
Neuro: AO x 3
Psych: Calm
Data Reviewed
-
Diagnostic Radiology: Report Reviewed by me
Labs: Labs Reviewed by me
--- NOTE | 2023-11-22 11:32 | W.DS.TRANS ---
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
-
Discharge Instructions:
Discharge Diagnosis/Procedures community acquired pneumonia, multifocal atrial
tachycardia (fast heart rate)
Diet Regular
Activity As tolerated
Additional Activity Use 4L of oxygen at rest and 8L with ambulation
Driving Restrictions As prior to admission
Bathing Restrictions None
Other Services VN,PT,OT
Instructions: *[facility] Heart Failure Instructions
Stand-Alone Forms:
Changes to Home Medications: Yes
Discharge Medications:
DC Medications w/original date entered in English [employer]
acetaminophen 325 mg tablet (Tylenol) 650 mg PO DAILY Pain 06/15/23
albuterol sulfate 90 mcg/actuation aerosol inhaler 2 puff inhalation R Q6HPRN PRN sob 06/15/23
atorvastatin 80 mg tablet 80 mg PO HS High Cholesterol 06/15/23
fluticasone fur. 100 mcg-umeclid 62.5 mcg-vilant 25 mcg inhalat.powder (Trelegy Ellipta) 1 inh inhalation R DAILY Lung/Breathing Issues 06/15/23
folic acid 1 mg tablet 1 mg PO DAILY Supplement 06/15/23
tamsulosin 0.4 mg capsule 0.4 mg PO DAILY Urinary Issue 06/15/23
cyclobenzaprine 5 mg tablet 5 mg PO Q8HPRN PRN muscle spasms #30 tabs 07/03/23
metoprolol succinate 25 mg tablet,extended release 24 hr 12.5 mg (1/2 x 25 mg) PO BID Heart disease/condition 90 days #90 tabs 07/03/23
dexamethasone 4 mg tablet 4 mg PO UD INFLAMMATION 07/27/23
ondansetron HCl 8 mg tablet 8 mg PO [id number] PRN nausea 07/27/23
polyethylene glycol 3350 17 gram oral powder packet (Miralax) 17 g PO DAILYPRN PRN constipation 11/16/23
tramadol 50 mg tablet 50 mg PO Q8HPRN PRN moderate pain 11/16/23
Lactobac no.2-Bifidobac no.1-S. thermo 112.5 billion cell capsule (Visbiome) 1 cap PO DAILY #10 caps 11/20/23
amoxicillin 875 mg-potassium clavulanate 125 mg tablet 1 tab PO Q12 #6 tabs 11/20/23
aspirin 81 mg chewable tablet 81 mg PO DAILY #30 tabs 11/20/23
doxycycline hyclate 100 mg capsule 100 mg PO Q12 #6 caps 11/20/23
levalbuterol HCl 0.63 mg/3 mL solution for nebulization 0.63 mg (3 mL) inhalation Q8H PRN shortness of breath or wheezing #72 mL 11/22/23
Home Medication Changes
You have 3 more days of antibiotics (Augmentin and Doxycycline). You will take a total of a 10 day course given prolonged recovery.
Resume taking aspirin 81mg daily
You are prescribed a probiotic for a week
You are prescribed levalbuterol nebulizers.
Pending Results: No
--- NOTE | 2023-11-22 13:43 | W.DCSUMMARY ---
Addendum entered and electronically signed by Shruthi Cosby MD 11/22/23 13:58:
He is also told to resume aspirin for hx CAD.
Original Note:
Discharge Summary
Discharge Data
Date of Admission: 11/16/23
Date of Discharge: 11/22/23
-
Pending Results: No
Hospital Course
Discharging Physician : Dr. Shruthi Cosby
Disposition : Home with VN
Principal Discharge diagnosis : community acquired pneumonia, multifocal atrial tachycardia (fast heart rate), hypoxic respiratory failure
Hospital Course :
Mr. Nito Pearson (Mike) is a 73 yo man with hx CAD, HTN, HLD, former smoker, COPD, stage IV lung adenocarcinoma (undergoing chemotherapy) with right malignant pleural effusion s/p b/l chest tube placement 04/11 which spontaneously came out; admission
06/14-07/03/23 with treatment of Empyema (placement and then removal of chest tube) discharged on long Levaquin course presents to the ER with shortness of breath.
Triage vitals significant for hypoxia, P 107, labs with elevated BNP and EKG with multifocal tachycardia. CXR and Chest CT with e/o pneumonia. CTA without PE. Exudative effusion seen. On exam patient appeared volume overloaded with elevated JVP.
He was admitted to medicine with Oncology, Cardiology and Pulmonary consulting.
Regarding effusion, discussed with IR and Pulmonary and appearance was chronic, not cause of current symptoms. Decision made to avoid thoracentesis.
Regarding PNA, patient was treated with Cefepime (MRSA swab negative) and transitioned to Augmentin/Doxy on DC to complete a total of a 10 day course.
Regarding heart failure, he received 2 doses of IV lasix but then became mildly hypotensive and dizzy requiring fluid resuscitation. TTE without significant change in EF; RV now dilated. No further diuresis recommended.
He was kept on his [employer] Metoprolol for MAT.
Patient remained with high O2 needs requiring 4L at rest, 8 with ambulation. Discussed with pulmonary and not surprising given degree of chronic disease in lung. He felt relief with levalbuterol nebulizers - prescribed at discharge. He is
discharged with home oxygen.
Time spent on discharge was 40 minutes.
Important imaging findings :
CXR 11/16/23
IMPRESSION:
1. Moderate right pleural effusion, likely with some loculation.
2. Right lower lobe airspace disease may also be present.
3. Right upper lobe mass seen on prior CT dated 09/04/2023 is not well appreciated on the current chest x-ray.
CHEST CT 11/16/23
IMPRESSION:
1. No evidence of pulmonary embolism or thoracic aortic dissection.
2. Small right pleural effusion, exudative, likely with some loculation.
3. Minimal right lower lobe airspace consolidation, which may represent compressive atelectasis or pneumonia.
4. Right upper lobe mass measures 4.8 cm in diameter, decreased in size compared to prior CT. Increased internal cavitation within the mass.
5. Mediastinal lymphadenopathy, new/worse compared to prior CT, likely metastatic.
6. Small sclerotic lesions within the thoracic spine, measuring up to 3 mm in diameter. Lesions are new compared to prior CT dated 04/09/2023, therefore concerning for small osseous metastases.
7. Moderate coronary arterial calcification. Please correlate with symptoms of and risk factors for coronary artery disease, with further workup as clinically appropriate.
TTE 11/17/23
CONCLUSIONS
Technically difficult study
Normal left ventricular size and function. Normal left ventricular wall
thickness. Left ventricular ejection fraction is 50-55% by visual assessment.
No gross regional wall motion abnormalities within limits of the study quality.
Normal diastolic function.
Dilated right ventricle with reduced systolic function.
Aortic sclerosis without stenosis. Mild aortic regurgitation.
Mild tricuspid regurgitation. Estimated pulmonary artery pressure of 30 mmHg.
Assuming a right atrial pressure of 3 mmHg.
Compared to prior study dated 04/13/2023 which was directly reviewed, right
ventricle now appears dilated
Procedure findings :
Discharge Plan
-
Patient Disposition: Home with Home Care
Discharge Diagnosis/Procedures: community acquired pneumonia, multifocal atrial tachycardia (fast heart rate)
Diet: Regular
Activity: As tolerated
Additional Activity: Use 4L of oxygen at rest and 8L with ambulation
Driving Restrictions: As prior to admission
Bathing Restrictions: None
Other Services: VN, PT and OT
Instructions: *[facility] Heart Failure Instructions
Referrals:
Alice Petty MD [Active] - in two to three weeks
Amira Mallory MD [Active] -
Yann Raphael MD [Active] - in two to three weeks
NONE,* [Family Provider] - in less than 1 week
Additional Discharge Medication Instructions: You have 3 more days of antibiotics (Augmentin and Doxycycline). You will take a total of a 10 day course given prolonged recovery.
Resume taking aspirin 81mg daily
You are prescribed a probiotic for a week - can be the one prescribed or an over the counter probiotic (can discuss with pharmacist)
Doxycycline Precautions
�� Take with at least 6 oz H2O
�� Take with food but no calcium containing products like milk or cheese
�� Ideally you would not take any multivitamins, calcium, magnesium or zinc containing products.
�� If you must take one of these products make sure that the pills are by at least 3 hours.
�� Sit up for at least 30 minutes after each dose to prevent heartburn.
�� Your skin will be more sensitive to the sun while you are on doxycycline - it will be very easy for you to get a sunburn.
You are prescribed levalbuterol nebulizers.
Prescriptions:
New
aspirin 81 mg Tablet,Chewable
81 mg PO DAILY Qty: 30 0RF
amoxicillin-pot clavulanate 875-125 mg Tablet
1 tab PO Q12 Qty: 6 0RF
doxycycline hyclate 100 mg Capsule
100 mg PO Q12 Qty: 6 0RF
Visbiome 112.5 billion cell capsule
1 cap PO DAILY Qty: 10 0RF
levalbuterol HCl 0.63 mg/3 mL solution for nebulization
0.63 mg inhalation Q8H PRN (Reason: shortness of breath or wheezing) Qty: 72 0RF
Continued
atorvastatin 80 mg Tablet
80 mg PO HS
acetaminophen [Tylenol] 325 mg Tablet
650 mg PO DAILY
tamsulosin 0.4 mg Capsule
0.4 mg PO DAILY
folic acid 1 mg Tablet
1 mg PO DAILY
albuterol sulfate 90 mcg/actuation Hfa Aerosol Inhaler
2 puff INHALATION R Q6HPRN PRN (Reason: sob)
Trelegy Ellipta 100-62.5-25 mcg Blister With Device
1 inh INHALATION R DAILY
metoprolol succinate 25 mg tablet extended release 24 hr
12.5 mg PO BID 90 Days Qty: 90 0RF
cyclobenzaprine 5 mg Tablet
5 mg PO Q8HPRN PRN (Reason: muscle spasms) Qty: 30 0RF
ondansetron HCl 8 mg Tablet
8 mg PO [id number] PRN (Reason: nausea)
dexamethasone 4 mg Tablet
4 mg PO UD
Rx Instructions:
take bid for 2 after chemo
polyethylene glycol 3350 [Miralax] 17 gram Powder In Packet
17 g PO DAILYPRN PRN (Reason: constipation)
tramadol 50 mg tablet
50 mg PO Q8HPRN PRN (Reason: moderate pain)
Discharge Orders:
Discharge Patient (As Directed); Ordered 11/22/23
Ordered By: Shruthi Cosby
Discharge Date and Time
Print Language: TURKISH
[2023-11-22 14:00] VITALS: BP 125/70
== END 2023-11-22 14:32 | disposition home health service (06) | DRG 193 ==
LOC: 4 WEST ACU 16:27
PROVIDERS: ADMITTING PHYSICIAN Student in an Organized Health Care Education/Training Program; CONSULT PHYSICIAN Internal Medicine Critical Care Medicine; CONSULT PHYSICIAN Nuclear Medicine Nuclear Cardiology; EMERGENCY PHYSICIAN Emergency Medicine; OTHER PHYSICIAN Internal Medicine Hematology & Oncology
DX: J18.9 Pneumonia, unspecified organism (principal); J96.01 Acute respiratory failure with hypoxia; J91.0 Malignant pleural effusion; J44.0 Chronic obstructive pulmonary disease with (acute) lower respiratory infection; D84.9 Immunodeficiency, unspecified; I5A Non-ischemic myocardial injury (non-traumatic); I47.19 Other supraventricular tachycardia; C34.90 Malignant neoplasm of unspecified part of unspecified bronchus or lung; F17.200 Nicotine dependence, unspecified, uncomplicated; I50.9 Heart failure, unspecified; I11.0 Hypertensive heart disease with heart failure; I25.10 Atherosclerotic heart disease of native coronary artery without angina pectoris; E78.00 Pure hypercholesterolemia, unspecified; Z66 Do not resuscitate; N40.0 Benign prostatic hyperplasia without lower urinary tract symptoms; Z11.52 Encounter for screening for COVID-19
CPT/HCPCS: 71045; 71046; 71275; 80048; 80053; 80061; 83735; 83880; 84443; 84484; 85025; 85027; 87070; 87205; 87502; 87641; 87811; 93005; 93306; 94640; 96365; 96366; 96375; 97116; 97162; 99285; Q9967